=== PATIENT | male | born 1955 | race Caucasian/White ===

== ENCOUNTER → 2017-09-02 09:53 | Outpatient (CLI) | payer OTHER, SELFPAY ==
[2017-09-02 12:31] LABS: ALB/GLOB Ratio 0.8 RATIO (0.9-2.4); AST(SGOT) 35 U/L (15-37); Alanine Aminotransfer ALT/SGPT 68 U/L (16-61); Albumin, Serum 3.6 g/dL (3.2-5.0); Alkaline Phosphatase 52 U/L (45-117); Anion Gap 7 (5-15); BUN 17 mg/dL (7-18); Calcium,Total 8.9 mg/dL (8.5-10.1); Chloride 102 mmol/L (98-107); Creatinine, Serum 0.77 mg/dL (0.70-1.30); EST Glomerular Filtration Rate 109 mL/min (>60); Est Glom Filt Rate - Afr Amer 131 mL/min (>60); Globulin 4.4 g/dL (2.2-4.2); Glucose 189 mg/dL (74-106); Potassium 3.8 mmol/L (3.5-5.1); Sodium Level 136 mmol/L (136-145)
== END ==
PROVIDERS: Family Provider Family Medicine; PCP Family Medicine; Visit Provider Family Medicine
DX: K75.81 Nonalcoholic steatohepatitis (NASH) (principal); E11.9 Type 2 diabetes mellitus without complications
CPT/HCPCS: 36415; 80053

== ENCOUNTER → 2018-03-11 10:08 | Outpatient (CLI) | payer OTHER, SELFPAY ==
[2018-03-11 12:09] LABS: Absolute Lymphocyte Count 1.92 X10^3/ul (0.83-4.51); Absolute Neutrophil Count 2.7 X10^3/uL (2.0-7.7); Basophil# 0.04 X10^3/uL; Basophil% 0.7 % (0-1); Eosinophil# 0.17 X10^3/uL; Eosinophils% 3.2 % (0-5); Hematocrit 47.7 % (40-54); Hemoglobin 15.8 g/dl (13.0-16.5); Lymphocyte # 1.92 X10^3/ul (4.0); Lymphocyte % 35.7 % (19-41); Mean Corp Hgb Conc 33.1 g/gl (32-36); Mean Corpuscular Hgb 31.7 pg (27.0-32.0); Mean Corpuscular Volume 95.8 fL (80-94); Mean Platelet Vol. 11.1 fl (6.2-12.0); Monocyte# 0.52 X10^3/uL; Monocyte% 9.7 % (0-10); Neutrophil # 2.72 X10^3/uL (2.7-7.7); Neutrophil % 50.5 % (47-70); POSITIVE COUNT NO; POSITIVE DIFFERENTIAL NO; POSITIVE MORPHOLOGY NO; Platelet Count 204 K/mm3 (150-450); RBC Distribution Width CV 12.9 % (11.6-14.6); RBC Distribution Width SD 44.7 fl (35.1-43.9); Red Blood Count 4.98 M/mm3 (4.6-6.2); White Blood Count 5.4 K/mm3 (4.4-11.0)
[2018-03-11 12:37] LABS: ALB/GLOB Ratio 0.9 RATIO (0.9-2.4); AST(SGOT) 28 U/L (15-37); Alanine Aminotransfer ALT/SGPT 43 U/L (16-61); Albumin, Serum 3.8 g/dL (3.2-5.0); Alkaline Phosphatase 58 U/L (45-117); Anion Gap 9 (5-15); BUN 20 mg/dL (7-18); BUN/Creat Ratio 28.9 RATIO (10-20); Calcium,Total 8.7 mg/dL (8.5-10.1); Chloride 104 mmol/L (98-107); Cholesterol 191 mg/dL (200); Creatinine, Serum 0.69 mg/dL (0.70-1.30); EST Glomerular Filtration Rate 123 mL/min (>60); Est Glom Filt Rate - Afr Amer 149 mL/min (>60); Globulin 4.2 g/dL (2.2-4.2); Glucose 87 mg/dL (74-106); High Density Lipoprotein 47 mg/dL; Potassium 3.8 mmol/L (3.5-5.1); Sodium Level 140 mmol/L (136-145); Thyroid Stim Hormone (TSH) 1.26 uIU/mL (0.358-3.74); Triglycerides 99 mg/dL; Very Low Density Lipoprotein 20 mg/dL (5-40)
[2018-03-11 12:52] LABS: Vitamin B12 426 pg/mL (211-911)
== END ==
PROVIDERS: Family Provider Family Medicine; PCP Family Medicine; Visit Provider Family Medicine
DX: E11.9 Type 2 diabetes mellitus without complications (principal); I10 Essential (primary) hypertension; K75.81 Nonalcoholic steatohepatitis (NASH); G62.9 Polyneuropathy, unspecified
CPT/HCPCS: 36415; 80053; 80061; 82607; 84443; 85025

== ENCOUNTER → 2018-10-19 | Outpatient (CLI) | payer MEDICARE, SELFPAY ==
[2018-10-19 12:41] LABS: Basophil# 0.06 X10^3/uL; Eosinophil# 0.17 X10^3/uL; Eosinophils% 2.9 % (0-5); Hematocrit 46.4 % (40-54); Hemoglobin 15.5 g/dl (13.0-16.5); Lymphocyte % 34.2 % (19-41); Mean Corp Hgb Conc 33.4 g/gl (32-36); Mean Corpuscular Hgb 31.8 pg (27.0-32.0); Mean Corpuscular Volume 95.3 fL (80-94); Monocyte# 0.57 X10^3/uL; Monocyte% 9.7 % (0-10); Neutrophil # 3.04 X10^3/uL (2.7-7.7); Platelet Count 225 K/mm3 (150-450); RBC Distribution Width CV 13.4 % (11.6-14.6); RBC Distribution Width SD 46.5 fl (35.1-43.9); Red Blood Count 4.87 M/mm3 (4.6-6.2); White Blood Count 5.9 K/mm3 (4.4-11.0)
[2018-10-19 12:51] LABS: POSITIVE COUNT NO; POSITIVE DIFFERENTIAL NO; POSITIVE MORPHOLOGY NO
[2018-10-19 12:53] LABS: AST(SGOT) 21 U/L (15-37); Alanine Aminotransfer ALT/SGPT 27 U/L (16-61); Albumin, Serum 3.6 g/dL (3.2-5.0); Alkaline Phosphatase 61 U/L (45-117); Anion Gap 5 (5-15); BUN 16 mg/dL (7-18); Calcium,Total 8.6 mg/dL (8.5-10.1); Chloride 106 mmol/L (98-107); Creatinine, Serum 0.57 mg/dL (0.70-1.30); EST Glomerular Filtration Rate 153 mL/min (>60); Est Glom Filt Rate - Afr Amer 185 mL/min (>60); Globulin 3.6 g/dL (2.2-4.2); Glucose 117 mg/dL (74-106); Potassium 3.7 mmol/L (3.5-5.1); Protein, Total 7.2 g/dL (6.4-8.2); Sodium Level 137 mmol/L (136-145)
== END | disposition home or self-care (01) ==
PROVIDERS: Family Provider Family Medicine; PCP Family Medicine; Visit Provider Family Medicine
DX: E11.9 Type 2 diabetes mellitus without complications (principal); I10 Essential (primary) hypertension; K75.81 Nonalcoholic steatohepatitis (NASH)
CPT/HCPCS: 36415; 80053; 85025

== ENCOUNTER 2019-09-10 11:50 | Inpatient (IN) | payer MEDICARE, SELFPAY ==
[2019-09-10] VITALS (33 sets, daily range): BP systolic 159–226; BP diastolic 66–148; PULSE 53–69; RESP 11–19; TEMP 36.5–36.7; O2SAT 92–98; BMI 31.2; BMI 29.8
--- NOTE | 2019-09-10 12:06 | EKG12_ITS ---
Test Reason : NEURO Blood Pressure : / mmHG Vent. Rate : 054 BPM Atrial Rate : 054 BPM P-R Int : 158 ms QRS Dur : 094 ms QT Int : 468 ms P-R-T Axes : 022 019 -02 degrees QTc Int : 443 ms Sinus bradycardia Inferior infarct , age undetermined , cannot be excluded Abnormal ECG Confirmed by LIZZ DAN, MIRIAM ([id number]), book editor ABEL GILBERT ([id number]) on 09/13/2019 9:56:19 AM Referred By: ARMANDO Confirmed By:MIRIAM ZAMUDIO MD
--- NOTE | 2019-09-10 12:10 | RAD_ITS ---
EXAM DESCRIPTION: PORTABLE AP CHEST CLINICAL HISTORY: 63 years Male, WEAKNESS IN ALL EXTREMITIES BUT RIGHT LEG IS WORSE -- FAMILY THINKS PATIENT''S SPEECH IS LESS CLEAR THAN NORMAL WEAKNESS IN ALL EXTREMITIES BUT RIGHT LEG IS WORSE -- FAMILY THINKS PATIENT''S SPEECH IS LESS CLEAR THAN NORMAL COMPARISON: None FINDINGS: This patient has had a spinal fusion involving the lower cervical spine. The rest of the thorax is intact. The heart and mediastinum appear to be within normal limits. The lungs appear to be well areated without evidence of pneumonic consolidation or pleural effusion. RAD/Chest 1 View IMPRESSION: No acute pathology Electronically Signed: Kirby Arias, at 13:30 EST Tel , Service support ,
--- NOTE | 2019-09-10 12:12 | ED.VIS.GEN ---
History of Present Illness Chief Complaint: Neuro S/Sx Detail of Chief Complaint: Weakness, incoordination Informant: Patient Onset: Days Narrative: Patient states he woke either yesterday or the day before with a sensation that his legs just were not quite working right. He felt he kept catching his right toe when he was trying to walk. He denies numbness or tingling to his legs. Last evening he tried to play the guitar and states his hands just would not work right to play the guitar either. He denies headache. Past history is significant for hypertension diabetes. Patient states he lost quite a bit of weight in the last year and is been able to decrease many of his medications. - Past Medical History (1) Hypertension Status: Chronic (2) Diabetes Status: Chronic Past Medical History - Allergies and Home Meds Allergies/Adverse Reactions: Allergies loratadine [From Tavist [place]] Allergy (Verified 09/10/19 11:53) Hives Primary Care Physician: Paco Hart MD [Primary Care Provider] - Prior records reviewed: Yes Lives: Spouse/ Significant Other Review of Systems General: Denies: Chills, Fever Eyes: Denies: Visual changes - bilaterally ENT: Denies: Bilateral ear pain Cardiovascular: Denies: Chest pain, Palpitations Respiratory: Denies: Dyspnea, Cough Gastrointestinal: Denies: Abdominal pain, Nausea, Vomiting, Diarrhea Musculoskeletal: Denies: Back pain, Extremity Pain Skin: Denies: Rash Neurological: Reports: Weakness. Denies: Headache, Parasthesia Hematologic: Denies: Easy bruising, Easy bleeding Allergy: Denies: Uticaria Physical Exam Vital Signs/Narrative: Vital Signs Temp Pulse Resp BP Pulse Ox 09/10/19 11:50 98 F 62 16 221/96 H 98 Inital Vital Signs reviewed: Yes General: Well nourished, Well developed Head: Normocephalic ENT: Moist mucous membranes Neck: Supple Cardiovascular: Regular rate, Regular rhythm Respiratory: No distress, CTA bilaterally Abdomen: Soft, Nontender, Nondistended Extremities: Nontender Skin: Normal color, No rash Neurological: Alert, Oriented x3, - - NIH equals 1 for mild ataxia. Psychological: Normal affect Diagnostic/Tx/Re-eval Impressions Chest X-Ray 09/10/19 12:10 IMPRESSION: No acute pathology Electronically Signed: Kirby Arias, at 13:30 EST Tel , Service support , Head/Neck CTA 09/10/19 13:02 IMPRESSION: 1. Moderate (70%) right carotid stenosis. 2. Mild (20%) left carotid stenosis. 3. Patent vertebral arteries bilaterally. The left vertebral artery is hypoplastic. 4. No intracranial stenosis or aneurysm. Hypoplastic A1 segment the right anterior cerebral artery. Electronically Signed: Harley Mcnair MD at 14:18 EST Tel , Service support , 09/10/19 12:10 Chest 1 View [RAD] Stat 09/10/19 13:02 CTA Head AND Neck W/ Contrast [CT] Stat Laboratory Results 09/10/19 09/10/19 09/10/19 12:25 12:35 12:35 WBC 6.2 RBC 5.35 Hgb 17.2 H Hct 50.1 MCV 93.6 MCH 32.1 H MCHC 34.3 RDW Std Deviation 41.2 RDW Coeff of Adan 12.0 Plt Count 200 MPV 10.4 Immature Gran % (Auto) 0.300 Neut % (Auto) 62.0 Lymph % (Auto) 27.1 [place] % (Auto) 8.3 Eos % (Auto) 1.8 Baso % (Auto) 0.5 Absolute Neuts (auto) 3.8 Absolute Lymphs (auto) 1.67 Nucleated RBC % 0 PT 12.8 INR 1.0 APTT 27.6 Sodium Potassium Chloride Carbon Dioxide Anion Gap BUN Creatinine Estim Creat Clear Calc Est GFR (MDRD) Af Amer Est GFR (MDRD) Non-Af BUN/Creatinine Ratio Glucose Calcium Troponin I POC Glucose 137 H 09/10/19 12:35 WBC RBC Hgb Hct MCV MCH MCHC RDW Std Deviation RDW Coeff of Adan Plt Count MPV Immature Gran % (Auto) Neut % (Auto) Lymph % (Auto) [place] % (Auto) Eos % (Auto) Baso % (Auto) Absolute Neuts (auto) Absolute Lymphs (auto) Nucleated RBC % PT INR APTT Sodium 139 Potassium 3.7 Chloride 107 Carbon Dioxide 27.0 Anion Gap 5 BUN 19 H Creatinine 0.83 Estim Creat Clear Calc 85.17 Est GFR (MDRD) Af Amer 120 Est GFR (MDRD) Non-Af 99 BUN/Creatinine Ratio 22.8 H Glucose 132 H Calcium 8.7 Troponin I < 0.015 POC Glucose - EKG Initial EKG Interpretation: Sinus Bradycardia - Sinus bradycardia at 54. No acute ischemia. - Medical Decision Making Patient's blood pressure remained elevated in the 220s. He was given 10 mg of labetalol and pressure improved to the 170s systolic. At this time patient is resting comfortably in bed. He just returned from the restroom blood pressure is again elevated in the 220s to 240s. He will be given another dose of labetalol. Test results are discussed with him. He does have some stenosis noted in the carotid arteries, but I cannot say that this is the cause of his symptoms. He continues to have ataxia in the right upper extremity. I recommended hospitalization for MRI and further stroke work-up. Hospitalist is on page at this time. ED Disposition - Plan for ED Patient: Disposition: Acute Care Hospital [facility] Diagnosis: CVA (cerebral vascular accident), Hypertension Referrals: Paco Hart MD [Primary Care Provider] -
[2019-09-10 12:31] LABS: Bedside Glucose 137 mg/dL (70-110)
[2019-09-10 12:44] LABS: Absolute Lymphocyte Count 1.67 X10^3/uL (0.83-4.51); Absolute Neutrophil Count 3.8 X10^3/uL (2.0-7.7); Basophil# 0.03 X10^3/uL; Basophil% 0.5 % (0-1); Eosinophil# 0.11 X10^3/uL; Eosinophils% 1.8 % (0-5); Hematocrit 50.1 % (40-54); Hemoglobin 17.2 g/dL (13.0-16.5); Lymphocyte # 1.67 X10^3/ul (4.0); Lymphocyte % 27.1 % (19-41); Mean Corp Hgb Conc 34.3 g/dL (32-36); Mean Corpuscular Hgb 32.1 pg (27.0-32.0); Mean Corpuscular Volume 93.6 fL (80-94); Mean Platelet Vol. 10.4 fl (6.2-12.0); Monocyte# 0.51 X10^3/uL; Monocyte% 8.3 % (0-10); NRBC Flagged by Analyzer 0 % (0-5); Neutrophil # 3.82 X10^3/uL (2.7-7.7); Platelet Count 200 K/mm3 (150-450); RBC Distribution Width SD 41.2 fl (35.1-43.9); Red Blood Count 5.35 M/mm3 (4.6-6.2); White Blood Count 6.2 K/mm3 (4.4-11.0)
[2019-09-10 12:52] LABS: Partial Thromboplast Time 27.6 Seconds (24.1-36.2); Prothrombin Time (Protime)PT. 12.8 SECONDS (11.7-14.9)
--- NOTE | 2019-09-10 12:54 | ED.RN ---
PER DR. ROBERTS HOLD LABETALOL FOR NOW.
--- NOTE | 2019-09-10 13:02 | CT_ITS ---
STUDY: CTA HEAD AND NECK WITH CONTRAST REASON FOR EXAM: Male, 63 years old. Ataxia since yesterday, diabetes and hypertension. RADIATION DOSAGE (If Supplied By Facility): CTDIvol = ( 31.30 ) mGy, DLP = ( 1564.95 ) mGycm TECHNIQUE: CT angiography was performed with a multi-detector CT scanner. Data acquisition was obtained from the skull base through the vertex following intravenous administration of 100mL Isovue 370. MIP images were reconstructed from the axial data set. Post-processing of the angiographic images was performed, with multiplanar reformation and 3D reconstruction. Individualized dose optimization techniques were used for this CT. COMPARISON: No relevant priors. FINDINGS: Normal bilateral petrous carotid arteries. Normal right cavernous carotid artery with a normal supraclinoid bifurcation. Normal left cavernous carotid artery with a normal supraclinoid bifurcation. There is hypoplastic development of the right A1 segment of the anterior cerebral arteries with an atretic but intact artery. Normal left A1 segments of the anterior cerebral artery. Normal intact anterior communicating artery (ACOM). Normal bilateral A2 segments of the anterior cerebral arteries. Normal right M1 and M2 segments of the middle cerebral arteries, with a normal M1 bifurcation. Normal left M1 and M2 segments of the middle cerebral arteries, with a normal M1 bifurcation. Normal right posterior communicating artery (PCOM). Normal left posterior communicating artery (PCOM). Normal bilateral vertebral arteries. Normal basilar artery with a normal basilar bifurcation. The visualized bilateral superior cerebellar (SCA) arteries are normal. Normal bilateral P1, P2 and visualized P3 segments of the posterior cerebral arteries. There is no demonstrated aneurysm of the [place]. There is no demonstrated abnormality of the visualized brain. AORTIC ARCH: Normal visualized aortic arch. Normal origins of the brachiocephalic, left common carotid, and left subclavian arteries. RIGHT CAROTID ARTERIES: Normal right common carotid artery (CCA). There is moderate atherosclerotic plaque formation with moderate narrowing of the right carotid bulb. There is moderate atherosclerotic plaque formation of the origin of the right internal carotid artery with an estimated stenosis of 50-69% stenosis. Normal visualized cervical portion of the right internal carotid artery. Normal origin of the right external carotid artery (ECA). LEFT CAROTID ARTERIES: Normal left common carotid artery (CCA). There is mild atherosclerotic plaque formation with minimal narrowing of the left carotid bulb. There is mild atherosclerotic plaque formation of the origin of the left internal carotid artery with less than 50% cross sectional diameter stenosis. Normal visualized cervical portion of the left internal carotid artery. Normal origin of the left external carotid artery (ECA). VERTEBRAL ARTERIES: There is enhancement within the bilateral vertebral arteries with a small left vertebral artery, and a dominant right vertebral artery. CT/CTA Head AND Neck W/ Contrast IMPRESSION: 1. Moderate (70%) right carotid stenosis. 2. Mild (20%) left carotid stenosis. 3. Patent vertebral arteries bilaterally. The left vertebral artery is hypoplastic. 4. No intracranial stenosis or aneurysm. Hypoplastic A1 segment the right anterior cerebral artery. Electronically Signed: Harley Mcnair MD at 14:18 EST Tel , Service support ,
[2019-09-10 13:03] LABS: Anion Gap 5 (5-15); BUN 19 mg/dL (7-18); BUN/Creat Ratio 22.8 RATIO (10-20); Calcium,Total 8.7 mg/dL (8.5-10.1); Chloride 107 mmol/L (98-107); Creatinine, Serum 0.83 mg/dL (0.70-1.30); EST Glomerular Filtration Rate 99 mL/min (>60); Est Glom Filt Rate - Afr Amer 120 mL/min (>60); Estimated Creatinine Clearance 85.17 ml/min; Glucose 132 mg/dL (74-106); Potassium 3.7 mmol/L (3.5-5.1); Sodium Level 139 mmol/L (136-145)
--- NOTE | 2019-09-10 15:25 | HP.PCM_ITS ---
Problem List (1) CVA (cerebral vascular accident) Status: Acute Qualifiers: CVA mechanism: unspecified Qualified Code(s): I63.9 - Cerebral infarction, unspecified (2) Hypertensive emergency Status: Acute (3) Hypertension Status: Chronic Qualifiers: Hypertension type: essential hypertension Qualified Code(s): I10 - Essential (primary) hypertension (4) Diabetes Status: Chronic Qualifiers: Diabetes mellitus type: type 2 Diabetes mellitus prison insulin use: without prison use Diabetes mellitus complication status: with other specified complication Qualified Code(s): E11.69 - Type 2 diabetes mellitus with other specified complication History of Present Illness Date of Admission: 09/10/19 Chief Complaint: Imbalance, weakness, worse RLE, abnormal speech The patient is a 63 y/o M w/ PMHx: HTN, Obesity, Diabetes mellitus type II which he notes have been very well controlled following a 60 pound weight loss, not currently on regimen who presents to the [facility] ED on 09/10/19 with history of onset of mild right foot and right hand debility, difficulty with his balance, most notable upon awakening 2 days prior and ongoing but more severe when attempting to play the guitar, left-handed but notes he plays a guitar right-handed with family concern for mild slurred speech ongoing, not improving prompting eventual ED presentation. In the ED NIH 1 for right upper extremity ataxia however complicated by patient history of status post right shoulder rotator cuff repair with recurrent injury. Work-up in the ED included T 98, heart 62, BP initially 221/96, respiratory rate 16, 90% on room air, following ED IV BP regimen initiation repeat BP 181/72, remarkable CBC, unremarkable coags, BMP with gluco se 132 otherwise not marked appearing, troponin less than 0.015, x-ray with no acute cardiopulmonary findings, EKG was sinus bradycardia with no acute evidence of ischemia, CT head with no acute findings and CTA head neck with moderate 70% right carotid stenosis, mild 20% left carotid stenosis, patent vertebral arteries bilaterally, left vertebral artery hypoplastic, no intracranial stenosis or aneurysm, hypoplastic A1 segment of the right anterior cerebral artery. In the ED patient administered labetalol 20 mg IV. Despite patient labetalol regimen BP again improved to systolics into the 220s with any activity therefore discussed with the ED physician and plan initiation of nicardipine drip and ICU admission. Past Medical History Past Medical History (Chronic Problems): Chronic Problems Hypertension (Chronic) Diabetes (Chronic) Allergies loratadine [From [facility]ist ND] Allergy (Verified 09/10/19 11:53) Hives Home Medications: Ambulatory Orders Medication Instructions Recorded Amlodipine [Norvasc] 5 mg PO DAILY 09/10/19 Meloxicam 7.5 - 15 mg PO DAILY 09/10/19 Metoprolol(XL)Succ [Toprol Xl 100 mg PO DAILY 09/10/19 (Beta Lynda)] Ramipril 10 mg PO BID 09/10/19 metFORMIN HCl [Glucophage] 500 mg PO BIDCM 09/10/19 Surgical History: - - Right shoulder rotator cuff surgery, neck surgery with hardware, umbilical hernia repair, pilonidal cyst surgery. Psychiatric History: No pertinent psych hx Lives: With Family - Lives with his . Smoking Status: Former smoker - Quit cigarette tobacco usage in 1989 with prior to this 1 pack/day since youth. Tobacco Use: Non-smoker Alcohol: None Drugs: None - *Family History Maternal History Items: - - Maternal family history of hypertension. Paternal History Items: - - Paternal family history of cancer, unclear type. Review of Systems Constitutional: Reports: Fatigue. Denies: Anorexia, Chills, Fever, Malaise, Weakness, Weight Change HEENT: Denies: Head Aches, Sinus Congestion, Sinus Drainage Cardiovascular: Denies: Chest Pain, Palpitations Respiratory: Denies: Cough, Shortness of breath at rest, Sputum production Gastrointestinal: Denies: Abdominal Pain, Nausea, Vomiting Genitourinary: Denies: Dysuria Musculoskeletal: Reports: Joint Pain. Denies: Joint Tenderness Skin: Denies: Rash, Wounds Neurological: Reports: Balance problems, Incoordination. Denies: Focal weakness, Numbness, Tingling Psychiatric: Denies: Anxiety, Depression, Homicidal Ideations, Suicidal Ideations Hematologic/ Lymphatic: Denies: Easy Bruising, Easy Bleeding VTE Information - Inpt Only VTE Present on Admission: No VTE Mechan Device Prophylaxis: SCD's VTE Pharm Prophylaxis ordered?: Yes Patient Problems: Active and Suspected Problems CVA (cerebral vascular accident) (Acute) Hypertensive emergency (Acute) Subjective: Seated upright in the ED bed, mildly fatigued appearance, no acute distress. Objective: Physical Examination: General: awake, alert, oriented x 3 and cooperative, seated upright in the ED b ed in no apparent distress. Skin: normal color, turgor, no icterus, cyanosis. HEENT: AT/NC, EOMI, PERRLA, MMM, no carotid bruits or JVD noted. Lungs: CTA bilaterally, moderate effort, mild decrease BL bases, no rales, ronchi or wheezing. Heart: Mildly bradycardic with regular rhythm; no gallop, rub audible. Abdomen: soft, obese, NTTP, ND, normal BS, no HSM. Extremities: no cyanosis, clubbing, or edema. Neurological: patient awake, alert, oriented x 3; cognitive function intact; pupils equally reactive to light and accomodation; cranial nerves II-XII grossly normal, moving all 4 extremities, no focal deficits, strength preserved except expected difficulties with right upper extremity secondary to prior rotator cuff surgery and now recurrent injury, very mild questionable ataxia to the right upper extremity although complicated given history of injury, negative Babinski, some difficulty with [id number] right upper extremity otherwise normal, [id number] appropriate. Psychiatric: affect appears normal, no acute evidence of depressive or anxiety feelings. - Physical Exam Vitals/I&O's: Vital Signs Temp Pulse Resp BP Pulse Ox 98 F 56 L 17 181/72 H 94 09/10/19 11:50 09/10/19 14:00 09/10/19 14:00 09/10/19 14:00 09/10/19 14:00 Oxygen Delivery Method Room Air Weight: 199 lb 8.293 oz Body Mass Index (BMI) 31.2 Finger Stick Blood Glucose 137 Laboratory Results 09/10/19 12:25: POC Glucose 137 H 09/10/19 12:35: WBC 6.2, RBC 5.35, Hgb 17.2 H, Hct 50.1, MCV 93.6, MCH 32.1 H, MCHC 34.3, RDW Std Deviation 41.2, RDW Coeff of Adan 12.0, Plt Count 200, MPV 10.4, Immature Gran % (Auto) 0.300, Neut % (Auto) 62.0, Lymph % (Auto) 27.1, [place] % (Auto) 8.3, Eos % (Auto) 1.8, Baso % (Auto) 0.5, Absolute Neuts (auto) 3.8, Absolute Lymphs (auto) 1.67, Nucleated RBC % 0 09/10/19 12:35: PT 12.8, INR 1.0, APTT 27.6 09/10/19 12:35: Sodium 139, Potassium 3.7, Chloride 107, Carbon Dioxide 27.0, Anion Gap 5, BUN 19 H, Creatinine 0.83, Estim Creat Clear Calc 85.17, Est GFR (MDRD) Af Amer 120, Est GFR (MDRD) Non-Af 99, BUN/Creatinine Ratio 22.8 H, Glucose 132 H, Calcium 8.7, Troponin I < 0.015 Assessment/Plan All Active Problems CVA (cerebral vascular accident) (Acute) Hypertensive emergency (Acute) The patient is a 63 y/o M w/ PMHx: HTN, Obesity, Diabetes mellitus type II which he notes have been very well controlled following a 60 pound weight loss, not currently on regimen who presents to the [facility] ED on 09/10/19 with history of onset of mild right foot and right hand debility, difficulty with his balance, most notable upon awakening 2 days prior and ongoing but more severe when attempting to play the guitar, left-handed but notes he plays a guitar right-handed with family concern for mild slurred speech ongoing, not improving prompting eventual ED presentation. 1. Right upper extremity ataxia, speech alterations, imbalance concerning for CVA: Work-up in the ED included T 98, heart 62, BP initially 221/96, respiratory rate 16, 90% on room air, following ED IV BP regimen initiation repeat BP 181/72, remarkable CBC, unremarkable coags, BMP with glucose 132 otherwise not marked appearing, troponin less than 0.015, x-ray with no acute cardiopulmonary findings, EKG was sinus bradycardia with no acute evidence of ischemia, CT head with no acute findings and CTA head neck with moderate 70% right carotid stenosis, mild 20% left carotid stenosis, patent vertebral arteries bilaterally, left vertebral artery hypoplastic, no intracranial stenosis or aneurysm, hypoplastic A1 segment of the right anterior cerebral artery. In the ED patient administered labetalol 20 mg IV. Will admit to ICU given concurrent #2, will obtain MRI Brain, ECHO, PT/OT/Speech/Nutrition evaluation per protocol. Will plan AM consult with Neurology for evaluation once studies obtained. Will allow permissive HTN, maintain on asa, add high dose statin w/ AM FLP, fall precautions. Mag, TSH, HgbA1c pending. Planned ICU consultation given ICU admission. 2. Hypertensive emergency: Significantly elevated blood pressure with acute presentation with #1, will attempt to maintain goal, currently in the ED recurrent episodes greater than 220s, will initiate on nicardipine drip and transition as noted to the ICU pending improvement. 3. Carotid stenosis: CTA head neck with moderate 70% right carotid stenosis, mild 20% left carotid stenosis, initiating on aspirin, statin therapy, will obtain carotid ultrasound as this is the preference by Dr. Cr with planned consultation outpatient following discharge. 4. Diabetes mellitus type II: Not on regimen, obtain repeat hemoglobin A1c, nutrition consultation for education and teaching, ADA diet, accu checks w/ ISS. 5. Obesity: Weight loss and lifestyle changes encouraged. 6. DVT prophylaxis: SCDs, Lovenox. Code Visit Inpatient E&M: 82338 Init Hosp L3
--- NOTE | 2019-09-10 17:24 | MRI_ITS ---
We are attempting to reach an attending provider to discuss findings. An addendum with communication details will be sent when the communication is complete. STUDY: MRI BRAIN WITHOUT CONTRAST REASON FOR EXAM: Male, 63 years old. Speech changes,ataxia, RIGHT arm and leg weakness, HTN TECHNIQUE: Standardized multiplanar fat and water weighted pulse sequences were obtained. COMPARISON: CTA head 09/10/2019 FINDINGS: There are mild central and cortical involutional changes. There are deep white matter subcentimeter increased T2 signal abnormalities. There is a 6 mm increased T2 signal abnormality within the right basal ganglia. There is a 4 mm x 7 mm focal area of restricted diffusion within the left basal ganglia.. Normal thalami. There is no extra-axial fluid accumulation. Normal flow voids within the major intracranial circulation suggesting patency by spin echo criteria. Normal sella turcica, pituitary gland, infundibular stalk, optic chiasm and hypothalamus. Normal tectal plate and pineal gland. Normal midbrain, zackery and medulla. Normal cerebellum. Normal basal cisterns. Normal bilateral temporal bones. Normal bilateral internal auditory canals. No demonstrated orbital abnormality, within the constraints of a routine brain study. There is mild edema of the turbinates. Deviation of bony nasal septum to the right mild mucosal thickening paranasal sinuses.. Normal calvarium and skull base. Normal visualized soft tissue structures. Normal visualized upper cervical spine. MRI/Brain without Contrast IMPRESSION: Central and cortical involutional changes Acute 4 mm x 7 mm lacunar infarct within the left basal ganglia Deep white matter small vessel old ischemic changes Mild inflammatory changes paranasal sinuses as above Electronically Signed: Eugene Aguilar, at 20:42 EST Tel , Service support ,
--- NOTE | 2019-09-10 17:24 | ECHOD_ITS ---
Reason For Study: TIA/CVA Procedure This was a 2D Doppler, Color Flow transthoracic echocardiogram. The study was technically difficult. Exam performed portable in ICU/CCU. Left Ventricle Normal LV size. Left ventricular systolic function is normal. The estimated ejection fraction is 65 %. Diastolic function is indeterminate. No regional wall motion abnormalities noted. Right Ventricle Normal RV size. Normal systolic function. Atria Normal left atrium. Normal right atrium. No doppler evidence for ASD. Bubble contrast study negative for right to left interatrial shunt. Mitral Valve There is no mitral annular calcification. Normal mitral valve. Trivial mitral valve insufficiency. Tricuspid Valve Normal tricuspid valve. Mild tricuspid valve insufficiency. Right ventricular systolic pressure estimated to be 28 mmHg. Aortic Valve Trisinus/trileaflet aortic valve. Mild focal aortic valve thickening. Pulmonic Valve The pulmonic valve is not well visualized. Great Vessels Normal sized aortic root. Pericardium/Pleural No pericardial effusion. Medication Performed a rapid injection of agitated mix of 9 cc saline and 1cc air to assess for atrial septal defect. MMode/2D Measurements & Calculations LVIDd: 5.3 cm IVSd: 1.1 cm Ao root diam: 2.9 cm LVIDs: 3.4 cm LVPWd: 1.4 cm RVDd: 4.5 cm FS: 36.8 % LAV(MOD-bp): 63.0 ml LVAd ap4: 28.3 cm2 SV(MOD-sp4): 55.3 ml LAV(MOD-bp) Indexed: 31.6 ml/m2 EDV(MOD-sp4): 81.4 ml LAV(MOD-sp2): 43.1 ml EDV(sp4-el): 83.9 ml LAV(MOD-sp4): 78.7 ml LVAs ap4: 14.4 cm2 ESV(MOD-sp4): 26.1 ml ESV(sp4-el): 27.0 ml EF(MOD-sp4): 67.9 % EF(sp4-el): 67.9 % SV(sp4-el): 56.9 ml LA A4 area: 25.6 cm2 LA dimension(2D): 3.7 cm RA A4 area: 14.1 cm2 Doppler Measurements & Calculations MV E max [place]: 89.4 cm/sec Lat Peak E' [place]: 3.6 cm/sec Med Peak E' [place]: 4.8 cm/sec MV A max [place]: 133.0 cm/sec E/E' lat: 24.7 E/E' med: 18.5 MV E/A: 0.67 Ao V2 max: 165.2 cm/sec LV V1 max: 128.0 cm/sec PA V2 max: 105.7 cm/sec Ao max P.9 mmHg LV V1 max P.6 mmHg Ao V2 mean: 117.2 cm/sec Ao mean P.1 mmHg Ao V2 VTI: 36.2 cm TR max [place]: 252.1 cm/sec TR max P.4 mmHg Interpretation Summary Left ventricular systolic function is normal. The estimated ejection fraction is 65 %. Trivial mitral valve insufficiency. Mild tricuspid valve insufficiency. Mild focal aortic valve thickening. Right ventricular systolic pressure estimated to be 28 mmHg. Diastolic function is indeterminate. Bubble contrast study negative for right to left interatrial shunt. Ordering Physician: Aneta Palmer Referring Physician: Paco Hart Performed By: Evangelina Kunz, DONOVAN, RVT
[2019-09-10 18:32] LABS: Magnesium 2.2 mg/dL (1.6-2.6); Thyroid Stim Hormone (TSH) 1.57 uIU/mL (0.358-3.74)
[2019-09-10 18:33] LABS: Hemoglobin A1c 6.4 % (4.2-6.3)
[2019-09-10] MEDS: 0.9% Normal Saline 1,000 ML 100 ML IV (19:00)
[2019-09-10] MEDS: 0.9% Normal Saline 1,000 ML 999 ML IV (19:37)
[2019-09-10] MEDS: Ondansetron 4 MG/2 ML Vial IV (20:21)
--- NOTE | 2019-09-10 22:20 | PN_ITS ---
Progress Note I was informed about brain MRI findings of acute lacunar infarct in theleft basal ganglia by nurse. Brain MRI findings reviewed, and showed acute 4mm x 7mm lacunar infarct within left basal ganglia. Patient was admitted [facility] stroke like symptoms and elevated. I placed an emergent consult [facility] SOC teleneurology. Neurology reviewed patient and recommended aspirin 81mg daily and plavix 75mg daily. CTA head and neck showed moderate 70% right carotid stenosis and 20% mild left carotid stenosis with patent vertebral arteries bilaterally. Per neurology, a vascular surgery consult is recommended before discharge. He is currently on atorvastatin 80mg qhs, will continue. STROKE Vital Signs/Narrative: Vital Signs Pulse Resp BP BP Pulse Ox 09/10/19 22:00 60 19 H 183/73 H 93 09/10/19 21:05 16 93 09/10/19 21:00 66 15 176/76 H 94 09/10/19 20:30 61 15 198/77 H 94 09/10/19 20:15 60 15 159/88 H 97 09/10/19 20:00 61 15 95 09/10/19 19:45 58 L 180/81 H 95 09/10/19 19:30 61 176/89 H 97 09/10/19 19:18 59 L 19 H 178/93 H 95 09/10/19 19:00 58 L 182/80 H 92 09/10/19 18:44 63 213/80 H 93 09/10/19 18:30 64 16 206/84 H 96
[2019-09-10] MEDS: Atorvastatin Calcium 80 MG Tablet PO (22:26)
[2019-09-10] MEDS: Famotidine 20 MG Tablet PO (22:26)
[2019-09-10 22:31] LABS: Bedside Glucose 139 mg/dL (70-110)
[2019-09-10] MEDS: Clopidogrel Bisulfate 75 MG Tablet PO (22:33)
[2019-09-11] VITALS (42 sets, daily range): BP systolic 136–218; BP diastolic 64–107; PULSE 55–88; RESP 13–25; TEMP 36.6–37.4; O2SAT 91–97; BMI 29.8
[2019-09-11 04:38] LABS: Absolute Lymphocyte Count 0.77 X10^3/uL (0.83-4.51); Absolute Neutrophil Count 7.5 X10^3/uL (2.0-7.7); Basophil# 0.02 X10^3/uL; Basophil% 0.2 % (0-1); Eosinophil# 0.12 X10^3/uL; Eosinophils% 1.3 % (0-5); Hemoglobin 16.5 g/dL (13.0-16.5); Lymphocyte # 0.77 X10^3/ul (4.0); Lymphocyte % 8.7 % (19-41); Mean Corp Hgb Conc 33.7 g/dL (32-36); Mean Corpuscular Hgb 31.6 pg (27.0-32.0); Mean Corpuscular Volume 93.9 fL (80-94); Mean Platelet Vol. 10.7 fl (6.2-12.0); Monocyte# 0.49 X10^3/uL; Monocyte% 5.5 % (0-10); NRBC Flagged by Analyzer 0 % (0-5); Neutrophil # 7.47 X10^3/uL (2.7-7.7); Neutrophil % 84.1 % (47-70); Platelet Count 177 K/mm3 (150-450); RBC Distribution Width CV 12.3 % (11.6-14.6); RBC Distribution Width SD 42.3 fl (35.1-43.9); Red Blood Count 5.22 M/mm3 (4.6-6.2); White Blood Count 8.9 K/mm3 (4.4-11.0)
[2019-09-11 04:52] LABS: Anion Gap 7 (5-15); BUN 19 mg/dL (7-18); BUN/Creat Ratio 28.4 RATIO (10-20); Chloride 105 mmol/L (98-107); Cholesterol 214 mg/dL (200); Creatinine, Serum 0.67 mg/dL (0.70-1.30); EST Glomerular Filtration Rate 127 mL/min (>60); Est Glom Filt Rate - Afr Amer 154 mL/min (>60); Estimated Creatinine Clearance 105.51 ml/min; Glucose 145 mg/dL (74-106); High Density Lipoprotein 47 mg/dL; Potassium 3.9 mmol/L (3.5-5.1); Sodium Level 139 mmol/L (136-145); Triglycerides 137 mg/dL; Very Low Density Lipoprotein 27 mg/dL (5-40)
--- NOTE | 2019-09-11 06:22 | PCM.CON.CC ---
Reason for Consult Date of Consultation: 09/11/19 Reason for Consultation: CVA, hypertensive emergency History of Present Illness: The patient is a 63-year-old male, with a history as outlined below, who presented to the emergency department on September 10 with complaints of loss of hand dexterity and gait imbalance. The patient does have a known history of hypertension and diabetes mellitus. The patient is a lifelong non-smoker. On presentation to the emergency department, the patient was noted to be afebrile but had an elevated blood pressure to 221/96 mmHg. Initial laboratory evaluation revealed no evidence of a leukocytosis. Coagulation profile was within normal limits. Chemistry profile was unremarkable. Troponin was negative. TSH was within normal limits. Plain film chest x-ray revealed no acute cardiopulmonary process. CTA head and neck was obtained and revealed moderate right-sided carotid stenosis and mild left stenosis. Brain MRI revealed an acute lacunar infarct within the left basal ganglia. A telemetry neurology consult was obtained. The patient was subsequently admitted to the medical intensive care unit for further management. Past Medical History Past Medical History (Chronic Problems): Chronic Problems Hypertension (Chronic) Diabetes (Chronic) Allergies loratadine [From [facility] [place]] Allergy (Verified 09/10/19 11:53) Hives Home Medications: Ambulatory Orders Medication Instructions Recorded Amlodipine [Norvasc] 5 mg PO DAILY 09/10/19 Meloxicam 7.5 - 15 mg PO DAILY 09/10/19 Metoprolol(XL)Succ [Toprol Xl 100 mg PO DAILY 09/10/19 (Beta Lynda)] Ramipril 10 mg PO BID 09/10/19 metFORMIN HCl [Glucophage] 500 mg PO BIDCM 09/10/19 Surgical History: - - Right shoulder rotator cuff surgery, neck surgery with hardware, umbilical hernia repair, pilonidal cyst surgery. Psychiatric History: No pertinent psych hx Lives: With Family - Lives with his . Smoking Status: Former smoker - Quit cigarette tobacco usage in 1989 with prior to this 1 pack/day since youth. Tobacco Use: Non-smoker Alcohol: None Drugs: None - *Family History Maternal History Items: - - Maternal family history of hypertension. Paternal History Items: - - Paternal family history of cancer, unclear type. Review of Systems Constitutional: Denies: Chills, Fever, Weight Change HEENT: Denies: Head Aches, Sinus Congestion, Sinus Drainage Cardiovascular: Denies: Chest Pain, Palpitations Respiratory: Denies: Cough, Shortness of breath at rest, Sputum production Gastrointestinal: Denies: Abdominal Pain, Nausea, Vomiting Genitourinary: Denies: Dysuria Musculoskeletal: Denies: Joint Pain, Joint Tenderness Skin: Denies: Rash, Wounds Neurological: Reports: Incoordination, Numbness Psychiatric: Denies: Anxiety, Depression, Homicidal Ideations, Suicidal Ideations Hematologic/ Lymphatic: Denies: Easy Bruising, Easy Bleeding Patient Problems: Active and Suspected Problems CVA (cerebral vascular accident) (Acute) Hypertensive emergency (Acute) Objective: The patient's most recent lab work, culture data and imaging studies have all been personally reviewed. - Physical Exam Vitals/I&O's: Vital Signs Temp Pulse Resp BP Pulse Ox 98.1 F 61 16 182/70 H 94 09/11/19 05:00 09/11/19 05:00 09/11/19 05:00 09/11/19 06:00 09/11/19 06:00 Oxygen Delivery Method Room Air Weight: 193 lb 12.581 oz Body Mass Index (BMI) 29.8 Finger Stick Blood Glucose 137 Intake and Output for Last 24 Hours 09/09/19 09/10/19 09/11/19 23:59 23:59 23:59 Intake Total 450 / 450 Output Total 125 / 125 Balance 325 / 325 General: Alert, Cooperative, No apparent distress HEENT: Atraumatic, PERRLA, Normocephalic Oral: No Gingival or Mucosal Lesions/ Ulcerations Neck: Supple, No Nodes, Trachea Midline Lungs: No rhonchi, No wheeze, No rales Cardiovascular: Regular rate, Regular Rhythm, Normal S1, Normal S2, No murmurs Abdomen: Bowel Sounds Present, Soft, Non Tender Extremities: No clubbing, No cyanosis, No edema Skin: No breakdown Musculoskeletal: No Tenderness to Palpation of Joints or Extremities, No Muscle Wasting Lymphatic: No Cervical, Supraclavicular, or Inguinal Adenopathy Neurological: - - No focal neurological deficits. Psych/Mental Status: Normal Affect, Appropriate Labs (Last 48 Hours) 09/10/19 09/10/19 09/10/19 12:25 12:35 12:35 WBC 6.2 RBC 5.35 Hgb 17.2 H Hct 50.1 MCV 93.6 MCH 32.1 H MCHC 34.3 RDW Std Deviation 41.2 RDW Coeff of Adan 12.0 Plt Count 200 MPV 10.4 Immature Gran % (Auto) 0.300 Neut % (Auto) 62.0 Lymph % (Auto) 27.1 [place] % (Auto) 8.3 Eos % (Auto) 1.8 Baso % (Auto) 0.5 Absolute Neuts (auto) 3.8 Absolute Lymphs (auto) 1.67 Nucleated RBC % 0 PT 12.8 INR 1.0 APTT 27.6 Sodium Potassium Chloride Carbon Dioxide Anion Gap BUN Creatinine Estim Creat Clear Calc Est GFR (MDRD) Af Amer Est GFR (MDRD) Non-Af BUN/Creatinine Ratio Glucose Hemoglobin A1c Calcium Magnesium Troponin I Triglycerides Cholesterol LDL Cholesterol VLDL Cholesterol HDL Cholesterol TSH POC Glucose 137 H 09/10/19 09/10/19 09/10/19 12:35 12:35 12:35 WBC RBC Hgb Hct MCV MCH MCHC RDW Std Deviation RDW Coeff of Adan Plt Count MPV Immature Gran % (Auto) Neut % (Auto) Lymph % (Auto) [place] % (Auto) Eos % (Auto) Baso % (Auto) Absolute Neuts (auto) Absolute Lymphs (auto) Nucleated RBC % PT INR APTT Sodium 139 Potassium 3.7 Chloride 107 Carbon Dioxide 27.0 Anion Gap 5 BUN 19 H Creatinine 0.83 Estim Creat Clear Calc 85.17 Est GFR (MDRD) Af Amer 120 Est GFR (MDRD) Non-Af 99 BUN/Creatinine Ratio 22.8 H Glucose 132 H Hemoglobin A1c 6.4 H Calcium 8.7 Magnesium 2.2 Troponin I < 0.015 Triglycerides Cholesterol LDL Cholesterol VLDL Cholesterol HDL Cholesterol TSH 1.57 POC Glucose 09/10/19 09/11/19 09/11/19 22:19 04:24 04:24 WBC 8.9 RBC 5.22 Hgb 16.5 Hct 49.0 MCV 93.9 MCH 31.6 MCHC 33.7 RDW Std Deviation 42.3 RDW Coeff of Adan 12.3 Plt Count 177 MPV 10.7 Immature Gran % (Auto) 0.200 Neut % (Auto) 84.1 H Lymph % (Auto) 8.7 L [place] % (Auto) 5.5 Eos % (Auto) 1.3 Baso % (Auto) 0.2 Absolute Neuts (auto) 7.5 Absolute Lymphs (auto) 0.77 L Nucleated RBC % 0 PT INR APTT Sodium 139 Potassium 3.9 Chloride 105 Carbon Dioxide 27.0 Anion Gap 7 BUN 19 H Creatinine 0.67 L Estim Creat Clear Calc 105.51 Est GFR (MDRD) Af Amer 154 Est GFR (MDRD) Non-Af 127 BUN/Creatinine Ratio 28.4 H Glucose 145 H Hemoglobin A1c Calcium 8.0 L Magnesium Troponin I Triglycerides 137 Cholesterol 214 H LDL Cholesterol 140 H VLDL Cholesterol 27 HDL Cholesterol 47 TSH POC Glucose 139 H Clinical Impression(s) from Imaging Studies Chest X-Ray 09/10/19 12:10 IMPRESSION: No acute pathology Electronically Signed: Kirby Arias at 13:30 EST Tel , Service support , Head/Neck CTA 09/10/19 13:02 IMPRESSION: 1. Moderate (70%) right carotid stenosis. 2. Mild (20%) left carotid stenosis. 3. Patent vertebral arteries bilaterally. The left vertebral artery is hypoplastic. 4. No intracranial stenosis or aneurysm. Hypoplastic A1 segment the right anterior cerebral artery. Electronically Signed: Harley Mcnair MD at 14:18 EST Tel , Service support , Brain MRI 09/10/19 17:24 IMPRESSION: Central and cortical involutional changes Acute 4 mm x 7 mm lacunar infarct within the left basal ganglia Deep white matter small vessel old ischemic changes Mild inflammatory changes paranasal sinuses as above Electronically Signed: Eugene Aguilar, at 20:42 EST Tel , Service support , ADDENDUM: 09/10/192058 IMPRESSION: Central and cortical involutional changes Acute 4 mm x 7 mm lacunar infarct within the left basal ganglia Deep white matter small vessel old ischemic changes Mild inflammatory changes paranasal sinuses as above N.B. : The above information has been verbally conveyed by Eugene Aguilar to Lakshmi Nolan RN, on 09/10/2019 20:52:36 (ET). Electronically Signed: Eugene Aguilar, at 20:42 EST Tel , Service support , Current Medications Acetaminophen (Tylenol) 650 mg PO Q6H PRN PRN PRN Reason: Pain Score 1-10/Temp > 100.7 F Al Hydroxide/Mg Hydroxide (Mylanta Ii) 30 ml PO Q6H PRN PRN PRN Reason: Gastric Burning Albuterol Sulfate (Ventolin Aerosols) 2.5 mg INHALATION Q2H PRN PRN PRN Reason: SOB/Wheezing Aspirin (Aspirin, Baby) 81 mg PO DAILY@0800 [facility] Atorvastatin Calcium (Lipitor) 80 mg PO QHS [facility] Last Admin: 09/10/19 22:26 Dose: 80 mg Documented by: Clopidogrel Bisulfate (Plavix) 75 mg PO DAILY [facility] Last Admin: 09/10/19 22:33 Dose: 75 mg Documented by: Enoxaparin Sodium (Lovenox) 40 mg SC DAILY [facility] Famotidine (Pepcid) 20 mg PO BID [facility] Last Admin: 09/10/19 22:26 Dose: 20 mg Documented by: Glucagon () 1 mg IM .X1 PRN PRN Reason: Hypoglycemia Guaifenesin (Robitussin) 20 ml PO Q4H PRN PRN PRN Reason: COUGH Hydralazine HCl (Apresoline Iv) 5 mg IV Q30M PRN PRN Reason: sbp > 220/120 Nicardipine HCl 25 mg/ Sodium (Chloride) 250 mls @ 50 mls/hr CONT INF .Q5H [facility]; Protocol Last Admin: 09/11/19 05:57 Dose: Not Given Documented by: Dextrose (Dextrose 10%-Water) 250 mls @ 999 mls/hr IV .Q16M PRN; Protocol PRN Reason: HYPOGLYCEMIA Insulin Human Lispro (Humalog Kwikpen (Bkc)) 0 unit SC ACHS [facility]; Protocol Last Admin: 09/10/19 22:23 Dose: Not Given Documented by: Magnesium Hydroxide (Milk Of Magnesia) 30 ml PO DAILY PRN PRN PRN Reason: Constipation Melatonin (Melatonin) 3 mg PO QHS PRN PRN PRN Reason: INSOMNIA Nitroglycerin (Nitrostat) 0.4 mg SUBLINGUAL Q5M PRN PRN Reason: CARDIAC/CHEST PAIN Ondansetron HCl (Zofran) 4 mg IV Q8H PRN PRN PRN Reason: NAUSEA/VOMITING Last Admin: 09/10/19 20:21 Dose: 4 mg Documented by: Prochlorperazine Edisylate (Compazine Iv) 5 mg IV Q4H PRN PRN PRN Reason: Breakthrough Nausea/Vomiting Psyllium Hydrophilic Mucilloid (Metamucil) 1 packet PO DAILY PRN PRN PRN Reason: Constipation Senna/Docusate Sodium (Senokot-S, Miguelina-Colace) 2 tablet PO BID PRN PRN PRN Reason: Constipation Sodium Chloride () 10 - 40 ml IV UD PRN PRN Reason: SALINE FLUSH Throat Lozenges (Cepacol Sore Throat Lozenge) 1 lozenge MUCOUS MEM Q2H PRN PRN PRN Reason: SORE THROAT Assessment/Plan Active and Suspected Problems CVA (cerebral vascular accident) (Acute) Hypertensive emergency (Acute) RECOMMENDATIONS: 1. Allow for permissive hypertension. Treat systolic blood pressures in excess of 180 mmHg. 2. Continue high-dose statin. 3. Surface echocardiogram. 4. Aspirin and Plavix. 5. PT/OT evaluations. IMPRESSIONS: 1. Acute CVA/hypertensive emergency Continue routine post stroke protocol. Allow for permissive hypertension and treat for systolic blood pressures greater than 180 mmHg. Start statin, aspirin and Plavix per neurology. PT/OT evaluations pending. Carotid Dopplers can likely be completed on an outpatient basis with vascular surgery follow-up. P.o. antihypertensive regimen will be started today. 2. Carotid stenosis The patient will require outpatient vascular surgery consultation. 3. Diabetes mellitus/obesity Complicates care, management, recovery and prognosis. This note was generated with [employer] dictation software. It may contain incorrect words, spelling, and punctuation that were not noted in checking the note before signing. Code Visit Inpatient E&M: 97130 Init Hosp L3
[2019-09-11 07:00] LABS: Bedside Glucose 161 mg/dL (70-110)
--- NOTE | 2019-09-11 07:54 | PN_ITS ---
Patient Problems: Active and Suspected Problems CVA (cerebral vascular accident) (Acute) Hypertensive emergency (Acute) Reason for Visit: Acute ischemic stroke Objective: History taken from the patient. 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 He finds difficulty in the coordination of fingers mainly try to play guitar. His also noticed slurring/mild language deficit, loss of balance and gait coordination. Currently NIH stroke scale 0. Vitals/I&O's: Vital Signs Temp Pulse Resp BP Pulse Ox 98.1 F 61 16 182/70 H 94 09/11/19 05:00 09/11/19 05:00 09/11/19 05:00 09/11/19 06:00 09/11/19 06:00 Oxygen Delivery Method Room Air Weight: 193 lb 12.581 oz Body Mass Index (BMI) 29.8 Finger Stick Blood Glucose 137 Intake and Output for Last 24 Hours 09/09/19 09/10/19 09/11/19 23:59 23:59 23:59 Intake Total 450 / 450 Output Total 375 / 375 Balance 75 / 75 General: Alert, Oriented x3, Cooperative HEENT: Atraumatic, PERRLA, EOMI, Normocephalic Neck: Supple, No JVD, Negative Carotid Bruits Lungs: Clear to auscultation, No rhonchi, No wheeze, No rales, Diminished Cardiovascular: Regular rate, Regular Rhythm, Normal S1, Normal S2, No murmurs, - - Telemetry reviewed. Normal sinus rhythm Abdomen: Bowel Sounds Present, Soft, Non Tender, Non-Distended Extremities: No edema, Capillary Refill Less than 3 Seconds Skin: No rashes, No breakdown Musculoskeletal: No Tenderness to Palpation of Joints or Extremities, Arthritic Changes Neurological: Cranial nerves II-XII grossly intact, Deep Tendon Reflexes 2+/4 and Symmetrical, Neuro grossly intact Psych/Mental Status: Normal Affect, Appropriate Laboratory Results 09/10/19 12:25: POC Glucose 137 H 09/10/19 12:35: WBC 6.2, RBC 5.35, Hgb 17.2 H, Hct 50.1, MCV 93.6, MCH 32.1 H, MCHC 34.3, RDW Std Deviation 41.2, RDW Coeff of Adan 12.0, Plt Count 200, MPV 10.4, Immature Gran % (Auto) 0.300, Neut % (Auto) 62.0, Lymph % (Auto) 27.1, [place] % (Auto) 8.3, Eos % (Auto) 1.8, Baso % (Auto) 0.5, Absolute Neuts (auto) 3.8, Absolute Lymphs (auto) 1.67, Nucleated RBC % 0 09/10/19 12:35: PT 12.8, INR 1.0, APTT 27.6 09/10/19 12:35: Sodium 139, Potassium 3.7, Chloride 107, Carbon Dioxide 27.0, Anion Gap 5, BUN 19 H, Creatinine 0.83, Estim Creat Clear Calc 85.17, Est GFR (MDRD) Af Amer 120, Est GFR (MDRD) Non-Af 99, BUN/Creatinine Ratio 22.8 H, Glucose 132 H, Calcium 8.7, Troponin I < 0.015 09/10/19 12:35: Magnesium 2.2, TSH 1.57 09/10/19 12:35: Hemoglobin A1c 6.4 H 09/10/19 22:19: POC Glucose 139 H 09/11/19 04:24: WBC 8.9, RBC 5.22, Hgb 16.5, Hct 49.0, MCV 93.9, MCH 31.6, MCHC 33.7, RDW Std Deviation 42.3, RDW Coeff of Adan 12.3, Plt Count 177, MPV 10.7, Immature Gran % (Auto) 0.200, Neut % (Auto) 84.1 H, Lymph % (Auto) 8.7 L, [place] % (Auto) 5.5, Eos % (Auto) 1.3, Baso % (Auto) 0.2, Absolute Neuts (auto) 7.5, Absolute Lymphs (auto) 0.77 L, Nucleated RBC % 0 09/11/19 04:24: Sodium 139, Potassium 3.9, Chloride 105, Carbon Dioxide 27.0, Anion Gap 7, BUN 19 H, Creatinine 0.67 L, Estim Creat Clear Calc 105.51, Est GFR (MDRD) Af Amer 154, Est GFR (MDRD) Non-Af 127, BUN/Creatinine Ratio 28.4 H, Glucose 145 H, Calcium 8.0 L, Triglycerides 137, Cholesterol 214 H, LDL Cholesterol 140 H, VLDL Cholesterol 27, HDL Cholesterol 47 09/11/19 06:51: POC Glucose 161 H Current Medications Acetaminophen (Tylenol) 650 mg PO Q6H PRN PRN PRN Reason: Pain Score 1-10/Temp > 100.7 F Al Hydroxide/Mg Hydroxide (Mylanta Ii) 30 ml PO Q6H PRN PRN PRN Reason: Gastric Burning Albuterol Sulfate (Ventolin Aerosols) 2.5 mg INHALATION Q2H PRN PRN PRN Reason: SOB/Wheezing Aspirin (Aspirin, Baby) 81 mg PO DAILY@0800 [facility] Atorvastatin Calcium (Lipitor) 80 mg PO QHS [facility] Last Admin: 09/10/19 22:26 Dose: 80 mg Documented by: Clopidogrel Bisulfate (Plavix) 75 mg PO DAILY [facility] Last Admin: 09/10/19 22:33 Dose: 75 mg Documented by: Enoxaparin Sodium (Lovenox) 40 mg SC DAILY [facility] Famotidine (Pepcid) 20 mg PO BID [facility] Last Admin: 09/10/19 22:26 Dose: 20 mg Documented by: Glucagon () 1 mg IM .X1 PRN PRN Reason: Hypoglycemia Guaifenesin (Robitussin) 20 ml PO Q4H PRN PRN PRN Reason: COUGH Hydralazine HCl (Apresoline Iv) 5 mg IV Q30M PRN PRN Reason: sbp > 220/120 Nicardipine HCl 25 mg/ Sodium (Chloride) 250 mls @ 50 mls/hr CONT INF .Q5H [facility]; Protocol Last Admin: 09/11/19 05:57 Dose: Not Given Documented by: Dextrose (Dextrose 10%-Water) 250 mls @ 999 mls/hr IV .Q16M PRN; Protocol PRN Reason: HYPOGLYCEMIA Insulin Human Lispro (Humalog Kwikpen (Bkc)) 0 unit SC ACHS [facility]; Protocol Last Admin: 09/10/19 22:23 Dose: Not Given Documented by: Magnesium Hydroxide (Milk Of Magnesia) 30 ml PO DAILY PRN PRN PRN Reason: Constipation Melatonin (Melatonin) 3 mg PO QHS PRN PRN PRN Reason: INSOMNIA Nitroglycerin (Nitrostat) 0.4 mg SUBLINGUAL Q5M PRN PRN Reason: CARDIAC/CHEST PAIN Ondansetron HCl (Zofran) 4 mg IV Q8H PRN PRN PRN Reason: NAUSEA/VOMITING Last Admin: 09/10/19 20:21 Dose: 4 mg Documented by: Prochlorperazine Edisylate (Compazine Iv) 5 mg IV Q4H PRN PRN PRN Reason: Breakthrough Nausea/Vomiting Psyllium Hydrophilic Mucilloid (Metamucil) 1 packet PO DAILY PRN PRN PRN Reason: Constipation Senna/Docusate Sodium (Senokot-S, Miguelina-Colace) 2 tablet PO BID PRN PRN PRN Reason: Constipation Sodium Chloride () 10 - 40 ml IV UD PRN PRN Reason: SALINE FLUSH Throat Lozenges (Cepacol Sore Throat Lozenge) 1 lozenge MUCOUS MEM Q2H PRN PRN PRN Reason: SORE THROAT STROKE Vital Signs/Narrative: Vital Signs Temp Pulse Resp BP Pulse Ox 09/11/19 06:00 182/70 H 94 09/11/19 05:00 98.1 F 61 16 162/73 H 92 09/11/19 04:00 98.1 F 63 15 194/82 H 92 Medical Necessity - Tobacco Use Smoking Status: Former smoker - Quit cigarette tobacco usage in 1989 with prior to this 1 pack/day since youth. Tobacco Use: Non-smoker Assessment/Plan All Active Problems CVA (cerebral vascular accident) (Acute) Hypertensive emergency (Acute) The patient is a 63 y/o M with history of hypertension and diabetes mellitus type 2 was admitted with right upper extremity ataxia, dysarthria/language def icit and imbalance/loss of coordination and MRI finding of 4 x 7 mm of lacunar infarct within left basal ganglia. 1. Left basal ganglia acute lacunar infarct:: E CT head no acute finding. CTA head and neck shows moderate 70% right carotid stenosis and mild 20% left carotid stenosis. Telemetry neurology was consulted. Recommended vascular surgery consult. Patient is on aspirin, Plavix and high-dose atorvastatin 80 mg as per guideline treatment. Most recent blood pressure is 182/70 but fluctuates between 162/73-194/82. On permissive hypertension management. No indication for antihypertensive nicardipine drip until blood pressure goes to 220/120. Cigarette Seller is been consulted. Discussed with the nursing staff and advised oral antihypertensive medication in a staged way, starting with amlodipine 5 mg daily, Toprol 100 mg daily and ramipril 10 mg daily; his home medication with holding parameter if SBP less than 160 or hold metoprolol if heart rate less than 55/min. Total cholesterol 214, LDL 140. TSH normal. Glucose is controlled. PT OT and speech relation. A1c 6.4. 2. Hypertensive emergency: Blood pressure was 220s, recurrent episode and patient received 1 dose of labetalol 20 mg IV. Rest as mentioned above. Seems patient was started on nicardipine drip and then discontinued. 3. Carotid stenosis: Carotid duplex ultrasound ordered. Dr. Marcos consulted. 4. Diabetes mellitus type II: On Accu-Cheks and cover with Humalog sliding scale. A1c 6.4. 5. Obesity: Weight loss and lifestyle changes encouraged. 6. DVT prophylaxis: SCDs, Lovenox. Code Visit Inpatient E&M: 43678 Subs Hosp L3
[2019-09-11] MEDS: Enoxaparin 40 MG/0.4 ML Syringe SC (08:01)
[2019-09-11] MEDS: Aspirin 81 MG TAB.CHEW PO (08:01)
[2019-09-11] MEDS: Famotidine 20 MG Tablet PO ×2 (08:02→21:26)
[2019-09-11] MEDS: Clopidogrel Bisulfate 75 MG Tablet PO (08:02)
[2019-09-11] MEDS: amLODIPine 5 MG Tablet PO (09:42)
[2019-09-11] MEDS: Metoprolol(XL)Succ 100 MG Tablet PO (11:29)
[2019-09-11 11:36] LABS: Bedside Glucose 159 mg/dL (70-110)
--- NOTE | 2019-09-11 11:59 | CM.UR ---
RN CM Assessment Introduced role of RN CM to patient. Patient is alert and able to participate in RN CM Assessment. Care providers, pharmacy, and demographics verified. Two family member at bedside and patient gave permission to speak in front of them. Presentation: weakness Admit Dx: CVA; htn emergency Re-Admit: no Barriers/Issues: none PCP: Dr. Cl Daly. No specialists Preferred Pharmacy: [facility] Insurance: [facility] Rx Benefit: Yes, denies problems paying for medications. Plan is to dc on plavix so no concerns for cost. LNOK: , Amberly LW/HPOA: None. Accepted booklet and instructions on how to get completed. Verb understanding. Will ask to see social work assistant or will make appt after discharge--after speaking to . Living Arrangements: 1 floor house with 3 stairs to get in w/railing. ADL?s: Independent. Transportation: Drives self. DME: None DME co: No preference. Goal: Home, denies needs. DC PLAN: Explained we'll wait for therapy to eval. Explained if he has residuals they are not severe. Patient was moving hands and legs around while talking. No problem with holding conversation and answering questions appropriately therefore no dc needs anticipated. Serenity Monsalve RN, CCM.
[2019-09-11] MEDS: Ramipril 10 MG Capsule PO (13:47)
[2019-09-11] MEDS: Glycerin/Hypromellose/PEG400 15 ml Bottle 2 DRP EACH EYE (13:48)
[2019-09-11 17:10] LABS: Bedside Glucose 125 mg/dL (70-110)
[2019-09-11] MEDS: Atorvastatin Calcium 80 MG Tablet PO (21:26)
[2019-09-11] MEDS: MELATONIN 3 MG TABLET PO (21:27)
[2019-09-11 21:56] LABS: Bedside Glucose 145 mg/dL (70-110)
[2019-09-12] VITALS (10 sets, daily range): BP systolic 126–160; BP diastolic 64–78; PULSE 49–60; RESP 14–21; TEMP 36.8; O2SAT 94–98; BMI 29.8
--- NOTE | 2019-09-12 07:46 | PN_ITS ---
Subjective: The patient was seen and examined at the bedside this morning. Events from the last 24 hours have been reviewed. The patient is currently afebrile, hemodynamically stable and maintaining appropriate oxygen saturations on room air. The patient's blood pressures are under much better control this morning. The patient denies any shortness of breath or cough. He is anxious to be discharged home. Objective: The patient's most recent lab work, culture data and imaging studies have all been personally reviewed. Surface echocardiogram revealed indeterminant diastolic function with an ejection fraction of 65%. There was no evidence of right to left interatrial shunt. General: Alert, Oriented x3, Cooperative, No apparent distress HEENT: Atraumatic, PERRLA, Normocephalic Oral: Moist Mucosa, No Gingival or Mucosal Lesions/ Ulcerations Neck: Supple, No Nodes, Trachea Midline Lungs: Normal air movement, No rhonchi, No wheeze, No rales Cardiovascular: Regular rate, Regular Rhythm, Normal S1, Normal S2, No murmurs Abdomen: Bowel Sounds Present, Soft, Non Tender, Non-Distended Extremities: No clubbing, No cyanosis, No edema Skin: No breakdown Musculoskeletal: No Tenderness to Palpation of Joints or Extremities Lymphatic: No Cervical, Supraclavicular, or Inguinal Adenopathy Neurological: Neuro grossly intact Psych/Mental Status: Alert and oriented to time, place, person, mood and affect Vital Signs Temp Pulse Resp BP Pulse Ox 98.3 F 57 L 16 139/64 H 94 09/12/19 04:00 09/12/19 06:00 09/12/19 06:00 09/12/19 06:00 09/12/19 04:00 Oxygen Delivery Method Room Air Weight: 191 lb 2.252 oz Body Mass Index (BMI) 29.8 Finger Stick Blood Glucose 137 Intake and Output for Last 24 Hours 09/10/19 09/11/19 09/12/19 23:59 23:59 23:59 Intake Total 1000 / 1450 1897.92 / 1897.92 0 / 0 Output Total 1175 / 1175 200 / 200 Balance 1000 / 1325 722.92 / 722.92 -200 / -200 Labs (Last 48 Hours) 09/10/19 09/10/19 09/10/19 12:25 12:35 12:35 WBC 6.2 RBC 5.35 Hgb 17.2 H Hct 50.1 MCV 93.6 MCH 32.1 H MCHC 34.3 RDW Std Deviation 41.2 RDW Coeff of Adan 12.0 Plt Count 200 MPV 10.4 Immature Gran % (Auto) 0.300 Neut % (Auto) 62.0 Lymph % (Auto) 27.1 [place] % (Auto) 8.3 Eos % (Auto) 1.8 Baso % (Auto) 0.5 Absolute Neuts (auto) 3.8 Absolute Lymphs (auto) 1.67 Nucleated RBC % 0 PT 12.8 INR 1.0 APTT 27.6 Sodium Potassium Chloride Carbon Dioxide Anion Gap BUN Creatinine Estim Creat Clear Calc Est GFR (MDRD) Af Amer Est GFR (MDRD) Non-Af BUN/Creatinine Ratio Glucose Hemoglobin A1c Calcium Magnesium Troponin I Triglycerides Cholesterol LDL Cholesterol VLDL Cholesterol HDL Cholesterol TSH POC Glucose 137 H 09/10/19 09/10/19 09/10/19 12:35 12:35 12:35 WBC RBC Hgb Hct MCV MCH MCHC RDW Std Deviation RDW Coeff of Adan Plt Count MPV Immature Gran % (Auto) Neut % (Auto) Lymph % (Auto) [place] % (Auto) Eos % (Auto) Baso % (Auto) Absolute Neuts (auto) Absolute Lymphs (auto) Nucleated RBC % PT INR APTT Sodium 139 Potassium 3.7 Chloride 107 Carbon Dioxide 27.0 Anion Gap 5 BUN 19 H Creatinine 0.83 Estim Creat Clear Calc 85.17 Est GFR (MDRD) Af Amer 120 Est GFR (MDRD) Non-Af 99 BUN/Creatinine Ratio 22.8 H Glucose 132 H Hemoglobin A1c 6.4 H Calcium 8.7 Magnesium 2.2 Troponin I < 0.015 Triglycerides Cholesterol LDL Cholesterol VLDL Cholesterol HDL Cholesterol TSH 1.57 POC Glucose 09/10/19 09/11/19 09/11/19 22:19 04:24 04:24 WBC 8.9 RBC 5.22 Hgb 16.5 Hct 49.0 MCV 93.9 MCH 31.6 MCHC 33.7 RDW Std Deviation 42.3 RDW Coeff of Adan 12.3 Plt Count 177 MPV 10.7 Immature Gran % (Auto) 0.200 Neut % (Auto) 84.1 H Lymph % (Auto) 8.7 L [place] % (Auto) 5.5 Eos % (Auto) 1.3 Baso % (Auto) 0.2 Absolute Neuts (auto) 7.5 Absolute Lymphs (auto) 0.77 L Nucleated RBC % 0 PT INR APTT Sodium 139 Potassium 3.9 Chloride 105 Carbon Dioxide 27.0 Anion Gap 7 BUN 19 H Creatinine 0.67 L Estim Creat Clear Calc 105.51 Est GFR (MDRD) Af Amer 154 Est GFR (MDRD) Non-Af 127 BUN/Creatinine Ratio 28.4 H Glucose 145 H Hemoglobin A1c Calcium 8.0 L Magnesium Troponin I Triglycerides 137 Cholesterol 214 H LDL Cholesterol 140 H VLDL Cholesterol 27 HDL Cholesterol 47 TSH POC Glucose 139 H 09/11/19 09/11/19 09/11/19 06:51 11:28 17:03 WBC RBC Hgb Hct MCV MCH MCHC RDW Std Deviation RDW Coeff of Adan Plt Count MPV Immature Gran % (Auto) Neut % (Auto) Lymph % (Auto) [place] % (Auto) Eos % (Auto) Baso % (Auto) Absolute Neuts (auto) Absolute Lymphs (auto) Nucleated RBC % PT INR APTT Sodium Potassium Chloride Carbon Dioxide Anion Gap BUN Creatinine Estim Creat Clear Calc Est GFR (MDRD) Af Amer Est GFR (MDRD) Non-Af BUN/Creatinine Ratio Glucose Hemoglobin A1c Calcium Magnesium Troponin I Triglycerides Cholesterol LDL Cholesterol VLDL Cholesterol HDL Cholesterol TSH POC Glucose 161 H 159 H 125 H 09/11/19 21:22 WBC RBC Hgb Hct MCV MCH MCHC RDW Std Deviation RDW Coeff of Adan Plt Count MPV Immature Gran % (Auto) Neut % (Auto) Lymph % (Auto) [place] % (Auto) Eos % (Auto) Baso % (Auto) Absolute Neuts (auto) Absolute Lymphs (auto) Nucleated RBC % PT INR APTT Sodium Potassium Chloride Carbon Dioxide Anion Gap BUN Creatinine Estim Creat Clear Calc Est GFR (MDRD) Af Amer Est GFR (MDRD) Non-Af BUN/Creatinine Ratio Glucose Hemoglobin A1c Calcium Magnesium Troponin I Triglycerides Cholesterol LDL Cholesterol VLDL Cholesterol HDL Cholesterol TSH POC Glucose 145 H Clinical Impression(s) from Imaging Studies Chest X-Ray 09/10/19 12:10 IMPRESSION: No acute pathology Electronically Signed: Kirby Arias, at 13:30 EST Tel , Service support , Head/Neck CTA 09/10/19 13:02 IMPRESSION: 1. Moderate (70%) right carotid stenosis. 2. Mild (20%) left carotid stenosis. 3. Patent vertebral arteries bilaterally. The left vertebral artery is hypoplastic. 4. No intracranial stenosis or aneurysm. Hypoplastic A1 segment the right anterior cerebral artery. Electronically Signed: Harley Mcnair MD at 14:18 EST Tel , Service support , Brain MRI 09/10/19 17:24 IMPRESSION: Central and cortical involutional changes Acute 4 mm x 7 mm lacunar infarct within the left basal ganglia Deep white matter small vessel old ischemic changes Mild inflammatory changes paranasal sinuses as above Electronically Signed: Eugene Aguilar at 20:42 EST Tel , Service support , ADDENDUM: 09/10/192058 IMPRESSION: Central and cortical involutional changes Acute 4 mm x 7 mm lacunar infarct within the left basal ganglia Deep white matter small vessel old ischemic changes Mild inflammatory changes paranasal sinuses as above N.B. : The above information has been verbally conveyed by Eugene Aguilar to Lakshmi Nolan RN, on 09/10/2019 20:52:36 (ET). Electronically Signed: Eugene Aguilar at 20:42 EST Tel , Service support , Medical Necessity - Tobacco Use Smoking Status: Former smoker Tobacco Use: Cigarettes Assessment/Plan All Active Problems CVA (cerebral vascular accident) (Acute) Hypertensive emergency (Acute) RECOMMENDATIONS: 1. Continue current antihypertensive regimen. 2. Continue statin, aspirin and Plavix. 3. Carotid duplex and vascular surgery follow-up on outpatient basis. 4. The patient is medically stable for transfer out of the intensive care unit. 5. Given the patient's lack of further ICU or pulmonary needs, will sign off. Please call with any additional questions. IMPRESSIONS: 1. Acute CVA/hypertensive emergency Continue routine post stroke protocol. Continue antihypertensive regimen as ordered. Continue aspirin and Plavix along with statin. The patient has no focal deficits. Carotid duplex and vascular surgery consultation can likely be completed on an outpatient basis. 2. Carotid stenosis The patient will require outpatient vascular surgery consultation. 3. Diabetes mellitus/obesity Complicates care, management, recovery and prognosis. This note was generated with [employer] software. It may contain incorrect words, spelling, and punctuation that were not noted in checking the note before signing. Code Visit Inpatient E&M: 90568 Subs Hosp L2
--- NOTE | 2019-09-12 08:02 | DCINST_ITS ---
- Discharge Diagnoses Current Active Problems: Current Active and Chronic Problems Hypertension (Chronic) CVA (cerebral vascular accident) (Acute) Hypertensive emergency (Acute) You will use the following diet at home:: Calorie/Carbohydrate Controlled (specify 1200, 1400, etc) - 1800 ADA diet, Cardiac Your food should be the consistency of: Regular Discharge Activity: May Not Drive Weight Bearing Status: Weight bearing as tolerated Call your doctor if you observe: Fever of 101 or Higher, Numbness or Tingling, Shortness of breath, Fainting spells, Swelling in the ankles, Chest pain, Prolonged hiccoughing, Increased palpitations (irregular heartbeat), Calf discomfort, Uncontrolled pain Allergies/Adverse Reactions: Allergies loratadine [From [facility] [place]] Allergy (Verified 09/10/19 11:53) Hives Medications to take at Discharge metFORMIN HCl [Glucophage] 500 mg PO BIDCM 09/10/19 Amlodipine [Norvasc] 5 mg PO DAILY #0 09/12/19 Aspirin [Aspirin, Baby] 81 mg PO DAILY@0800 #90 tab.chew 09/12/19 Atorvastatin Calcium [Lipitor] 80 mg PO QHS #30 tab 09/12/19 Clopidogrel Bisulfate [Plavix] 75 mg PO DAILY #30 tab 09/12/19 Metoprolol(XL)Succ [Toprol Xl (Beta Lynda)] 50 mg PO DAILY #0 09/12/19 Ramipril 10 mg PO BID #0 09/12/19 The following prescriptions were given: Aspirin [Aspirin, Baby] 81 mg PO DAILY@0800 #90 tab.chew Transmission Status: Pending to [facility] #[facility] - [place] Atorvastatin Calcium [Lipitor] 80 mg PO QHS #30 tab Transmission Status: Pending to [facility] #[facility] - [place] Clopidogrel Bisulfate [Plavix] 75 mg PO DAILY #30 tab Transmission Status: Pending to [facility] #[facility] - [place] Primary Care Physician: Paco Hart MD [Primary Care Provider] - Please follow up with your Primary Care Physician in: in 1-2 weeks. GOOD control of BP Test Results: Test results from this visit will be discussed in further detail at your follow- up appointment, if applicable. Please Follow Up With: Janusz Clinton MD When: IN 2 WEEKS FOR New stroke Please Follow Up With: Eugene Marcos MD When: for B/L Carotid stenosis, in 2-3 WEEKS
--- NOTE | 2019-09-12 08:05 | PCM.DC.SUM ---
Discharge Date and Diagnosis Date of Admission: 09/10/19 Date of Discharge: 09/12/19 - Primary Discharge Diagnosis Active and Suspected Problems CVA (cerebral vascular accident) (Acute) Hypertensive emergency (Acute) - Secondary Discharge Diagnosis Chronic Problems Hypertension (Chronic) Diabetes (Chronic) Hospital Course and Treatment Summary of Care Provided: [] The patient is a 63 y/o M with history of hypertension and diabetes mellitus type 2 was admitted with right upper extremity ataxia, dysarthria/language deficit and imbalance/loss of coordination and MRI finding of 4 x 7 mm of lacunar infarct within left basal ganglia. 1. Left basal ganglia acute lacunar infarct:: E CT head no acute finding. CTA head and neck shows moderate 70% right carotid stenosis and mild 20% left carotid stenosis. Telemetry neurology was consulted. Recommended vascular surgery consult. Patient is on aspirin, Plavix and high-dose atorvastatin 80 mg as per guideline treatment. Most recent blood pressure is 182/70 but fluctuates between 162/73-194/82. On permissive hypertension management. No indication for antihypertensive nicardipine drip until blood pressure goes to 220/120. Home Improvement Advisor is been consulted. Discussed with the patient and nursing staff. Amlodipine 5 mg daily at 10 AM and ramipril 10 mg twice daily at 8 AM and 8 PM. Pronounced decreased to 50 mg daily with holding parameters if heart rate less than 55/min. Patient was advised home blood pressure monitoring before taking antihypertensive medication and hold it if systolic blood pressure less than 150 mmHg for next 24 hours. Outpatient carotid duplex ultrasound ordered and advised to follow-up with Eugene Marcos in 1 to 2 weeks. Follow-up with neurologist Dr. CLINTON or other neurologist in 1- 2 weeks. Patient is discharged on aspirin, Plavix and high intensity statin 80 mg daily. Prescription sent to the patient's pharmacy. 2. Hypertensive emergency: Blood pressure was 220s, recurrent episode and patient received 1 dose of labetalol 20 mg IV in ED. Rest as mentioned above. 3. Carotid stenosis: Carotid duplex ultrasound ordered. Dr. Marcos consulted. 4. Diabetes mellitus type II: On Accu-Cheks and cover with Humalog sliding scale. A1c 6.4. 5. Dyslipidemia total cholesterol 214, LDL 140. TSH normal. Glucose is controlled. PT OT and speech relation. 5. Obesity: Weight loss and lifestyle changes encouraged. 6. DVT prophylaxis: SCDs, Lovenox. Discharge medication reconciliation done. Discharge follow-up instructions completed. Discharge process discussed with the patient and all questions were answered to patient's satisfaction. Total time spent, exact 35 minutes on discharge meds reconciliation, examination, coordination of care with nurses and ancillary staff, review of imaging and blood test and discussion with the patient on follow-up instructions Subjective: Patient blood pressure was controlled. It is on average 1 50-1 60 systolic. Heart rate running in 50s, sinus bradycardia. - Physical Exam Vitals/I&O's: Vital Signs Temp Pulse Resp BP Pulse Ox 98.3 F 57 L 16 139/64 H 94 09/12/19 04:00 09/12/19 06:00 09/12/19 06:00 09/12/19 06:00 09/12/19 04:00 Oxygen Delivery Method Room Air Weight: 191 lb 2.252 oz Body Mass Index (BMI) 29.8 Finger Stick Blood Glucose 137 Intake and Output for Last 24 Hours 09/10/19 09/11/19 09/12/19 23:59 23:59 23:59 Intake Total 1000 / 1450 1897.92 / 1897.92 0 / 0 Output Total 1175 / 1175 200 / 200 Balance 1000 / 1325 722.92 / 722.92 -200 / -200 General: Alert, Oriented x3, Cooperative HEENT: Atraumatic, PERRLA, EOMI, Normocephalic Neck: Supple, No JVD, Negative Carotid Bruits Lungs: Clear to auscultation, Normal air movement, No rhonchi, No wheeze, No rales Cardiovascular: Regular rate, Regular Rhythm, Normal S1, No murmurs Abdomen: Bowel Sounds Present, Soft, Non Tender, Non-Distended Extremities: No edema, Capillary Refill Less than 3 Seconds Skin: No rashes, No breakdown Musculoskeletal: No Tenderness to Palpation of Joints or Extremities, Arthritic Changes Neurological: Cranial nerves II-XII grossly intact, Deep Tendon Reflexes 2+/4 and Symmetrical, Neuro grossly intact, Motor Exam 5/5 strength throughout, - - NIH stroke scale 0 Psych/Mental Status: Normal Affect, Appropriate Laboratory Results 09/11/19 11:28: POC Glucose 159 H 09/11/19 17:03: POC Glucose 125 H 09/11/19 21:22: POC Glucose 145 H Current Medications Acetaminophen (Tylenol) 650 mg PO Q6H PRN PRN PRN Reason: Pain Score 1-10/Temp > 100.7 F Al Hydroxide/Mg Hydroxide (Mylanta Ii) 30 ml PO Q6H PRN PRN PRN Reason: Gastric Burning Albuterol Sulfate (Ventolin Aerosols) 2.5 mg INHALATION Q2H PRN PRN PRN Reason: SOB/Wheezing Amlodipine Besylate (Norvasc) 5 mg PO DAILY [facility] Last Admin: 09/11/19 09:42 Dose: 5 mg Documented by: Aspirin (Aspirin, Baby) 81 mg PO DAILY@0800 [facility] Last Admin: 09/11/19 08:01 Dose: 81 mg Documented by: Atorvastatin Calcium (Lipitor) 80 mg PO QHS [facility] Last Admin: 09/11/19 21:26 Dose: 80 mg Documented by: Clopidogrel Bisulfate (Plavix) 75 mg PO DAILY [facility] Last Admin: 09/11/19 08:02 Dose: 75 mg Documented by: Enoxaparin Sodium (Lovenox) 40 mg SC DAILY [facility] Last Admin: 09/11/19 08:01 Dose: 40 mg Documented by: Famotidine (Pepcid) 20 mg PO BID [facility] Last Admin: 09/11/19 21:26 Dose: 20 mg Documented by: Glucagon () 1 mg IM .X1 PRN PRN Reason: Hypoglycemia Guaifenesin (Robitussin) 20 ml PO Q4H PRN PRN PRN Reason: COUGH Hydralazine HCl (Apresoline Iv) 5 mg IV Q30M PRN PRN Reason: sbp > 220/120 Nicardipine HCl 25 mg/ Sodium (Chloride) 250 mls @ 50 mls/hr CONT INF .Q5H [facility]; Protocol Last Admin: 09/12/19 08:01 Dose: Not Given Documented by: Dextrose (Dextrose 10%-Water) 250 mls @ 999 mls/hr IV .Q16M PRN; Protocol PRN Reason: HYPOGLYCEMIA Insulin Human Lispro (Humalog Kwikpen (Bkc)) 0 unit SC ACHS [facility]; Protocol Last Admin: 09/11/19 21:25 Dose: Not Given Documented by: Magnesium Hydroxide (Milk Of Magnesia) 30 ml PO DAILY PRN PRN PRN Reason: Constipation Melatonin (Melatonin) 3 mg PO QHS PRN PRN PRN Reason: INSOMNIA Last Admin: 09/11/19 21:27 Dose: 3 mg Documented by: Metoprolol Succinate (Toprol Xl (Beta Lynda)) 100 mg PO DAILY [facility] Last Admin: 09/11/19 11:29 Dose: 100 mg Documented by: Nitroglycerin (Nitrostat) 0.4 mg SUBLINGUAL Q5M PRN PRN Reason: CARDIAC/CHEST PAIN Ondansetron HCl (Zofran) 4 mg IV Q8H PRN PRN PRN Reason: NAUSEA/VOMITING Last Admin: 09/10/19 20:21 Dose: 4 mg Documented by: Prochlorperazine Edisylate (Compazine Iv) 5 mg IV Q4H PRN PRN PRN Reason: Breakthrough Nausea/Vomiting Psyllium Hydrophilic Mucilloid (Metamucil) 1 packet PO DAILY PRN PRN PRN Reason: Constipation Ramipril (Altace) 10 mg PO DAILY [facility] Last Admin: 09/11/19 13:47 Dose: 10 mg Documented by: Senna/Docusate Sodium (Senokot-S, Miguelina-Colace) 2 tablet PO BID PRN PRN PRN Reason: Constipation Sodium Chloride () 10 - 40 ml IV UD PRN PRN Reason: SALINE FLUSH Throat Lozenges (Cepacol Sore Throat Lozenge) 1 lozenge MUCOUS MEM Q2H PRN PRN PRN Reason: SORE THROAT Discharge Activity: May Not Drive Weight Bearing Status: Weight bearing as tolerated Call your doctor if you observe: Fever of 101 or Higher, Numbness or Tingling, Shortness of breath, Fainting spells, Swelling in the ankles, Chest pain, Prolonged hiccoughing, Increased palpitations (irregular heartbeat), Calf discomfort, Uncontrolled pain Home Medications: Medications to take at Discharge metFORMIN HCl [Glucophage] 500 mg PO BIDCM 09/10/19 Amlodipine [Norvasc] 5 mg PO DAILY #0 09/12/19 Aspirin [Aspirin, Baby] 81 mg PO DAILY@0800 #90 tab.chew 09/12/19 Atorvastatin Calcium [Lipitor] 80 mg PO QHS #30 tab 09/12/19 Clopidogrel Bisulfate [Plavix] 75 mg PO DAILY #30 tab 09/12/19 Metoprolol(XL)Succ [Toprol Xl (Beta Lynda)] 50 mg PO DAILY #0 09/12/19 Ramipril 10 mg PO BID #0 09/12/19 Following Prescrptions Were Given to Patient: Aspirin [Aspirin, Baby] 81 mg PO DAILY@0800 #90 tab.chew Transmission Status: Received by [facility] - [place] Atorvastatin Calcium [Lipitor] 80 mg PO QHS #30 tab Transmission Status: Received by [facility] - [place] Clopidogrel Bisulfate [Plavix] 75 mg PO DAILY #30 tab Transmission Status: Received by [facility] - [place] Other Amb Orders: Carotid Duplex Ultrasound [VL] Facility: [facility], Location: [facility] Primary Care Physician: Paco Hart MD [Primary Care Provider] - Please follow up with your Primary Care Physician in: in 1-2 weeks. GOOD control of BP Please Follow Up With: Janusz Clinton MD When: IN 2 WEEKS FOR New stroke Please Follow Up With: Eugene Marcos MD When: for B/L Carotid stenosis, in 2-3 WEEKS Medical Necessity - Tobacco Use Smoking Status: Former smoker Tobacco Use: Cigarettes Meaningful Use Info Meaningful Use Diagnoses (Choose all that apply): Ischemic CVA - CVA Therapy Assessed for PT,OT and/or ST?: Yes - Ischemic Stroke Antithrombotic order at d/c?: Yes Dx of Atrial fib/flutter?: No Anticoagulant at discharge?: Yes Statins at discharge?: Yes Primary Dx Acute Ischemic CVA?: Yes IV tPA ordered during stay?: No Reason IV t-PA not ordered: Procedure not Indicated - Not in time window/rapid correction of neurological deficit Code Visit Inpatient E&M: 40336 Disch Hosp
[2019-09-12] MEDS: Metoprolol(XL)Succ 100 MG Tablet PO (08:42)
[2019-09-12] MEDS: Ramipril 10 MG Capsule PO (08:42)
[2019-09-12] MEDS: Clopidogrel Bisulfate 75 MG Tablet PO (08:42)
[2019-09-12] MEDS: Famotidine 20 MG Tablet PO (08:42)
[2019-09-12] MEDS: Aspirin 81 MG TAB.CHEW PO (08:43)
== END 2019-09-12 09:25 | disposition home or self-care (01) | DRG 65 ==
LOC: ED 15:16 → ICU 16:43
PROVIDERS: Admitting Provider Family Medicine; Emergency Provider Emergency Medicine; PCP Family Medicine; Visit Provider Internal Medicine
DX: I63.81 Other cerebral infarction due to occlusion or stenosis of small artery (principal); I16.1 Hypertensive emergency; R27.0 Ataxia, unspecified; R47.1 Dysarthria and anarthria; I65.23 Occlusion and stenosis of bilateral carotid arteries; I10 Essential (primary) hypertension; E11.9 Type 2 diabetes mellitus without complications; E78.5 Hyperlipidemia, unspecified; E66.9 Obesity, unspecified; Z68.31 Body mass index [BMI] 31.0-31.9, adult; Z79.84 Long term (current) use of oral hypoglycemic drugs; Z79.82 Long term (current) use of aspirin; Z79.02 Long term (current) use of antithrombotics/antiplatelets; Z87.891 Personal history of nicotine dependence
CPT/HCPCS: 70496; 70498; 70551; 71045; 80048; 80061; 82962; 83036; 83735; 84443; 84484; 85025; 85610; 85730; 93005; 93306; 97162; 97166; 97802; 99251; 99284; J7030; J7050; Q9967; A4216; G0463; J2405

== ENCOUNTER → 2019-09-14 13:34 | Outpatient (CLI) | payer MEDICARE, SELFPAY ==
[2019-09-12 00:31] VITALS: BMI 29.8
--- NOTE | 2019-09-14 13:38 | CDU_ITS ---
Reason For Study: Lt basal ganglia infarct Rt. Velocities/BP Lt. Velocities/BP Prox CCA 81.7/9.1 cm/sec. Prox CCA 93.7/13.3 cm/sec. Mid CCA 86.1/9.1 cm/sec. Mid CCA 141.2/22.5 cm/sec. Dist CCA 81.7/10.2 cm/sec. Dist CCA 161.4/18.9 cm/sec. Prox ICA 64.5/22.5 cm/sec. Prox ICA 84.6/17 cm/sec. Mid ICA 171.8/21.5 cm/sec. Mid ICA 93.7/26.1 cm/sec. Dist ICA 86.3/13.7 cm/sec. Dist ICA 68.1/18.8 cm/sec. Rt. ICA/CCA = 2.1. Lt. ICA/CCA = 0.66. Prox ECA 149.9/7.2 cm/sec. Prox ECA 79.7/9.4 cm/sec. Rt. Vert. 64.5/15.2 cm/sec. Right Extracranial There is homogeneous, smooth atherosclerotic plaque noted in the right common carotid artery. There is heterogeneous, irregular atherosclerotic plaque noted in the right internal carotid artery. There is no significant atherosclerotic plaque noted in the right external carotid artery. Antegrade flow is noted in the right vertebral artery. Left Extracranial There is heterogeneous, irregular atherosclerotic plaque noted in the left common carotid artery. There is heterogeneous, irregular atherosclerotic plaque noted in the left internal carotid artery. There is intimal thickening but no significant atherosclerotic plaque noted in the left external carotid artery. Flow could not be demonstrated in the left vertebral artery. Procedure Carotid Duplex [id number]. The study was technically difficult. Exam performed in department. Interpretation Summary Minimal irregular plaque at the proximal right internal carotid with 50 to 69% stenosis of the right mid internal carotid. <50% stenosis right external carotid Patent, antegrade right vertebral Irregular calcific plaque with shadowing at the proximal left internal carotid with increased velocities noted in the distal left common carotid 161 cm/s flow but normal velocities located on the left internal carotid consistent with less than 50% stenosis of the internal carotid. <50% stenosis left external carotid No flow could be identified within the left vertebral Ordering Physician: Abdiaziz Hernandez Referring Physician: Paco Hart Performed By: Janett Hagan RVT
== END ==
PROVIDERS: PCP Family Medicine; Referring Provider Internal Medicine; Visit Provider Internal Medicine
DX: Z86.73 Personal history of transient ischemic attack (TIA), and cerebral infarction without residual deficits (principal)
CPT/HCPCS: 93880

== ENCOUNTER → 2020-01-07 09:25 | Outpatient (CLI) | payer MEDICARE, SELFPAY ==
[2019-10-04 08:48] VITALS: BMI 29.8
[2020-01-07 12:22] LABS: Anion Gap 9 (5-15); BUN 23 mg/dL (7-18); BUN/Creat Ratio 30.9 RATIO (10-20); Calcium,Total 8.8 mg/dL (8.5-10.1); Chloride 103 mmol/L (98-107); Creatinine, Serum 0.74 mg/dL (0.70-1.30); EST Glomerular Filtration Rate 112 mL/min (>60); Est Glom Filt Rate - Afr Amer 136 mL/min (>60); Glucose 201 mg/dL (74-106); Sodium Level 137 mmol/L (136-145)
== END ==
PROVIDERS: PCP Family Medicine; Visit Provider Family Medicine
DX: E11.9 Type 2 diabetes mellitus without complications (principal); I10 Essential (primary) hypertension; R80.9 Proteinuria, unspecified
CPT/HCPCS: 36415; 80048; 83036

== ENCOUNTER → 2020-02-11 13:49 | Outpatient (CLI) | payer MEDICARE, SELFPAY ==
[2019-10-04 08:48] VITALS: BMI 29.8
[2020-02-11 13:50] LABS: Bacteria 0 SEEN /hpf (None Seen); Mucous, Urine 0 SEEN /hpf (<or=2+); White Blood Cells 0 SEEN /hpf (0-5)
[2020-02-11 15:22] LABS: Color, Urine Yellow (Yellow); Glucose, Dipstick 1000 mg/dl (Normal); Ketone-Dipstick 5 mg/dl (Negative); Leukocyte Esterase-Dipstick Negative /ul (Negative); Nitrite-Dipstick Negative (Negative); Occult Blood-Urine 250 /ul (Negative); Protein-Dipstick 100 mg/dl (Negative); Specific Gravity, Urine 1.025 (1.002-1.030); Urine Bilirubin Dipstick Negative (Negative); Urine Clarity Sl. Cloudy (Clear); Urine Urobilinogen Normal (Normal)
[2020-02-11 15:33] LABS: Red Blood Cells-Urine > 100 SEEN /hpf (0-5)
[2020-02-11 15:34] LABS: Amorphous Sediment 1+ URATE; Squamous Epithelial Cells - UA 0-5 SEEN /hpf (0-5)
== END ==
PROVIDERS: PCP Family Medicine; Visit Provider Family Medicine
DX: R31.21 Asymptomatic microscopic hematuria (principal)
CPT/HCPCS: 81001

== ENCOUNTER → 2020-02-19 08:41 | Outpatient (CLI) | payer MEDICARE, SELFPAY ==
[2019-10-04 08:48] VITALS: BMI 29.8
--- NOTE | 2020-02-19 08:43 | CT_ITS ---
STUDY: CT ABDOMEN AND PELVIS WITHOUT CONTRAST REASON FOR EXAM: Male, 64 years old. PT STATED HEMATURIA, HX OF STONES RADIATION DOSAGE (If Supplied By Facility): CTDIvol = ( 17.30 ) mGy, DLP = ( 946.55 ) mGycm TECHNIQUE: Transaxial images were obtained from the dome of the diaphragm to the symphysis pubis without oral contrast, and without intravenous contrast. Sagittal and coronal images were reconstructed. Individualized dose optimization techniques were used for this CT. COMPARISON: None. FINDINGS: The visualized lung bases are unremarkable. The visualized portions of the heart are within normal limits. Normal liver. Normal gallbladder and extrahepatic biliary system. Normal spleen. Normal pancreas. Normal bilateral adrenal glands. Tiny nonobstructing stone in the upper pole the right kidney. 10 mm stone in the left renal pelvis with mild hydronephrosis. Normal visualized stomach. Normal small intestine. There are multiple colonic diverticula consistent with diverticulosis. The appendix is visualized and appears normal. Normal abdominal aorta. Normal inferior vena cava. Normal retroperitoneum. Normal urinary bladder. There are prostatic calcifications. Normal abdominal wall. Mild levoscoliosis of lumbar spine with degenerative disc disease per CT/Abdomen/Pelvis without Cont IMPRESSION: 10 mm obstructing stone in the left renal pelvis with mild hydronephrosis. Electronically Signed: Harley Mcnair MD at 10:07 EDT Tel , Service support ,
== END ==
PROVIDERS: PCP Family Medicine; Referring Provider Family Medicine; Visit Provider Family Medicine
DX: R31.9 Hematuria, unspecified (principal); Z87.891 Personal history of nicotine dependence
CPT/HCPCS: 74176

== ENCOUNTER 2020-03-22 11:30 | Day surgery (SDC) | payer MEDICARE, SELFPAY ==
[2019-10-04 08:48] VITALS: BMI 29.8
--- NOTE | 2020-03-22 11:32 | RAD_ITS ---
STUDY: X-RAY - ABDOMEN/PELVIS REASON FOR EXAM: Male, 64 years old. stone left side. pre op TECHNIQUE: Two AP supine views of the abdomen and pelvis. COMPARISON: CT 02/19/2020 FINDINGS: Normal visualized lung bases. There is an unremarkable bowel gas pattern. There is no demonstrated free abdominal air. Calcific density is noted in the left mid abdomen adjacent to the L2 vertebral body. Normal soft tissue structures. There are diffuse degenerative changes of the visualized lumbar spine. RAD/Abdomen Single View IMPRESSION: Calcific density adjacent to the L2 vertebral body may correspond with the left renal stone seen on recent CT scan. Electronically Signed: Jerman Umana, at 12:24 EDT Tel , Service support ,
[2020-03-22 12:11] VITALS: BP 183/67; RESP 18; TEMP 37.4; O2SAT 96; BMI 31.9
[2020-03-22] MEDS: Lactated Ringers 1,000 ML 100 ML IV (12:27)
[2020-03-22 12:35] LABS: Bedside Glucose 194 mg/dL (70-110)
--- NOTE | 2020-03-22 14:17 | PCM.HP.STD ---
Problem List (1) Left renal stone Status: Acute History of Present Illness Date of Admission: 03/22/20 Chief Complaint: left kidney stone The patient is a 64 year old male with left kidney stone plan for treatment of stone. Past Medical History Past Medical History (Chronic Problems): Chronic Problems Hypertension (Chronic) Diabetes (Chronic) Medical History: Medical History (Last Reviewed 03/22/20 @ 14:[address] Scout Jean MD) Carotid stenosis, bilateral (Acute) I65.23 Hypertension (Chronic) I10 Diabetes (Chronic) E11.9 CVA (cerebral vascular accident) (Acute) I63.9 Hypertensive emergency (Acute) I16.1 Allergies loratadine [From Tavist [place]] Allergy (Verified 03/22/20 12:10) Hives Home Medications: Ambulatory Orders Medication Instructions Recorded metFORMIN HCl [Glucophage] 500 mg PO BIDCM 09/10/19 Amlodipine [Norvasc] 5 mg PO DAILY #0 09/12/19 Atorvastatin Calcium [Lipitor] 80 mg PO QHS #30 tab 09/12/19 Metoprolol(XL)Succ [Toprol Xl 50 mg PO DAILY #0 09/12/19 (Beta Lynda)] Ramipril 10 mg PO BID #0 09/12/19 Aspirin [Aspirin, Baby] 162 mg PO DAILY@0800 03/14/20 Oxycodone HCl/Acetaminophen 1 tablet PO Q4H PRN PRN 5 Days #20 03/22/20 [Percocet 5/325] tablet Surgical History: Surgical History (Last Updated 10/04/19 @ 08:47 by Beatrice Boudreaux) History of excision of pilonidal cyst Z98.890 History of fusion of cervical spine Z98.1 History of repair of right rotator cuff Z98.890 History of umbilical hernia repair Z98.890, Z87.19 Surgical History: - - Right shoulder rotator cuff surgery, neck surgery with hardware, umbilical hernia repair, pilonidal cyst surgery. Psychiatric History: No pertinent psych hx Smoking Status: Former smoker Tobacco Use: Non-smoker - *Family History Maternal History Items: - - Maternal family history of hypertension. Paternal History Items: - - Paternal family history of cancer, unclear type. Review of Systems Constitutional: Denies: Chills, Fever, Weight Change HEENT: Denies: Head Aches, Sinus Congestion, Sinus Drainage Cardiovascular: Denies: Chest Pain, Palpitations Respiratory: Denies: Cough, Shortness of breath at rest, Sputum production Gastrointestinal: Denies: Abdominal Pain, Nausea, Vomiting Genitourinary: Denies: Dysuria Musculoskeletal: Denies: Joint Pain, Joint Tenderness Skin: Denies: Rash, Wounds Neurological: Denies: Numbness, Tingling, Focal weakness Psychiatric: Denies: Anxiety, Depression, Homicidal Ideations, Suicidal Ideations Hematologic/ Lymphatic: Denies: Easy Bruising, Easy Bleeding VTE Information - Inpt Only VTE Present on Admission: No Patient Problems: Active and Suspected Problems Left renal stone (Acute) - Physical Exam Vitals/I&O's: Vital Signs Temp Resp BP Pulse Ox 99.4 F H 18 183/67 H 96 03/22/20 12:11 03/22/20 12:11 03/22/20 12:11 03/22/20 12:11 Oxygen Delivery Method Room Air Weight: 92.6 kg Body Mass Index (BMI) 31.9 Finger Stick Blood Glucose 137 General: Alert, Oriented x3, Cooperative HEENT: Atraumatic, PERRLA, EOMI, Normocephalic Neck: Supple, No JVD, Negative Carotid Bruits Lungs: Clear to auscultation, Normal air movement Cardiovascular: Regular rate, No murmurs Abdomen: Bowel Sounds Present, Soft, Non Tender Extremities: No edema, Capillary Refill Less than 3 Seconds Skin: No rashes, No breakdown Musculoskeletal: No Tenderness to Palpation of Joints or Extremities Neurological: Cranial nerves II-XII grossly intact Psych/Mental Status: Normal Affect, Appropriate Laboratory Results 03/22/20 12:16: POC Glucose 194 H Current Medications Lactated Ringer's () 1,000 mls @ 100 mls/hr IV .Q10H REUBEN Last Admin: 03/22/20 12:27 Dose: 100 mls/hr Documented by: Assessment/Plan All Active Problems Left renal stone (Acute) Carotid stenosis, bilateral (Acute) CVA (cerebral vascular accident) (Acute) Hypertensive emergency (Acute) plan for left ESWL
--- NOTE | 2020-03-22 14:19 | DCINST_ITS ---
Discharge Diet: Light diet - advance as tolerated Discharge Activity: Return to Normal Activity Instructions: Shock Wave Lithotripsy Allergies/Adverse Reactions: Allergies loratadine [From Tavist ND] Allergy (Verified 03/22/20 12:10) Hives Medications to take at Discharge metFORMIN HCl [Glucophage] 500 mg PO BIDCM 09/10/19 Amlodipine [Norvasc] 5 mg PO DAILY #0 09/12/19 Atorvastatin Calcium [Lipitor] 80 mg PO QHS #30 tab 09/12/19 Metoprolol(XL)Succ [Toprol Xl (Beta Lynda)] 50 mg PO DAILY #0 09/12/19 Ramipril 10 mg PO BID #0 09/12/19 Aspirin [Aspirin, Baby] 162 mg PO DAILY@0800 03/14/20 Oxycodone HCl/Acetaminophen [Percocet 5/325] 1 tablet PO Q4H PRN PRN 5 Days #20 tablet 03/22/20 The following prescriptions were given: Oxycodone HCl/Acetaminophen [Percocet 5/325] 1 tablet PO Q4H PRN PRN 5 Days #20 tablet PRN Reason: Pain Transmission Status: Sent to [facility] Primary Care Physician: Paco Hart MD [Primary Care Provider] - Test Results: Test results from this visit will be discussed in further detail at your follow- up appointment, if applicable. Please Follow Up With: Scout Jean MD When: in 2 weeks, please call to make an appointment.
[2020-03-22] MEDS: Cefazolin 2 GM in 0.9% Normal Saline 100 ML IV (15:02)
--- NOTE | 2020-03-22 15:59 | PCM.OPRPT ---
Problem List (1) Left renal stone Status: Acute Report of Operation Date of Procedure: 03/22/20 Pre-Operative Diagnosis: Left renal calculi Post-Operative Diagnosis: Same Surgery/Procedure Performed:: Left extracorporeal shockwave lithotripsy Description of Surgical Findings:: 64-year-old male has a stone in the left UPJ J area of the proximal ureter on KUB could see the stone clearly today comes in the operating room for treatment of the stone with shockwave lithotripsy. Patient was taken back to the operating room, underwent general anesthesia. He was then positioned the table the stone was then found on the lithotripter machine we placed the stone in the F2 focal point of the machine and proceeded with shockwave lithotripsy a total of 3000 shockwaves delivered to the stone at about 90 shocks per minute varying kilovolts between 5 to 7 kV and we monitor the stone during the breakage and at the end of the treatment cycle the stones are broken up really well decided not to leave a stent patient anesthetic was reversed she is taken back to the PACU in good condition plan to see him back in a few weeks with an x-ray. Type of Anesthesia:: General Drains: none - Admit VTE Documentation VTE Present on Admission: No VTE Mechan Device Prophylaxis: SCD's
[2020-03-22 16:00] VITALS: BP 182/81; BP 183/67; PULSE 64; RESP 16; TEMP 36.7; O2SAT 97
[2020-03-22] MEDS: Ketorolac 15 MG/ML Vial IV (16:08)
[2020-03-22 16:15] VITALS: BP 165/135; BP 183/67; PULSE 59; RESP 16; O2SAT 98
[2020-03-22 16:24] VITALS: BP 174/73; BP 183/67; PULSE 61; RESP 16; O2SAT 94
[2020-03-22 16:26] LABS: Bedside Glucose 149 mg/dL (70-110)
[2020-03-22 16:30] VITALS: BP 183/67; BP 189/77; PULSE 61; RESP 16; TEMP 36.3; O2SAT 95
[2020-03-22 17:28] VITALS: BP 177/83; BP 183/67; PULSE 64; RESP 16; TEMP 36.5; O2SAT 97
== END 2020-03-22 17:32 | disposition home or self-care (01) ==
LOC: SDC 11:32 → AC 11:33
PROVIDERS: Anesthesiology; PCP Family Medicine; Referring Provider Urology; Visit Provider Urology
PROC: (CPT 50590; principal; 2020-03-22 14:15)
DX: N20.1 Calculus of ureter (principal); Z11.59 Encounter for screening for other viral diseases; I10 Essential (primary) hypertension; E11.9 Type 2 diabetes mellitus without complications; E78.00 Pure hypercholesterolemia, unspecified; I65.23 Occlusion and stenosis of bilateral carotid arteries; Z79.82 Long term (current) use of aspirin; Z79.84 Long term (current) use of oral hypoglycemic drugs; Z79.899 Other long term (current) drug therapy; Z87.891 Personal history of nicotine dependence; Z86.73 Personal history of transient ischemic attack (TIA), and cerebral infarction without residual deficits
CPT/HCPCS: 50590; 74018; 82962; 87635; C9803; J7120; J2405; U0003

== ENCOUNTER → 2020-04-10 14:07 | Outpatient (CLI) | payer MEDICARE, SELFPAY ==
[2020-03-22 12:11] VITALS: BMI 31.9
--- NOTE | 2020-04-10 14:09 | RAD_ITS ---
HISTORY: KIDNEY STONE ADDITIONAL HISTORY: None. COMPARISON: 03/22/2020. CT 02/19/2020 EXAMINATION/TECHNIQUE: XR Abdomen 1 View Number of images including paperwork: 2 FINDINGS: FREE AIR: None detected. BOWEL GAS PATTERN: Nonobstructive. CALCIFICATIONS: No definite urinary tract calculi. Left renal pelvic calculus on previous examinations is no longer evident. ORGANS: No evidence of organomegaly. SOFT TISSUES: Unremarkable. BONES: No acute skeletal findings. Degenerative changes. LOWER CHEST: Unremarkable visible portions. DEVICES: None. RAD/Abdomen Single View IMPRESSION: No acute abdominal abnormality is radiographically apparent. at 0755 Reported and signed by: Sparkle Levin MD Electronically Signed: Sparkle Levin MD at 7:55 EDT Tel , Service support ,
== END ==
PROVIDERS: PCP Family Medicine; Referring Provider Urology; Visit Provider Urology
DX: N20.0 Calculus of kidney (principal)
CPT/HCPCS: 74018

== ENCOUNTER → 2020-05-02 07:33 | Outpatient (CLI) | payer MEDICARE, SELFPAY ==
[2019-10-04 08:48] VITALS: BMI 29.8
--- NOTE | 2020-05-02 07:49 | CDU_ITS ---
Reason For Study: Stenosis Rt. Velocities/BP Lt. Velocities/BP Prox CCA 76/9.5 cm/sec. Prox CCA 95.5/17 cm/sec. Mid CCA 89.1/10.8 cm/sec. Mid CCA 150.3/26.1 cm/sec. Dist CCA 76/13.4 cm/sec. Dist CCA 128.4/20.6 cm/sec. Prox ICA 48.5/10.7 cm/sec. Prox ICA 101/18.8 cm/sec. Mid ICA 171.8/16.3 cm/sec. Mid ICA 93.7/13.3 cm/sec. Dist ICA 121.4/16 cm/sec. Dist ICA 90/17 cm/sec. Rt. ICA/CCA = 2.26. Lt. ICA/CCA = 0.79. Prox ECA 132.1/9.7 cm/sec. Prox ECA 71.6/9 cm/sec. Rt. Vert. 71.6/13.9 cm/sec. Right Extracranial There is homogeneous, smooth atherosclerotic plaque noted in the right common carotid artery. There is heterogeneous, irregular atherosclerotic plaque noted in the right internal carotid artery. There is intimal thickening but no significant atherosclerotic plaque noted in the right external carotid artery. Antegrade flow is noted in the right vertebral artery. Left Extracranial There is heterogeneous, irregular atherosclerotic plaque noted in the left common carotid artery. There is heterogeneous, irregular atherosclerotic plaque noted in the left internal carotid artery. There is homogeneous, smooth atherosclerotic plaque noted in the left external carotid artery. The left vertebral artery could not be visualized. Procedure Carotid Duplex 20801. This is a Carotid Duplex examination using B-mode, color flow and specral Doppler. The study was technically difficult. Exam performed in department. Interpretation Summary Irregular calcific plaque at the proximal right internal carotid artery with 50 to 69% stenosis. <50% stenosis right external carotid Heterogenous irregular plaque in the proximal left internal carotid with 50 to 69% stenosis. <50% stenosis left external carotid Patent and antegrade right vertebral Left vertebral not identified Findings appear similar to September 11, 2019 Ordering Physician: Guru Monterroso Referring Physician: Paco Hart Performed By: Janett Hagan RVT and Student
== END ==
PROVIDERS: PCP Family Medicine; Referring Provider Psychiatry & Neurology Sleep Medicine; Visit Provider Psychiatry & Neurology Sleep Medicine
DX: I65.21 Occlusion and stenosis of right carotid artery (principal)
CPT/HCPCS: 93880

== ENCOUNTER → 2020-09-29 08:51 | Outpatient (CLI) | payer MEDICARE, SELFPAY ==
[2020-09-29 10:14] LABS: Absolute Lymphocyte Count 1.88 X10^3/uL (0.83-4.51); Absolute Neutrophil Count 3.5 X10^3/uL (2.0-7.7); Basophil# 0.04 X10^3/uL; Basophil% 0.6 % (0-1); Eosinophil# 0.21 X10^3/uL; Eosinophils% 3.4 % (0-5); Hematocrit 46.5 % (40-54); Hemoglobin 15.3 g/dL (13.0-16.5); Lymphocyte # 1.88 X10^3/ul (4.0); Lymphocyte % 30.2 % (19-41); Mean Corp Hgb Conc 32.9 g/dL (32-36); Mean Corpuscular Hgb 31.6 pg (27.0-32.0); Mean Corpuscular Volume 96.1 fL (80-94); Mean Platelet Vol. 10.6 fl (6.2-12.0); Monocyte# 0.58 X10^3/uL; Monocyte% 9.3 % (0-10); NRBC Flagged by Analyzer 0 % (0-5); Neutrophil # 3.49 X10^3/uL (2.7-7.7); Neutrophil % 56.2 % (47-70); Platelet Count 225 K/mm3 (150-450); RBC Distribution Width SD 42.5 fl (35.1-43.9); Red Blood Count 4.84 M/mm3 (4.6-6.2); White Blood Count 6.2 K/mm3 (4.4-11.0)
[2020-09-29 10:32] LABS: Erythrocyte Sedimentation Rate 26 mm/hr (0-20)
[2020-09-29 11:00] LABS: ALB/GLOB Ratio 0.9 RATIO (0.9-2.4); AST(SGOT) 25 U/L (15-37); Alanine Aminotransfer ALT/SGPT 43 U/L (16-61); Albumin, Serum 3.6 g/dL (3.2-5.0); Alkaline Phosphatase 72 U/L (45-117); Anion Gap 8 (5-15); BUN 23 mg/dL (7-18); BUN/Creat Ratio 26.5 RATIO (10-20); CRP < 2.90 mg/L (0.0-3.0); Calcium,Total 8.8 mg/dL (8.5-10.1); Chloride 104 mmol/L (98-107); Creatinine, Serum 0.87 mg/dL (0.70-1.30); EST Glomerular Filtration Rate 94 mL/min (>60); Est Glom Filt Rate - Afr Amer 114 mL/min (>60); Globulin 4.1 g/dL (2.2-4.2); Glucose 199 mg/dL (74-106); Potassium 3.6 mmol/L (3.5-5.1); Protein, Total 7.7 g/dL (6.4-8.2); Sodium Level 138 mmol/L (136-145)
[2020-10-03 09:57] LABS: CCP IgG Antibodies 5 units (0-19)
== END ==
PROVIDERS: PCP Family Medicine; Referring Provider Family Medicine; Visit Provider Family Medicine
DX: M06.4 Inflammatory polyarthropathy (principal); I10 Essential (primary) hypertension
CPT/HCPCS: 36415; 80053; 85025; 85652; 86038; 86140; 86200; 86431

== ENCOUNTER → 2020-10-25 09:49 | Outpatient (CLI) | payer MEDICARE, SELFPAY ==
--- NOTE | 2020-10-25 09:53 | RAD_ITS ---
STUDY: X-RAY - PELVIS REASON FOR EXAM: Male, 64 years old. PAIN TECHNIQUE: One view of the pelvis was obtained. COMPARISON: None. FINDINGS: There is a non-specific bowel gas pattern. Normal visualized soft tissue structures. There is narrowing with cortical sclerosis and osteophyte formation of the sacroiliac joint consistent with degenerative osteoarthritic changes. Normal visualized bilateral superior and inferior pubic rami. Normal pubic symphysis. Normal ischial tuberosities. Normal visualized right femoral head. Normal right acetabulum. There is mild articular joint space narrowing of the right hip. Normal visualized left femoral head. Normal left acetabulum. There is mild articular joint space narrowing of the left hip. RAD/Pelvis 1 or 2 Views IMPRESSION: Age consistent degenerative changes, no acute findings Electronically Signed: Rey Limon MD at 11:42 EDT , Service support ,
[2020-10-25 12:50] LABS: Absolute Lymphocyte Count 1.21 X10^3/uL (0.83-4.51); Absolute Neutrophil Count 8.8 X10^3/uL (2.0-7.7); Basophil# 0.02 X10^3/uL; Basophil% 0.2 % (0-1); Eosinophil# 0.06 X10^3/uL; Eosinophils% 0.6 % (0-5); Hematocrit 47.7 % (40-54); Hemoglobin 15.4 g/dL (13.0-16.5); Lymphocyte # 1.21 X10^3/ul (0.83-4.51); Lymphocyte % 11.7 % (19-41); Mean Corp Hgb Conc 32.3 g/dL (32-36); Mean Corpuscular Hgb 31.3 pg (27.0-32.0); Mean Platelet Vol. 11.1 fl (6.2-12.0); Monocyte# 0.25 X10^3/uL; Monocyte% 2.4 % (0-10); NRBC Flagged by Analyzer 0 % (0-5); Neutrophil # 8.76 X10^3/uL (2.7-7.7); Neutrophil % 84.7 % (47-70); Platelet Count 235 K/mm3 (150-450); RBC Distribution Width CV 12.3 % (11.6-14.6); RBC Distribution Width SD 44.1 fl (35.1-43.9); Red Blood Count 4.92 M/mm3 (4.6-6.2); White Blood Count 10.3 K/mm3 (4.4-11.0)
[2020-10-25 13:15] LABS: AST(SGOT) 15 U/L (15-37); Alanine Aminotransfer ALT/SGPT 39 U/L (16-61); Albumin, Serum 3.6 g/dL (3.2-5.0); Alkaline Phosphatase 108 U/L (45-117); Anion Gap 9 (5-15); BUN 28 mg/dL (7-18); BUN/Creat Ratio 28.1 RATIO (10-20); Calcium,Total 9.3 mg/dL (8.5-10.1); Chloride 101 mmol/L (98-107); EST Glomerular Filtration Rate 80 mL/min (>60); Est Glom Filt Rate - Afr Amer 97 mL/min (>60); Globulin 3.7 g/dL (2.2-4.2); Glucose 328 mg/dL (74-106); Potassium 3.7 mmol/L (3.5-5.1); Protein, Total 7.3 g/dL (6.4-8.2); Sodium Level 135 mmol/L (136-145)
[2020-10-25 13:39] LABS: Hepatitis B Surface Antibody Non-Reactive; Hepatitis B Surface Antigen Non-Reactive (Nonreactive); Hepatitis C Antibody Non-Reactive (Nonreactive)
[2020-10-26 16:12] LABS: ANTINUCLEAR ANTIBODIES DIRECT Positive (Negative)
== END ==
PROVIDERS: PCP Family Medicine; Referring Provider Internal Medicine Rheumatology; Visit Provider Internal Medicine Rheumatology
DX: M05.79 Rheumatoid arthritis with rheumatoid factor of multiple sites without organ or systems involvement (principal); M47.892 Other spondylosis, cervical region; M47.897 Other spondylosis, lumbosacral region; M21.41 Flat foot [pes planus] (acquired), right foot; M21.42 Flat foot [pes planus] (acquired), left foot; E11.9 Type 2 diabetes mellitus without complications; I10 Essential (primary) hypertension; E78.5 Hyperlipidemia, unspecified; Z86.73 Personal history of transient ischemic attack (TIA), and cerebral infarction without residual deficits
CPT/HCPCS: 36415; 72170; 80053; 85025; 86038; 86706; 86803; 87340

== ENCOUNTER → 2020-11-15 08:05 | Outpatient (CLI) | payer MEDICARE, SELFPAY ==
[2020-11-15 10:23] LABS: Absolute Lymphocyte Count 1.53 X10^3/uL (0.83-4.51); Absolute Neutrophil Count 4.9 X10^3/uL (2.0-7.7); Basophil# 0.06 X10^3/uL; Basophil% 0.8 % (0-1); Eosinophil# 0.34 X10^3/uL; Eosinophils% 4.4 % (0-5); Hemoglobin 13.4 g/dL (13.0-16.5); Lymphocyte # 1.53 X10^3/ul (0.83-4.51); Lymphocyte % 19.9 % (19-41); Mean Corp Hgb Conc 32.7 g/dL (32-36); Mean Corpuscular Hgb 31.6 pg (27.0-32.0); Mean Corpuscular Volume 96.7 fL (80-94); Mean Platelet Vol. 10.1 fl (6.2-12.0); Monocyte% 10.4 % (0-10); NRBC Flagged by Analyzer 0 % (0-5); Neutrophil # 4.91 X10^3/uL (2.7-7.7); Neutrophil % 64.1 % (47-70); Platelet Count 338 K/mm3 (150-450); RBC Distribution Width CV 12.8 % (11.6-14.6); Red Blood Count 4.24 M/mm3 (4.6-6.2); White Blood Count 7.7 K/mm3 (4.4-11.0)
[2020-11-15 10:36] LABS: ALB/GLOB Ratio 0.6 RATIO (0.9-2.4); AST(SGOT) 14 U/L (15-37); Alanine Aminotransfer ALT/SGPT 18 U/L (16-61); Albumin, Serum 2.8 g/dL (3.2-5.0); Alkaline Phosphatase 93 U/L (45-117); Anion Gap 6 (5-15); BUN 18 mg/dL (7-18); BUN/Creat Ratio 18.5 RATIO (10-20); Chloride 102 mmol/L (98-107); Creatinine, Serum 0.97 mg/dL (0.70-1.30); EST Glomerular Filtration Rate 82 mL/min (>60); Est Glom Filt Rate - Afr Amer 99 mL/min (>60); Glucose 321 mg/dL (74-106); Potassium 3.6 mmol/L (3.5-5.1); Protein, Total 7.8 g/dL (6.4-8.2); Sodium Level 135 mmol/L (136-145)
== END ==
PROVIDERS: PCP Family Medicine; Referring Provider Family Medicine; Visit Provider Family Medicine
DX: E11.00 Type 2 diabetes mellitus with hyperosmolarity without nonketotic hyperglycemic-hyperosmolar coma (NKHHC) (principal); E11.65 Type 2 diabetes mellitus with hyperglycemia; I10 Essential (primary) hypertension; M06.9 Rheumatoid arthritis, unspecified
CPT/HCPCS: 36415; 80053; 83735; 85025

== ENCOUNTER → 2021-01-23 10:25 | Outpatient (CLI) | payer MEDICARE, SELFPAY ==
[2021-01-23 12:11] LABS: Absolute Lymphocyte Count 1.11 X10^3/uL (0.83-4.51); Absolute Neutrophil Count 3.2 X10^3/uL (2.0-7.7); Basophil# 0.02 X10^3/uL; Basophil% 0.4 % (0-1); Eosinophil# 0.14 X10^3/uL; Eosinophils% 2.8 % (0-5); Hematocrit 47.2 % (40-54); Hemoglobin 15.3 g/dL (13.0-16.5); Lymphocyte # 1.11 X10^3/ul (0.83-4.51); Lymphocyte % 22.3 % (19-41); Mean Corp Hgb Conc 32.4 g/dL (32-36); Mean Corpuscular Hgb 31.9 pg (27.0-32.0); Mean Corpuscular Volume 98.5 fL (80-94); Mean Platelet Vol. 10.2 fl (6.2-12.0); Monocyte% 10.1 % (0-10); NRBC Flagged by Analyzer 0 % (0-5); Neutrophil # 3.19 X10^3/uL (2.7-7.7); Neutrophil % 64.2 % (47-70); Platelet Count 197 K/mm3 (150-450); RBC Distribution Width CV 14.5 % (11.6-14.6); RBC Distribution Width SD 52.8 fl (35.1-43.9); Red Blood Count 4.79 M/mm3 (4.6-6.2)
[2021-01-23 12:45] LABS: AST(SGOT) 28 U/L (15-37); Alanine Aminotransfer ALT/SGPT 38 U/L (16-61); Albumin, Serum 3.7 g/dL (3.2-5.0); Alkaline Phosphatase 78 U/L (45-117); Anion Gap 10 (5-15); BUN 18 mg/dL (7-18); BUN/Creat Ratio 21.4 RATIO (10-20); Calcium,Total 8.6 mg/dL (8.5-10.1); Chloride 104 mmol/L (98-107); Creatinine, Serum 0.84 mg/dL (0.70-1.30); EST Glomerular Filtration Rate 97 mL/min (>60); Est Glom Filt Rate - Afr Amer 118 mL/min (>60); Globulin 3.8 g/dL (2.2-4.2); Glucose 172 mg/dL (74-106); Potassium 3.8 mmol/L (3.5-5.1); Protein, Total 7.5 g/dL (6.4-8.2); Sodium Level 138 mmol/L (136-145)
== END ==
PROVIDERS: PCP Family Medicine; Referring Provider Internal Medicine Rheumatology; Visit Provider Internal Medicine Rheumatology
DX: Z79.899 Other long term (current) drug therapy (principal); M05.79 Rheumatoid arthritis with rheumatoid factor of multiple sites without organ or systems involvement; M47.892 Other spondylosis, cervical region; M47.897 Other spondylosis, lumbosacral region; M21.41 Flat foot [pes planus] (acquired), right foot; E11.9 Type 2 diabetes mellitus without complications; I10 Essential (primary) hypertension; E78.5 Hyperlipidemia, unspecified; Z86.73 Personal history of transient ischemic attack (TIA), and cerebral infarction without residual deficits
CPT/HCPCS: 36415; 80053; 85025

== ENCOUNTER → 2021-01-30 | Outpatient (CLI) | payer MEDICARE, SELFPAY | END | disposition home or self-care (01) | LOC: LABSPEC 15:24 | PROVIDERS: PCP Family Medicine; Referring Provider Family Medicine; Visit Provider Family Medicine | DX: U07.1 COVID-19 (principal) | CPT/HCPCS: 87635; U0005; U0003 ==

== ENCOUNTER → 2021-03-27 08:28 | Outpatient (CLI) | payer MEDICARE, SELFPAY ==
[2021-03-27 10:06] LABS: Absolute Lymphocyte Count 1.59 X10^3/uL (0.83-4.51); Absolute Neutrophil Count 3.7 X10^3/uL (2.0-7.7); Basophil# 0.03 X10^3/uL; Basophil% 0.5 % (0-1); Eosinophil# 0.17 X10^3/uL; Eosinophils% 2.8 % (0-5); Hematocrit 46.5 % (40-54); Lymphocyte # 1.59 X10^3/ul (0.83-4.51); Lymphocyte % 26.3 % (19-41); Mean Corp Hgb Conc 32.3 g/dL (32-36); Mean Corpuscular Hgb 31.7 pg (27.0-32.0); Mean Corpuscular Volume 98.3 fL (80-94); Mean Platelet Vol. 10.3 fl (6.2-12.0); Monocyte# 0.58 X10^3/uL; Monocyte% 9.6 % (0-10); NRBC Flagged by Analyzer 0 % (0-5); Neutrophil # 3.66 X10^3/uL (2.7-7.7); Neutrophil % 60.6 % (47-70); Platelet Count 240 K/mm3 (150-450); RBC Distribution Width CV 14.3 % (11.6-14.6); RBC Distribution Width SD 51.2 fl (35.1-43.9); Red Blood Count 4.73 M/mm3 (4.6-6.2)
[2021-03-27 10:43] LABS: ALB/GLOB Ratio 0.9 RATIO (0.9-2.4); AST(SGOT) 21 U/L (15-37); Alanine Aminotransfer ALT/SGPT 32 U/L (16-61); Albumin, Serum 3.7 g/dL (3.2-5.0); Alkaline Phosphatase 65 U/L (45-117); Anion Gap 9 (5-15); BUN 20 mg/dL (7-18); BUN/Creat Ratio 27.7 RATIO (10-20); Calcium,Total 9.2 mg/dL (8.5-10.1); Chloride 104 mmol/L (98-107); Creatinine, Serum 0.72 mg/dL (0.70-1.30); EST Glomerular Filtration Rate 116 mL/min (>60); Est Glom Filt Rate - Afr Amer 140 mL/min (>60); Globulin 3.9 g/dL (2.2-4.2); Glucose 147 mg/dL (74-106); Potassium 3.8 mmol/L (3.5-5.1); Protein, Total 7.6 g/dL (6.4-8.2); Sodium Level 140 mmol/L (136-145)
== END ==
PROVIDERS: PCP Family Medicine; Referring Provider Internal Medicine Rheumatology; Visit Provider Internal Medicine Rheumatology
DX: M05.79 Rheumatoid arthritis with rheumatoid factor of multiple sites without organ or systems involvement (principal); M47.892 Other spondylosis, cervical region; M47.897 Other spondylosis, lumbosacral region; M21.41 Flat foot [pes planus] (acquired), right foot; E11.9 Type 2 diabetes mellitus without complications; I10 Essential (primary) hypertension; E78.5 Hyperlipidemia, unspecified; Z79.899 Other long term (current) drug therapy; Z86.73 Personal history of transient ischemic attack (TIA), and cerebral infarction without residual deficits
CPT/HCPCS: 36415; 80053; 85025

== ENCOUNTER → 2021-05-17 10:29 | Outpatient (CLI) | payer MEDICARE, SELFPAY ==
--- NOTE | 2021-05-17 10:40 | RAD_ITS ---
STUDY: X-RAY - SACROILIAC JOINTS REASON FOR EXAM: Male, 65 years old. ARTHRITIS TECHNIQUE: 3 view(s) of the sacroiliac joints were obtained. COMPARISON: None. FINDINGS: Normal bilateral sacroiliac joints. Normal visualized sacral ala and sacrum. Normal visualized iliac bones. Normal visualized soft tissue structures. RAD/S-I Jts 3 or More Views IMPRESSION: Normal x-ray examination of the bilateral sacroiliac joints. Electronically Signed: Harley Mcnair MD at 12:09 EDT Tel , Service support ,
--- NOTE | 2021-05-17 10:40 | RAD_ITS ---
STUDY: X-RAY - LEFT WRIST REASON FOR EXAM: Male, 65 years old. ARTHRITIS TECHNIQUE: 2 view(s) of the wrist were obtained. COMPARISON: None. FINDINGS: Normal visualized distal radius and ulna. Normal radiocarpal articulation. Normal distal radioulnar articulation. Normal carpal bones. Normal carpal articulations. Normal carpometacarpal articulation of the thumb. Normal second through fifth carpometacarpal articulations. Normal visualized metacarpal bones. The soft tissue structures are unremarkable. RAD/Wrist 2 Views IMPRESSION: Normal x-ray examination of the wrist. Electronically Signed: Harley Mcnair MD at 13:18 EDT Tel , Service support ,
--- NOTE | 2021-05-17 10:40 | RAD_ITS ---
STUDY: X-RAY - LEFT SHOULDER REASON FOR EXAM: Male, 65 years old. ARTHRITIS TECHNIQUE: 4 view(s) of the shoulder. COMPARISON: None. FINDINGS: There is mild degenerative arthrosis of the glenohumeral articulation. There is degenerative arthrosis of the acromioclavicular joint without inferior osseous spur formation. Normal acromion. Normal humeral head and visualized proximal humerus. The soft tissue structures are unremarkable. Normal visualized pulmonary apex. RAD/Shoulder min 2 Views IMPRESSION: Mild glenohumeral and acromioclavicular joint arthrosis. Electronically Signed: Harley Mcnair MD at 12:08 EDT Tel , Service support ,
--- NOTE | 2021-05-17 10:40 | RAD_ITS ---
STUDY: X-RAY - RIGHT HAND REASON FOR EXAM: Male, 65 years old. ARHTRITIS TECHNIQUE: 3 view(s) of the hand. COMPARISON: None. FINDINGS: Normal radiocarpal articulation. Normal distal radioulnar joint. Normal visualized carpal bones. Normal carpal articulations Normal carpometacarpal articulation of the thumb. Normal second through fifth carpometacarpal joints. Normal metacarpi. Normal metacarpophalangeal joint of the thumb. Normal interphalangeal joint of the thumb. Normal proximal and distal phalanges of the thumb. Normal metacarpophalangeal joints of the second through fifth fingers. Normal proximal and distal interphalangeal joints of the second through fifth fingers. Normal phalanges of the second through fifth fingers. The soft tissue structures are unremarkable. RAD/Hand Min 3 Views IMPRESSION: Normal x-ray examination of the hand. Electronically Signed: Harley Mcnair MD at 13:18 EDT Tel , Service support ,
--- NOTE | 2021-05-17 10:40 | RAD_ITS ---
STUDY: X-RAY - LEFT HAND REASON FOR EXAM: Male, 65 years old. ARTHRITIS TECHNIQUE: 3 view(s) of the hand. COMPARISON: None. FINDINGS: Normal radiocarpal articulation. Normal distal radioulnar joint. Normal visualized carpal bones. Normal carpal articulations Normal carpometacarpal articulation of the thumb. Normal second through fifth carpometacarpal joints. Normal metacarpi. Normal metacarpophalangeal joint of the thumb. Normal interphalangeal joint of the thumb. Normal proximal and distal phalanges of the thumb. Normal metacarpophalangeal joints of the second through fifth fingers. Normal proximal and distal interphalangeal joints of the second through fifth fingers. Normal phalanges of the second through fifth fingers. The soft tissue structures are unremarkable. RAD/Hand Min 3 Views IMPRESSION: Normal x-ray examination of the hand. Electronically Signed: Harley Mcnair MD at 13:17 EDT Tel , Service support ,
--- NOTE | 2021-05-17 10:40 | RAD_ITS ---
STUDY: X-RAY - RIGHT WRIST REASON FOR EXAM: Male, 65 years old. ARTHRITIS TECHNIQUE: 2 view(s) of the wrist were obtained. COMPARISON: None. FINDINGS: Normal visualized distal radius and ulna. Normal radiocarpal articulation. There is a negative ulnar variance. Normal carpal bones. Normal carpal articulations. Normal carpometacarpal articulation of the thumb. Normal second through fifth carpometacarpal articulations. Normal visualized metacarpal bones. The soft tissue structures are unremarkable. RAD/Wrist 2 Views IMPRESSION: Mild ulnar minus variance but no severe arthrosis. Electronically Signed: Harley Mcnair MD at 13:20 EDT Tel , Service support ,
--- NOTE | 2021-05-17 10:41 | RAD_ITS ---
STUDY: X-RAY - PELVIS AND LEFT HIP REASON FOR EXAM: Male, 65 years old. ARTHRITIS TECHNIQUE: 3 views of the pelvis and hip. COMPARISON: 10/25/2020 FINDINGS: There is a non-specific bowel gas pattern. Normal visualized soft tissue structures. Normal bilateral iliac wings, sacroiliac joints and visualized sacrum. Normal bilateral superior and inferior pubic rami. Normal pubic symphysis. Normal bilateral ischial tuberosities. Decreased femoral head and neck offset with a femoral dysplastic bump predispose to cam-type femoral acetabular impingement. Normal acetabulum. There is mild articular joint space narrowing of the hip. 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 Electronically Signed: Harley Mcnair MD at 12:10 EDT Tel , Service support ,
[2021-05-17 15:19] LABS: Absolute Lymphocyte Count 1.33 X10^3/uL (0.83-4.51); Basophil# 0.04 X10^3/uL; Basophil% 0.7 % (0-1); Eosinophil# 0.09 X10^3/uL; Eosinophils% 1.5 % (0-5); Hematocrit 43.4 % (40-54); Hemoglobin 14.3 g/dL (13.0-16.5); Lymphocyte # 1.33 X10^3/ul (0.83-4.51); Lymphocyte % 21.9 % (19-41); Mean Corp Hgb Conc 32.9 g/dL (32-36); Mean Corpuscular Hgb 33.2 pg (27.0-32.0); Mean Corpuscular Volume 100.7 fL (80-94); Mean Platelet Vol. 10.8 fl (6.2-12.0); Monocyte# 0.55 X10^3/uL; Monocyte% 9.1 % (0-10); NRBC Flagged by Analyzer 0 % (0-5); Neutrophil # 4.04 X10^3/uL (2.7-7.7); Neutrophil % 66.6 % (47-70); Platelet Count 238 K/mm3 (150-450); RBC Distribution Width CV 13.6 % (11.6-14.6); RBC Distribution Width SD 49.9 fl (35.1-43.9); Red Blood Count 4.31 M/mm3 (4.6-6.2); White Blood Count 6.1 K/mm3 (4.4-11.0)
[2021-05-17 15:44] LABS: Erythrocyte Sedimentation Rate 14 mm/hr (0-20)
[2021-05-17 15:57] LABS: Hepatitis B Surface Antibody Non-Reactive; Vitamin B12 311 pg/mL (211-911)
[2021-05-17 16:18] LABS: ALB/GLOB Ratio 0.9 RATIO (0.9-2.4); AST(SGOT) 21 U/L (15-37); Alanine Aminotransfer ALT/SGPT 33 U/L (16-61); Albumin, Serum 3.5 g/dL (3.2-5.0); Alkaline Phosphatase 74 U/L (45-117); Anion Gap 7 (5-15); BUN 20 mg/dL (7-18); CPK Total, Creatine Kinase 158 U/L (39-308); CRP < 2.90 mg/L (0.0-3.0); Calcium,Total 8.8 mg/dL (8.5-10.1); Chloride 104 mmol/L (98-107); EST Glomerular Filtration Rate 103 mL/min (>60); Est Glom Filt Rate - Afr Amer 125 mL/min (>60); Globulin 3.8 g/dL (2.2-4.2); Glucose 144 mg/dL (74-106); Potassium 3.8 mmol/L (3.5-5.1); Protein, Total 7.3 g/dL (6.4-8.2); Sodium Level 138 mmol/L (136-145); Thyroid Stim Hormone (TSH) 0.68 uIU/mL (0.358-3.74); Uric Acid 6.5 mg/dL (3.5-7.2)
[2021-05-21 14:08] LABS: ANTINUCLEAR ANTIBODIES DIRECT Positive (Negative); Anti-Centromere B Ab <0.2 AI (0.0-0.9); Anti-Chromatin <0.2 AI (0.0-0.9); Anti-Jo <0.2 AI (0.0-0.9); Anti-Scleroderma-70 AB <0.2 AI (0.0-0.9); RNP Ab 2.2 AI (0.0-0.9); SJOGREN'S Anti-SS-A test < 0.2 AI (0.0-0.9); SJOGREN'S Anti-SS-B test 0.2 AI (0.0-0.9); Smith Ab <0.2 AI (0.0-0.9); Vitamin D 1,25-Dihydroxy 43.3 pg/mL (19.9-79.3)
[2021-05-21 14:19] LABS: Anti-dsDNA Ab <1 IU/mL (0-9)
[2021-05-24 12:08] LABS: Alpha-1-Globulins 0.2 g/dL (0.0-0.4); Angiotensin Convert Enzyme < 15 U/L (14-82); Folate, RBC (Hct) Test 42.6 % (37.5-51.0); Folates, RBC Test 1110 ng/mL (>498); Gamma Globulin 0.9 g/dL (0.4-1.8); HEPATITIS B SURFACE AG Negative (Negative); Hepatitis A IgM Antibody Negative (Negative); Hepatitis B Core AB IgM Negative (Negative); Immunoglobulin A 288 mg/dL (61-437); Immunoglobulin G 867 mg/dL (603-1613); Immunoglobulin M 38 mg/dL (20-172); PROEL- TOTAL PROTEIN 7.1 g/dL (6.0-8.5); VITAMIN B6 10.1 ug/L (5.3-46.7); Vitamin B1, Thiamine 145.4 nmol/L (66.5-200.0)
[2021-05-24 13:10] LABS: CCP IgG Antibodies 7 units (0-19); Hep C Antibodies <0.1 s/co ratio (0.0-0.9); Hepatitis A AB, Total Negative (Negative); t-Transglutaminase IgA <2 U/mL (0-3)
== END ==
PROVIDERS: PCP Family Medicine; Referring Provider Internal Medicine Rheumatology; Visit Provider Internal Medicine Rheumatology
DX: M05.79 Rheumatoid arthritis with rheumatoid factor of multiple sites without organ or systems involvement (principal); I10 Essential (primary) hypertension; E11.69 Type 2 diabetes mellitus with other specified complication; E78.5 Hyperlipidemia, unspecified; E66.9 Obesity, unspecified; R53.83 Other fatigue; R20.2 Paresthesia of skin; G56.03 Carpal tunnel syndrome, bilateral upper limbs; R29.898 Other symptoms and signs involving the musculoskeletal system; M75.82 Other shoulder lesions, left shoulder; M75.101 Unspecified rotator cuff tear or rupture of right shoulder, not specified as traumatic; M19.041 Primary osteoarthritis, right hand; M19.042 Primary osteoarthritis, left hand; M25.552 Pain in left hip; M89.9 Disorder of bone, unspecified; M94.9 Disorder of cartilage, unspecified; M50.30 Other cervical disc degeneration, unspecified cervical region; M25.512 Pain in left shoulder; G89.29 Other chronic pain; M79.641 Pain in right hand; M79.642 Pain in left hand; Z79.1 Long term (current) use of non-steroidal anti-inflammatories (NSAID); Z79.82 Long term (current) use of aspirin; Z79.899 Other long term (current) drug therapy; Z87.39 Personal history of other diseases of the musculoskeletal system and connective tissue
CPT/HCPCS: 36415; 72202; 73030; 73100; 73130; 73502; 80053; 80074; 82164; 82550; 82607; 82652; 82747; 82784; 83516; 84165; 84207; 84403; 84425; 84443; 84550; 85014; 85025; 85652; 86038; 86140; 86200; 86225; 86235; 86334; 86431; 86706; 86708

== ENCOUNTER 2021-08-13 08:52 | Outpatient (RCR) | payer MEDICARE, SELFPAY ==
[2021-08-13 09:10] LABS: Bacteria 0 SEEN /hpf (None Seen); Mucous, Urine 0 SEEN /hpf (<or=2+); Red Blood Cells-Urine 0 SEEN /hpf (0-5); White Blood Cells 0 SEEN /hpf (0-5)
[2021-08-13 10:31] LABS: Vitamin D,25 Hydroxy 57.9 ng/mL
[2021-08-13 10:39] LABS: ALB/GLOB Ratio 0.9 RATIO (0.9-2.4); AST(SGOT) 18 U/L (15-37); Alanine Aminotransfer ALT/SGPT 30 U/L (16-61); Albumin, Serum 3.7 g/dL (3.2-5.0); Alkaline Phosphatase 53 U/L (45-117); Anion Gap 6 (5-15); BUN 23 mg/dL (7-18); BUN/Creat Ratio 26.7 RATIO (10-20); CPK Total, Creatine Kinase 87 U/L (39-308); CRP < 2.90 mg/L (0.0-3.0); Calcium,Total 9.2 mg/dL (8.5-10.1); Chloride 107 mmol/L (98-107); Creatinine, Serum 0.86 mg/dL (0.70-1.30); EST Glomerular Filtration Rate 94 mL/min (>60); Est Glom Filt Rate - Afr Amer 114 mL/min (>60); Globulin 3.9 g/dL (2.2-4.2); Glucose 113 mg/dL (74-106); Potassium 3.9 mmol/L (3.5-5.1); Protein, Total 7.6 g/dL (6.4-8.2); Sodium Level 139 mmol/L (136-145)
[2021-08-13 10:48] LABS: Erythrocyte Sedimentation Rate 17 mm/hr (0-20)
[2021-08-13 10:50] LABS: Absolute Lymphocyte Count 1.56 X10^3/uL (0.83-4.51); Basophil# 0.05 X10^3/uL; Basophil% 0.8 % (0-1); Eosinophil# 0.11 X10^3/uL; Eosinophils% 1.7 % (0-5); Hematocrit 49.2 % (40-54); Hemoglobin 16.2 g/dL (13.0-16.5); Lymphocyte # 1.56 X10^3/ul (0.83-4.51); Lymphocyte % 24.7 % (19-41); Mean Corp Hgb Conc 32.9 g/dL (32-36); Mean Corpuscular Volume 100.2 fL (80-94); Mean Platelet Vol. 10.5 fl (6.2-12.0); Monocyte# 0.56 X10^3/uL; Monocyte% 8.9 % (0-10); NRBC Flagged by Analyzer 0 % (0-5); Neutrophil # 4.01 X10^3/uL (2.7-7.7); Neutrophil % 63.6 % (47-70); Platelet Count 247 K/mm3 (150-450); RBC Distribution Width CV 13.5 % (11.6-14.6); RBC Distribution Width SD 48.3 fl (35.1-43.9); Red Blood Count 4.91 M/mm3 (4.6-6.2); White Blood Count 6.3 K/mm3 (4.4-11.0)
[2021-08-13 12:42] LABS: Color, Urine Yellow (Yellow); Glucose, Dipstick Normal (Normal); Ketone-Dipstick Negative (Negative); Leukocyte Esterase-Dipstick Negative /ul (Negative); Nitrite-Dipstick Negative (Negative); Occult Blood-Urine Negative /ul (Negative); Protein-Dipstick 100 mg/dl (Negative); Specific Gravity, Urine 1.025 (1.002-1.030); Urine Bilirubin Dipstick Negative (Negative); Urine Clarity Clear (Clear); Urine Urobilinogen Normal (Normal)
[2021-08-13 12:56] LABS: Squamous Epithelial Cells - UA 0-5 SEEN /hpf (0-5)
[2021-08-14 09:24] LABS: Complement C3 124 mg/dL (82-167)
[2021-08-15 14:59] LABS: Vitamin D 1,25-Dihydroxy 46.9 pg/mL (19.9-79.3)
== END 2021-08-13 18:00 | disposition home or self-care (01) ==
LOC: MTLAB 08:52
PROVIDERS: PCP Family Medicine; Referring Provider Internal Medicine Rheumatology; Visit Provider Internal Medicine Rheumatology
DX: E55.9 Vitamin D deficiency, unspecified (principal); G95.89 Other specified diseases of spinal cord; M05.79 Rheumatoid arthritis with rheumatoid factor of multiple sites without organ or systems involvement; M32.9 Systemic lupus erythematosus, unspecified; R76.8 Other specified abnormal immunological findings in serum; Z79.899 Other long term (current) drug therapy; Z79.1 Long term (current) use of non-steroidal anti-inflammatories (NSAID); Z79.82 Long term (current) use of aspirin; Z87.39 Personal history of other diseases of the musculoskeletal system and connective tissue; R73.9 Hyperglycemia, unspecified; M54.12 Radiculopathy, cervical region; G56.03 Carpal tunnel syndrome, bilateral upper limbs; M75.101 Unspecified rotator cuff tear or rupture of right shoulder, not specified as traumatic; M19.041 Primary osteoarthritis, right hand; M19.042 Primary osteoarthritis, left hand; M19.071 Primary osteoarthritis, right ankle and foot; M19.072 Primary osteoarthritis, left ankle and foot; M47.812 Spondylosis without myelopathy or radiculopathy, cervical region; M50.20 Other cervical disc displacement, unspecified cervical region; M50.30 Other cervical disc degeneration, unspecified cervical region; M48.02 Spinal stenosis, cervical region
CPT/HCPCS: 36415; 80053; 81001; 82306; 82550; 82652; 85025; 85652; 86140; 86160

== ENCOUNTER → 2022-01-28 | Outpatient (CLI) | payer MEDICARE, SELFPAY ==
[2022-01-28 08:21] LABS: Bacteria 0 SEEN /hpf (None Seen); Mucous, Urine 0 SEEN /hpf (<or=2+)
[2022-01-28 10:07] LABS: Color, Urine Yellow (Yellow); Erythrocyte Sedimentation Rate 21 mm/hr (0-20); Glucose, Dipstick Normal (Normal); Ketone-Dipstick Negative (Negative); Leukocyte Esterase-Dipstick 25 /ul (Negative); Nitrite-Dipstick Negative (Negative); Occult Blood-Urine 10 /ul (Negative); Protein-Dipstick 100 mg/dl (Negative); Specific Gravity, Urine 1.025 (1.002-1.030); Urine Bilirubin Dipstick Negative (Negative); Urine Clarity Clear (Clear); Urine Urobilinogen Normal (Normal)
[2022-01-28 10:26] LABS: AST(SGOT) 20 U/L (15-37); Alanine Aminotransfer ALT/SGPT 29 U/L (16-61); Albumin, Serum 3.6 g/dL (3.2-5.0); Alkaline Phosphatase 63 U/L (45-117); Anion Gap 6 (5-15); BUN 21 mg/dL (7-18); BUN/Creat Ratio 27.9 RATIO (10-20); CPK Total, Creatine Kinase 85 U/L (39-308); CRP < 2.90 mg/L (0.0-3.0); Calcium,Total 9.1 mg/dL (8.5-10.1); Chloride 107 mmol/L (98-107); Creatinine, Serum 0.75 mg/dL (0.70-1.30); EST Glomerular Filtration Rate 110 mL/min (>60); Est Glom Filt Rate - Afr Amer 133 mL/min (>60); Globulin 3.7 g/dL (2.2-4.2); Glucose 152 mg/dL (74-106); Potassium 3.8 mmol/L (3.5-5.1); Protein, Total 7.3 g/dL (6.4-8.2); Sodium Level 140 mmol/L (136-145)
[2022-01-28 10:40] LABS: Red Blood Cells-Urine 0-5 SEEN /hpf (0-5); Squamous Epithelial Cells - UA 0-5 SEEN /hpf (0-5); White Blood Cells 0-5 SEEN /hpf (0-5)
[2022-01-31 14:58] LABS: Complement C3 130 mg/dL (82-167)
== END | disposition home or self-care (01) ==
PROVIDERS: PCP Family Medicine; Referring Provider Internal Medicine Rheumatology; Visit Provider Internal Medicine Rheumatology
DX: M05.79 Rheumatoid arthritis with rheumatoid factor of multiple sites without organ or systems involvement (principal); G95.89 Other specified diseases of spinal cord; M32.9 Systemic lupus erythematosus, unspecified; R76.8 Other specified abnormal immunological findings in serum; R73.9 Hyperglycemia, unspecified; M75.101 Unspecified rotator cuff tear or rupture of right shoulder, not specified as traumatic; M19.041 Primary osteoarthritis, right hand; M19.042 Primary osteoarthritis, left hand; M19.071 Primary osteoarthritis, right ankle and foot; M19.072 Primary osteoarthritis, left ankle and foot; M47.812 Spondylosis without myelopathy or radiculopathy, cervical region; M50.30 Other cervical disc degeneration, unspecified cervical region; M48.02 Spinal stenosis, cervical region; M54.12 Radiculopathy, cervical region; Z79.1 Long term (current) use of non-steroidal anti-inflammatories (NSAID); Z79.82 Long term (current) use of aspirin; Z79.899 Other long term (current) drug therapy; Z87.39 Personal history of other diseases of the musculoskeletal system and connective tissue
CPT/HCPCS: 36415; 80053; 81001; 82550; 85652; 86140; 86160

== ENCOUNTER → 2022-07-31 | Outpatient (CLI) | payer MEDICARE, SELFPAY ==
[2022-07-31 11:27] LABS: Bacteria 0 SEEN /hpf (None Seen); Mucous, Urine 0 SEEN /hpf (<or=2+); Red Blood Cells-Urine 0 SEEN /hpf (0-5); White Blood Cells 0 SEEN /hpf (0-5)
[2022-07-31 12:58] LABS: Erythrocyte Sedimentation Rate 18 mm/hr (0-20)
[2022-07-31 13:51] LABS: ALB/GLOB Ratio 1.1 RATIO (0.9-2.4); AST(SGOT) 33 U/L (15-37); Alanine Aminotransfer ALT/SGPT 44 U/L (16-61); Alkaline Phosphatase 50 U/L (45-117); Anion Gap 9 (5-15); BUN 26 mg/dL (7-18); BUN/Creat Ratio 30.7 RATIO (10-20); CPK Total, Creatine Kinase 88 U/L (39-308); CRP < 2.90 mg/L (0.0-3.0); Calcium,Total 9.2 mg/dL (8.5-10.1); Chloride 106 mmol/L (98-107); Creatinine, Serum 0.85 mg/dL (0.70-1.30); EST Glomerular Filtration Rate 96 mL/min (>60); Est Glom Filt Rate - Afr Amer 116 mL/min (>60); Globulin 3.5 g/dL (2.2-4.2); Glucose 142 mg/dL (74-106); Potassium 4.6 mmol/L (3.5-5.1); Protein, Total 7.5 g/dL (6.4-8.2); Sodium Level 138 mmol/L (136-145)
[2022-07-31 14:08] LABS: Glucose, Dipstick Normal (Normal); Ketone-Dipstick 5 mg/dl (Negative); Leukocyte Esterase-Dipstick Negative /ul (Negative); Nitrite-Dipstick Negative (Negative); Occult Blood-Urine Negative /ul (Negative); Protein-Dipstick 100 mg/dl (Negative); Specific Gravity, Urine 1.025 (1.002-1.030); Urine Urobilinogen Normal (Normal)
[2022-07-31 14:11] LABS: Urine Bilirubin Dipstick 1 mg/dL (Negative)
[2022-07-31 14:12] LABS: Color, Urine Yellow (Yellow); Urine Clarity Clear (Clear)
[2022-07-31 14:27] LABS: Squamous Epithelial Cells - UA 0-5 SEEN /hpf (0-5)
[2022-08-02 20:36] LABS: Complement C3 134 mg/dL (82-167)
== END | disposition home or self-care (01) ==
LOC: MTLAB 11:19
PROVIDERS: PCP Family Medicine; Referring Provider Internal Medicine Rheumatology; Visit Provider Internal Medicine Rheumatology
DX: M05.79 Rheumatoid arthritis with rheumatoid factor of multiple sites without organ or systems involvement (principal); G95.89 Other specified diseases of spinal cord; M32.9 Systemic lupus erythematosus, unspecified; R76.8 Other specified abnormal immunological findings in serum; Z87.39 Personal history of other diseases of the musculoskeletal system and connective tissue; R73.9 Hyperglycemia, unspecified; M54.12 Radiculopathy, cervical region; G56.03 Carpal tunnel syndrome, bilateral upper limbs; M75.101 Unspecified rotator cuff tear or rupture of right shoulder, not specified as traumatic; M19.041 Primary osteoarthritis, right hand; M19.042 Primary osteoarthritis, left hand; M47.812 Spondylosis without myelopathy or radiculopathy, cervical region; M50.20 Other cervical disc displacement, unspecified cervical region; M50.30 Other cervical disc degeneration, unspecified cervical region; M48.02 Spinal stenosis, cervical region; Z79.1 Long term (current) use of non-steroidal anti-inflammatories (NSAID); Z79.82 Long term (current) use of aspirin; Z79.899 Other long term (current) drug therapy
CPT/HCPCS: 36415; 80053; 81001; 82550; 85652; 86140; 86160

== ENCOUNTER → 2022-09-24 | Outpatient (CLI) | payer MEDICARE, SELFPAY ==
--- NOTE | 2022-09-24 11:50 | RAD_ITS ---
STUDY: X-RAY - CERVICAL SPINE REASON FOR EXAM: Male, 66 years old. Neck and arm pain, previous neck surgery TECHNIQUE: 5 view(s) of the cervical spine were obtained. COMPARISON: None FINDINGS: There has been previous anterior fusion from C4 to C7 and posterior fusion from C3 to C7. Hardware is intact and free of complication. Normal anterior atlantoaxial articulation. Normal odontoid process. There is straightening of the normal cervical lordosis. Normal visualized vertebral bodies and endplates. There is multi-level degenerative disc disease with multilevel disc space narrowing. There is multi-level osseous foraminal stenosis. The soft tissue structures are unremarkable. RAD/Cerv Spine 4 or 5 Views IMPRESSION: Multilevel degenerative and postsurgical changes, no acute findings No hardware complication or failure Electronically Signed: Rey Limon MD at 12:44 EDT ,
[2022-09-24 18:15] LABS: Color, Urine Yellow (Yellow); Glucose, Dipstick Normal (Normal); Ketone-Dipstick 15 mg/dl (Negative); Leukocyte Esterase-Dipstick 100 /ul (Negative); Nitrite-Dipstick Negative (Negative); Occult Blood-Urine Negative /ul (Negative); Protein-Dipstick 100 mg/dl (Negative); Urine Bilirubin Dipstick 1 mg/dL (Negative); Urine Clarity Clear (Clear); Urine Urobilinogen 1 mg/dl (Normal)
[2022-09-24 19:02] LABS: Microalbumin:Creatinine Ratio 763.3 mg/g CRE (<30 mg/g CRE)
[2022-09-27 15:09] LABS: PROELU- Albumin, Urine 83.9 % (.); PROELU- Alpha-1-Globulin,Ur 0.8 % (.); PROELU- Beta Globulin, Ur 7.3 % (.)
[2022-09-27 17:01] LABS: Total Protein, Ur 258.8 mg/dL (Not Estab.)
== END | disposition home or self-care (01) ==
PROVIDERS: PCP Family Medicine; Referring Provider Family Medicine; Visit Provider Family Medicine
DX: M54.12 Radiculopathy, cervical region (principal); R80.9 Proteinuria, unspecified
CPT/HCPCS: 72050; 81002; 82043; 82570; 84166

== ENCOUNTER → 2022-10-29 | Outpatient (CLI) | payer MEDICARE, SELFPAY ==
[2022-10-29 12:56] LABS: Erythrocyte Sedimentation Rate 13 mm/hr (0-20)
[2022-10-29 12:58] LABS: Absolute Lymphocyte Count 1.04 X10^3/uL (0.83-4.51); Absolute Neutrophil Count 4.2 X10^3/uL (2.0-7.7); Basophil# 0.04 X10^3/uL; Basophil% 0.7 % (0-1); Eosinophil# 0.13 X10^3/uL; Eosinophils% 2.2 % (0-5); Hematocrit 41.6 % (40-54); Lymphocyte # 1.04 X10^3/ul (0.83-4.51); Lymphocyte % 17.5 % (19-41); Mean Corp Hgb Conc 33.7 g/dL (32-36); Mean Corpuscular Hgb 34.7 pg (27.0-32.0); Mean Platelet Vol. 10.2 fl (6.2-12.0); Monocyte# 0.56 X10^3/uL; Monocyte% 9.4 % (0-10); NRBC Flagged by Analyzer 0 % (0-5); Neutrophil # 4.16 X10^3/uL (2.7-7.7); Neutrophil % 69.9 % (47-70); Platelet Count 225 K/mm3 (150-450); RBC Distribution Width CV 13.8 % (11.6-14.6); RBC Distribution Width SD 51.7 fl (35.1-43.9); Red Blood Count 4.04 M/mm3 (4.6-6.2)
[2022-10-29 13:45] LABS: AST(SGOT) 21 U/L (15-37); Alanine Aminotransfer ALT/SGPT 32 U/L (16-61); CRP < 2.90 mg/L (0.0-3.0); Creatinine, Serum 1.13 mg/dL (0.70-1.30); EST Glomerular Filtration Rate 69 mL/min (>60); Est Glom Filt Rate - Afr Amer 83 mL/min (>60)
== END | disposition home or self-care (01) ==
LOC: MTLAB 10:40
PROVIDERS: PCP Family Medicine; Referring Provider Internal Medicine Rheumatology; Visit Provider Internal Medicine Rheumatology
DX: M05.79 Rheumatoid arthritis with rheumatoid factor of multiple sites without organ or systems involvement (principal); G95.89 Other specified diseases of spinal cord; M32.9 Systemic lupus erythematosus, unspecified; G56.03 Carpal tunnel syndrome, bilateral upper limbs; M54.12 Radiculopathy, cervical region; M48.02 Spinal stenosis, cervical region; M50.30 Other cervical disc degeneration, unspecified cervical region; M50.20 Other cervical disc displacement, unspecified cervical region; M47.812 Spondylosis without myelopathy or radiculopathy, cervical region; M19.071 Primary osteoarthritis, right ankle and foot; M19.072 Primary osteoarthritis, left ankle and foot; M75.101 Unspecified rotator cuff tear or rupture of right shoulder, not specified as traumatic; M19.041 Primary osteoarthritis, right hand; M19.042 Primary osteoarthritis, left hand; R76.8 Other specified abnormal immunological findings in serum; R73.9 Hyperglycemia, unspecified; Z98.890 Other specified postprocedural states; Z79.1 Long term (current) use of non-steroidal anti-inflammatories (NSAID); Z79.82 Long term (current) use of aspirin; Z79.631 Long term (current) use of antimetabolite agent; Z79.899 Other long term (current) drug therapy; Z87.39 Personal history of other diseases of the musculoskeletal system and connective tissue
CPT/HCPCS: 36415; 82565; 84450; 84460; 85025; 85652; 86140

== ENCOUNTER → 2022-11-22 | Outpatient (CLI) | payer MEDICARE, SELFPAY ==
[2022-11-22 18:11] LABS: Cholesterol 97 mg/dL (200); High Density Lipoprotein 34 mg/dL; PSA,Total - Annual Screen 0.14 ng/mL (0.00-4.00); Triglycerides 286 mg/dL; Very Low Density Lipoprotein 57 mg/dL (5-40)
[2022-11-22 18:17] LABS: Hemoglobin A1c 6.4 % (3.8-5.6)
[2022-11-22 18:23] LABS: Microalbumin:Creatinine Ratio 311.7 mg/g CRE (<30 mg/g CRE)
== END | disposition home or self-care (01) ==
LOC: BFHLAB 14:42
PROVIDERS: PCP Family Medicine; Referring Provider Family Medicine; Visit Provider Family Medicine
DX: Z12.5 Encounter for screening for malignant neoplasm of prostate (principal); E11.42 Type 2 diabetes mellitus with diabetic polyneuropathy; R80.9 Proteinuria, unspecified
CPT/HCPCS: 36415; 80061; 82043; 82570; 83036; 84153; G0103

== ENCOUNTER → 2023-03-06 | Outpatient (CLI) | payer MEDICARE, SELFPAY ==
[2023-03-06 12:50] LABS: Color, Urine Yellow (Yellow); Glucose, Dipstick 1000 mg/dl (Normal); Ketone-Dipstick Negative (Negative); Leukocyte Esterase-Dipstick 100 /ul (Negative); Nitrite-Dipstick Negative (Negative); Occult Blood-Urine Negative /ul (Negative); Protein-Dipstick 30 mg/dl (Negative); Urine Bilirubin Dipstick Negative (Negative); Urine Clarity Clear (Clear); Urine Urobilinogen Normal (Normal)
[2023-03-06 13:12] LABS: Microalbumin:Creatinine Ratio 211.3 mg/g CRE (<30 mg/g CRE)
== END | disposition home or self-care (01) ==
LOC: BFHLAB 09:59
PROVIDERS: PCP Family Medicine; Referring Provider Family Medicine; Visit Provider Family Medicine
DX: R80.9 Proteinuria, unspecified (principal)
CPT/HCPCS: 36415; 81002; 82043; 82570

== ENCOUNTER → 2023-04-28 | Outpatient (CLI) | payer MEDICARE, SELFPAY ==
[2023-04-28 15:31] LABS: Erythrocyte Sedimentation Rate 68 mm/hr (0-20)
[2023-04-28 15:34] LABS: Absolute Neutrophil Count 5.2 X10^3/uL (2.0-7.7); Basophil# 0.07 X10^3/uL; Basophil% 0.9 % (0-1); Eosinophil# 0.34 X10^3/uL; Eosinophils% 4.4 % (0-5); Hemoglobin 12.5 g/dL (13.0-16.5); Lymphocyte % 14.3 % (19-41); Mean Corp Hgb Conc 32.9 g/dL (32-36); Mean Corpuscular Hgb 34.5 pg (27.0-32.0); Mean Platelet Vol. 9.8 fl (6.2-12.0); Monocyte# 0.92 X10^3/uL; NRBC Flagged by Analyzer 0 % (0-5); Neutrophil # 5.24 X10^3/uL (2.7-7.7); Neutrophil % 68.1 % (47-70); Platelet Count 344 K/mm3 (150-450); RBC Distribution Width CV 14.9 % (11.6-14.6); RBC Distribution Width SD 56.9 fl (35.1-43.9); Red Blood Count 3.62 M/mm3 (4.6-6.2); White Blood Count 7.7 K/mm3 (4.4-11.0)
[2023-04-28 15:49] LABS: AST(SGOT) 20 U/L (15-37); Alanine Aminotransfer ALT/SGPT 27 U/L (16-61); Creatinine, Serum 1.24 mg/dL (0.70-1.30); EST Glomerular Filtration Rate 62 mL/min (>60); Est Glom Filt Rate - Afr Amer 75 mL/min (>60)
== END | disposition home or self-care (01) ==
LOC: MTLAB 10:49
PROVIDERS: PCP Family Medicine; Referring Provider Internal Medicine Rheumatology; Visit Provider Internal Medicine Rheumatology
DX: M05.79 Rheumatoid arthritis with rheumatoid factor of multiple sites without organ or systems involvement (principal); M32.9 Systemic lupus erythematosus, unspecified; R76.8 Other specified abnormal immunological findings in serum; Z98.890 Other specified postprocedural states; Z87.39 Personal history of other diseases of the musculoskeletal system and connective tissue; Z79.82 Long term (current) use of aspirin
CPT/HCPCS: 36415; 82565; 84450; 84460; 85025; 85652; 86140

== ENCOUNTER → 2023-07-29 | Outpatient (CLI) | payer MEDICARE, SELFPAY ==
--- OUTSIDE RECORDS SUMMARY | 2023-07-29 09:02 | XMS RPT_ITS | CCD ---
Author Name Unknown Address [address] [place] [address] Organization [facility] Care Team Providers Care Parts Expediter Name Role Phone Paco Hart MD Primary Care Provider [phone] Nick Estes Unavailable Unavailable Dr. Nick Estes Primary Care Unavaila ble ZSOCRATES DRAPER Attending Unavaila ble SOCRATES MENDOZA Attending Unavaila Dr. Nick Bray Primary Care Unavaila ble ZSOCRATES DRAPER Attending Unavaila Dr. Nick Bray Primary Care Unavaila Dr. Nick Bray Primary Care Unavaila ble SOCRATES MENDOZA Attending Unavaila ble SOCRATES MENDOZA Attending Unavaila Dr. Nick Bray Primary Care Unavaila PACO Camacho Primary Care Unavailable Paco Hart MD Primary Care Provider PACO HART Primary Care Unavailable PACO HART Primary Care Unavailable PACO HART Primary Care Unavailable PACO HART Primary Care Unavailable SELF, SELF Referring Unavailable STAINAZUL MEJIA JR, JR Attending Unavaila ble STAINJILOK AZUL WRIGHT JR Attending Unavaila ble PACO HART Primary Care Unavailable SELF, SELF Referring Unavailable PACO HART Primary Care Unavailable SELF, SELF Referring Unavailable AZUL SEGOVIA JR, JR Attending Unavaila ble PACO HART Primary Care Unavailable SELF, SELF Referring Unavailable STAINJILOK AZUL WRIGHT JR Attending Unavaila ble PACO HART Primary Care Unavailable SELF, SELF Referring Unavailable STAINBROOK AZUL WRIGHT JR Attending Unavaila ble Allergies Allergy Classification Reported Allergen(s) Allergy Type Date of Onset Reaction(s) Facility (5 sources) Loratadine Drug Allergy 09-10-2019 [facility] (7 sources) Clemastine / Phenylpropanolam ine; Translations: [Tavist-D] Drug Allergy [facility] Work Phone: (1 source) Loratadine Propensity to adverse reactions to drug 09-10-2019 [facility] Medications Current Medications Medication Drug Class(es) Dates Sig (Normalized) Sig (Original) aspirin 81 mg delayed release oral tablet (13 sources) Platelet Aggregation Inhibitor, Nonsteroidal Anti-inflammatory Drug take 1 tablet by mouth once daily aspirin EC [address] Take 1 tablet by mouth daily. 0 Active Completed/Discontinued Medications Medication Drug Class(es) Dates Sig (Normalized) Sig (Original) acetaminophen 500 mg oral capsule (7 sources) Tylenol 500 MG CAPS 2 tablets at HS Quantity: 0 Refills: 0 Ordered: 22-Oct-2022 DO Active amLODIPine 10 mg oral tablet (7 sources) Dihydropyridine Calcium Channel Lynda take 1 tablet by mouth once daily amLODIPine Besylate 10 MG Oral Tablet TAKE 1 TABLET DAILY. Quantity: 0 Refills: 0 Ordered: 22-Oct-2022 DO Active dapagliflozin 5 mg oral tablet (7 sources) Sodium-Glucose Cotransporter 2 Inhibitor take 1 tablet by mouth once daily Farxiga 5 MG Oral Tablet 1 tablet daily Quantity: 0 Refills: 0 Ordered: 22-Oct-2022 DO Active docosahexaenoic acid 120 mg / eicosapentaenoic acid 180 mg oral capsule (7 sources) take 1 capsule by mouth once daily Fish Oil 1000 MG Oral Capsule 1 daily Quantity: 0 Refills: 0 Ordered: 22-Oct-2022 DO Active Elderberry preparation (7 sources) Elderberry CAPS 4250 mg daily Quantity: 0 Refills: 0 Ordered: 22-Oct-2022 DO Active gabapentin 300 mg oral capsule (14 sources) Anti-epileptic Agent Start: 03-24-2023 End: 05-09-2023 take 1 capsule by mouth once at bedtime Gabapentin 300 MG capsule Indications: Bilateral carpal tunnel syndrome , Cervical radiculopathy at C5 , Cervical radiculopathy at C8 , Cervical spinal stenosis , Paresthesia of both hands 1 po q hs 30 capsule 5 03/24/2023 05/09/2023 Discontinued Problems Active Problems Problem Classification Problem Date Documented Date Episodic/Chronic Deficiency and other anemia (2 sources) Anemia; Translations: [Other specified anemias] Onset: 05-09-2023 05-09-2023 Episodic Deficiency and other anemia (2 sources) Macrocytic anemia; Translations: [Nutritional anemia, unspecified] Onset: 05-09-2023 05-09-2023 Episodic Deficiency and other anemia (2 sources) Other specified anemias; Translations: [Other specified anemias] Onset: 05-09-2023 Episodic Deficiency and other anemia (2 sources) Nutritional anemia, unspecified; Translations: [Nutritional anemia, unspecified] Onset: 05-09-2023 Episodic Diabetes mellitus without complication (15 sources) Type 2 diabetes mellitus; Translations: [Type 2 diabetes mellitus without complications] Onset: 05-16-2021 05-16-2021 Chronic Disorders of lipid metabolism (7 sources) Dyslipidemia; Translations: [Hyperlipidemia, unspecified] Onset: 05-16-2021 Chronic Essential hypertension (15 sources) Essential hypertension; Translations: [Essential (primary) hypertension] Onset: 05-16-2021 Chronic Genitourinary symptoms and ill-defined conditions (8 sources) Proteinuria; Translations: [Proteinuria] Onset: 10-22-2022 Episodic Nutritional deficiencies (1 source) Vitamin D deficiency; Translations: [Vitamin D deficiency, unspecified] Chronic Osteoarthritis (20 sources) Osteoarthritis of joint of bilateral hands; Translations: [Primary osteoarthritis, right hand] Onset: 05-16-2021 Chronic Other aftercare (11 sources) nursing home methotrexate user; Translations: [Other [facility] (current) drug therapy] Onset: 05-16-2021 Episodic Other aftercare (11 sources) H/O: high risk medication; Translations: [Other [facility] (current) drug therapy] Onset: 05-16-2021 Episodic Other aftercare (11 sources) Patient encounter status; Translations: [lobsterman (current) use of non-steroidal anti-inflammatories (NSAID)] Onset: 05-16-2021 Episodic Other aftercare (6 sources) Drug therapy finding; Translations: [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] Onset: 01-30-2022 Episodic Other connective tissue disease (11 sources) H/O: rheumatoid arthritis; Translations: [Personal history of other diseases of the musculoskeletal system and connective tissue] Onset: 05-16-2021 Episodic Other connective tissue disease (11 sources) Tear of right rotator cuff; Translations: [Unspecified rotator cuff tear or rupture of right shoulder, not specified as traumatic] Onset: 05-16-2021 Episodic Other connective tissue disease (1 source) Arthrodesis status; Translations: [Arthrodesis status] Onset: 10-31-2022 Episodic Other hematologic conditions (2 sources) ESR raised; Translations: [Elevated erythrocyte sedimentation rate] Onset: 05-09-2023 05-09-2023 Episodic Other hematologic conditions (2 sources) Elevated erythrocyte sedimentation rate; Translations: [Elevated erythrocyte sedimentation rate] Onset: 05-09-2023 Episodic Other nervous system disorders (11 sources) Bilateral carpal tunnel syndrome; Translations: [Carpal tunnel syndrome, bilateral upper limbs] Onset: 05-16-2021 Chronic Other nervous system disorders (1 source) Spinal cord disease; Translations: [Disease of spinal cord, unspecified] Chronic Other nervous system disorders (8 sources) Myelomalacia; Translations: [Other specified diseases of spinal cord] Onset: 07-30-2021 Chronic Other nervous system disorders (2 sources) Carpal tunnel syndrome, bilateral upper limbs; Translations: [Carpal tunnel syndrome, bilateral upper limbs] Onset: 05-16-2021 Chronic Other nervous system disorders (2 sources) Other specified diseases of spinal cord; Translations: [Other specified diseases of spinal cord] Onset: 07-30-2021 Chronic Other nutritional; endocrine; and metabolic disorders (7 sources) Obese class I; Translations: [Obesity, unspecified] Onset: 05-16-2021 Chronic Other screening for suspected conditions (not mental disorders or infectious disease) (13 sources) Blood urea abnormal; Translations: [Abnormal finding of blood chemistry, unspecified] Onset: 07-30-2021 Episodic Rheumatoid arthritis and related disease (20 sources) Rheumatoid arthritis of multiple joints; Translations: [Rheumatoid arthritis with rheumatoid factor of multiple sites without organ or systems involvement] Onset: 05-16-2021 Chronic Spondylosis; intervertebral disc disorders; other back problems (20 sources) Degeneration of cervical intervertebral disc; Translations: [Other cervical disc degeneration, unspecified cervical region] Onset: 05-16-2021 Chronic Systemic lupus erythematosus and connective tissue disorders (18 sources) Systemic lupus erythematosus; Translations: [Systemic lupus erythematosus, unspecified] Onset: 07-30-2021 Chronic Unclassified (1 source) lobsterman (current) use of antimetabolite agent; Translations: [nursing home (current) use of antimetabolite agent] Onset: 05-16-2021 Past or Other Problems Problem Classification Problem Date Documented Date Episodic/Chronic Diabetes mellitus without complication (9 sources) Hyperglycemia; Translations: [Hyperglycemia, unspecified] Onset: 07-30-2021 Episodic Immunizations and screening for infectious disease (20 sources) Rheumatoid factor positive; Translations: [Other specified abnormal immunological findings in serum] Onset: 07-30-2021 Episodic Malaise and fatigue (7 sources) Fatigue; Translations: [Other fatigue] Onset: 05-16-2021 Episodic Other aftercare (12 sources) Long-term current use of aspirin; Translations: [lobsterman (current) use of aspirin] Onset: 05-16-2021 Episodic Other aftercare (1 source) nursing home (current) use of aspirin; Translations: [nursing home (current) use of aspirin] Onset: 05-16-2021 Episodic Other aftercare (2 sources) lobsterman (current) use of non-steroidal anti-inflammatories (NSAID); Translations: [lobsterman (current) use of non-steroidal anti-inflammatories (nsaid)] Onset: 05-16-2021 Episodic Other aftercare (2 sources) Other [facility] (current) drug therapy; Translations: [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] Onset: 01-30-2022 Episodic Other bone disease and musculoskeletal deformities (7 sources) Disorder of skeletal system; Translations: [Disorder of bone, unspecified] Onset: 05-16-2021 Episodic Other connective tissue disease (7 sources) Bilateral hand weakness; Translations: [Other symptoms and signs involving the musculoskeletal system] Onset: 05-16-2021 Episodic Other connective tissue disease (7 sources) Tendinitis of left rotator cuff; Translations: [Other shoulder lesions, left shoulder] Onset: 05-16-2021 Episodic Other connective tissue disease (7 sources) Pain of bilateral hands; Translations: [Pain in right hand] Onset: 05-16-2021 Episodic Other connective tissue disease (2 sources) Personal history of other diseases of the musculoskeletal system and connective tissue; Translations: [Personal history of other diseases of the musculoskeletal system and connective tissue] Onset: 05-16-2021 Episodic Other connective tissue disease (2 sources) Unspecified rotator cuff tear or rupture of right shoulder, not specified as traumatic; Translations: [Unspecified rotator cuff tear or rupture of right shoulder, not specified as traumatic] Onset: 05-16-2021 Episodic Other nervous system disorders (7 sources) Paresthesia of skin; Translations: [Disturbance of skin sensation] Onset: 05-16-2021 Episodic Other non-traumatic joint disorders (7 sources) Hip pain; Translations: [Pain in left hip] Onset: 05-16-2021 Episodic Other non-traumatic joint disorders (5 sources) Shoulder pain; Translations: [Pain in right shoulder] Onset: 05-16-2021 Episodic Other non-traumatic joint disorders (7 sources) Bilateral wrist pain; Translations: [Pain in right wrist] Onset: 05-16-2021 Episodic Other non-traumatic joint disorders (2 sources) Bilateral chronic pain of upper limbs; Translations: [Pain in right shoulder] Onset: 05-16-2021 05-16-2021 Episodic Residual codes; unclassified (2 sources) Other specified postprocedural states; Translations: [Other specified postprocedural states] Onset: 09-18-2022 Episodic Spondylosis; intervertebral disc disorders; other back problems (20 sources) Neck pain; Translations: [Cervicalgia] Onset: 05-16-2021 Episodic Unclassified (1 source) nursing home (current) use of antimetabolite agent; Translations: [nursing home (current) use of antimetabolite agent] Onset: 09-18-2022 Results Test Name Value Interpretation Reference Range Facil ity Vital Signs Date Time Vital Sign Value Performing Clinician Jose hauser 05-09-2023 11:33-0400 Body height 170.2 cm Azul Segovia Jr., DO Work Phone: [employer] [facility] 05-09-2023 11:33-0400 Body mass index (BMI) [Ratio] 32.48 kg/m2 Azul Segovia Jr., DO Work Phone: [employer] [facility] 05-09-2023 11:33-0400 Body temperature 97.9 [degF] Azul Segovia Jr., DO Work Phone: [facility] 05-09-2023 11:33-0400 Body weight 94.08 kg Azul Segovia JrTrevor, DO Work Phone: [email or web address] 05-09-2023 11:33-0400 Diastolic blood pressure 68 mm[Hg] Azul Segovia Jr., DO Work Phone: [email or web address] 05-09-2023 11:33-0400 Heart rate 67 /min Azul Segovia JrTrevor, DO Work Phone: [email or web address] 05-09-2023 11:33-0400 SaO2% (BldA) [Mass fraction] 97 % Azul Segovia JrTrevor, DO Work Phone: [email or web address] 05-09-2023 11:33-0400 Systolic blood pressure 130 mm[Hg] Azul Segovia JrTrevor, DO Work Phone: [email or web address] 11-05-2022 09:50-0400 Body height 170.18 cm Nick Manrique Kuddle Work Phone: [facility] Work Phone: 11-05-2022 09:50-0400 Body mass index (BMI) [Ratio] 32.95 kg/m2 Nick Manrique Kuddle Work Phone: [facility] Work Phone: 11-05-2022 09:50-0400 Body surface area Derived from formula 2.07 m2 Nick Manrique Kuddle Work Phone: [facility] Work Phone: 11-05-2022 09:50-0400 Body weight 95.44 kg Nick Manrique Kuddle Work Phone: [facility] Work Phone: 11-05-2022 09:50-0400 Diastolic blood pressure 77 mm[Hg] Nick Manrique Kuddle Work Phone: [facility] Work Phone: 11-05-2022 09:50-0400 Heart rate 57 /min Nick A Franklyn Work Phone: [facility] Work Phone: 11-05-2022 09:50-0400 Respiratory rate 16 /min Nick A Franklyn Work Phone: [facility] Work Phone: 11-05-2022 09:50-0400 Systolic blood pressure 136 mm[Hg] Nick A Franklyn Work Phone: [facility] Work Phone: 10-22-2022 13:49-0400 Body weight 93.44 kg Nick A Franklyn Work Phone: [facility] Work Phone: 10-22-2022 13:49-0400 Diastolic blood pressure 79 mm[Hg] Nick A Franklyn Work Phone: [facility] Work Phone: 10-22-2022 13:49-0400 Heart rate 66 /min Nick A Franklyn Work Phone: [facility] Work Phone: 10-22-2022 13:49-0400 Respiratory rate 16 /min Nick Manrique Franklyn Work Phone: [facility] Work Phone: 10-22-2022 13:49-0400 Systolic blood pressure 149 mm[Hg] Nick Manrique Franklyn Work Phone: [facility] Work Phone: 09-18-2022 14:06-0500 Body height 170.2 cm Azul Segovia Jr., DO Work Phone: [employer] [facility] 09-18-2022 14:06-0500 Body mass index (BMI) [Ratio] 32.89 kg/m2 Azul Segovia Jr., DO [facility] 09-18-2022 14:06-0500 Body temperature 97 [degF] Azul Segovia Jr., DO Work Phone: [facility] 09-18-2022 14:06-0500 Body weight 95.25 kg Azul Segovia Jr., DO Work Phone: [employer] [facility] 09-18-2022 14:06-0500 Diastolic blood pressure 88 mm[Hg] Azul Segovia Jr., DO Work Phone: [employer] [facility] 09-18-2022 14:06-0500 Heart rate 73 /min Azul Segovia Jr., DO Work Phone: [facility] [employer] [facility] 09-18-2022 14:06-0500 SaO2% (BldA) [Mass fraction] 95 % Azul Segovia Jr., DO Work Phone: [employer] [facility] 09-18-2022 14:06-0500 Systolic blood pressure 168 mm[Hg] Azul Segovia Jr., DO Work Phone: [facility] 01-30-2022 10:58-0400 Body height 170.2 cm Azul Segovia Jr., DO Work Phone: [facility] 01-30-2022 10:58-0400 Body mass index (BMI) [Ratio] 32.89 kg/m2 Azul Segovia Jr., DO Work Phone: [employer] [facility] 01-30-2022 10:58-0400 Body weight 95.25 kg Azul Segovia Jr., DO [facility] Phone: [facility] 01-30-2022 10:58-0400 Diastolic blood pressure 82 mm[Hg] Azul Eloisajilteresita Shearer, DO Work Phone: [facility] 01-30-2022 10:58-0400 Heart rate 54 /min Azul Eloisasameer Shearer, DO Work Phone: [facility] 01-30-2022 10:58-0400 SaO2% (BldA) [Mass fraction] 99 % Azul Segovia Jr., DO Work Phone: [facility] 01-30-2022 10:58-0400 Systolic blood pressure 138 mm[Hg] Azul Segovia Jr., DO Work Phone: [facility] 07-30-2021 14:22-0500 Body height 170.2 cm Azul Segovia Jr., DO Work Phone: [facility] 07-30-2021 14:22-0500 Body mass index (BMI) [Ratio] 31.95 kg/m2 Azul Segovia Jr., DO Work Phone: [facility] 07-30-2021 14:22-0500 Body weight 92.53 kg Azul Segovia Jr., DO Work Phone: [facility] [employer] [facility] 07-30-2021 14:22-0500 Diastolic blood pressure 82 mm[Hg] Azul Segovia Jr., DO Work Phone: [facility] 07-30-2021 14:22-0500 Heart rate 66 /min Azul Segovia Jr., DO Work Phone: [facility] 07-30-2021 14:22-0500 SaO2% (BldA) [Mass fraction] 96 % Azul Segovia Jr., DO Work Phone: [facility] 07-30-2021 14:22-0500 Systolic blood pressure 138 mm[Hg] Azul Segovia Jr., DO Work Phone: [facility] Encounters Encounter Date Encounter Type Care Provider Facility Start: 11-12-2023 [facility] Start: 05-09-2023 ambulatory [facility] Start: 05-09-2023 End: 05-09-2023 Office outpatient visit 25 minutes Azul Segovia DO Work Phone: [facility] Rhe[facility]ology Procedures Date Procedure Procedure Detail Performing Clinician Start: 09-18-2022 History of decompres anabel of median nerve History of bilateral carpal tunnel release Azul Segovia DO Work Phone: Start: 06-05-2021 Mri spinal canal cer vical w/o contrast matrl Azul Segovia DO Work Phone: Hernia repair Nick ansari Work Phone: Plan of Treatment Date Care Activity Detail Author Start: 11-12-2023 End: 11-12-2023 Patient encounter procedure 11/12/2023 12:00 PM EDT Office Visit [facility] [address] [place] [address] Azul Segovia Jr., DO [address] [place] [address] [facility] Start: 03-21-2023 End: 03-21-2023 Patient encounter procedure 03/21/2023 Office Visit Rheumatology Azul Segovia Jr., DO [address] [place] [address] [facility] Start: 11-05-2022 FUV, Provider: Socrates Mendoza, Status: Pen, Time: 9:30 AM FUV, Provider: Socrates Mendoza, Status: Pen, Time: 9:30 AM [facility] Work Phone: Start: 08-07-2022 End: 08-07-2022 Patient encounter procedure 08/07/2022 Office Visit Rheumatology Azul Segovia Jr., DO [address] [place] [address] [facility] Start: 03-14-2022 Influenza vaccination INFLUENZA VACCINE (#1) [facility] Start: 08-17-2021 End: 07-30-2022 VITAMIN D (25-HYDROXY,TOTAL) VITAMIN D (25-HYDROXY,TOTAL) Lab Routine Rheumatoid arthritis involving multiple sites with positive rheumatoid factor Rheumatoid factor positive 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, 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, 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 use of non-steroidal anti-inflammatories (NSAID) nursing home (current) use of aspirin History of rheumatoid arthritis Elevated BUN Anti-CEMENTING MACHINE OPERATOR antibodies present LENKA positive Hyperglycemia Cervical radiculopathy at C8 Cervical radiculopathy at C5 Cervical cord myelomalacia Bilateral carpal tunnel syndrome Tear of right rotator cuff, unspecified tear extent, unspecified whether traumatic Primary osteoarthritis of both hands Primary osteoarthritis of both feet 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 HNP (herniated nucleus pulposus), cervical DDD (degenerative disc disease), cervical Cervical spinal stenosis Systemic lupus erythematosus, unspecified SLE type, unspecified organ involvement status Vitamin D deficiency Expected: 08/17/2021 (Approximate), Expires: 07/30/2022 [facility] Payers Date Payer Category Payer Medicare MEDICARE [employer] [place] MEDICARE [employer] HMO [id number] 2021-Present [address] [place] [address] [id number] 2021 Medicare MEDICARE [employer] [place] MEDICARE [employer] HMO [id number] 2021-Present [address] [place] [address] [id number] 2021 Private Health Insurance 101 [id number] 2020 Medicare MEDICARE [employer] [place] P[place] MEDICARE [employer] PPO [id number] 2020-Present [address] [place] [address] [id number] 1955 Unknown [id number] 069 1955 Unknown [id number] 9 1955 Unknown [id number] 9 1955 Unknown [id number] 9 1955 Unknown [id number] 069 1955 Unknown [id number] [id number] 83 1955 Unknown [id number] [id number] 83 1955 Unknown [id number] [id number] 83 1955 Unknown [id number] [id number] 83 1955 Unknown [id number] [id number] 83 1955 Unknown [id number] [id number] 83 1955 Unknown [id number] [id number] 83 1955 Unknown [id number] [id number] 83 1955 Unknown [id number] 83 Unknown [employer] Social History Date Type Detail Facility Start: 05-16-2021 End: 09-18-2022 Tobacco smoking status NHIS Ex-smoker [facility] Start: 05-16-2021 End: 09-18-2022 Tobacco use and exposure Smokeless tobacco non-user [facility] Start: 05-16-2021 End: 05-09-2023 Alcohol intake Lifetime non-drinker (finding) [facility] Start: 05-16-2021 History SDOH Alcohol Frequency 1 [facility] Start: 05-16-2021 End: 09-18-2022 Tobacco Comment Quit in 1989 [facility] Start: 1955 Sex Assigned At Not on file A salena [employer] [facility] History of tobacco use Current smoker [facility] [employer] [facility] Start: 09-18-2022 Former smoker Former smoker [facility] Work Phone: Start: 09-18-2022 Tobacco use panel [facility] Clinical Notes 07-30-2021 to 05-09-2023 Azul Segovia Jr., DO - 05/09/2023 12:00 PM EDTDaangella Segovia Jr., DO - 09/18/2022 2:30 PM ESTAzul Segovia Jr., DO - 01/30/2022 11:30 AM EDT Note Date & Type Note Facility 05-09-2023 History of Present illness Narrative Subjective History of Present Illness Presence of Pain: denies pain/discomfort. Total time spent in this encounter was 31 minutes. Paresthesia is no. Hernia is the same. Leg cramps are better. Joint pain is no. Not particular. Patient has been feeling pretty good actually. Neck pain is no not really. Patient is here for 6 month Follow-up. Patient states that he is doing good. I have been told that patient is on a high risk medication as it either treats cancer or requires blood work every 2-3 months. 3 weeks ago. Objective Review of Systems Constitutional: Negative. HENT: Negative. Eyes: Negative. Respiratory: Negative. Cardiovascular: Negative. Gastrointestinal: Abdominal hernia Endocrine: Negative. Genitourinary: Negative. Musculoskeletal: Leg cramps: better Skin: Negative. Allergic/Immunologic: Negative. Neurological: Possible DM neuropathy Hematological: Negative. Psychiatric/Behavioral: Negative. Vitals: Blood pressure 130/68, pulse 67, temperature 97.9 F (36.6 C), temperature source Temporal, height 1.702 m (5' 7 ), weight 94.1 kg (207 lb 6.4 oz), SpO2 97 %. Physical Exam Vitals and nursing note reviewed. Constitutional: Appearance: Normal appearance. He is obese. HENT: Head: Normocephalic and atraumatic. Right Ear: External ear normal. Left Ear: External ear normal. Nose: Nose normal. Comments: telangiectasias nose Mouth/Throat: Mouth: Mucous membranes are moist. Pharynx: Oropharynx is clear. Eyes: Extraocular Movements: Extraocular movements intact. Conjunctiva/sclera: Conjunctivae normal. Pupils: Pupils are equal, round, and reactive to light. Comments: glasses Cardiovascular: Rate and Rhythm: Normal rate and regular rhythm. Pulses: Radial pulses are 2+ on the right side and 2+ on the left side. Heart sounds: Normal heart sounds. Pulmonary: Effort: Pulmonary effort is normal. Breath sounds: Normal breath sounds. Abdominal: General: Bowel sounds are normal. Palpations: Abdomen is soft. Hernia: A hernia is present. Hernia is present in the umbilical area and ventral area. Comments: obese Musculoskeletal: Right shoulder: Tenderness and bony tenderness present. Decreased range of motion. Left shoulder: Tenderness and bony tenderness present. Decreased range of motion. Right upper arm: Tenderness present. Left upper arm: Tenderness present. Right elbow: Decreased range of motion. Left elbow: Decreased range of motion. Right forearm: Normal. Left forearm: Normal. Right wrist: Decreased range of motion. Left wrist: Decreased range of motion. Right hand: Deformity present. Decreased range of motion. Left hand: Deformity present. Decreased range of motion. Cervical back: Neck supple. Right upper leg: Normal. Left upper leg: Normal. Right knee: Crepitus present. Decreased range of motion. Left knee: Crepitus present. Decreased range of motion. Right lower leg: Normal. Left lower leg: Normal. Right ankle: Decreased range of motion. Left ankle: Decreased range of motion. Comments: Oa change hands and feet Skin: General: Skin is warm and dry. Neurological: Mental Status: He is alert and oriented to person, place, and time. Cranial Nerves: Cranial nerves 2-12 are intact. Sensory: Sensory deficit present. Motor: Motor function is intact. Comments: Positive Tinel's B/L wrists. 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 Behavior: Behavior normal. Thought Content: Thought content normal. Judgment: Judgment normal. Neurological Exam Mental Status Alert. Oriented to person, place, and time. Cranial Nerves CN II: Vision test: glasses. CN III, IV, : Extraocular movements intact bilaterally. Pupils equal round and reactive to light bilaterally. Positive Tinel's B/L wrists. account receivable associate strength both hands. Assessment and Plan Encounter Diagnoses Name Primary? Rheumatoid arthritis involving multiple sites with positive rheumatoid factor Yes Systemic lupus erythematosus, unspecified SLE type, unspecified organ involvement status ESR raised LENKA positive Anti-CEMENTING MACHINE OPERATOR antibodies present CRP elevated History of bilateral carpal tunnel release History of rheumatoid arthritis nursing home (current) use of aspirin nursing home current use of non-steroidal anti-inflammatories (NSAID) Long-term use of high-risk medication 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, mcc, current use On statin therapy Rheumatoid factor positive Bilateral carpal tunnel syndrome Cervical cord myelomalacia Cervical radiculopathy at C5 Cervical radiculopathy at C8 Cervical spinal stenosis DDD (degenerative disc disease), cervical HNP (herniated nucleus pulposus), cervical 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 Time was spent with the patient today in education in re: to all their medical conditions. A complete H&P&ROS was obtained and is either in this note or in the EHR. Please do not hesitate to contact me with any questions or concerns re: this patient. Past History Past medical, surgical, family, and social histories have been reviewed and updated with the patient today and are located elsewhere in the medical record. 2. Thank you for allowing me to participate in the care of your patient. With your permission I would like to F/U with your patient. 3. Ortho F/U per Dr. Gray. 4. Glucose was elevated at 142 5. Hold Methtorexate week before, week during and, week after any surgery. Hold 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 any time have an infection can restart once off of ATB and/or antiviral and free of infection. Hold 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 week before, week during and, week after any live attenuated vaccine (shingles). Monitor CBC/LFT/Renal func every 2-3 months on 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. Hold 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 anytime there is an open wound and can restart once wound has healed 6. BUN was elevated at 26 7. Monitor CBC/LFT/Renal func every 6-12 months as long as patient is on daily NSAID 8. Uric acid was normal at 6.5 9. Rx given for PT/OT - patient declines 10. CRP was negative at < 2.9 and is now elevated at 21.30: question and will monitor Flu shot and shingles shot? 11. Hb is low at 12.5 12. Rheumatoid factor was elevated at 44 13. Negative Hep A&B&C serology, CCP, Celiac, ANCA, 14. ESR was normal at 18 and is now elevated at 68: questions and will monitor. Flu shot and shingles shot? 15. EMG/NCV B/L Cervical radiculopathy C5 and C8 and B/L CTS is now S/P B/L CTR. 16. S/P C-spine surgery and R rotator cuff surgery (needs to be fixed) and hernia surgery (needs to be fixed) 17. Rec: Nephro eval and F/U 18. C3 was normal at 134 19. C4 was normal at 26 20. Patient declines referral Neprho and is going to F/U with PCP 21. LENKA was positive 22. CEMENTING MACHINE OPERATOR was positive at 2.2 23. UA showed 1 mg/dl of bilirubin and 5 mg/dl ketones and 100 mg/dl protein. 24. Lab on or about 07/29/2023 and every 3 months thereafter 25. FEDERICA level was low at < 15 26. Neurosurgery F/U per Dr. Harley 27. 24 hour urine protein was elevated at 3629 28. Stop Sulindac 29. Call if need Rx's 30. Follow-up with me in 6 months 31. Patient declines increasing gabapentin. Gabapentin increased to 300 mg 3 times a day by PCP 32. Patient is taking OTC Tylenol and Fraxiga 33. Patient declines referral to chronic pain management 34. Patient is going to F/U with Dr. Gray re: trigger fingers documented in this encounter [facility] 11-05-2022 History of Present illness Narrative On a scale of 0 to 10, the patient rates the pain at 6.3/10 NOW 6/10 AT NIGHT.Pain Location: Neck Pain.Pain Quality: Dull, Sharp and DULL IN THE SHOULDER SHARP IN THE NECK.Pain Radiation: LEFT SHOULDER.Sensory/ Motor: Numbness and NI THE LEFT ARM.Timing/Duration: Constant and > 12 weeks duration.Exacerbating Factors: standing, weightbearing and BENDING THE NECK BACKWARDS/UP .Alleviating Factors: Medications, Repositioning.24 Hour Behavior:Symptoms are the same in the am.Symptoms are worse as the day progresses.Symptoms are worse in the pm.Symptoms are better lying down.Goals for Pain Management:DEVANG SCORE 22. -Pain Management-[employer] Work Phone: 09-18-2022 History of Present illness Narrative History of Present Illness Presence of Pain: complains of pain/discomfort Pain Location: hand, left, hand, right, shoulder, left Select Pain Scale: DVPRS (Defense and Veterans Pain Rating Scale) (Adult-Cognitively Intact) DVPRS: Rest: 8- severe pain DVPRS: Activity: 8- severe pain Select Pain Scale: DVPRS (Defense and Veterans Pain Rating Scale) (Adult-Cognitively Intact) Pain Frequency: constant Pain Quality: aching. Total time spent in this encounter was 38 minutes. Patient is being evaluated for an unstable chronic illness that increase morbidity and mortality. Paresthesias is LUE when shoulder hurts. Weakness is no. Pain in hands R > L. Leg cramps are better. Neck pain is just from that shoulder. Patient is here today for his 6 Month F/U. Patient states he is having joint pain in RAMYA hand and left shoulder. Patient states he is having a hard time using his RAMYA hand. Patient states his left arm will go numb due to left shoulder pain. Patient states he will Tylenol for pain. I have been told that patient is on a high risk medication as it either treats cancer or requires blood work every 2-3 months. Review of Systems Constitutional: Negative. HENT: Negative. Eyes: Negative. Respiratory: Negative. Cardiovascular: Negative. Gastrointestinal: Abdominal hernia Endocrine: Negative. Genitourinary: Negative. Musculoskeletal: Positive for arthralgias, neck pain and neck stiffness. Leg cramps Skin: Negative. Allergic/Immunologic: Negative. Neurological: Positive for numbness. Possible DM neuropathy Hematological: Negative. Psychiatric/Behavioral: Negative. Vitals: Blood pressure 168/88, pulse 73, temperature 97 F (36.1 C), temperature source Temporal, height 1.702 m (5' 7 ), weight 95.3 kg (210 lb), SpO2 95 %. Physical Exam Vitals and nursing note reviewed. Constitutional: Appearance: Normal appearance. He is obese. HENT: Head: Normocephalic and atraumatic. Right Ear: External ear normal. Left Ear: External ear normal. Nose: Nose normal. Comments: telangiectasias nose Mouth/Throat: Mouth: Mucous membranes are moist. Pharynx: Oropharynx is clear. Eyes: Extraocular Movements: Extraocular movements intact. Conjunctiva/sclera: Conjunctivae normal. Pupils: Pupils are equal, round, and reactive to light. Comments: glasses Cardiovascular: Rate and Rhythm: Normal rate and regular rhythm. Pulses: Radial pulses are 1+ on the right side and 1+ on the left side. Heart sounds: Normal heart sounds. Pulmonary: Effort: Pulmonary effort is normal. Breath sounds: Normal breath sounds. Abdominal: General: Bowel sounds are normal. Palpations: Abdomen is soft. Hernia: A hernia is present. Hernia is present in the umbilical area and ventral area. Comments: obese Musculoskeletal: Right shoulder: Tenderness and bony tenderness present. Decreased range of motion. Left shoulder: Tenderness and bony tenderness present. Decreased range of motion. Right upper arm: Tenderness present. Left upper arm: Tenderness present. Right elbow: Decreased range of motion. Left elbow: Decreased range of motion. Right forearm: Normal. Left forearm: Normal. Right wrist: Decreased range of motion. Left wrist: Decreased range of motion. Right hand: Deformity present. Decreased range of motion. Decreased strength. Left hand: Deformity present. Decreased range of motion. Decreased strength. Cervical back: Neck supple. Right upper leg: Normal. Left upper leg: Normal. Right knee: Crepitus present. Decreased range of motion. Left knee: Crepitus present. Decreased range of motion. Right lower le+ Edema present. Left lower le+ Edema present. Right ankle: Decreased range of motion. Left ankle: Decreased range of motion. Comments: Oa change hands and feet Skin: General: Skin is warm and dry. Neurological: Mental Status: He is alert and oriented to person, place, and time. Sensory: Sensory deficit present. Motor: Weakness present. Comments: Positive Tinel's B/L wrists. 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 Behavior: Behavior normal. Thought Content: Thought content normal. Judgment: Judgment normal. Neurological Exam Mental Status Alert. Oriented to person, place, and time. Cranial Nerves CN II: Vision test: glasses. CN III, IV, : Extraocular movements intact bilaterally. Pupils equal round and reactive to light bilaterally. Positive Tinel's B/L wrists. account receivable associate strength both hands. Assessment and Plan Encounter Diagnoses Name Primary? Rheumatoid arthritis involving multiple sites with positive rheumatoid factor Yes Systemic lupus erythematosus, unspecified SLE type, unspecified organ involvement status LENKA positive Anti-CEMENTING MACHINE OPERATOR antibodies present Elevated BUN History of bilateral carpal tunnel release History of rheumatoid arthritis nursing home (current) use of aspirin nursing home current use of non-steroidal anti-inflammatories (NSAID) Long-term use of high-risk medication 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, mcc, current use On statin therapy Rheumatoid factor positive Hyperglycemia Bilateral carpal tunnel syndrome Cervical cord myelomalacia Cervical radiculopathy at C5 Cervical radiculopathy at C8 Cervical spinal stenosis DDD (degenerative disc disease), cervical HNP (herniated nucleus pulposus), cervical 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 Primary osteoarthritis of both feet Primary osteoarthritis of both hands Tear of right rotator cuff, unspecified tear extent, unspecified whether traumatic 1. Time was spent with the patient today in education in re: to all their medical conditions. A complete H&P&ROS was obtained and is either in this note or in the EHR. Please do not hesitate to contact me with any questions or concerns re: this patient. Past History Past medical, surgical, family, and social histories have been reviewed and updated with the patient today and are located elsewhere in the medical record. 2. Thank you for allowing me to participate in the care of your patient. With your permission I would like to F/U with your patient. 3. Ortho F/U per Dr. Gray. 4. Glucose was elevated at 152 and still is at 142 5. Hold Methtorexate week before, week during and, week after any surgery. Hold 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 any time have an infection can restart once off of ATB and/or antiviral and free of infection. Hold 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 week before, week during and, week after any live attenuated vaccine (shingles). Monitor CBC/LFT/Renal func every 2-3 months on 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. Hold 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 anytime there is an open wound and can restart once wound has healed 6. BUN was elevated at 21 and still is at 26 7. Monitor CBC/LFT/Renal func every 6-12 months as long as patient is on daily NSAID 8. Uric acid was normal at 6.5 9. Rx given for PT/OT - patient declines 10. CRP was negative at 2.90 and still is at < 2.9 11. Max dose of Gabapentin is 2400 mg a day and can be increased as indicated or tolerated. 12. Rheumatoid factor was elevated at 44 13. Negative Hep A&B&C serology, CCP, Celiac, ANCA, 14. ESR was normal at 21 and still is at 18 15. EMG/NCV B/L Cervical radiculopathy C5 and C8 and B/L CTS is now S/P B/L CTR. 16. S/P C-spine surgery and R rotator cuff surgery (needs to be fixed) and hernia surgery (needs to be fixed) 17. Rec: Nephro eval and F/U 18. C3 is normal at 134 19. C4 is normal at 26 20. Patient declines referral Neprho and is going to F/U with PCP 21. LENKA was positive 22. CEMENTING MACHINE OPERATOR was positive at 2.2 23. UA showed 100 mg/dl of protein and 10 blood with no RBC/HPF and still shows 1 mg/dl of bilirubin and 5 mg/dl ketones and 100 mg/dl protein. 24. Lab on or about 10/29/2022 and every 3 months thereafter 25. FEDERICA level was low at < 15 26. Neurosurgery F/U per Dr. Harley 27. 24 hour urine protein was elevated at 3629 28. Stop Sulindac 29. Rx given for 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 to increase to 7 pills one day a wek 30. Patient is going to F/U with PCP about HTN. 31. Patient declines increasing gabapentin 32. Patient is taking OTC Tylenol 33. F/U with me in 6 months 34. Patient declines referral to chronic pain management 35. Time spent in education on trigger fingers 36. Patient is going to F/U with Dr. Gray re: trigger fingers documented in this encounter [facility] 01-30-2022 History of Present illness Narrative History of Present Illness Presence of Pain: denies pain/discomfort. Total time spent in this encounter was 30 minutes. Weakness is not really except for CTS R wrist and patient has had injections and is going to get arthroscopic CTR. Joint pain is not really. More leg cramps. Neck pain is not too bad - no. jorge is here for a 6 Month F/U. Patient states that he wants his gabapentin 200mg so that he only has to take one pill. Patient states no pain. Patient states that his had injection in RAMYA wrist for CTS, patient states that he is going to CTS with his right wrist. Patient has been playing good golf. I have been told that patient is on a high risk medication as it either treats cancer or requires blood work every 2-3 months. Review of Systems Constitutional: Negative. HENT: Negative. Eyes: Negative. Respiratory: Negative. Cardiovascular: Negative. Gastrointestinal: Abdominal hernia Endocrine: Negative. Genitourinary: Negative. Musculoskeletal: Positive for myalgias, neck pain and neck stiffness. Leg cramps Skin: Negative. Allergic/Immunologic: Negative. Neurological: Positive for weakness. Possible DM neuropathy Hematological: Negative. Psychiatric/Behavioral: Negative. Vitals: Blood pressure 138/82, pulse 54, height 1.702 m (5' 7 ), weight 95.3 kg (210 lb), SpO2 99 %. Physical Exam Vitals and nursing note reviewed. Constitutional: Appearance: Normal appearance. He is obese. HENT: Head: Normocephalic and atraumatic. Right Ear: External ear normal. Left Ear: External ear normal. Nose: Nose normal. Comments: telangiectasias nose Mouth/Throat: Comments: mask Eyes: Extraocular Movements: Extraocular movements intact. Conjunctiva/sclera: Conjunctivae normal. Pupils: Pupils are equal, round, and reactive to light. Comments: glasses Cardiovascular: Rate and Rhythm: Normal rate and regular rhythm. Pulses: Radial pulses are 1+ on the right side and 1+ on the left side. Heart sounds: Normal heart sounds. Pulmonary: Effort: Pulmonary effort is normal. Breath sounds: Normal breath sounds. Abdominal: General: Bowel sounds are normal. Palpations: Abdomen is soft. Hernia: A hernia is present. Hernia is present in the umbilical area and ventral area. Comments: obese Musculoskeletal: Right shoulder: Tenderness and bony tenderness present. Decreased range of motion. Left shoulder: Tenderness and bony tenderness present. Decreased range of motion. Right upper arm: Tenderness present. Left upper arm: Tenderness present. Right elbow: Decreased range of motion. Left elbow: Decreased range of motion. Right forearm: Normal. Left forearm: Normal. Right wrist: Decreased range of motion. Left wrist: Decreased range of motion. Right hand: Deformity present. Decreased range of motion. Left hand: Deformity present. Decreased range of motion. Cervical back: Neck supple. Right upper leg: Normal. Left upper leg: Normal. Right knee: Crepitus present. Decreased range of motion. Left knee: Crepitus present. Decreased range of motion. Right lower le+ Edema present. Left lower le+ Edema present. Right ankle: Decreased range of motion. Left ankle: Decreased range of motion. Comments: Oa change hands and feet Skin: General: Skin is warm and dry. Neurological: Mental Status: He is alert and oriented to person, place, and time. Cranial Nerves: Cranial nerves are intact. Sensory: Sensory deficit present. Motor: Motor function is intact. Comments: R drop arm due to R rotator cuff tear and Positive Tinel's B/L wrists. Wide based gait Psychiatric: Mood and Affect: Mood normal. Behavior: Behavior normal. Thought Content: Thought content normal. Judgment: Judgment normal. Neurological Exam Mental Status Alert. Oriented to person, place, and time. Cranial Nerves CN II: Vision test: glasses. CN III, IV, : Extraocular movements intact bilaterally. Pupils equal round and reactive to light bilaterally. R drop arm due to R rotator cuff tear and Positive Tinel's B/L wrists. Wide based gait. Assessment and Plan Encounter Diagnoses Name Primary? 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 Time was spent with the patient today in education in re: to all their medical conditions. A complete H&P&ROS was obtained and is either in this note or in the EHR. Please do not hesitate to contact me with any questions or concerns re: this patient. Past History Past medical, surgical, family, and social histories have been reviewed and updated with the patient today and are located elsewhere in the medical record. 2. Thank you for allowing me to participate in the care of your patient. With your permission I would like to F/U with your patient. 3. Ortho F/U per Dr. Gray. 4. Glucose was elevated at 144 and still is at 152 5. Hold Methtorexate week before, week during and, week after any surgery. Hold 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 any time have an infection can restart once off of ATB and/or antiviral and free of infection. Hold 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 week before, week during and, week after any live attenuated vaccine (shingles). Monitor CBC/LFT/Renal func every 2-3 months on 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. Hold 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 anytime there is an open wound and can restart once wound has healed 6. BUN was elevated at 20 and still is at 21 7. Monitor CBC/LFT/Renal func every 6-12 months as long as patient is on daily NSAID 8. Uric acid was normal at 6.5 9. Rx given for PT/OT - patient declines 10. CRP was negative at < 2.9 and still is at 2.90 11. Max dose of Gabapentin is 2400 mg a day and can be increased as indicated or tolerated. 12. Rheumatoid factor was elevated at 44 13. Negative Hep A&B&C serology, CCP, Celiac, ANCA, 14. ESR was normal at 14 and still is at 21 15. EMG/NCV B/L Cervical radiculopathy C5 and C8 and B/L CTS 16. S/P C-spine surgery and R rotator cuff surgery (needs to be fixed) and hernia surgery (needs to be fixed) 17. Rec: Nephro eval and F/U 18. Rx given for B/L wrist splints for B/L CTS - patient has them and he is going to wear them. 19. If CTS problems continue rec: surgical eval 20. Patient declines referral Neprho and is going to F/U with PCP 21. LENKA was positive 22. CEMENTING MACHINE OPERATOR was positive at 2.2 23. UA shows 100 mg/dl of protein and 10 blood with no RBC/HPF 24. Lab on or about 04/30/2022 and every 3 months thereafter 25. FEDERICA level was low at < 15 26. Neurosurgery F/Uper Dr. Harley 27. 24 hour urine protein is elevated at 3629 28. Rx given for sulindac to decrease to 1 pill a day as needed 29. Rx given for 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 to decrease to 6 pills one day a week 30. F/U with me in 6 months documented in this encounter [facility] 07-30-2021 History of Present illness Narrative History of Present Illness Presence of Pain: denies pain/discomfort. Total time spent in this encounter was 37 minutes. Energy level is pretty good. Paresthesias is not since he went over Friday and got shots in his wrists for CTS. Weakness is no not really some in hands and hips and knees. Joint pain is once in a while his hips and knees and hands. Patient is here for a F/U of an EMG. Patient states that he is having his normal aches today. Patient states Ortho Dr.Spittle morrell him RAMYA wrist injections for his CTS. Patient states he is doing better. I have been told that patient is on a high risk medication as it either treats cancer or requires blood work every 2-3 months. B/L wrist splints are helping but patient is better the last 3 nights since his shot. Review of Systems Constitutional: Negative. HENT: Negative. Eyes: Negative. Respiratory: Negative. Cardiovascular: Negative. Gastrointestinal: Abdominal hernia Endocrine: Negative. Genitourinary: Negative. Musculoskeletal: Positive for arthralgias, neck pain and neck stiffness. Skin: Negative. Allergic/Immunologic: Negative. Neurological: Positive for weakness. Possible DM neuropathy Hematological: Negative. Psychiatric/Behavioral: Negative. Vitals: Blood pressure 138/82, pulse 66, height 1.702 m (5' 7 ), weight 92.5 kg (204 lb), SpO2 96 %. Physical Exam Vitals and nursing note reviewed. Constitutional: Appearance: Normal appearance. He is obese. HENT: Head: Normocephalic and atraumatic. Right Ear: External ear normal. Left Ear: External ear normal. Nose: Nose normal. Comments: telangiectasias nose Mouth/Throat: Comments: mask Eyes: Extraocular Movements: Extraocular movements intact. Conjunctiva/sclera: Conjunctivae normal. Pupils: Pupils are equal, round, and reactive to light. Comments: glasses Cardiovascular: Rate and Rhythm: Normal rate and regular rhythm. Pulses: Radial pulses are 2+ on the right side and 2+ on the left side. Heart sounds: Normal heart sounds. Pulmonary: Effort: Pulmonary effort is normal. Breath sounds: Normal breath sounds. Abdominal: General: Bowel sounds are normal. Palpations: Abdomen is soft. Hernia: A hernia is present. Hernia is present in the umbilical area and ventral area. Comments: obese Musculoskeletal: Right shoulder: Tenderness and bony tenderness present. Decreased range of motion. Left shoulder: Tenderness and bony tenderness present. Decreased range of motion. Right upper arm: Tenderness present. Left upper arm: Tenderness present. Right elbow: Decreased range of motion. Left elbow: Decreased range of motion. Right forearm: Normal. Left forearm: Normal. Right wrist: Tenderness present. Decreased range of motion. Left wrist: Tenderness present. Decreased range of motion. Right hand: Deformity and tenderness present. Decreased range of motion. Decreased sensation. Left hand: Deformity and tenderness present. Decreased range of motion. Decreased sensation. Cervical back: Neck supple. Right upper leg: Normal. Left upper leg: Normal. Right knee: Decreased range of motion. Left knee: Decreased range of motion. Right lower leg: Normal. Left lower leg: Normal. Right ankle: Decreased range of motion. Left ankle: Decreased range of motion. Comments: Oa change hands and feet Skin: General: Skin is warm and dry. Neurological: Mental Status: He is alert and oriented to person, place, and time. Cranial Nerves: Cranial nerves are intact. Sensory: Sensory deficit present. Motor: Weakness present. Gait: Gait abnormal. Comments: R drop arm due to R rotator cuff tear and Positive Tinel's B/L wrists. Wide based gait Psychiatric: Mood and Affect: Mood normal. Behavior: Behavior normal. Thought Content: Thought content normal. Judgment: Judgment normal. Neurological Exam Mental Status Alert. Cranial Nerves CN II: Vision test: glasses. CN III, IV, : Extraocular movements intact bilaterally. Pupils equal round and reactive to light bilaterally. Assessment and Plan Encounter Diagnoses Name Primary? 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 use of non-steroidal anti-inflammatories (NSAID) nursing home (current) use of aspirin History of rheumatoid arthritis Elevated BUN Anti-CEMENTING MACHINE OPERATOR antibodies present LENKA positive Hyperglycemia Cervical radiculopathy at C8 Cervical radiculopathy at C5 Cervical cord myelomalacia Bilateral carpal tunnel syndrome Tear of right rotator cuff, unspecified tear extent, unspecified whether traumatic Primary osteoarthritis of both hands Primary osteoarthritis of both feet 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 Time was spent with the patient today in education in re: to all their medical conditions. A complete H&P&ROS was obtained and is either in this note or in the EHR. Please do not hesitate to contact me with any questions or concerns re: this patient. Past History Past medical, surgical, family, and social histories have been reviewed and updated with the patient today and are located elsewhere in the medical record. 2. Thank you for allowing me to participate in the care of your patient. With your permission I would like to F/U with your patient. 3. Ortho F/U per Dr. Gray. 4. Glucose is elevated at 144 5. Hold Methtorexate week before, week during and, week after any surgery. Hold 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 any time have an infection can restart once off of ATB and/or antiviral and free of infection. Hold 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 week before, week during and, week after any live attenuated vaccine (shingles). Monitor CBC/LFT/Renal func every 2-3 months on 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. Hold 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 anytime there is an open wound and can restart once wound has healed 6. BUN is elevated at 20 7. Monitor CBC/LFT/Renal func every 6-12 months as long as patient is on daily NSAID 8. Uric acid is normal at 6.5 9. Rx given for PT/OT - patient declines 10. CRP is negative at < 2.9 11. Max dose of Gabapentin is 2400 mg a day and can be increased as indicated or tolerated. 12. Rheumatoid factor is elevated at 44 13. Negative Hep A&B&C serology, CCP, Celiac, ANCA, 14. ESR is normal at 14 15. EMG/NCV B/L Cervical radiculopathy C5 and C8 and B/L CTS 16. S/P C-spine surgery and R rotator cuff surgery (needs to be fixed) and hernia surgery (needs to be fixed) 17. If shoulder and wrist and hand and hip problems continue rec: ortho eval 18. Rx given for B/L wrist splints for B/L CTS - patient has them and he is going to wear them. 19. If CTS problems continue rec: surgical eval 20. If neck pain continues rec: eval by spinal surgery and/or chronic pain management 21. LENKA is positive 22. CEMENTING MACHINE OPERATOR is positive at 2.2 23. Patient given educational material on SLE in the form of a pamphlet from the arthritis foundation. Different treatment options were discussed with the patient today. 24. Lab on or about 08/17/2021 and every 3 months thereafter 25. FEDERICA level is low at < 15 26. Neurosurgery F/Uper Dr. Harley 27. Vit D level on or about 08/17/2021 with copy to PCP 28. 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, 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 Encounter for long-term (current) use of other medications 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 use of non-steroidal anti-inflammatories (NSAID) Encounter for long-term (current) use of non-steroidal anti-inflammatories lobsterman (current) use of aspirin History of rheumatoid arthritis Personal history of arthritis Elevated BUN Other abnormal blood chemistry Anti-CEMENTING MACHINE OPERATOR antibodies present Other and unspecified nonspecific immunological findings LENKA positive Other and unspecified nonspecific immunological findings Hyperglycemia Other abnormal glucose Cervical radiculopathy at C8 Brachial neuritis or radiculitis nos Cervical radiculopathy at C5 Brachial neuritis or radiculitis nos Cervical cord myelomalacia Other myelopathy Bilateral carpal tunnel syndrome Carpal tunnel syndrome Tear of right rotator cuff, unspecified tear extent, unspecified whether traumatic Primary osteoarthritis of both hands Primary osteoarthritis of both feet 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 HNP (herniated nucleus pulposus), cervical Displacement of cervical intervertebral disc without myelopathy DDD (degenerative disc disease), cervical Degeneration of cervical intervertebral disc Cervical spinal stenosis Spinal stenosis in cervical region Systemic lupus erythematosus, unspecified SLE type, unspecified organ involvement status Vitamin D deficiency Unspecified vitamin D deficiency [facility] Diagnosis Rheumatoid arthritis involving multiple sites with positive rheumatoid factor- Primary Systemic lupus erythematosus, unspecified SLE type, unspecified organ involvement status LENKA positive Other and unspecified nonspecific immunological findings Anti-CEMENTING MACHINE OPERATOR antibodies present Other and unspecified nonspecific immunological findings Elevated BUN Other abnormal blood chemistry History of rheumatoid arthritis Personal history of arthritis nursing home (current) use of aspirin nursing home current use of non-steroidal anti-inflammatories (NSAID) Encounter for long-term (current) use of non-steroidal anti-inflammatories Long-term use of high-risk medication 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, 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, 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 Encounter for long-term (current) use of other medications On statin therapy Rheumatoid factor positive Other and unspecified nonspecific immunological findings Hyperglycemia Other abnormal glucose Bilateral carpal tunnel syndrome Carpal tunnel syndrome Cervical cord myelomalacia Other myelopathy Cervical radiculopathy at C5 Brachial neuritis or radiculitis nos Cervical radiculopathy at C8 Brachial neuritis or radiculitis nos Cervical spinal stenosis Spinal stenosis in cervical region DDD (degenerative disc disease), cervical Degeneration of cervical intervertebral disc HNP (herniated nucleus pulposus), cervical Displacement of cervical intervertebral disc without myelopathy 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 Primary osteoarthritis of both feet Primary osteoarthritis of both hands Tear of right rotator cuff, unspecified tear extent, unspecified whether traumatic [facility] Diagnosis Rheumatoid arthritis involving multiple sites with positive rheumatoid factor- Primary Systemic lupus erythematosus, unspecified SLE type, unspecified organ involvement status LENKA positive Other and unspecified nonspecific immunological findings Anti-CEMENTING MACHINE OPERATOR antibodies present Other and unspecified nonspecific immunological findings Elevated BUN Other abnormal blood chemistry History of bilateral carpal tunnel release History of rheumatoid arthritis Personal history of arthritis nursing home (current) use of aspirin nursing home current use of non-steroidal anti-inflammatories (NSAID) Encounter for long-term (current) use of non-steroidal anti-inflammatories Long-term use of high-risk medication 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, mcc, current use Encounter for long-term (current) use of other medications On statin therapy Rheumatoid factor positive Other and unspecified nonspecific immunological findings Hyperglycemia Other abnormal glucose Bilateral carpal tunnel syndrome Carpal tunnel syndrome Cervical cord myelomalacia Other myelopathy Cervical radiculopathy at C5 Brachial neuritis or radiculitis nos Cervical radiculopathy at C8 Brachial neuritis or radiculitis nos Cervical spinal stenosis Spinal stenosis in cervical region DDD (degenerative disc disease), cervical Degeneration of cervical intervertebral disc HNP (herniated nucleus pulposus), cervical Displacement of cervical intervertebral disc without myelopathy 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 Primary osteoarthritis of both feet Primary osteoarthritis of both hands Tear of right rotator cuff, unspecified tear extent, unspecified whether traumatic [facility] Diagnosis Rheumatoid arthritis involving multiple sites with positive rheumatoid factor- Primary Systemic lupus erythematosus, unspecified SLE type, unspecified organ involvement status ESR raised Elevated sedimentation rate LENKA positive Other and unspecified nonspecific immunological findings Anti-CEMENTING MACHINE OPERATOR antibodies present Other and unspecified nonspecific immunological findings CRP elevated Elevated C-reactive protein (CRP) History of bilateral carpal tunnel release History of rheumatoid arthritis Personal history of arthritis nursing home (current) use of aspirin nursing home current use of non-steroidal anti-inflammatories (NSAID) Encounter for long-term (current) use of non-steroidal anti-inflammatories Long-term use of high-risk medication 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, mcc, current use Encounter for long-term (current) use of other medications On statin therapy Rheumatoid factor positive Other and unspecified nonspecific immunological findings Bilateral carpal tunnel syndrome Carpal tunnel syndrome Cervical cord myelomalacia Other myelopathy Cervical radiculopathy at C5 Brachial neuritis or radiculitis nos Cervical radiculopathy at C8 Brachial neuritis or radiculitis nos Cervical spinal stenosis Spinal stenosis in cervical region DDD (degenerative disc disease), cervical Degeneration of cervical intervertebral disc HNP (herniated nucleus pulposus), cervical Displacement of cervical intervertebral disc without myelopathy 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 * Pain Location: Neck Pain. * Pain Quality: Aching and Dull. * Pain Radiation: L shoulder. * Sensory/ Motor: Numbness and L arm. * Timing/Duration: Intermittent and > 12 weeks duration. * Controlled Substance: * I have personally reviewed the [place]AR[place] report for YAN [place]. I have considered the risks of abuse, dependence, addiction and diversion. * Exacerbating Factors: turning head. * Alleviating Factors: Other: ___. * 24 Hour Behavior: * Symptoms are worse in the am. achey. * Symptoms are worse as the day progresses. unless tylenol on a regular basis. * Symptoms are the same in the pm. * Symptoms are the same when lying down. * Effect of Movement on Symptoms: * Bending doesn't change symptoms. * Lying doesn't change symptoms. * Rising from sitting doesn't change symptoms. * Sitting makes symptoms better. as long as not turning or tipping head. * Standing makes symptoms worse. for long periods of time. * Rising from supine to sitting doesn't change symptoms. * Turning makes symptoms worse. of neck. * Walking doesn't change symptoms. * Twisting makes symptoms worse. of neck. * Weather doesn't change symptoms. * Coughing/sneezing doesn't change symptoms. * Pushing motion doesn't change symptoms. * Pulling motion doesn't change symptoms. * Lifting: Same. * Which of these are most important to the patient? turning and moving head without pain. * Psychosocial Factors vs Last Visit: * Physical Functioning: Worse. * Family Relationships: Same. * Social Relationships: Same. * Mood: Worse. * Sleep Patterns: Same. * Overall Functioning: Worse. * Response to current treatment:. tylenol effective. * No, I am not experiencing side effects from current pain reliever(s). * Goals for Pain Management: * ORT = 0; Oswestry Disability Index = 36. [facility] History of Present illness Narrative* S/P cerv fusion done 2012. Recent MRI shows moderate neuroforaminal and central canal narrowing. The patient is interested in minimal visits as he will get injections and a specialist consult after this visit. The patient also cited his 40$ copay as a reason for minima visits. He stated the prescribing Dr (Kelly) also felt that there was an area of pinching shown on the MRI. The patient says that he feels relatively less sx as long as he does not extend his neck to neutral.-the sx onset and relief is instantaneous. Due to the rather obvious indication of a pinched nerve (DR input; ROM finding); MRI results this therapist offered needling. Traction is not an option for this patient due to the fusion HX. The patient plans to recheck with the referring DR after the PT eval is forwarded. * Clinical Presentation: Stable and/or uncomplicated characteristics. * Level of Complexity: low * Problem List: activity limitations, ADLs/IADLs/self care skills, decreased functional level, decreased knowledge of HEP, decreased knowledge of precautions, pain and range of motion/joint mobility. [facility] Work Phone: Reason for visit Narrative* Initial Evaluation . cerv stenosis; radic. * Referred by: Kelly [facility] Work Phone: Reason for Referral Specialty Diagnoses / Procedures Referred By Sri kumar Referred To Contact [facility] Diagnoses Myelopathy Spinal stenosis, cervical region Cervical radiculopathy Procedures MRI SPINE CERVICAL WITHOUT CONTRAST UT MRI, CERV SPINE Juliette Shearer, Azul Camejo, DO [address] [facility] [place] [address] [facility] [address] [place] [address] Referral ID Status Reason Start Date Expiration Date Visits Re quested Visits Authorized [id number] Closed 05/23/2021 06/17/2022 1 1 Summary Purpose Family History No Family History Records FoundNo Family History Records FoundNo Family History Records FoundNo Family History Records FoundNo Family History Records Found Advance Directives No Advanced Directives Records FoundNo Advanced Directives Records FoundNo Advanced Directives Records FoundNo Advanced Directives Records FoundNo Advanced Directives Records Found Chief Complaint * NPV for ramya neck pain with radiation to L shoulder; 08/23 today. Pain started approx 1-2 years ago. No injury. Patient states if he tilts his head backwards he will have numbness in his L arm. He has a history of cervical and back surgeries. Patient is taking Tylenol for pain which he states can be a ffective. He had an xray done 1 month ago in [place], [place]. * This is a 66-year-old male here for a new patient appointment for chief complaint of left-sided neck shoulder and arm pain. At baseline he rates the symptoms as a 2 out of 10 but at worst they can get up to an 8 out of 10. He reports he has had these issues for over a year. He has noticed that whenhe tilts his head backward he will get shooting pain and numbness down the left arm into the hand. In particular the third fourth and fifth digits will go numb. It will improve some if he bends his head forward. He had a very extensive neck surgery with Dr. Kent back in 2012. He reports that surgery helped a lot and when the symptoms started again he reconsult with him. This was in late [address] Kent did not suggest further surgery. He has been using gabapentin 300 mg at bedtime. He thinks it helps a little bit. He follows with Dr. Segovia for rheumatoid arthritis and takes sulindac and methotrexate. He denies any actual weakness. He denies loss of bladder or bowel control. He has some longstanding issues with his balance. He does feel like his left hand is clumsy. He reports the pain interrupts his function during the day and his sleep at night. * The patient denies any additional numbness, tingling, weakness, or any loss of bladder or bowel control. The patient's past medical, social, and family history along with medications and allergies are available and were reviewed. * FUV CERVICAL MRI. PATIENT HAS SHARP PAIN IN THE NECK THAT RADIATES INTO THE LEFT SHOULDER A DULLPAIN. HE HAS NUMBNESS IN THE LEFT ARM. HE STATES STANDING AT AUCTIONS AND BENDING HIS NECK BACKWARDS MAKE HIS PAIN WORSE. PATIENT DOES NOT FEEL THAT THE GPN IS HELPING HIS PAIN. HE TAKES 300MG IN THE MORNING, 300MG AT SUPPER AND 300MG BEFORE BED. HE HAS NOT NOTICED SIDE EFFECTS. PATIENT DENIES DOING STRETCHES. HE DENIES APPLYING OVER THE COUNTER TOPICALS OR ICE OR HEAT. * PATIENT CAN STAND/WALK FOR 15 MINUTES BEFORE HIS PAIN INCREASES. DEVANG SCORE 22. PAIN SCORE 3/10 NOW AND 6/10 AT NIGHT. * This is a 67-year-old male here for a follow-up appointment for chief complaint of left-sided neck and arm pain. He reports that since his last visit the symptoms have been persistent and unchanged. The pain will radiate from his neck down the left arm into the hand. In particular he will feel it in the third fourth and fifth digits. He does not have any right-sided symptoms. He will get numbnessand tingling in the same distribution. He denies new neurologic symptoms or issues with bladder or bowel control. He got the MRI we had ordered and is here to go over the results. * The patient denies any additional numbness, tingling, weakness, or any loss of bladder or bowel control. The patient's past medical, social, and family history along with medications and allergies are available and were reviewed. Additional Source Comments Reason for Visit (unrecogniz ed section and content) Referral ID Status Reason Start Date Expiration Date V isits Requested Visits Authorized [id number] New Request 05/16/2021 06/10/2022 1 1 Specialty Diagnoses / Procedures Referred By Sri kumar Referred To Contact [facility] Diagnoses Myelopathy Spinal stenosis, cervical region Cervical radiculopathy Procedures MRI SPINE CERVICAL WITHOUT CONTRAST UT MRI, CERV SPINE Juliette Shearer, Azul Camejo, DO [address] [facility] [place] [address] [facility] [address] [place] [address] Referral ID Status Reason Start Date Expiration Date Visits Re quested Visits Authorized [id number] Closed 05/23/2021 06/17/2022 1 1 Reason Comments Joint Pain Patient is here for a F/U of an EMG. Patient states that he is having his normal aches today. Patient states Ortho Dr.Spittle aguirree him RAMYA wrist injections for his CTS. Patient states he is doing better. Reason Comments Joint Pain Patient is here for a 6 Month F/U. Patient states that he wants his gabapentin 200mg so that he only has to take one pill. Patient states no pain. Patient states that his had injection in RAMYA wrist for CTS, patient states that he is going to CTS with his right wrist. Reason Comments Follow-up Patient is here toda y for his 6 Month F/U. Patient states he is having joint pain in RAMYA hand and left shoulder. Patient states he is having a hard time using his RAMYA hand. Patient states his left arm will go numb due to left shoulder pain. Patient states he will Tylenol for pain Reason Comments Follow-up Patient is here for 6 month Follow-up. Patient states that he is doing good. Care Teams (unrecognized sec tion and content) Parts Expediter Relationship Specialty Start Date End Date Paco Hart MD [address] [place] [id number] PCP - General Family Medicine 05/16/21 Parts Expediter Relationship Specialty Start Date End Date Paco Hart MD [address] [place] [address] [phone] PCP - General Family Medicine 05/16/21 Parts Expediter Relationship Specialty Start Date End Date Paco Hart MD [address] [place] [phone] PCP - General Family Medicine 05/16/21 Parts Expediter Relationship Specialty Start Date End Date Paco Hart MD [address] [place] [phone] PCP - General Family Medicine 05/16/21 Parts Expediter Relationship Specialty Start Date End Date Paco Hart MD [address] [place] [phone] PCP - General Family Medicine 05/16/21 (unrecognized sect ion and content) No Status Records FoundNo Status Records FoundNo Status Records FoundNo Status Records FoundNo Status Records Found INFORMATION SOURCE (unrecogn ized section and content) DATE CREATED AUTHOR AUTHOR'S ORGANIZ ATION 11/23/2022 [facility] DATE CREATED AUTHOR AUTHOR'S ORGANIZ ATION 12/22/2022 [facility] DATE CREATED AUTHOR AUTHOR'S ORGANIZ ATION 05/08/2023 [facility] DATE CREATED AUTHOR [facility]IZ AT[facility] TO PATIENTS WHO ARE OR HAVE BEEN ENROLLED IN A CHEMICAL DEPENDENCY/SUBSTANCEABUSE PROGRAM, SOME INFORMATION MAY BE OMITTED. This clinical summary was aggregated from multiple sources. Caution should be exercised in using it in the provision of clinical care. This summary normalizes information from multiple sources, and as a consequence, information in this document may materially change the coding, format and clinical context of patient data. In addition, data may be omitted in some cases. CLINICAL DECISIONS SHOULD BE BASED ON THE PRIMARY CLINICAL RECORDS. [employer] provides no warranty or guarantee of the accuracy or completeness of information in this document.
[2023-07-29 10:03] LABS: Absolute Lymphocyte Count 1.31 X10^3/uL (0.83-4.51); Absolute Neutrophil Count 4.7 X10^3/uL (2.0-7.7); Basophil# 0.04 X10^3/uL; Basophil% 0.6 % (0-1); Eosinophil# 0.15 X10^3/uL; Eosinophils% 2.2 % (0-5); Hematocrit 39.4 % (40-54); Hemoglobin 12.5 g/dL (13.0-16.5); Lymphocyte # 1.31 X10^3/ul (0.83-4.51); Lymphocyte % 19.4 % (19-41); Mean Corp Hgb Conc 31.7 g/dL (32-36); Mean Corpuscular Hgb 33.2 pg (27.0-32.0); Mean Corpuscular Volume 104.8 fL (80-94); Mean Platelet Vol. 9.8 fl (6.2-12.0); Monocyte# 0.58 X10^3/uL; Monocyte% 8.6 % (0-10); NRBC Flagged by Analyzer 0 % (0-5); Neutrophil # 4.66 X10^3/uL (2.7-7.7); Neutrophil % 68.9 % (47-70); Platelet Count 253 K/mm3 (150-450); RBC Distribution Width SD 55.9 fl (35.1-43.9); Red Blood Count 3.76 M/mm3 (4.6-6.2); White Blood Count 6.8 K/mm3 (4.4-11.0)
[2023-07-29 10:10] LABS: Erythrocyte Sedimentation Rate 37 mm/hr (0-20)
[2023-07-29 10:51] LABS: AST(SGOT) 18 U/L (15-37); Alanine Aminotransfer ALT/SGPT 28 U/L (16-61); CRP < 2.90 mg/L (0.0-3.0); Creatinine, Serum 1.08 mg/dL (0.70-1.30); EST Glomerular Filtration Rate 72 mL/min (>60); Est Glom Filt Rate - Afr Amer 88 mL/min (>60)
== END | disposition home or self-care (01) ==
LOC: MTLAB 08:36
PROVIDERS: PCP Family Medicine; Referring Provider Internal Medicine Rheumatology; Visit Provider Internal Medicine Rheumatology
DX: M05.79 Rheumatoid arthritis with rheumatoid factor of multiple sites without organ or systems involvement (principal); G95.89 Other specified diseases of spinal cord; M32.9 Systemic lupus erythematosus, unspecified; R70.0 Elevated erythrocyte sedimentation rate; R76.8 Other specified abnormal immunological findings in serum; R79.82 Elevated C-reactive protein (CRP); M54.12 Radiculopathy, cervical region; M48.02 Spinal stenosis, cervical region; M50.30 Other cervical disc degeneration, unspecified cervical region; M50.20 Other cervical disc displacement, unspecified cervical region; M47.812 Spondylosis without myelopathy or radiculopathy, cervical region; M19.071 Primary osteoarthritis, right ankle and foot; M19.072 Primary osteoarthritis, left ankle and foot; M75.101 Unspecified rotator cuff tear or rupture of right shoulder, not specified as traumatic; D64.89 Other specified anemias; D53.9 Nutritional anemia, unspecified; Z79.1 Long term (current) use of non-steroidal anti-inflammatories (NSAID); Z79.82 Long term (current) use of aspirin; Z79.631 Long term (current) use of antimetabolite agent; Z79.899 Other long term (current) drug therapy; Z87.39 Personal history of other diseases of the musculoskeletal system and connective tissue
CPT/HCPCS: 36415; 82565; 84450; 84460; 85025; 85652; 86140

== ENCOUNTER → 2023-10-03 | Outpatient (CLI) | payer MEDICARE, SELFPAY ==
[2023-10-03 12:11] LABS: Anion Gap 8 (5-15); BUN 27 mg/dL (7-18); Calcium,Total 9.6 mg/dL (8.5-10.1); Chloride 106 mmol/L (98-107); Cholesterol 72 mg/dL (200); Creatinine, Serum 1.08 mg/dL (0.70-1.30); EST Glomerular Filtration Rate 72 mL/min (>60); Est Glom Filt Rate - Afr Amer 88 mL/min (>60); Glucose 132 mg/dL (74-106); High Density Lipoprotein 34 mg/dL; Magnesium 2.3 mg/dL (1.6-2.6); Potassium 4.7 mmol/L (3.5-5.1); Sodium Level 137 mmol/L (136-145); Triglycerides 226 mg/dL; Very Low Density Lipoprotein 45 mg/dL (5-40)
== END | disposition home or self-care (01) ==
LOC: MTLAB 10:45
PROVIDERS: PCP Family Medicine; Referring Provider Family Medicine; Visit Provider Family Medicine
DX: E11.9 Type 2 diabetes mellitus without complications (principal); R80.9 Proteinuria, unspecified; R25.2 Cramp and spasm
CPT/HCPCS: 36415; 80048; 80061; 83735

== ENCOUNTER → 2023-11-07 | Outpatient (CLI) | payer MEDICARE, SELFPAY ==
[2023-11-07 10:34] LABS: Absolute Neutrophil Count 3.4 X10^3/uL (2.0-7.7); Basophil# 0.06 X10^3/uL; Eosinophil# 0.18 X10^3/uL; Eosinophils% 3.1 % (0-5); Hematocrit 40.6 % (40-54); Hemoglobin 13.2 g/dL (13.0-16.5); Lymphocyte % 28.8 % (19-41); Mean Corp Hgb Conc 32.5 g/dL (32-36); Mean Corpuscular Volume 104.6 fL (80-94); Mean Platelet Vol. 9.9 fl (6.2-12.0); Monocyte# 0.51 X10^3/uL; Monocyte% 8.6 % (0-10); NRBC Flagged by Analyzer 0 % (0-5); Neutrophil # 3.44 X10^3/uL (2.7-7.7); Neutrophil % 58.3 % (47-70); Platelet Count 222 K/mm3 (150-450); RBC Distribution Width CV 13.8 % (11.6-14.6); RBC Distribution Width SD 52.3 fl (35.1-43.9); Red Blood Count 3.88 M/mm3 (4.6-6.2); White Blood Count 5.9 K/mm3 (4.4-11.0)
[2023-11-07 11:04] LABS: AST(SGOT) 21 U/L (15-37); Alanine Aminotransfer ALT/SGPT 32 U/L (16-61); CRP < 2.90 mg/L (0.0-3.0); Creatinine, Serum 0.94 mg/dL (0.70-1.30); EST Glomerular Filtration Rate 85 mL/min (>60); Est Glom Filt Rate - Afr Amer 103 mL/min (>60)
[2023-11-07 14:29] LABS: Erythrocyte Sedimentation Rate 8 mm/hr (0-20)
== END | disposition home or self-care (01) ==
PROVIDERS: PCP Family Medicine; Referring Provider Internal Medicine Rheumatology; Visit Provider Internal Medicine Rheumatology
DX: M05.79 Rheumatoid arthritis with rheumatoid factor of multiple sites without organ or systems involvement (principal); G95.89 Other specified diseases of spinal cord; M32.9 Systemic lupus erythematosus, unspecified; R70.0 Elevated erythrocyte sedimentation rate; R76.8 Other specified abnormal immunological findings in serum; R79.82 Elevated C-reactive protein (CRP); M54.12 Radiculopathy, cervical region; M48.02 Spinal stenosis, cervical region; M50.30 Other cervical disc degeneration, unspecified cervical region; M50.20 Other cervical disc displacement, unspecified cervical region; M47.812 Spondylosis without myelopathy or radiculopathy, cervical region; M19.071 Primary osteoarthritis, right ankle and foot; M19.072 Primary osteoarthritis, left ankle and foot; M19.041 Primary osteoarthritis, right hand; M19.042 Primary osteoarthritis, left hand; M75.101 Unspecified rotator cuff tear or rupture of right shoulder, not specified as traumatic; D64.89 Other specified anemias; D53.9 Nutritional anemia, unspecified; Z79.82 Long term (current) use of aspirin; Z98.890 Other specified postprocedural states; Z79.631 Long term (current) use of antimetabolite agent; Z79.1 Long term (current) use of non-steroidal anti-inflammatories (NSAID); Z79.899 Other long term (current) drug therapy; Z87.39 Personal history of other diseases of the musculoskeletal system and connective tissue
CPT/HCPCS: 36415; 82565; 84450; 84460; 85025; 85652; 86140

== ENCOUNTER → 2024-01-09 | Outpatient (CLI) | payer MEDICARE, SELFPAY ==
[2024-01-09 12:39] LABS: Microalbumin,Random Urine 15.5 mg/L (NO RANGE EST.); Microalbumin:Creatinine Ratio 53.3 mg/g CRE (<30 mg/g CRE)
[2024-01-09 15:42] LABS: Hemoglobin A1c 6.7 % (3.8-5.6)
[2024-01-09 15:43] LABS: PSA,Total - Annual Screen 0.11 ng/mL (0.00-4.00)
== END | disposition home or self-care (01) ==
PROVIDERS: PCP Family Medicine; Referring Provider Family Medicine; Visit Provider Family Medicine
DX: Z12.5 Encounter for screening for malignant neoplasm of prostate (principal); E11.42 Type 2 diabetes mellitus with diabetic polyneuropathy
CPT/HCPCS: 36415; 82043; 82570; 83036; 84153; G0103

== ENCOUNTER → 2024-01-22 | Outpatient (CLI) | payer MEDICARE, SELFPAY ==
--- NOTE | 2024-01-22 07:39 | CDU_ITS ---
Reason For Study: carotid stenosis Rt. Velocities/BP Lt. Velocities/BP Prox CCA 97.6/12.6 cm/sec. Prox CCA 88.3/21.2 cm/sec. Mid CCA 82.5/8.8 cm/sec. Mid CCA 76.2/21.2 cm/sec. Dist CCA 53.2/10.7 cm/sec. Dist CCA 176.3/35.8 cm/sec. Prox ICA 40.0/6.9 cm/sec. Prox ICA 106.5/24.3 cm/sec. Mid ICA 244.4/48.3 cm/sec. Mid ICA 132.1/44.4 cm/sec. Dist ICA 182.0/26.8 cm/sec. Dist ICA 101.0/37.1 cm/sec. Rt. ICA/CCA = 3.0. Lt. ICA/CCA = 1.7. Prox ECA 57.9/8.8 cm/sec. Prox ECA 107.2/20.0 cm/sec. Rt. Vert. 77.3/25.6 cm/sec. Lt. Vert. 52.0/13.5 cm/sec. Right Extracranial There is heterogeneous, irregular atherosclerotic plaque noted in the right common carotid artery. There is heterogeneous, irregular atherosclerotic plaque noted in the right internal carotid artery. There is intimal thickening but no significant atherosclerotic plaque noted in the right external carotid artery. Antegrade flow is noted in the right vertebral artery. Left Extracranial There is heterogeneous, irregular atherosclerotic plaque noted in the left common carotid artery. There is heterogeneous, irregular atherosclerotic plaque noted in the left internal carotid artery. There is heterogeneous, irregular atherosclerotic plaque noted in the left external carotid artery. Antegrade flow is noted in the left vertebral artery. Procedure Carotid Duplex 15525. This is a Carotid Duplex examination using B-mode, color flow and specral Doppler. The study was technically difficult. Prelim called to Dr. Estes's office. Exam performed in department. VL/Carotid Duplex Ultrasound Interpretation Summary Severe (>70%) stenosis right extracranial internal carotid. Moderate (50-69%) stenosis left extracranial internal carotid. Patent and antegrade vertebrals bilaterally. Ordering Physician: Nick Estes Performed By: Stephane López RVT
== END | disposition home or self-care (01) ==
LOC: CVS 07:38
PROVIDERS: PCP Family Medicine; Referring Provider Family Medicine; Visit Provider Family Medicine
DX: I65.23 Occlusion and stenosis of bilateral carotid arteries (principal)
CPT/HCPCS: 93880

== ENCOUNTER → 2024-02-06 | Outpatient (CLI) | payer MEDICARE, SELFPAY ==
[2024-02-06 10:20] LABS: AST(SGOT) 17 U/L (15-37); Alanine Aminotransfer ALT/SGPT 25 U/L (16-61); Creatinine, Serum 1.17 mg/dL (0.70-1.30); EST Glomerular Filtration Rate 66 mL/min (>60); Est Glom Filt Rate - Afr Amer 80 mL/min (>60)
[2024-02-06 10:23] LABS: Erythrocyte Sedimentation Rate 45 mm/hr (0-20)
[2024-02-06 10:24] LABS: Absolute Lymphocyte Count 1.25 X10^3/uL (0.83-4.51); Absolute Neutrophil Count 3.4 X10^3/uL (2.0-7.7); Basophil# 0.07 X10^3/uL; Basophil% 1.2 % (0-1); Eosinophil# 0.35 X10^3/uL; Hematocrit 35.2 % (40-54); Hemoglobin 11.4 g/dL (13.0-16.5); Lymphocyte # 1.25 X10^3/ul (0.83-4.51); Lymphocyte % 21.6 % (19-41); Mean Corp Hgb Conc 32.4 g/dL (32-36); Mean Corpuscular Volume 105.1 fL (80-94); Mean Platelet Vol. 9.8 fl (6.2-12.0); Monocyte# 0.71 X10^3/uL; Monocyte% 12.2 % (0-10); NRBC Flagged by Analyzer 0 % (0-5); Neutrophil # 3.37 X10^3/uL (2.7-7.7); Neutrophil % 58.1 % (47-70); Platelet Count 259 K/mm3 (150-450); RBC Distribution Width CV 14.6 % (11.6-14.6); RBC Distribution Width SD 54.3 fl (35.1-43.9); Red Blood Count 3.35 M/mm3 (4.6-6.2); White Blood Count 5.8 K/mm3 (4.4-11.0)
== END | disposition home or self-care (01) ==
LOC: MTLAB 08:13
PROVIDERS: PCP Family Medicine; Referring Provider Internal Medicine Rheumatology; Visit Provider Internal Medicine Rheumatology
DX: M05.79 Rheumatoid arthritis with rheumatoid factor of multiple sites without organ or systems involvement (principal); M32.9 Systemic lupus erythematosus, unspecified; R70.0 Elevated erythrocyte sedimentation rate; R76.8 Other specified abnormal immunological findings in serum; R79.82 Elevated C-reactive protein (CRP); Z98.890 Other specified postprocedural states; Z87.39 Personal history of other diseases of the musculoskeletal system and connective tissue; Z79.82 Long term (current) use of aspirin; Z79.1 Long term (current) use of non-steroidal anti-inflammatories (NSAID); Z79.899 Other long term (current) drug therapy; Z79.631 Long term (current) use of antimetabolite agent; G96.89 Other specified disorders of central nervous system; M54.12 Radiculopathy, cervical region; M48.02 Spinal stenosis, cervical region; M50.30 Other cervical disc degeneration, unspecified cervical region; M50.20 Other cervical disc displacement, unspecified cervical region; M19.041 Primary osteoarthritis, right hand; M19.042 Primary osteoarthritis, left hand; M19.071 Primary osteoarthritis, right ankle and foot; M19.072 Primary osteoarthritis, left ankle and foot; M75.101 Unspecified rotator cuff tear or rupture of right shoulder, not specified as traumatic; D64.89 Other specified anemias; D53.9 Nutritional anemia, unspecified
CPT/HCPCS: 36415; 82565; 84450; 84460; 85025; 85652; 86140

== ENCOUNTER → 2024-02-19 | Outpatient (CLI) | payer MEDICARE, SELFPAY ==
[2024-02-19 12:27] LABS: Ferritin 234 ng/mL (26-388); Iron 58 ug/dL (65-175); Thyroid Stim Hormone (TSH) 1.65 uIU/mL (0.358-3.74); Vitamin B12 438 pg/mL (211-911); Vitamin D,25 Hydroxy 80.8 ng/mL
== END | disposition home or self-care (01) ==
PROVIDERS: PCP Family Medicine; Referring Provider Family Medicine; Visit Provider Family Medicine
DX: D64.9 Anemia, unspecified (principal); R53.83 Other fatigue
CPT/HCPCS: 36415; 82306; 82607; 82728; 83540; 84443

== ENCOUNTER → 2024-03-03 | Outpatient (CLI) | payer MEDICARE, SELFPAY ==
--- NOTE | 2024-03-03 06:29 | CT_ITS ---
STUDY: CTA HEAD AND NECK WITH CONTRAST REASON FOR EXAM: Male, 68 years old. R ICA stenosis RADIATION DOSAGE (If Supplied By Facility): CTDIvol = ( 28.45 ) mGy, DLP = ( 1536.30 ) mGycm TECHNIQUE: CT angiography was performed with a multi-detector CT scanner. Data acquisition was obtained from the skull base through the vertex following intravenous administration of IV 100mL Isovue-370. MIP images were reconstructed from the axial data set. Post-processing of the angiographic images was performed, with multiplanar reformation and 3D reconstruction. Individualized dose optimization techniques were used for this CT. COMPARISON: Comparison is made with prior examination dated September 10, 2019. FINDINGS: Normal bilateral petrous carotid arteries. There is calcified plaque formation of the right cavernous carotid artery, without a cross-sectional luminal stenosis. There is calcified plaque formation of the left cavernous carotid artery, without a cross-sectional luminal stenosis. There is hypoplastic development of the right A1 segment of the anterior cerebral arteries with an atretic but intact artery. Normal left A1 segments of the anterior cerebral artery. Normal intact anterior communicating artery (ACOM). Normal bilateral A2 segments of the anterior cerebral arteries. Normal right M1 and M2 segments of the middle cerebral arteries, with a normal M1 bifurcation. Normal left M1 and M2 segments of the middle cerebral arteries, with a normal M1 bifurcation. Normal right posterior communicating artery (PCOM). Normal left posterior communicating artery (PCOM). Normal bilateral vertebral arteries. Normal basilar artery with a normal basilar bifurcation. The visualized bilateral superior cerebellar (SCA) arteries are normal. Normal bilateral P1, P2 and visualized P3 segments of the posterior cerebral arteries. There is no demonstrated aneurysm of the agdaagux of [place]. Mild degree of the cerebral atrophy. Tiny old lacunar infarct in the left thalamus AORTIC ARCH: There is atherosclerotic calcific plaque formation of the aortic arch and great vessels arising from the aortic arch, without a hemodynamically significant stenosis. There is a normal origin of the brachiocephalic, left common carotid, and left subclavian arteries. Nonstenotic calcific plaques at the origin of the left subclavian artery. RIGHT CAROTID ARTERIES: Normal right common carotid artery (CCA). Normal right common carotid bulb. There is severe atherosclerotic plaque formation of the origin of the right internal carotid artery with a near complete occlusion. Normal visualized cervical portion of the right internal carotid artery. Normal origin of the right external carotid artery (ECA). LEFT CAROTID ARTERIES: Normal left common carotid artery (CCA). Normal left common carotid bulb. There is extensive atherosclerotic plaque formation of the origin of the left internal carotid artery with an estimated stenosis of greater than 70%. Normal visualized cervical portion of the left internal carotid artery. Normal origin of the left external carotid artery (ECA). VERTEBRAL ARTERIES: There is enhancement within the bilateral vertebral arteries with a small left vertebral artery, and a dominant right vertebral artery. CT/CTA Head AND Neck W/ Contrast IMPRESSION: Tight stenosis at the origin of the right internal carotid artery due to soft and hard plaque. Greater than 70% stenosis at the origin of left internal carotid artery by calcified plaque. Prior anterior cervical fusion. Electronically Signed: Kody Mckinley MD at 8:09 EDT ,
== END | disposition home or self-care (01) ==
PROVIDERS: PCP Family Medicine; Referring Provider Physician Assistant; Visit Provider Physician Assistant
DX: I65.23 Occlusion and stenosis of bilateral carotid arteries (principal)
CPT/HCPCS: 70496; 70498; Q9967

== ENCOUNTER → 2024-03-11 | Outpatient (CLI) | payer MEDICARE, SELFPAY | END | disposition home or self-care (01) | LOC: SL 10:12 | PROVIDERS: PCP Family Medicine; Referring Provider Family Medicine; Visit Provider Family Medicine | DX: G47.10 Hypersomnia, unspecified (principal) | CPT/HCPCS: 95806 ==

== ENCOUNTER → 2024-03-17 | Outpatient (CLI) | payer MEDICARE, SELFPAY ==
--- NOTE | 2024-03-17 09:55 | RAD_ITS ---
STUDY: X-RAY - PELVIS AND LEFT HIP REASON FOR EXAM: Male, 68 years old. HIP PAIN TECHNIQUE: 3 views of the pelvis and left hip. COMPARISON: Pelvis and left hip radiographs dated 05/17/2021. FINDINGS: There is a non-specific bowel gas pattern. Normal visualized soft tissue structures. Normal bilateral iliac wings, sacroiliac joints and visualized sacrum. Normal bilateral superior and inferior pubic rami. Normal pubic symphysis. Normal bilateral ischial tuberosities. Unchanged decreased femoral head and neck offset with a femoral dysplastic bump predispose to cam-type femoral acetabular impingement. There is mild osteoarthritic spur formation of the left hip. There is persistent mild articular joint space narrowing of the hip. 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 Electronically Signed: Evan Parsons MD at 9:29 EDT ,
== END | disposition home or self-care (01) ==
LOC: MTRAD 09:44
PROVIDERS: PCP Family Medicine; Referring Provider Family Medicine; Visit Provider Family Medicine
DX: M25.552 Pain in left hip (principal)
CPT/HCPCS: 73502

== ENCOUNTER 2024-04-27 14:17 | Inpatient (IN) | payer MEDICARE, SELFPAY ==
[2024-04-14 10:20] LABS: Hematocrit 40.5 % (40-54); Hemoglobin 13.2 g/dL (13.0-16.5); Mean Corp Hgb Conc 32.6 g/dL (32-36); Mean Corpuscular Hgb 34.1 pg (27.0-32.0); Mean Corpuscular Volume 104.7 fL (80-94); Mean Platelet Vol. 9.6 fl (6.2-12.0); Platelet Count 286 K/mm3 (150-450); RBC Distribution Width SD 60.9 fl (35.1-43.9); Red Blood Count 3.87 M/mm3 (4.6-6.2); White Blood Count 6.9 K/mm3 (4.4-11.0)
[2024-04-14 11:23] LABS: Anion Gap 10 (5-15); BUN 43 mg/dL (7-18); BUN/Creat Ratio 30.9 RATIO (10-20); Calcium,Total 9.7 mg/dL (8.5-10.1); Chloride 105 mmol/L (98-107); Creatinine, Serum 1.39 mg/dL (0.70-1.30); EST Glomerular Filtration Rate 54 mL/min (>60); Est Glom Filt Rate - Afr Amer 65 mL/min (>60); Glucose 230 mg/dL (74-106); Potassium 4.4 mmol/L (3.5-5.1); Sodium Level 136 mmol/L (136-145)
[2024-04-14 11:46] LABS: Hemoglobin A1c 6.3 % (3.8-5.6)
[2024-04-27] VITALS (15 sets, daily range): BP systolic 116–155; BP diastolic 45–72; PULSE 58–74; RESP 14–22; TEMP 36.2–36.6; O2SAT 89–100; BMI 32.2; BMI 32.3
--- NOTE | 2024-04-27 09:36 | PRE.ANES_ITS ---
ASA Classification* ASA Classification ASA Classification: 3 Assessment & Plan Anesthesia* Anesthesia Assessment Anesthesia Assessment: Discussed sedation and/or anesthesia options, risks, benefits, and alternatives with patient/parents/legal guardian/POA. Questions invited. The patient/parents/legal guardian/POA seems to understand and agrees to proceed with anesthesia plan. Reviewed the physical assessment, medical history, allergy history and patient home medications list prior to surgery/procedure/anesthetic and documented any changes. Performed airway and anesthesia risk assessments. Anesthesia Type Anesthesia Type: General (see written pre anesthesia record for full assessment) Anesthesia Focused Assessment* Airway Assessment Mouth opens: >3 cm Mallampati Score: III Focused Labs Anesthesia Preop lab: CBC WBC 6.9 K/mm3 (4.4-11.0) 04/14/24 09:51 RBC 3.87 M/mm3 (4.6-6.2) L 04/14/24 09:51 Hgb 13.2 g/dL (13.0-16.5) 04/14/24 09:51 Hct 40.5 % (40-54) 04/14/24 09:51 Plt Count 286 K/mm3 (150-450) 04/14/24 09:51 CHEMISTRY Potassium 4.4 mmol/L (3.5-5.1) 04/14/24 09:51 Sodium 136 mmol/L (136-145) 04/14/24 09:51 Magnesium 2.3 mg/dL (1.6-2.6) 10/03/23 10:48 BUN 43 mg/dL (7-18) H 04/14/24 09:51 Creatinine 1.39 mg/dL (0.70-1.30) H 04/14/24 09:51 Glucose 230 mg/dL (74-106) H 04/14/24 09:51 POC Glucose 149 mg/dL (70-110) H 03/22/20 16:10 TSH 1.65 uIU/mL (0.358-3.74) 02/19/24 10:04 COAG PT 12.8 SECONDS (11.7-14.9) 09/10/19 12:35 Pre-Assessment Diagnosis/Proposed Procedure Planned Operative Procedure(s): (R) Carotid stent,Client Onboarding Analyst,SENIOR INTERACTION DESIGNER,Anes,OR Staff Anesthesia History Anesthesia History - mobile practice lead: Anesthesia History - mobile practice lead Hx Hospitalization No 04/06/24 15:10 Any Problems With Anesthesia Yes: nausea and vomiting 04/06/24 15:10 Cholinesterase deficiency No 04/06/24 15:10 You/Your Family Experience No 04/06/24 15:10 fever (hyperthermia) with Relationship Recent Exposure to Contagious No 03/22/20 12:11 Disease Does patient have nerve No 04/06/24 15:10 stimulator Patient instructed to have device shut off --Does patient have Pacemaker or ICD? When Was Last Pacemaker Check QUESTION #4 FULL TEXT: You/Your Family Experience fever (hyperthermia) with Anesthesia Last Oral Intake Last Oral intake: Last Oral Intake NPO since Meds taken in AM with sips of water? Meds patient instructed to take am of surgery PONV PONV - mobile practice lead: PONV - mobile practice lead Female No 04/06/24 15:10 HX of Motion Sickness No 04/06/24 15:10 HX of N/V After Surgery Yes 04/06/24 15:10 Non-Smoker Yes 04/06/24 15:10 Duration of Surgery greater Yes 04/06/24 15:10 than 60 minutes Number of Risk Factors 3 04/06/24 15:10 PONV Score Moderate Risk 04/06/24 15:10 Respiratory Assessment Respiratory Assessment - mobile practice lead: Respiratory Tract Infection Hx - mobile practice lead Hx Respiratory Tract Infection No 04/06/24 15:10 STOP Sleep Apnea STOP Sleep Apnea - mobile practice lead: STOP Sleep Apnea - mobile practice lead Hx Hypertension Yes: controlled with meds 04/06/24 15:10 Hx Sleep Apnea No 04/06/24 15:10 CPAP BIPAP Do you snore loudly (louder No 04/06/24 15:10 than talking or can be heard Do you often feel tired/ No 04/06/24 15:10 fatigued/ sleepy during daytime? Has anyone observed you stop No 04/06/24 15:10 breathing during sleep? STOP Results Negative 04/06/24 15:10 QUESTION #5 FULL TEXT : Do you snore loudly (louder than talking or can be heard through closed doors)? 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 Specify any problems Hx of Preganancy in last 3 N/A 04/06/24 15:10 Months Nurse Filling Out Transfusion VCHRISTIN 04/06/24 15:10 & Questions: Date: 04/06/24 04/06/24 15:10 Time: 15:11 04/06/24 15:10 Patient unable to answer at this time (ie. confused, unrespo /Reproduction History /Reproductive History - mobile practice lead: /Reproductive Hx- mobile practice lead Hx Now Gestational Age (in weeks): EDC: Hx Hx Para Hx Section [facility] Medical History Wears dentures Wears glasses Rheumatoid arthritis Arthritis High cholesterol Excessive bleeding Injury of head and neck Former smoker History of pain when walking History of stress test History of echocardiogram Carotid stenosis, bilateral Hypertensive emergency CVA (cerebral vascular accident) Diabetes Hypertension Home Medications ?Medication ?Instructions ?Recorded ?Last Taken ?Type atorvastatin 80 mg tablet 80 mg PO QHS #30 tabs 09/12/19 Unknown Rx ramipril 10 mg capsule 10 mg PO BID heart ##0 09/12/19 03/22/20 Rx aspirin 81 mg chewable tablet 81 mg PO DAILY@0800 03/14/20 03/16/20 History clotrimazole 1 % topical cream 1 applic topical BID RASH 02/18/24 Unknown History dapagliflozin propanediol 5 mg 5 mg PO DAILY 02/18/24 Unknown History tablet (Farxiga) folic acid 1 mg tablet 2 mg PO DAILY 02/18/24 Unknown History gabapentin 300 mg capsule 300 mg PO TID 02/18/24 Unknown History glipizide 2.5 mg tablet 2.5 mg PO DAILY 02/18/24 Unknown History hydrochlorothiazide 25 mg tablet 25 mg PO DAILY 02/18/24 Unknown History metformin 500 mg tablet 1,000 mg PO BIDCM 02/18/24 Unknown History methotrexate sodium 2.5 mg tablet 17.5 mg PO QWEEK 02/18/24 Unknown History spironolactone 50 mg tablet 50 mg PO QDAY 02/18/24 Unknown History clopidogrel 75 mg tablet (Plavix) 75 mg PO DAILY #30 tabs 03/17/24 Unknown Rx acetaminophen 325 mg capsule 650 mg PO Q4H PRN pain 04/06/24 Unknown History (Tylenol) amlodipine 10 mg tablet 10 mg PO DAILY 04/06/24 Unknown History cholecalciferol (vitamin D3) 125 125 mcg PO DAILY 04/06/24 Unknown History mcg (5,000 unit) tablet (Vitamin D3) elderberry fruit 350 mg capsule 350 mg PO DAILY 04/06/24 Unknown History metoprolol succinate 100 mg 100 mg PO BID heart 04/06/24 Unknown History tablet,extended release 24 hr multivitamin (Daily Multi-Vitamin 1 tab PO DAILY 04/06/24 Unknown History tablet) Allergy/AdvReac Type Severity Reaction Status Date / Time loratadine (From [facility] [place]) Allergy Hives Verified 04/06/24 14:46 Family History Other Cancer Colon cancer Hypertension Surgical History Hx of cystoscopy History of carpal tunnel release of both wrists History of fusion of cervical spine History of umbilical hernia repair History of repair of right rotator cuff History of excision of pilonidal cyst Social History Smoking Status: Former smoker Tobacco: How many years used: 23 Review of Systems (Anesthesia) ROS Narrative System reviewed and no additional complaints, except as documented.
--- NOTE | 2024-04-27 09:37 | EKG12_ITS ---
Test Reason : PREOP Blood Pressure : / mmHG Vent. Rate : 054 BPM Atrial Rate : 054 BPM P-R Int : 176 ms QRS Dur : 088 ms QT Int : 434 ms P-R-T Axes : 004 011 012 degrees QTc Int : 411 ms Sinus bradycardia Cannot rule out Inferior infarct (cited on or before 10-SEP-2019) Abnormal ECG When compared with ECG of 10-SEP-2019 12:29, Questionable change in initial forces of Inferior leads Nonspecific T wave abnormality no longer evident in Lateral leads Confirmed by Edgar Chauhan ([id number]), rewrite editor ABEL GILBERT ([id number]) on 04/28/2024 2:01:35 PM Referred By: Arturo Giron Confirmed By:Edgar Chauhan
[2024-04-27] MEDS: Lactated Ringers 1,000 ML 15 ML IV (10:16)
[2024-04-27 10:30] LABS: Bedside Glucose 124 mg/dL (74-106)
--- NOTE | 2024-04-27 12:30 | PCM.HP.BLA ---
History and Physical HPI: YAN CALLE, is a 68 M who presents to the office today for evaluation of asymptomatic right carotid artery stenosis. Initially discovered about 3 years ago after left hemispheric CVA; was 50-69% at that time. Recent duplex reveals velocities in low end of >70% stenosis range. He denies any new numbness/weakness/vision loss/speech difficulty. Some residual right hand fine motor compromise. He has had a CTA and is here to discuss. Has been on ASA/statin, plavix was added after CTA. Has history of prior cervical fusion anterior/posterior approach, has significantly limited neck flexion/extension. Able to walk up flight of stairs carrying load without CP/SOB. ROS General General: No weight change, appetite, fatigue, colon cancer, breast cancer or weakness HEENT HEENT: No difficulty swallowing, eye injury, eye surgery, swollen glands or hoarseness Endo Endocrine: Yes diabetes mellitus and Hair loss; No thyroid disease, thyroid cancer, heat intolerance or cold intolerance Skin Skin: Yes rash; No changing moles Musc Musculoskeletal: Yes rheumatoid arthritis and joint pain; No back problems, arthritis or gout Cardio Cardiovascular: Yes high blood pressure; No murmur, pacemaker, heart disease, atrial fibrillation, heart attack, heart stent, palpitations, shortness of breat with exertion or chest pain Psych Psychiatric: No depression, anxiety or hearing voices Resp Respiratory: No shortness of breath, Yes sleep apnea, No cough, No COPD, No asthma, No emphysema and No wheezing Gastro Gastrointestinal: No abdominal pain, No nausea or vomiting, No diarrhea, No constipation, No blood in stool, No acid reflux, No hemorrhoids, No ulcers, No gallbladder problem and No black,tarry stools Will Hematologic: Yes blood thinners, No blood disorders, No bleeding, No anemia and No blood clots Neuro Neurologic: No system reviewed and no additional complaints, except as documented, No as per HPI, No abnormal gait, No abnormal hearing, No abnormal movements, No abnormal speech, No behavioral changes, No burning sensations, No confusion, No convulsions, No disequilibrium, No dizziness, No localized weakness, No frequent falls, No headache(s), No lack of coordination, No loss of vision, No memory loss, No numbness, No other visual disturbances, Yes radicular pain, Yes restless legs, No sensory deficit, No syncope, No tingling, No tremor(s), No weakness and No other Exam Const General: cooperative, healthy appearing, comfortable, no acute distress and well developed Nutritional Appearance: well nourished Orientation: alert, awake and oriented x3 HENMT Head: normocephalic and atraumatic Ears: hearing grossly normal bilaterally Nose: external nose normal Eyes General: appearance normal, both eyes and all related structures EOM: EOM intact bilaterally Neck Neck: normal visual inspection, full ROM, no lymphadenopathy and trachea midline Thyroid: thyroid normal Lymphatic: no lymphadenopathy noted Resp Effort & Inspection: normal respiratory effort, able to speak in complete sentences, symmetric chest movement, no audible wheezes, not labored, no stridor and no use of accessory muscles Cardio Rate: regular rate Rhythm: regular rhythm Pulses: brachial pulses present and radial pulses present Skin General: no rashes or lesions noted and no erythema Wounds: no wounds Neuro Cranial Nerves: CN's II-XI intact bilaterally and EOM intact bilaterally Speech: speech normal Gait: normal gait Motor: strength 5/5 throughout Sensory Exam: no sensory deficits noted Psych Appearance: grossly normal and well kempt Mental Status: mental status grossly normal Mood: congruent mood Speech and Movement: speech and movement normal Thought Content: normal Judgment: judgment good Coding Level of Care Code Off vis,new,level 4 Diagnoses Carotid stenosis, bilateral I65.23 Assessment and Plan Assessment and Plan (1) Carotid stenosis, bilateral: Status: Chronic Comment: CTA- images reviewed, 80% stenosis of ICA distal to bifurcation, mild calcification, high bifurcation Plan: -distal lesion, high bifurcation, prior neck fusion; TCAR
[2024-04-27 14:19] LABS: ACT Activated Clotting Time 299 sec (74-137)
[2024-04-27 14:19] LABS: ACT Activated Clotting Time 140 sec (74-137)
--- NOTE | 2024-04-27 14:38 | PCM.OPRPT ---
Report of Operation Date of Procedure: 04/27/24 Pre-Operative Diagnosis: right carotid stenosis Post-Operative Diagnosis: same Surgery/Procedure Performed:: right carotid stent TCAR Surgeon: Arturo Giron network specialist: Andreea Hernández Type of Anesthesia: General Drains: 19 Fr ROSITA Estimated Blood Loss (mL): 32 Description of Procedure: HPI: Patient is a 68-year-old male with severe right carotid artery stenosis and prior CVA. He has significant neck range of motion limitation due to prior extensive cervical fusion and his lesion is distal on the carotid. He presents now for transcarotid artery stenting. Description of procedure: Upon obtaining informed consent and verification correct patient procedure site patient was taken to the Performance Management Consultant he was placed under general anesthesia. He was then positioned prepped and draped in usual sterile fashion a time was performed. Ultrasound was used to mac the location of the proximal common carotid artery and the intended incision marked. The patient had significant limitation in his neck extension and rotation and also add fairly deep vessel course and an enlarged thoracic cavity which made positioning and visualization difficult. Given this a longitudinal incision was chosen and then Bovie electrocautery was dissect down to the subcutaneous tissue to the level of dyspnea. The platysma was then divided self-retaining tractors were placed in the wound with further dissection carried down to the sternocleidomastoid splitting the sternal and clavicular heads. Blunt dissection was used to develop the plane between the 2 heads of the muscle and self-retaining retractors moved deeper in the wound. Sharp dissection was then used to dissect free the jugular vein was then retracted laterally exposing the common carotid artery. Sharp dissection used to dissect free the common carotid artery with care taken to identify and protect the vagus nerve. A writing was replaced vessel loop around the vessel proximally and the patient was heparinized and allowed to circulate for 3 minutes with subsequent heparin dosing based on ACT results. A 5-0 Prolene pursestring suture was then placed at the intended puncture site. Given the depth of the vessel a tunneled approach from a skin incision more inferior than the incision was selected in order to facilitate proper vessel approach angle. 11 blade was used to create skin incision inferior to the initial incision and the tract dilated with blunt dissection. Next under ultrasound guidance the right common femoral vein was accessed with micropuncture needle wire then exchanged for micropuncture sheath. Through this a J-wire was advanced and the micropuncture sheath exchanged for the 8 [place] venous return sheath. Next through the counterincision the micropuncture needle was used to access the common carotid artery at the pursestring suture and the micropuncture wire advanced under fluoroscopic guidance. The needle was exchanged for micropuncture sheath through which hand-injection carotid angiography was performed revealing satisfactory positioning no extravasation or dissection. This was also used to mac the origin of the external carotid artery and the micropuncture wire was then readvanced and utilized to engage and selectively cannulate the external carotid artery. The micropuncture sheath and dilator were then advanced into the external carotid artery and the inner dilator and micropuncture wire were exchanged for the J-wire. The micropuncture sheath was exchanged for the [place] flow reversal sheath which was advanced over the wire into position in the common carotid artery. Wire dilating the withdrawn and the flow reversal tubing connected with satisfactory flow with return to the venous sheath confirmed. The common carotid artery was then occluded with Vesseloops and flow reversal confirmed. Through the carotid sheath the 014 wire was advanced navigating into the internal carotid artery and traversing the lesion. A 5 x 35 angioplasty balloon was then advanced in position and the lesion predilated to nominal and the balloon deflated and withdrawn. A tapered 10 to 8 x 40 en route stent was advanced in the position deployed. The delivery system was then withdrawn and 2 minutes of flow reversal permitted prior to completion angiography which confirmed satisfactory stent positioning with no extravasation or dissection and no plaque prolapse. Thus revealed no residual stenosis. The proximal vessel loop was then released and an additional 1 minute of flow reversal permitted after which time the tubing was detached and blood flow returned via the femoral sheath. The femoral vein sheath and then withdrawn and manual pressure held for 10 minutes until hemostasis was obtained. Heparin was then reversed with protamine and the carotid sheath withdrawn after which the pursestring suture was secured. The wound was then inspected for hemostasis and Surgiflo topical hemostatic applied after which satisfactory stasis was noted. A [address] ROSITA was placed via separate stab incision and the incision closed with 2-0 Vicryl, 3-0 Vicryl, 4 Monocryl and Dermabond for the skin. At the conclusion of case patient was awakened anesthesia moving extremities command. He is then taken recovery room with anticipated mission intensive care unit for hemodynamic and neurologic monitoring. The MEDICAL CODING MANAGER assisted throughout the entirety of the procedure from patient positioning to dissection and control of the vessels, vessel access and stent placement, and wound closure.
--- NOTE | 2024-04-27 14:58 | PCM.POST.ANE ---
Anesthesia: Postop Eval I Current Vital Signs Temperature: 97.4 F Pulse Rate: 68 Blood Pressure: 141/59 (map 90 on a-line, cuff pressure 146/67 (86)) Respiratory Rate: 18 Pulse Ox: 100 Oxygen Delivery Method: Simple Mask Oxygen Flow Rate (L/min): 6 Assessment Airway patent: Yes Spontaneous unlabored respirations: Yes Mental status: Awake and Calm nausea: No Vomiting: No Anesthesia Complication: No Fluid Hydration Crystalloid volume administer (ml): 1,200 Total IV fluid infused: 1,200 Progress Note Anesthesia document: Postop Eval 1 completed: Yes
--- NOTE | 2024-04-27 17:00 | POSTOPAN2_ITS ---
Anesthesia Postop Eval I Sum Postop Eval Completion status Anesthesia document: Postop Eval 1 completed: Yes Anesthesia Postop Eval I Summary Anesthesia Postop Eval I Summary: Anesthesia Postop Eval I: Assessment Summary Airway patent Yes 04/27/24 14:59 CUSTOMER EXPERIENCE [email or web address].[email or web address] Spontaneous unlabored Yes 04/27/24 14:59 CUSTOMER EXPERIENCE STRATEGIST.AP[place]rlanda respirations Mental status Awake,Calm 04/27/24 14:59 CUSTOMER EXPERIENCE STRATEGIST.[email or web address] nausea No 04/27/24 14:59 CUSTOMER EXPERIENCE STRATEGIST.[email or web address] Vomiting No 04/27/24 14:59 CUSTOMER EXPERIENCE [email or web address].[email or web address] Anesthesia Postop Eval I: Fluid Summary Crystalloid volume administer 1,200 04/27/24 14:59 CUSTOMER EXPERIENCE STRATEGIST.[email or web address] (ml) Colloids volume administered ( ml) Blood Product volume administered (ml) Total IV fluid infused 1,200 04/27/24 14:59 CUSTOMER EXPERIENCE STRATEGIST.APRYLOBIrlanda Anesthesia Postop Eval I: Summary Notes Anesthesia Complication No 04/27/24 14:59 CUSTOMER EXPERIENCE STRATEGIST.APRYLOBIrlanda Anesthesia Complication Comment: Post-operative progress note Anesthesia: Postop Eval II Evaluation Mental status: Awake and Calm Pain Level: 1 nausea: No Vomiting: No Complications Anesthesia Complication: No
--- NOTE | 2024-04-27 17:00 | PCM.POSTANE2 ---
Anesthesia Postop Eval I Sum Postop Eval Completion status Anesthesia document: Postop Eval 1 completed: Yes Anesthesia Postop Eval I Summary Anesthesia Postop Eval I Summary: Anesthesia Postop Eval I: Assessment Summary Airway patent Yes 04/27/24 14:59 FRONT END [email or web address] Spontaneous unlabored Yes 04/27/24 14:59 FRONT END ENGINEER.APRYLO[place]a respirations Mental status Awake,Calm 04/27/24 14:59 FRONT END ENGINEER.[email or web address] nausea No 04/27/24 14:59 FRONT END ENGINEER.[email or web address] Vomiting No 04/27/24 14:59 FRONT END [email or web address] Anesthesia Postop Eval I: Fluid Summary Crystalloid volume administer 1,200 04/27/24 14:59 FRONT END [email or web address] (ml) Colloids volume administered ( ml) Blood Product volume administered (ml) Total IV fluid infused 1,200 04/27/24 14:59 FRONT END ENGINEER.APRYLOBIrlanda Anesthesia Postop Eval I: Summary Notes Anesthesia Complication No 04/27/24 14:59 FRONT END ENGINEER.APRYLOBIrlanda Anesthesia Complication Comment: Post-operative progress note Anesthesia: Postop Eval II Evaluation Mental status: Awake and Calm Pain Level: 1 nausea: No Vomiting: No Complications Anesthesia Complication: No
[2024-04-27] MEDS: Labetalol (Prefilled) 20 MG/4 ML Vial 10 MG IV (19:47)
[2024-04-27] MEDS: 0.9% Saline Lock 10 ML Syringe IV (19:47)
[2024-04-27] MEDS: Cefazolin 1 GM/50 ML BAG IV (20:22)
[2024-04-27] MEDS: Metoprolol(XL)Succ 100 MG Tablet PO (20:46)
[2024-04-27] MEDS: Atorvastatin Calcium 80 MG Tablet PO (20:46)
[2024-04-27] MEDS: Gabapentin 300 MG Capsule PO (20:47)
[2024-04-27] MEDS: Insulin Lispro 100 UNIT/ML INSULN.PEN SC (21:15)
[2024-04-27 21:16] LABS: Bedside Glucose 212 mg/dL (74-106)
[2024-04-27] MEDS: BENZOCAINE/MENTHOL 1 LOZENGE MUCOUS MEM (21:57)
[2024-04-27] MEDS: MELATONIN 3 MG TABLET PO (22:44)
[2024-04-27] MEDS: Acetaminophen 325 MG Tablet 650 MG PO (22:44)
[2024-04-28] VITALS (13 sets, daily range): BP systolic 109–150; BP diastolic 43–78; PULSE 48–60; RESP 14–21; TEMP 36.4–36.8; O2SAT 90–99; BMI 32.5
[2024-04-28 03:59] LABS: Absolute Lymphocyte Count 0.57 X10^3/uL (0.83-4.51); Absolute Neutrophil Count 9.1 X10^3/uL (2.0-7.7); Basophil# 0.01 X10^3/uL; Basophil% 0.1 % (0-1); Hemoglobin 11.4 g/dL (13.0-16.5); Lymphocyte # 0.57 X10^3/ul (0.83-4.51); Lymphocyte % 5.5 % (19-41); Mean Corp Hgb Conc 32.6 g/dL (32-36); Mean Corpuscular Hgb 34.2 pg (27.0-32.0); Mean Corpuscular Volume 105.1 fL (80-94); Mean Platelet Vol. 9.3 fl (6.2-12.0); Monocyte# 0.62 X10^3/uL; NRBC Flagged by Analyzer 0 % (0-5); Neutrophil # 9.08 X10^3/uL (2.7-7.7); Neutrophil % 88.1 % (47-70); POSITIVE DIFFERENTIAL YES; Platelet Count 229 K/mm3 (150-450); RBC Distribution Width CV 15.9 % (11.6-14.6); RBC Distribution Width SD 60.1 fl (35.1-43.9); Red Blood Count 3.33 M/mm3 (4.6-6.2); White Blood Count 10.3 K/mm3 (4.4-11.0)
[2024-04-28] MEDS: Cefazolin 1 GM/50 ML BAG IV (04:38)
[2024-04-28] MEDS: 0.9% Saline Lock 10 ML Syringe IV (04:39)
[2024-04-28] MEDS: Gabapentin 300 MG Capsule PO (05:00)
[2024-04-28] MEDS: Aspirin 81 MG TAB.CHEW PO (08:04)
[2024-04-28] MEDS: Folic Acid 1 MG Tablet 2 MG PO (08:04)
[2024-04-28] MEDS: Multivitamins,Therapeutic Tablet 1 TABLET PO (08:28)
[2024-04-28 08:48] LABS: Bedside Glucose 146 mg/dL (74-106)
[2024-04-28] MEDS: glipiZIDE 5 MG Tablet 2.5 MG PO (10:20)
[2024-04-28] MEDS: Spironolactone 50 MG Tablet PO (10:20)
[2024-04-28] MEDS: hydroCHLOROthiazide 25 MG Tablet PO (10:20)
[2024-04-28] MEDS: amLODIPine 10 MG Tablet PO (10:21)
[2024-04-28] MEDS: Clopidogrel Bisulfate 75 MG Tablet PO (10:21)
[2024-04-28] MEDS: Cholecalciferol (Vit D3) 125 MCG CAPSULE (5,000 UNITS) PO (10:21)
[2024-04-28] MEDS: Empagliflozin 10 MG Tablet PO (10:21)
--- NOTE | 2024-04-28 10:30 | PN.SURG_ITS ---
Subjective Subjective Patient was seen up to the bedside chair this morning. He reports he feels good, he is eager to get home. He denies any pain at the incision, other than the tugging of the adhesive dressing. He denies any new/worsening weakness, numbness/paresthesias. He was hypertensive overnight but this readily improved with one dose of PRN labetaolol and later his evening dose of metoprolol. He was noted to have some lower HRs into the low 50s when sleeping, he does have MARKY. Objective Data Objective Data Vital Signs: Vital Signs Temp Pulse Resp BP Pulse Ox O2 Del Method O2 Flow Rate 97.8 F 48 L 16 124/44 H 93 Room Air 2 04/28/24 04:00 04/28/24 07:00 04/28/24 07:00 04/28/24 07:00 04/28/24 09:00 04/28/24 09:00 04/28/24 03:00 Oxygen Flow Rate (L/min) 2 Oxygen Delivery Method Room Air Weight: 207 lb 8 oz Body Mass Index (BMI) 32.5 Intake & Output: Intake and Output for Last 24 Hours 04/26/24 04/27/24 04/28/24 23:59 23:59 23:59 Intake Total 139 / 139 50 / 50 Output Total 50 / 50 790 / 790 Balance 89 / 89 -740 / -740 Lab / Micro Data 04/28/24 03:45 04/14/24 09:51 Labs: Laboratory Results - last 24 hr 04/27/24 10:02: POC Glucose 124 H 04/27/24 12:49: Activated Clotting Time 140 H 04/27/24 13:19: Activated Clotting Time 299 H 04/27/24 20:56: POC Glucose 212 H 04/28/24 03:45: WBC 10.3, RBC 3.33 L, Hgb 11.4 L, Hct 35.0 L, MCV 105.1 H, MCH 34.2 H, MCHC 32.6, RDW Std Deviation 60.1 H, RDW Coeff of Adan 15.9 H, Plt Count 229, MPV 9.3, Immature Gran % (Auto) 0.300, Neut % (Auto) 88.1 H, Lymph % (Auto) 5.5 L, [place] % (Auto) 6.0, Eos % (Auto) 0.0, Baso % (Auto) 0.1, Absolute Neuts (auto) 9.1 H, Absolute Lymphs (auto) 0.57 L, Nucleated RBC % 0 04/28/24 08:02: POC Glucose 146 H Physical Exam Const oriented x3 and no apparent distress HEENT head/scalp atraumatic, external ears normal and external nose normal Head and Scalp: normocephalic and atraumatic Eyes EOMs intact bilaterally General Eye: normal appearance of both eyes Neck Neck Narrative: R neck incision site with mild ecchymosis, minimal edema. Soft and nontender to palpation. Incision site with skin glue intact, no drainage/erythema/warmth. ROSITA drain with small amount of serosanguineous drainage. Resp normal respiratory effort Cardio regular rate and regular rhythm Extremity Extremity Narrative: R groin with dry pressure dressing in place, C/D/I, no bleed-through. No focal swelling, ecchymosis. Skin no rashes or lesions noted Neuro CN's II-XII intact bilaterally, moves all extremities, no focal motor deficits and no sensory deficits noted Speech: speech normal Psych mental status grossly normal, cooperative, affect normal, speech normal and activity/motor behavior normal Attitude: calm and engaged Activity / Motor Behavior: appropriate eye contact Assessment & Plan Assessment/Plan (1) Carotid stenosis, bilateral: PLAN: He is s/p R TCAR. He has been neurologically and hemodynamically stable. ROSITA drain was removed without issue this morning. D/C art line. Progress to normal diet. Ambulate with nursing. Anticipate discharge this afternoon.
--- NOTE | 2024-04-28 10:39 | CASEMGMT ---
ISABELLE JARRELL Assessment Face to Face with patient for initial transition planning/care coordination assessment. ISABELLE JARRELL introduced self and role at [facility], pt voices understanding. Pt is A&Ox4 and is resting comfortably in the chair and is calm. Care providers, pharmacy, and demographics verified. Admitting dx: Carotid Stent LACE Strata: 2 PCP: Nick Estes Specialists: Juliette (Complaint Coordinator) Preferred Pharmacy: [facility] Insurance: [facility] Prescription Benefit: Yes LNOK: Elisa Bedoya (Luis Fernando) Living Arrangements: Pt lives alone in a single story home with 3 steps to enter ADLs/IADLs: Ind Transportation: Self, Daughter DME: Glucometer with sufficient supplies. BP Monitor. Access to a cane and walker but does not use HHC/SNF: Denies Pt?s goal: Home Plan: Home no needs. Pt states that he feels safe discharging home once he is medically ready with his daughter and denies needs including HH, OP Tx, CCN/ Pt Link. Pt denies further concerns at this time. Maria A Parish RN, CM
[2024-04-28] MEDS: Enoxaparin 40 MG/0.4 ML Syringe SC (11:32)
[2024-04-28 11:56] LABS: Bedside Glucose 135 mg/dL (74-106)
--- NOTE | 2024-04-28 13:07 | PCM.DC.SUM ---
Providers Date of Admission: 04/27/24 Primary Care Physician: Dr. Nick Estes, DO Reason For Visit: Carotidstent,Classifier Operator,TELEPHONE APPOINTMENT CLERK,Anes,OR Staff Diagnosis Discharge Diagnosis (1) Carotid stenosis, bilateral: Status: Chronic Code(s): I65.23 - Occlusion and stenosis of bilateral carotid arteries Plan: He is s/p R TCAR. He has been neurologically and hemodynamically stable. ROSITA drain was removed without issue this morning. D/C art line. Progress to normal diet. Ambulate with nursing. Anticipate discharge this afternoon. Medications at Discharge Home Medications atorvastatin 80 mg tablet 80 mg PO QHS cholesterol #30 tabs 09/12/19 ramipril 10 mg capsule 10 mg PO BID heart ##0 09/12/19 aspirin 81 mg chewable tablet 81 mg PO DAILY@0800 heart 03/14/20 clotrimazole 1 % topical cream 1 applic topical BID RASH 02/18/24 dapagliflozin propanediol 5 mg tablet (Farxiga) 5 mg PO DAILY liver 02/18/24 folic acid 1 mg tablet 2 mg PO DAILY supplement 02/18/24 gabapentin 300 mg capsule 300 mg PO TID pain 02/18/24 glipizide 2.5 mg tablet 2.5 mg PO DAILY DM 02/18/24 hydrochlorothiazide 25 mg tablet 25 mg PO DAILY bp 02/18/24 metformin 500 mg tablet 1,000 mg PO BIDCM dm 02/18/24 methotrexate sodium 2.5 mg tablet 17.5 mg PO QWEEK RA 02/18/24 spironolactone 50 mg tablet 50 mg PO QDAY bp 02/18/24 clopidogrel 75 mg tablet (Plavix) 75 mg PO DAILY heart #30 tabs 03/17/24 acetaminophen 325 mg capsule (Tylenol) 650 mg PO Q4H PRN pain 04/06/24 amlodipine 10 mg tablet 10 mg PO DAILY BP 04/06/24 cholecalciferol (vitamin D3) 125 mcg (5,000 unit) tablet (Vitamin D3) 125 mcg PO DAILY supplement 04/06/24 elderberry fruit 350 mg capsule 350 mg PO DAILY supplement 04/06/24 metoprolol succinate 100 mg tablet,extended release 24 hr 100 mg PO BID heart 04/06/24 multivitamin (Daily Multi-Vitamin tablet) 1 tab PO DAILY supplement 04/06/24 Hospital Course Summary of Care Provided Hospital Course: Sylvester Lopez is a 68 y/o male who underwent R TCAR on 04/28/2024. Postoperatively, he was routinely admitted to the ICU for ongoing neurologic and hemodynamic monitoring. He has remained neurologically stable throughout his admission. He was hypertensive overnight but this improved with as needed labetalol then further improved with his home evening metoprolol dose. Today, he felt he was feeling very good and was eager to get home. He ambulated without issue, was voiding without issue, tolerating a normal diet, and has no significant pain at the surgical site or the groin access site. He is discharged to home in stable condition on 04/28/2024. Physical Exam Const oriented x3 and no apparent distress HEENT head/scalp atraumatic, external ears normal and external nose normal Head and Scalp: normocephalic and atraumatic Eyes EOMs intact bilaterally General Eye: normal appearance of both eyes Neck Neck Narrative: R neck incision site with mild ecchymosis, minimal edema. Soft and nontender to palpation. Incision site with skin glue intact, no drainage/erythema/warmth. ROSITA drain with small amount of serosanguineous drainage. Resp normal respiratory effort Cardio regular rate and regular rhythm Extremity Extremity Narrative: R groin with dry pressure dressing in place, C/D/I, no bleed-through. No focal swelling, ecchymosis. Skin no rashes or lesions noted Neuro CN's II-XII intact bilaterally, moves all extremities, no focal motor deficits and no sensory deficits noted Speech: speech normal Psych mental status grossly normal, cooperative, affect normal, speech normal and activity/motor behavior normal Attitude: calm and engaged Activity / Motor Behavior: appropriate eye contact Weight / BMI Weight Weight: 207 lb 8 oz Body Mass Index (BMI) 32.5 ABG / Lab / Microbiology Data 04/28/24 03:45 04/14/24 09:51 Laboratory: Laboratory Results - last 24 hr 04/22/24 09:42: Miscellaneous Test 04/27/24 12:49: Activated Clotting Time 140 H 04/27/24 13:19: Activated Clotting Time 299 H 04/27/24 20:56: POC Glucose 212 H 04/28/24 03:45: WBC 10.3, RBC 3.33 L, Hgb 11.4 L, Hct 35.0 L, MCV 105.1 H, MCH 34.2 H, MCHC 32.6, RDW Std Deviation 60.1 H, RDW Coeff of Adan 15.9 H, Plt Count 229, MPV 9.3, Immature Gran % (Auto) 0.300, Neut % (Auto) 88.1 H, Lymph % (Auto) 5.5 L, [place] % (Auto) 6.0, Eos % (Auto) 0.0, Baso % (Auto) 0.1, Absolute Neuts (auto) 9.1 H, Absolute Lymphs (auto) 0.57 L, Nucleated RBC % 0 04/28/24 08:02: POC Glucose 146 H 04/28/24 11:30: POC Glucose 135 H D/C Instructions Discharge Diet: No restrictions May shower in (days): 1 Weight Bearing Status: Weight bearing as tolerated Lifting Restricted to (Lbs): 20 Lifting Restrictions: Do not lift greater than 20 pounds for 3 weeks Call your doctor if your incision/area has: Sudden Increased Bleeding, Increased Pain/ Swelling and Foul Smelling Discharge Call your doctor if you observe: Fever of 101 or Higher and Uncontrolled pain Remove Dressing in: 1 day Additional Instructions: You have a small bandage over the site from which the surgical drain was removed. You may remove this bandage tomorrow after your first shower. As long as there is no residual drainage, you may leave this open to air. If you do notice some continued drainage, you may re-cover with a Band-Aid. Your incision site is covered with surgical glue which will continue to protect it. The surgical glue will peel/flake off on its own over the next few weeks. Please do not pick at it. You have a small bandage covering the Right groin puncture site. You may remove this tomorrow and then leave this open to air. You may shower tomorrow. It is okay for soap and water to rinse over the incision site, pat to dry. Do not submerge the incision site in water such as to take a bath or go swimming etc. for 3 weeks. Do not lift greater than 20 pounds for 3 weeks. Otherwise, please continue with activity as tolerated. Do not drive until you can turn your head well enough to safely check your blind spots. You declined prescription pain medication, please call the office should you feel you need this once home. You may continue to take Tylenol as needed for pain. You should continue to take Plavix 75mg tablet by mouth daily and Aspirin 81mg tablet by mouth daily. You are scheduled for a follow-up appointment in the office on 05/11/24 at 9:00 AM. If you have any questions, concerns, or need to change your appointment, please contact the office at [phone]. Please Follow Up With: Rin Mendez PA When: 05/11/24 Meaningful Use Info Meaningful Use Meaningful Use Diagnoses (Choose all that apply): None applicable Ischemic Stroke Statin Dosing Therapy Reference: STATIN DOSE THERAPY REFERENCE: * Patients > 75 years receive moderate or high dose statin therapy. * Patients 75 years or YOUNGER should receive HIGH intensity statin dose unless contraindicated. You will be required to document reason for non-treatment if statin daily dose does not meet guidelines. HIGH DOSE STATIN THERAPY DAILY Atorvastatin > than or = to 40 mg Rosuvastatin > than or = to 20 mg Amlodipine + Atorvastatin > than or = to 2.5/40 mg Ezetimibe + Simvastatin 10/80 mg Simvastatin 80mg Discharge Plan Admission Admit Date/Time: 04/27/24 14:17 Attending Provider: Arturo Giron Primary Care Provider: Nick Estes Instructions Additional Instructions / Restrictions: You have a small bandage over the site from which the surgical drain was removed. You may remove this bandage tomorrow after your first shower. As long as there is no residual drainage, you may leave this open to air. If you do notice some continued drainage, you may re-cover with a Band-Aid. Your incision site is covered with surgical glue which will continue to protect it. The surgical glue will peel/flake off on its own over the next few weeks. Please do not pick at it. You have a small bandage covering the Right groin puncture site. You may remove this tomorrow and then leave this open to air. You may shower tomorrow. It is okay for soap and water to rinse over the incision site, pat to dry. Do not submerge the incision site in water such as to take a bath or go swimming etc. for 3 weeks. Do not lift greater than 20 pounds for 3 weeks. Otherwise, please continue with activity as tolerated. Do not drive until you can turn your head well enough to safely check your blind spots. You declined prescription pain medication, please call the office should you feel you need this once home. You may continue to take Tylenol as needed for pain. You should continue to take Plavix 75mg tablet by mouth daily and Aspirin 81mg tablet by mouth daily. You are scheduled for a follow-up appointment in the office on 05/11/24 at 9:00 AM. If you have any questions, concerns, or need to change your appointment, please contact the office at [phone]. Discharge Orders/Prescriptions Prescriptions: Continued clotrimazole 1 % cream 1 applic topical BID dapagliflozin propanediol [Farxiga] 5 mg tablet 5 mg PO DAILY folic acid 1 mg tablet 2 mg PO DAILY gabapentin 300 mg capsule 300 mg PO TID glipizide 2.5 mg tablet 2.5 mg PO DAILY hydrochlorothiazide 25 mg tablet 25 mg PO DAILY methotrexate sodium 2.5 mg tablet 17.5 mg PO QWEEK spironolactone 50 mg tablet 50 mg PO QDAY atorvastatin 80 MG tablet 80 mg PO QHS Qty: 30 1RF ramipril 10 MG capsule 10 mg PO BID Qty: 0 0RF Rx Instructions: Hold if SBP <150 in next 2 days. take about 8 am and 8 pm aspirin 81 MG tablet,chewable 81 mg PO DAILY@0800 amlodipine 10 mg tablet 10 mg PO DAILY multivitamin [Daily Multi-Vitamin] Tablet 1 tab PO DAILY elderberry fruit 350 mg capsule 350 mg PO DAILY cholecalciferol (vitamin D3) [Vitamin D3] 125 mcg (5,000 unit) tablet 125 mcg PO DAILY acetaminophen [Tylenol] 325 mg capsule 650 mg PO Q4H PRN (Reason: pain) metoprolol succinate 100 MG tablet 100 mg PO BID Rx Instructions: Hold if HR <60/m clopidogrel [Plavix] 75 mg tablet 75 mg PO DAILY Qty: 30 1RF Held metformin 500 mg tablet 1,000 mg PO BIDCM Hold Instructions: Resume on 04/30/24. Rx Instructions: 2 every 12 hours Referrals / Follow Up: Nick Estes DO [Primary Care Provider] - Disposition Disposition (needs filled in before D/C Order can be placed): Home, Self Care
== END 2024-04-28 14:00 | disposition home or self-care (01) | DRG 36 ==
PROVIDERS: Physician Assistant; Admitting Provider Surgery Trauma Surgery; PCP Family Medicine; Referring Provider Surgery Trauma Surgery; Visit Provider Surgery Trauma Surgery
PROC: 037H3DZ Dilation of Right Common Carotid Artery with Intraluminal Device, Percutaneous Approach (ICD-10-PCS; CPT 37236; principal; 2024-04-27 11:00)
DX: I65.21 Occlusion and stenosis of right carotid artery (principal); E11.9 Type 2 diabetes mellitus without complications; E78.00 Pure hypercholesterolemia, unspecified; Z79.02 Long term (current) use of antithrombotics/antiplatelets; Z98.1 Arthrodesis status; Z79.82 Long term (current) use of aspirin; Z79.84 Long term (current) use of oral hypoglycemic drugs; Z79.899 Other long term (current) drug therapy; Z86.73 Personal history of transient ischemic attack (TIA), and cerebral infarction without residual deficits; Z87.891 Personal history of nicotine dependence
CPT/HCPCS: 36415; 37215; 76937; 80048; 82962; 83036; 85025; 85027; 85347; 86850; 86900; 86901; 93005; 94668; 99252; A4648; C1725; C1769; C1876; C1884; C1894; J7040; J7120; Q9967; A4216; G0463; J2405

== ENCOUNTER 2024-05-11 09:31 | Outpatient (RCR) | payer MEDICARE, SELFPAY ==
[2024-05-11 10:03] LABS: Bacteria 0 SEEN /hpf (None Seen); Mucous, Urine 0 SEEN /hpf (<or=2+); Red Blood Cells-Urine 0 SEEN /hpf (0-5); White Blood Cells 0 SEEN /hpf (0-5)
[2024-05-11 12:00] LABS: Color, Urine Yellow (Yellow); Glucose, Dipstick 1000 mg/dl (Normal); Ketone-Dipstick Negative (Negative); Leukocyte Esterase-Dipstick 25 /ul (Negative); Nitrite-Dipstick Negative (Negative); Occult Blood-Urine Negative /ul (Negative); Protein-Dipstick Negative (Negative); Specific Gravity, Urine 1.015 (1.002-1.030); Urine Bilirubin Dipstick Negative (Negative); Urine Clarity Clear (Clear); Urine Urobilinogen Normal (Normal)
[2024-05-11 12:06] LABS: Squamous Epithelial Cells - UA 0-5 SEEN /hpf (0-5)
[2024-05-11 12:32] LABS: Erythrocyte Sedimentation Rate 22 mm/hr (0-20)
[2024-05-11 12:35] LABS: Absolute Lymphocyte Count 1.14 X10^3/uL (0.83-4.51); Absolute Neutrophil Count 4.7 X10^3/uL (2.0-7.7); Basophil# 0.06 X10^3/uL; Basophil% 0.9 % (0-1); Eosinophil# 0.16 X10^3/uL; Eosinophils% 2.3 % (0-5); Hematocrit 39.2 % (40-54); Hemoglobin 12.9 g/dL (13.0-16.5); Lymphocyte # 1.14 X10^3/ul (0.83-4.51); Lymphocyte % 16.6 % (19-41); Mean Corp Hgb Conc 32.9 g/dL (32-36); Mean Corpuscular Hgb 34.2 pg (27.0-32.0); Mean Platelet Vol. 9.8 fl (6.2-12.0); Monocyte# 0.75 X10^3/uL; Monocyte% 10.9 % (0-10); NRBC Flagged by Analyzer 0 % (0-5); Neutrophil # 4.71 X10^3/uL (2.7-7.7); Neutrophil % 68.7 % (47-70); Platelet Count 292 K/mm3 (150-450); RBC Distribution Width CV 16.2 % (11.6-14.6); RBC Distribution Width SD 61.8 fl (35.1-43.9); Red Blood Count 3.77 M/mm3 (4.6-6.2); White Blood Count 6.9 K/mm3 (4.4-11.0)
[2024-05-11 13:01] LABS: ALB/GLOB Ratio 1.1 RATIO (0.9-2.4); AST(SGOT) 24 U/L (15-37); Alanine Aminotransfer ALT/SGPT 34 U/L (16-61); Alkaline Phosphatase 50 U/L (45-117); Anion Gap 8 (5-15); BUN 24 mg/dL (7-18); BUN/Creat Ratio 23.8 RATIO (10-20); CPK Total, Creatine Kinase 60 U/L (39-308); CRP < 2.90 mg/L (0.0-3.0); Calcium,Total 9.6 mg/dL (8.5-10.1); Chloride 105 mmol/L (98-107); Creatinine, Serum 1.01 mg/dL (0.70-1.30); EST Glomerular Filtration Rate 78 mL/min (>60); Est Glom Filt Rate - Afr Amer 94 mL/min (>60); Globulin 3.6 g/dL (2.2-4.2); Glucose 123 mg/dL (74-106); Potassium 4.4 mmol/L (3.5-5.1); Protein, Total 7.6 g/dL (6.4-8.2); Sodium Level 136 mmol/L (136-145)
[2024-05-12 09:09] LABS: Complement C3 126 mg/dL (82-167)
== END 2024-05-11 18:00 | disposition home or self-care (01) ==
LOC: MTLAB 09:31
PROVIDERS: PCP Family Medicine; Referring Provider Internal Medicine Rheumatology; Visit Provider Internal Medicine Rheumatology
DX: M05.79 Rheumatoid arthritis with rheumatoid factor of multiple sites without organ or systems involvement (principal); M32.9 Systemic lupus erythematosus, unspecified; R76.8 Other specified abnormal immunological findings in serum; Z79.899 Other long term (current) drug therapy; Z79.631 Long term (current) use of antimetabolite agent; Z79.1 Long term (current) use of non-steroidal anti-inflammatories (NSAID); Z79.82 Long term (current) use of aspirin; Z87.39 Personal history of other diseases of the musculoskeletal system and connective tissue; Z98.890 Other specified postprocedural states; M54.12 Radiculopathy, cervical region; G95.89 Other specified diseases of spinal cord; M75.101 Unspecified rotator cuff tear or rupture of right shoulder, not specified as traumatic; M19.041 Primary osteoarthritis, right hand; M19.042 Primary osteoarthritis, left hand; M19.071 Primary osteoarthritis, right ankle and foot; M19.072 Primary osteoarthritis, left ankle and foot; M47.812 Spondylosis without myelopathy or radiculopathy, cervical region; M50.20 Other cervical disc displacement, unspecified cervical region; M50.30 Other cervical disc degeneration, unspecified cervical region; M48.02 Spinal stenosis, cervical region
CPT/HCPCS: 36415; 80053; 81001; 82550; 85025; 85652; 86140; 86160

== ENCOUNTER → 2024-05-20 | Outpatient (CLI) | payer MEDICARE, SELFPAY | END | disposition home or self-care (01) | LOC: CVS 08:29 | PROVIDERS: PCP Family Medicine; Referring Provider Physician Assistant; Visit Provider Physician Assistant | DX: I65.23 Occlusion and stenosis of bilateral carotid arteries (principal); Z48.812 Encounter for surgical aftercare following surgery on the circulatory system | CPT/HCPCS: 93880 ==

== ENCOUNTER 2024-07-25 10:39 | Emergency (ER) | payer MEDICARE, SELFPAY ==
[2024-07-25 10:41] VITALS: BP 179/63; PULSE 60; RESP 16; TEMP 36.6; O2SAT 98; BMI 33.3
--- NOTE | 2024-07-25 11:14 | EX.ED.DYSGE1 ---
HPI History of Present Illness Chief Complaint: Other, Pain/Inj Detail of Chief Complaint: Penile pain Informant: patient Narrative Narrative: Patient presents the emergency department with complaint of discomfort to the penis. He states that he cannot retract his foreskin over the head of the penis. Symptoms started yesterday. Patient states that he had woken up with a mild erection that then resolved. Denies any injury to his penis. Patient able to urinate normally. Denies fevers or chills or other illness. Denies hematuria. PFSH PFSH Allergy/AdvReac Type Severity Reaction Status Date / Time No Known Allergies Allergy Verified 07/25/24 10:46 ROS ROS ED Review of Systems ROS Unobtainable: other Constitutional Constitutional ED: Reports lethargy; Denies chills, fever(s), sweats or weight loss Eyes Eyes: Denies blurry vision, change in vision or diplopia ENT ENT ED: Denies rhinorrhea or sore throat Cardiovascular Cardiovascular: Denies chest pain, orthopnea or racing heartbeat Respiratory/Chest Respiratory/Chest: Denies cough, dyspnea, dyspnea on exertion, orthopnea or sputum Gastrointestinal Gastrointestinal: Denies abdominal pain, diarrhea, nausea or vomiting Genitourinary Genitourinary ED: Reports other Details: Penile pain ; Denies dysuria, hematuria or urinary frequency Musculoskeletal Musculoskeletal: Denies arthralgias, back pain, myalgias or neck pain Integumentary Denies abscess, Abrasions or rash Neurologic Neurologic: Denies headache(s) or weakness Psychiatric Psychiatric: Denies anxiety, depression or suicidal thoughts Endocrine Endocrinology: Denies polydipsia, polyphagia or polyuria Hematologic/Lymphatic Hematologic/Lymphatic: Denies easy bleeding, easy bruising or lymphadenopathy Allergic/Immunologic Allergic/Immunologic ED: Denies mouth swelling, tongue swelling or urticaria EXAM Physical Exam Const Vital Signs: 07/25/24 10:41 Temperature 97.9 F Temperature Source Oral Pulse Rate 60 Respiratory Rate 16 Blood Pressure 179/63 H Blood Pressure Mean 101 Pulse Ox 98 Oxygen Delivery Method Room Air Positive well nourished and well developed General Appearance ED: well developed and NAD HEENT Reports TM's clear and moist mucous membranes normocephalic and atraumatic; Negative for trauma or tenderness Tympanic Membrane ED: Yes TM's clear Eyes PERRL and EOMs intact bilaterally General Eye ED: Negative for pale conjunctiva or scleral icterus Neck no lymphadenopathy, supple and no JVD General: Negative for tenderness Chest Wall inspection of chest normal and palpation of chest normal Chest: Negative for tenderness Resp normal respiratory effort and clear to auscultation bilaterally Effort and Inspection: Negative for respiratory distress or pain with movement Auscultation: Negative for rhonchi, wheezes or diminished lung sounds Cardio regular rate, regular rhythm, S1 normal heart sound, S2 normal heart sound and no murmurs Peripheral Pulses: pulses 2+ throughout GI normal to inspection, nondistended, normoactive bowel sounds, soft to palpation, non-tender, non-distended and no masses Narrative: Evaluation of the penis reveals that the foreskin is retracted proximally to the head of the penis. There is soft tissue swelling just proximal to the glans of the penis that we will not allow for the foreskin to pass over the head of the penis. There was some irritation just proximal to the soft tissue swelling with some small amount of dried blood noted here. No cellulitic changes. Back/Spine no CVA tenderness and no thoracic nor lumbar tenderness Extremity normal to inspection General Extremety ED: Negative for edema General Extremity: Negative for edema Neuro oriented x3, CN's II-XII intact bilaterally, no sensory deficits noted and gait normal Sensorium / Orientation: awake, alert, oriented to person, oriented to place and oriented to time Motor Exam: strength 5/5 throughout and strength abnormal Psych mental status grossly normal Skin no rashes or lesions noted and no wounds MDM MDM MDM Narrative Medical decision making narrative: Patient presents to the emergency department with concern for paraphimosis. Discussed case with urology Dr. Jean who presented to the emergency department to evaluate patient. Urologist was able to reduce the foreskin over the glans of the penis. Will refer patient for follow-up for possible circumcision in the future. Patient is advised to return if recurrence or fever or increased redness or swelling, or condition should worsen anyway. Patient advised to avoid erection and advised to not retract the foreskin over the head of the penis for the next 4 to 5 days. Discharge Plan Triage Chief Complaint: Other, Pain/Inj ED Provider: John Turner Dx/Rx/DC Orders Clinical Impression: Paraphimosis Instructions: ED Paraphimosis, Surgically Treated Primary Care Provider: Nick Estes Referrals: Scout Jean MD [Med Staff - Active Staff] - 5-7 Days Nick Estes DO [Primary Care Provider] - Print Language: Romanian Disposition Disposition: Home, Self Care
--- NOTE | 2024-07-25 11:47 | CON.PCM.UR_ITS ---
Assessment & Plan Assessment/Plan (1) Paraphimosis: PLAN: reduced in ER follow up with Urology as outpatient. HPI Consult Data Date of Consult: 07/25/24 HPI Narrative Reason for Consultation: Paraphimosis HPI Narrative: BHASKAR CALLE, is a 68 M who presents with a paraphimosis he had a partial erection this morning and then was not able to retract the penis back over the foreskin he got inflamed. Came in and the emergency room physician called me for consult came in and was able to reduce the paraphimosis quite easily in the emergency room. I did recommend the patient avoid pulling back the foreskin and avoid an erection for a while and he can use some Neosporin or topical creams for the slight tearing of the foreskin. I also probably recommend that he probably should get a circumcision he was reluctant to do this. He can follow- up in the outpatient with me for an evaluation. PFSH Allergy/AdvReac Type Severity Reaction Status Date / Time No Known Allergies Allergy Verified 07/25/24 10:46 ROS Constitutional Constitutional: Denies chills, fever(s) or malaise Eyes Eyes: Denies blurry vision or change in vision ENT HEENT: Reports none Cardiovascular Cardiovascular: Denies chest pain or palpitations Respiratory/Chest Respiratory/Chest: Denies cough or shortness of breath with exertion Gastrointestinal Gastrointestinal: Denies abdominal pain, constipation or diarrhea Musculoskeletal Musculoskeletal: Denies back pain, joint stiffness or joint swelling Integumentary Integumentary: Denies dry skin, jaundice, lesions or rash Neurologic Neurologic: Denies confusion, syncope or weakness Psychiatric Psychiatric: Reports none; Denies anxiety or depression Endocrine Endocrinology: Denies excessive sweating, fatigue or flushing Hematologic/Lymphatic Hematologic/Lymphatic: Denies anemia, easy bleeding or easy bruising Physical Exam Const alert and oriented x3 General Appearance: cooperative HEENT normocephalic and head/scalp atraumatic Eyes PERRL and EOMs intact bilaterally Neck supple, no JVD and no carotid bruits Resp normal respiratory effort, normal air movement and clear to auscultation bilaterally Cardio regular rate and no murmurs GI normal to inspection, nondistended, normoactive bowel sounds and soft to palpation Narrative: penis un circ w paraphimosis and sweling in foreskin. Extremity normal capillary refill General Extremity: no tenderness to palpation of joints or extremities; Negative for edema Skin no rashes or lesions noted and no wounds General Skin Exam: no breakdown Neuro CN's II-XII intact bilaterally Psych affect normal Appearance: appropriate
[2024-07-25 12:01] VITALS: BP 155/64; PULSE 65; RESP 16; TEMP 36.6; O2SAT 99
== END 2024-07-25 12:02 | disposition home or self-care (01) ==
PROVIDERS: Emergency Provider Emergency Medicine; PCP Family Medicine; Visit Provider Emergency Medicine
DX: N47.2 Paraphimosis (principal)
CPT/HCPCS: 99282

== ENCOUNTER 2024-11-12 09:16 | Outpatient (RCR) | payer MEDICARE, SELFPAY ==
[2024-11-12 09:35] LABS: Mucous, Urine 0 SEEN /hpf (<or=2+); Red Blood Cells-Urine 0 SEEN /hpf (0-5)
[2024-11-12 12:01] LABS: Hematocrit 39.2 % (40-54); Hemoglobin 13.1 g/dL (13.0-16.5); Immature Granulocytes Count 0.020 X10^3/uL (0.0-0.0); Mean Corp Hgb Conc 33.4 g/dL (32-36); Mean Corpuscular Volume 108.0 fL (80-94); Mean Platelet Vol. 9.8 fl (6.2-12.0); NRBC Flagged by Analyzer 0 % (0-5); Platelet Count 277 K/mm3 (150-450); RBC Distribution Width CV 14.6 % (11.6-14.6); RBC Distribution Width SD 58.4 fl (35.1-43.9); Red Blood Count 3.63 M/mm3 (4.6-6.2); White Blood Count 6.3 K/mm3 (4.4-11.0)
[2024-11-12 12:06] LABS: Color, Urine Yellow (Yellow); Glucose, Dipstick 1000 mg/dl (Normal); Ketone-Dipstick Negative (Negative); Leukocyte Esterase-Dipstick Negative /ul (Negative); Nitrite-Dipstick Negative (Negative); Occult Blood-Urine Negative /ul (Negative); Protein-Dipstick 30 mg/dl (Negative); Specific Gravity, Urine 1.015 (1.002-1.030); Urine Bilirubin Dipstick Negative (Negative)
[2024-11-12 12:11] LABS: Squamous Epithelial Cells - UA 0-5 SEEN /hpf (0-5)
[2024-11-12 12:25] LABS: Creatinine, Urine (random) 145.00 mg/dL (39.00-259.00); Microalbumin,Random Urine 20.3 mg/L (NO RANGE EST.)
[2024-11-12 12:31] LABS: AST(SGOT) 24 U/L (<=37); Alanine Aminotransfer ALT/SGPT 8 U/L (<=46); Albumin, Serum 4.4 g/dL (3.4-4.8); Alkaline Phosphatase 50 U/L (40-129); Anion Gap 14 (5-15); BUN 27 mg/dL (4-19); BUN/Creat Ratio 23.9 RATIO (10-20); CPK Total, Creatine Kinase 72 U/L (24-195); Calcium,Total 9.8 mg/dL (7.6-11.0); Carbon Dioxide 24.2 mmol/L (21.0-32.0); Chloride 100 mmol/L (98-108); Cholesterol 91 mg/dL (<=200); Globulin 3.1 g/dL (2.2-4.2); Glucose 151 mg/dL (70-99); Low Density Lipoprotein Calc. 12 mg/dL; Potassium 4.9 mmol/L (3.3-5.1); Triglycerides 211 mg/dL; Very Low Density Lipoprotein 42 mg/dL (5-40); cholesterol:hdl ratio screen 2.47
[2024-11-12 12:35] LABS: CRP < 3.00 mg/L (0.0-3.0)
== END 2025-02-09 16:00 | disposition home or self-care (01) ==
LOC: MTLAB 09:16
PROVIDERS: PCP Family Medicine; Referring Provider Internal Medicine Rheumatology; Visit Provider Family Medicine
DX: M32.9 Systemic lupus erythematosus, unspecified (principal); M05.79 Rheumatoid arthritis with rheumatoid factor of multiple sites without organ or systems involvement; G95.89 Other specified diseases of spinal cord; D53.9 Nutritional anemia, unspecified; D64.89 Other specified anemias; R76.8 Other specified abnormal immunological findings in serum; Z79.899 Other long term (current) drug therapy; Z79.631 Long term (current) use of antimetabolite agent; Z79.82 Long term (current) use of aspirin; Z98.890 Other specified postprocedural states; R81 Glycosuria; Z79.02 Long term (current) use of antithrombotics/antiplatelets; R73.9 Hyperglycemia, unspecified; M54.12 Radiculopathy, cervical region; M75.101 Unspecified rotator cuff tear or rupture of right shoulder, not specified as traumatic; M19.041 Primary osteoarthritis, right hand; M19.042 Primary osteoarthritis, left hand; M19.071 Primary osteoarthritis, right ankle and foot; M19.072 Primary osteoarthritis, left ankle and foot; M47.812 Spondylosis without myelopathy or radiculopathy, cervical region
CPT/HCPCS: 36415; 80053; 80061; 81001; 82043; 82550; 82570; 83036; 85025; 85652; 86140; 86160

== ENCOUNTER → 2024-12-24 | Outpatient (CLI) | payer MEDICARE, SELFPAY ==
--- NOTE | 2024-12-24 09:41 | CDU_ITS ---
Reason For Study Reason For Study: S/P RT TCAR Rt. Velocities/BP Lt. Velocities/BP Prox CCA 62.0/9.1 cm/sec. Prox CCA 80.9/12.7 cm/sec. Mid CCA 66.7/11.0 cm/sec. Mid CCA 97.2/27.8 cm/sec. Dist CCA 59.1/10.0 cm/sec. Dist CCA 110.0/22.3 cm/sec. Prox ICA 53.0/10.1 cm/sec. Prox ICA 125.3/28.5 cm/sec. Mid ICA 53.0/9.0 cm/sec. Mid ICA 127.1/30.3 cm/sec. Dist ICA 58.9/13.8 cm/sec. Dist ICA 101.6/19.4 cm/sec. Rt. ICA/CCA = 58.9/66.7=0.9. Lt. ICA/CCA = 127.1/97.2=1.3. Prox ECA 95.0/7.2 cm/sec. Prox ECA 116.2/23.0 cm/sec. Rt. Vert. 61.1/18.2 cm/sec. Lt. Vert. 40.0/10.4 cm/sec. Right Extracranial There is heterogeneous, irregular atherosclerotic plaque noted in the right common carotid artery. There is heterogeneous, irregular atherosclerotic plaque noted in the right internal carotid artery. The atherosclerotic plaque causes acoustic shadowing. There is intimal thickening but no significant atherosclerotic plaque noted in the right external carotid artery. Antegrade flow is noted in the right vertebral artery. Left Extracranial There is heterogeneous, irregular atherosclerotic plaque noted in the left common carotid artery. There is heterogeneous, irregular atherosclerotic plaque noted in the left internal carotid artery. The atherosclerotic plaque causes acoustic shadowing. There is heterogeneous, irregular atherosclerotic plaque noted in the left external carotid artery. Antegrade flow is noted in the left vertebral artery. Procedure Carotid Duplex [id number]. This is a Carotid Duplex examination using B-mode, color flow and specral Doppler. The study was technically difficult. Exam performed in department. Image #39 is the LT ECA. VL/Carotid Duplex Ultrasound Interpretation Summary Mild (<50%) stenosis right extracranial internal carotid. Moderate (50-69%) stenosis left extracranial internal carotid. Patent and antegrade vertebrals bilaterally. Ordering Physician: Rin Mendez Referring Physician: Nick Estes Performed By: Delilah Main RDCS, RVT
== END | disposition home or self-care (01) ==
LOC: CVS 09:32
PROVIDERS: PCP Family Medicine; Referring Provider Physician Assistant; Visit Provider Physician Assistant
DX: Z48.812 Encounter for surgical aftercare following surgery on the circulatory system (principal)
CPT/HCPCS: 93880

== ENCOUNTER 2025-02-15 09:19 | Outpatient (RCR) | payer MEDICARE, SELFPAY ==
[2025-02-15 10:46] LABS: Microalbumin,Random Urine 18.6 mg/L (<20 mg/L)
[2025-02-15 12:39] LABS: Hematocrit 38.7 % (40-54); Hemoglobin 12.4 g/dL (13.0-16.5); Immature Granulocytes Count 0.010 X10^3/uL (0.0-0.0); Mean Corp Hgb Conc 32.0 g/dL (32-36); Mean Corpuscular Volume 103.8 fL (80-94); Mean Platelet Vol. 10.1 fl (6.2-12.0); NRBC Flagged by Analyzer 0 % (0-5); Platelet Count 251 K/mm3 (150-450); RBC Distribution Width CV 16.1 % (11.6-14.6); RBC Distribution Width SD 61.5 fl (35.1-43.9); Red Blood Count 3.73 M/mm3 (4.6-6.2); White Blood Count 5.0 K/mm3 (4.4-11.0)
[2025-02-15 13:12] LABS: AST(SGOT) 25 U/L (<=37); Alanine Aminotransfer ALT/SGPT 22 U/L (<=46); Albumin, Serum 4.3 g/dL (3.4-4.8); Alkaline Phosphatase 56 U/L (40-129); Anion Gap 16 (5-15); BUN 33 mg/dL (4-19); BUN/Creat Ratio 29.0 RATIO (10-20); CPK Total, Creatine Kinase 44 U/L (24-195); CRP < 3.00 mg/L (0.0-3.0); Calcium,Total 9.9 mg/dL (7.6-11.0); Carbon Dioxide 20.1 mmol/L (21.0-32.0); Chloride 102 mmol/L (98-108); Globulin 3.2 g/dL (2.2-4.2); Glucose 129 mg/dL (70-99); PSA,Total - Annual Screen 0.12 ng/mL (0.02-4.00); Potassium 4.6 mmol/L (3.3-5.1)
[2025-02-15 22:37] LABS: Color, Urine Yellow (Yellow); Glucose, Dipstick 1000 mg/dl (Normal); Ketone-Dipstick 5 mg/dl (Negative); Leukocyte Esterase-Dipstick Negative /ul (Negative); Nitrite-Dipstick Negative (Negative); Occult Blood-Urine Negative /ul (Negative); Protein-Dipstick 15 mg/dl (Negative); Specific Gravity, Urine 1.015 (1.002-1.030); Urine Bilirubin Dipstick Negative (Negative)
[2025-02-15 22:56] LABS: Red Blood Cells-Urine 0-5 SEEN /hpf (0-5)
[2025-02-15 22:57] LABS: Mucous, Urine RARE /hpf (<or=2+); Squamous Epithelial Cells - UA 0-5 SEEN /hpf (0-5)
== END 2025-02-15 18:00 | disposition home or self-care (01) ==
LOC: MTLAB 09:19
PROVIDERS: PCP Family Medicine; Referring Provider Internal Medicine Rheumatology; Visit Provider Internal Medicine Rheumatology
DX: Z12.11 Encounter for screening for malignant neoplasm of colon; M32.9 Systemic lupus erythematosus, unspecified; M05.79 Rheumatoid arthritis with rheumatoid factor of multiple sites without organ or systems involvement; D53.9 Nutritional anemia, unspecified; D64.89 Other specified anemias; R76.8 Other specified abnormal immunological findings in serum; Z79.899 Other long term (current) drug therapy; Z79.631 Long term (current) use of antimetabolite agent; Z79.82 Long term (current) use of aspirin; Z98.890 Other specified postprocedural states; R81 Glycosuria; R79.9 Abnormal finding of blood chemistry, unspecified; Z79.02 Long term (current) use of antithrombotics/antiplatelets; R73.9 Hyperglycemia, unspecified; M54.12 Radiculopathy, cervical region; G95.89 Other specified diseases of spinal cord; G56.03 Carpal tunnel syndrome, bilateral upper limbs; M75.101 Unspecified rotator cuff tear or rupture of right shoulder, not specified as traumatic; M19.041 Primary osteoarthritis, right hand; M19.042 Primary osteoarthritis, left hand; M19.071 Primary osteoarthritis, right ankle and foot; M19.072 Primary osteoarthritis, left ankle and foot; M47.812 Spondylosis without myelopathy or radiculopathy, cervical region; M50.20 Other cervical disc displacement, unspecified cervical region; M50.30 Other cervical disc degeneration, unspecified cervical region; M48.02 Spinal stenosis, cervical region
CPT/HCPCS: 36415; 80053; 81001; 82043; 82550; 84153; 85025; 85652; 86140; 86160; G0103

== ENCOUNTER 2025-04-19 21:20 | Observation (INO) | payer MEDICARE, SELFPAY ==
[2025-04-19] VITALS (9 sets, daily range): BP systolic 117–177; BP diastolic 69–87; PULSE 73–80; RESP 18–21; TEMP 36.4–37.4; O2SAT 94–99; BMI 34.5; BMI 32.2
--- NOTE | 2025-04-19 21:31 | CT_ITS ---
PROCEDURE: STROKE CT BRAIN/HEAD WITHOUT CONT; STROKE CTA HEAD AND NECK W/CON 04/19/2025 REASON FOR EXAM: NEURO DEFICIT, ACUTE, STROKE SUSPECTED TECHNIQUE: Procedure Code: CTBR.ST; CTCTA.ST.HN Modality: CT Procedure: STROKE BRAIN/HEAD WITHOUT CONT; STROKE CTA HEAD AND NECK W/CON Coronal and Sagittal reconstructions were provided. 3D post processing was performed. 100 cc of Isovue 370 intravenous contrast was administered. One or more dose reduction techniques were used (e.g., Automated exposure control, adjustment of the mA and/or kV according to patient size, use of iterative reconstruction technique. RADIATION DOSE SUMMARY: DLP: 1562.7 mGycm COMPARISON: 03/03/2024 FINDINGS: CTA HEAD: Patent intracranial arterial vasculature. No large vessel occlusion. Multifocal short-segment mild-moderate stenoses along the left SALES MARKETING MANAGER P1 and P2 segments, unchanged from prior exam. No hemodynamically significant stenosis is seen elsewhere intracranial. No saccular aneurysm, or vascular malformation identified. Diminutive/hypoplastic right MONSE A1 segment, likely anatomic variant. CTA NECK: Conventional aortic arch branching. Patent bilateral cervical carotid and vertebral arteries. No aneurysm or dissection. Vascular stent in place within the right carotid bulb and proximal right ICA, with mild-moderate luminal narrowing at the mid aspect of the stented segment. Mixed calcified and noncalcified atherosclerotic plaque at the left carotid bifurcation extending into the proximal left ICA, with mild less than 50% luminal narrowing. Hypoplastic distal V4 segment of the left vertebral artery, an anatomic variant. NONCONTRAST CT HEAD: No acute intracranial hemorrhage, extra-axial collection, mass effect or evidence of acute infarct. Ventricles and subarachnoid spaces are normal in size. Orbital contents are unremarkable. Intact skull base and calvarium. Well-aerated paranasal sinuses and mastoid air cells. CT/STROKE CTA Head AND Neck W/Con IMPRESSION: 1. No evidence of acute intracranial pathology. 2. No large vessel intracranial arterial occlusion. Multifocal mild-moderate s tenoses along the left SALES MARKETING MANAGER P1-P2 segments, unchanged. 3. Atherosclerotic plaque at the carotid bifurcations, with mild less than 50% narrowing of the proximal left ICA. Vascular stent at the right carotid bifurcation, with mild-moderate narrowing at the mid portion of the proximal right ICA stented segment. Findings communicated with provider Tu Rubin 04/19/2025 at 9:30 p.m. CLIN ASST. Reading Location: [id number]
--- NOTE | 2025-04-19 21:31 | CT_ITS ---
PROCEDURE: STROKE CT BRAIN/HEAD WITHOUT CONT; STROKE CTA HEAD AND NECK W/CON 04/19/2025 REASON FOR EXAM: NEURO DEFICIT, ACUTE, STROKE SUSPECTED TECHNIQUE: Procedure Code: CTBR.ST; CTCTA.ST.HN Modality: CT Procedure: STROKE BRAIN/HEAD WITHOUT CONT; STROKE CTA HEAD AND NECK W/CON Coronal and Sagittal reconstructions were provided. 3D post processing was performed. 100 cc of Isovue 370 intravenous contrast was administered. One or more dose reduction techniques were used (e.g., Automated exposure control, adjustment of the mA and/or kV according to patient size, use of iterative reconstruction technique. RADIATION DOSE SUMMARY: DLP: 1562.7 mGycm COMPARISON: 03/03/2024 FINDINGS: CTA HEAD: Patent intracranial arterial vasculature. No large vessel occlusion. Multifocal short-segment mild-moderate stenoses along the left EXTRACTION MACHINE OPERATOR P1 and P2 segments, unchanged from prior exam. No hemodynamically significant stenosis is seen elsewhere intracranial. No saccular aneurysm, or vascular malformation identified. Diminutive/hypoplastic right MONSE A1 segment, likely anatomic variant. CTA NECK: Conventional aortic arch branching. Patent bilateral cervical carotid and vertebral arteries. No aneurysm or dissection. Vascular stent in place within the right carotid bulb and proximal right ICA, with mild-moderate luminal narrowing at the mid aspect of the stented segment. Mixed calcified and noncalcified atherosclerotic plaque at the left carotid bifurcation extending into the proximal left ICA, with mild less than 50% luminal narrowing. Hypoplastic distal V4 segment of the left vertebral artery, an anatomic variant. NONCONTRAST CT HEAD: No acute intracranial hemorrhage, extra-axial collection, mass effect or evidence of acute infarct. Ventricles and subarachnoid spaces are normal in size. Orbital contents are unremarkable. Intact skull base and calvarium. Well-aerated paranasal sinuses and mastoid air cells. CT/STROKE Brain/Head without Cont IMPRESSION: 1. No evidence of acute intracranial pathology. 2. No large vessel intracranial arterial occlusion. Multifocal mild-moderate s tenoses along the left EXTRACTION MACHINE OPERATOR P1-P2 segments, unchanged. 3. Atherosclerotic plaque at the carotid bifurcations, with mild less than 50% narrowing of the proximal left ICA. Vascular stent at the right carotid bifurcation, with mild-moderate narrowing at the mid portion of the proximal right ICA stented segment. Findings communicated with provider Tu Rubin 04/19/2025 at 9:30 p.m. AUTOMATED EQUIPMENT ENGINEER TECHNICIAN. Reading Location: [id number]
--- NOTE | 2025-04-19 21:38 | ED.VIS.STROK ---
HPI History of Present Illness Chief Complaint: Neuro S/Sx Informant: patient and family (3 daughters present at bedside.) Onset/Context/Timing Onset: - (Unknown for sure when it started.) Current Severity: Moderate Maximum Severity: Moderate Associated Symptoms Associated Symptoms: Negative for Headache, Nausea, Vomiting or Chest Pain Narrative Narrative: 69-year-old male with history of prior stroke and hypertensive carotid disease he had his right carotid repaired. Basically today one of the daughters noticed that his feet seem to be off and he overall seemed to be off. He was having trouble putting sentences together. He denies being sick. He said he has been urinating a lot lately but denies any foul-smelling urine or dysuria. He denies any falls or head trauma. He denies any fever or chills. He denies any nausea or vomiting or diarrhea. Normal is exactly sure when this started. None of his family saw him yesterday. Prior similar symptoms: No Recent Illness/Hospitalization: No PFSH PFSH Medical History Wears dentures Wears glasses Rheumatoid arthritis Arthritis High cholesterol Excessive bleeding Injury of head and neck Former smoker History of pain when walking History of stress test History of echocardiogram Carotid stenosis, bilateral Hypertensive emergency CVA (cerebral vascular accident) Diabetes Hypertension Home Medications ?Medication ?Instructions ?Recorded ?Last Taken ?Type atorvastatin 80 mg tablet 80 mg PO QHS cholesterol #30 tabs 09/12/19 04/26/24 Rx ramipril 10 mg capsule 10 mg PO BID heart ##0 09/12/19 04/27/24 Rx aspirin 81 mg chewable tablet 81 mg PO DAILY@0800 heart 03/14/20 04/27/24 History dapagliflozin propanediol 5 mg 5 mg PO DAILY liver 02/18/24 04/26/24 History tablet (Farxiga) folic acid 1 mg tablet 2 mg PO DAILY supplement 02/18/24 04/26/24 History glipizide 2.5 mg tablet 2.5 mg PO DAILY DM 02/18/24 04/26/24 History hydrochlorothiazide 25 mg tablet 25 mg PO DAILY bp 02/18/24 04/26/24 History metformin 500 mg tablet 1,000 mg PO BIDCM dm 02/18/24 04/26/24 History methotrexate sodium 2.5 mg tablet 17.5 mg PO QWEEK RA 02/18/24 04/26/24 History spironolactone 50 mg tablet 50 mg PO QDAY bp 02/18/24 04/26/24 History acetaminophen 325 mg capsule 650 mg PO Q4H PRN pain 04/06/24 04/26/24 History (Tylenol) amlodipine 10 mg tablet 10 mg PO DAILY BP 04/06/24 04/27/24 History cholecalciferol (vitamin D3) 125 125 mcg PO DAILY supplement 04/06/24 04/26/24 History mcg (5,000 unit) tablet (Vitamin D3) elderberry fruit 350 mg capsule 350 mg PO DAILY supplement 04/06/24 04/26/24 History metoprolol succinate 100 mg 100 mg PO BID heart 04/06/24 04/27/24 History tablet,extended release 24 hr multivitamin (Daily Multi-Vitamin 1 tab PO DAILY supplement 04/06/24 04/26/24 History tablet) celecoxib 200 mg capsule 200 mg PO BID PRN PRN pain 04/19/25 Unknown History Allergy/AdvReac Type Severity Reaction Status Date / Time loratadine (From [facility] [place]) Allergy Hives Verified 04/19/25 21:22 Family History Other Cancer Colon cancer Hypertension Surgical History Hx of cystoscopy History of carpal tunnel release of both wrists History of fusion of cervical spine History of umbilical hernia repair History of repair of right rotator cuff History of excision of pilonidal cyst Social History Smoking Status: Former smoker Tobacco: How many years used: 23 ROS ROS ED ROS Narrative Denies recent illness. Today difficulty with his speech. Urinary frequency. Constitutional Constitutional ED: Denies chills or fever(s) Eyes Eyes: Denies blurry vision ENT ENT ED: Denies ear pain Cardiovascular Cardiovascular: Denies chest pain Respiratory/Chest Respiratory/Chest: Denies cough or dyspnea Gastrointestinal Gastrointestinal: Denies abdominal pain Genitourinary Genitourinary ED: Reports urinary frequency; Denies dysuria or hematuria Musculoskeletal Musculoskeletal: Denies arthralgias or back pain Integumentary Denies abscess Neurologic Neurologic: Denies headache(s) Psychiatric Psychiatric: Denies anxiety Endocrine Endocrinology: Denies polydipsia Hematologic/Lymphatic Hematologic/Lymphatic: Denies easy bleeding, easy bruising or lymphadenopathy Allergic/Immunologic Allergic/Immunologic ED: Denies mouth swelling or urticaria EXAM Physical Exam Narrative Exam Narrative: 69-year-old male sitting upright in bed vital signs are stable afebrile. Family present. He is in no acute distress. H EENT exam pupils are round reactive light. Extra motions are intact. No facial droop. His speech is easily understood. Daughter states that is not his baseline. Neck nontender no lymphadenopathy. Back nontender. Lungs clear to auscultation bilaterally. Heart regular rhythm rate about 80 no murmur. Chest wall ribs nontender. Abdomen soft nontender. Moving all 4 extremities. Nontender no edema. No drift. Normal dorsi plantarflexion. 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 Neurologically he is awake alert. He is answering questions following commands. His speech actually sounds pretty good at this time. He is primarily talking in one-word sentences. NIH is 0. Const Vital Signs: 04/19/25 21:22 04/19/25 21:53 04/19/25 22:01 Temperature 97.6 F L Temperature Source Temporal Pulse Rate 79 80 77 Respiratory Rate 18 21 H 20 H Blood Pressure 172/73 H 174/82 H 161/69 H Blood Pressure Mean 106 112 99 Pulse Ox 96 95 98 Oxygen Delivery Method Room Air Room Air Room Air 04/19/25 22:21 04/19/25 22:30 04/19/25 22:39 Temperature 99.4 F H Temperature Source Oral Pulse Rate 77 78 Respiratory Rate 20 H 20 H Blood Pressure 161/69 H 177/77 H Blood Pressure Mean 99 110 Pulse Ox 99 94 Oxygen Delivery Method Room Air Room Air 04/19/25 23:00 04/19/25 23:00 Temperature Temperature Source Pulse Rate 76 76 Respiratory Rate 19 H 19 H Blood Pressure 142/87 H 142/87 H Blood Pressure Mean 105 105 Pulse Ox 94 94 Oxygen Delivery Method Room Air Room Air Positive well nourished and well developed; Negative for cachectic, contractures or unkempt General Appearance ED: well developed; Negative for unkempt, cachectic or contractures Nutritional Appearance: Negative for cachectic HEENT Reports moist mucous membranes atraumatic Eyes PERRL and EOMs intact bilaterally Neck no lymphadenopathy, supple and no JVD Chest Wall inspection of chest normal and palpation of chest normal Resp normal respiratory effort and clear to auscultation bilaterally Cardio no murmurs Rate: regular rate Rhythm: regular rhythm GI normal to inspection, nondistended, normoactive bowel sounds, soft to palpation, non-tender, non-distended and no masses Back/Spine no CVA tenderness General Back: Negative for CVA tenderness Cervical Spine: Negative for cervical spine tenderness Thoracic Spine / Upper Back: Negative for thoracic spinal tenderness Lumbar Spine / Lower Back: Negative for lumbar spinal tenderness Extremity General Extremety ED: Negative for deformity, edema or tenderness General Extremity: Negative for deformity or edema Neuro oriented x3 and CN's II-XII intact bilaterally Neuro Narrative: Patient does know he is in the hospital. He knows a day of the week, month and the year. Sensorium / Orientation: alert, oriented to person, oriented to place and oriented to time Speech: speech normal Motor Exam: strength 5/5 throughout Psych mental status grossly normal Appearance: Negative for unkempt Skin no wounds General Skin Exam: Negative for jaundice Lesions: no lesions Rashes: no rashes MDM MDM MDM Narrative Medical decision making narrative: 69-year-old male prior stroke daughter stated he is not his baseline. Were unsure of the onset. This could be urinary tract infection versus TIA or stroke versus other etiologies. I will go through stroke protocol. He is not a TNK candidate because his NIH rate now is 0-1 and more importantly we have no time of onset or last known well. Repeat exam at 11:15 PM. Patient has shown some improvement. His speech is better. We do not have a specific cause but with his dysarthria concerns for stroke or mini stroke. I discussed at length with both he and his daughters. He will spend the night in the hospital for further evaluation. History & Record Review Discussion w/independent historian: Patient and Family Additional record(s) reviewed:: Prior inpatient record, Prior outpatient record, Prior ED visit and Prior labs Lab Data Attestation: I reviewed the patient's lab results. Lab results narrative: CBC shows a white count of 10.5. H&H 13 and 42. Platelets 222. PT/INR 13 and 1. PTT 24. Electrolytes show a gap of 15. BUN and creatinine of 32 and 1.1. Glucose 156. Troponins 31. Urinalysis is negative. CT brain and CTA head and neck showed chronic changes no acute process. Labs: Laboratory Results - last 24 hr 04/19/25 04/19/25 04/19/25 21:48 21:54 22:35 WBC 10.5 RBC 4.10 L Hgb 13.8 Hct 42.2 MCV 102.9 H MCH 33.7 H MCHC 32.7 RDW Std Deviation 58.1 H RDW Coeff of Adan 15.7 H Plt Count 222 MPV 9.8 Immature Gran % (Auto) 0.300 Neut % (Auto) 78.0 H Lymph % (Auto) 14.1 L [place] % (Auto) 7.0 Eos % (Auto) 0.3 Baso % (Auto) 0.3 Absolute Neuts (auto) 8.2 H Absolute Lymphs (auto) 1.47 Nucleated RBC % 0 PT 13.6 INR 1.0 APTT 24.3 Sodium 136 Potassium 5.0 Chloride 102 Carbon Dioxide 19.6 L Anion Gap 15 BUN 32 H Creatinine 1.16 Estim Creat Clear Calc 65.47 Est GFR (MDRD) Non-Af 68 BUN/Creatinine Ratio 27.8 H Glucose 156 H Calcium 9.9 Troponin T High Sens 31 H Urine Color Yellow Urine Clarity Clear Urine pH 5.0 Ur Specific Lee 1.010 Urine Protein 30 H Urine Glucose (UA) 1000 H Urine Ketones Negative Urine Occult Blood Negative Urine Nitrite Negative Urine Bilirubin Negative Urine Urobilinogen Normal Ur Leukocyte Esterase Negative Urine RBC 0 SEEN Urine WBC 0-5 SEEN Ur Squamous Epith Cells 0-5 SEEN Urine Bacteria 0 SEEN Urine Mucus 0 SEEN Urine Yeast RARE POC Glucose 150 H Radiography Diagnostic Testing: Clinical Impression(s) from Imaging Studies Brain CT 04/19/25 21:31 IMPRESSION: 1. No evidence of acute intracranial pathology. 2. No large vessel intracranial arterial occlusion. Multifocal mild-moderate stenoses along the left DENTAL AIDE P1-P2 segments, unchanged. 3. Atherosclerotic plaque at the carotid bifurcations, with mild less than 50% narrowing of the proximal left ICA. Vascular stent at the right carotid bifurcation, with mild-moderate narrowing at the midportion of the proximal right ICA stented segment. Findings communicated with provider Tu Rubin 04/19/2025 at 9:30 p.m. [employer]. Reading Location: [id number] Head/Neck CTA 04/19/25 21:31 IMPRESSION: 1. No evidence of acute intracranial pathology. 2. No large vessel intracranial arterial occlusion. Multifocal mild-moderate stenoses along the left DENTAL AIDE P1-P2 segments, unchanged. 3. Atherosclerotic plaque at the carotid bifurcations, with mild less than 50% narrowing of the proximal left ICA. Vascular stent at the right carotid bifurcation, with mild-moderate narrowing at the midportion of the proximal right ICA stented segment. Findings communicated with provider Tu Rubin 04/19/2025 at 9:30 p.m. [employer] QUAL[employer] SPECIALIST. Reading Location: [facility] Rhythm Strip Rhythm Strip: Sinus Rhythm Rate: 78 Ectopy: None EKG Initial EKG: Attestation: I personally reviewed and interpreted this EKG as follows: Interpretation: Sinus Rhythm and No Acute Injury Pattern Comments: Normal sinus rhythm rate of 78 no acute signs of ME or ischemia. Discharge Plan Dx/Rx/DC Orders Clinical Impression: Dysarthria, History of stroke, Carotid stenosis, bilateral Disposition Disposition: Acute Care Hospital [facility]
[2025-04-19 22:10] LABS: Hematocrit 42.2 % (40-54); Hemoglobin 13.8 g/dL (13.0-16.5); Immature Granulocytes Count 0.030 X10^3/uL (0.0-0.0); Mean Corp Hgb Conc 32.7 g/dL (32-36); Mean Corpuscular Volume 102.9 fL (80-94); Mean Platelet Vol. 9.8 fl (6.2-12.0); NRBC Flagged by Analyzer 0 % (0-5); Platelet Count 222 K/mm3 (150-450); RBC Distribution Width CV 15.7 % (11.6-14.6); RBC Distribution Width SD 58.1 fl (35.1-43.9); Red Blood Count 4.10 M/mm3 (4.6-6.2); White Blood Count 10.5 K/mm3 (4.4-11.0)
[2025-04-19 22:24] LABS: Prothrombin Time (Protime)PT. 13.6 SECONDS (11.7-14.9)
[2025-04-19 22:25] LABS: Partial Thromboplast Time 24.3 Seconds (24.1-36.2)
[2025-04-19 22:33] LABS: Anion Gap 15 (5-15); BUN 32 mg/dL (4-19); BUN/Creat Ratio 27.8 RATIO (10-20); Calcium,Total 9.9 mg/dL (7.6-11.0); Carbon Dioxide 19.6 mmol/L (21.0-32.0); Chloride 102 mmol/L (98-108); Estimated Creatinine Clearance 65.47 ml/min (50-250); Glucose 156 mg/dL (70-99); Potassium 5.0 mmol/L (3.3-5.1); Troponin T High Sensitivity 31 ng/L (<=22)
[2025-04-19 22:41] LABS: Color, Urine Yellow (Yellow); Glucose, Dipstick 1000 mg/dl (Normal); Ketone-Dipstick Negative (Negative); Leukocyte Esterase-Dipstick Negative /ul (Negative); Mucous, Urine 0 SEEN /hpf (<or=2+); Nitrite-Dipstick Negative (Negative); Occult Blood-Urine Negative /ul (Negative); Protein-Dipstick 30 mg/dl (Negative); Red Blood Cells-Urine 0 SEEN /hpf (0-5); Specific Gravity, Urine 1.010 (1.002-1.030); Urine Bilirubin Dipstick Negative (Negative)
[2025-04-19 22:50] LABS: Yeast-Urine RARE /hpf (None Seen)
[2025-04-19 22:51] LABS: Squamous Epithelial Cells - UA 0-5 SEEN /hpf (0-5)
--- NOTE | 2025-04-19 23:30 | RAD_ITS ---
PROCEDURE: CHEST 1 VIEW (PORTABLE) 04/19/2025 REASON FOR EXAM: MS CHANGE TECHNIQUE: Frontal view of the chest. COMPARISON: 09/10/2019. FINDINGS: No significant interval change. The lungs are clear without airspace consolidation or pleural effusion. The cardiac silhouette is normal in size. Stable postsurgical changes are noted within the visualized lower cervical spine. RAD/Chest 1 View (Portable) IMPRESSION: As above. Reading Location[id number]
--- NOTE | 2025-04-19 23:49 | PCM.HP.STD ---
[facility] - [facility] General Date of Admission: 04/20/25 Date of Service: 04/19/25 Chief Complaint: Dysarthria. [facility] Narrative YAN BRINK, is a 69 M with a past medical history of essential hypertension; on amlodipine, metoprolol twice daily, ramipril twice daily, spironolactone plus hydrochlorothiazide, hyperlipidemia; on atorvastatin, former tobacco abuse (quit 1990), obesity (class I); with BMI of 32.2 this admission, DM-2; of unknown control on glipizide daily and metformin twice daily plus dapagliflozin, history of CVA (08/2019); with no residual deficits, history of bilateral carotid stenosis; s/p Right carotid artery stent, RA; on methotrexate weekly, history of umbilical hernia; s/p repair, history of pilonidal cyst; s/p excision and OA; s/p fusion of cervical spine on celecoxib twice daily as needed who presents to [facility] ER complaining of dysarthria. Mr. Brink has a limited recollection of today's events so information was gathered from chart, medical staff and computer. According to the patient's daughters he was noted to have trouble putting sentences together and seemed to be off overall with patient denying being sick or noting when his dysarthria began. He admits to urinary frequency but he denies recent fall, head trauma, fever, chills, abdominal pain, nausea, vomiting, diarrhea, constipation, dysuria, hematuria, headache or rash. In the ER he was suspected to have TIA versus CVA with head CT without contrast that revealed no evidence of acute intracranial pathology followed by CTA of the head and neck with IV contrast that revealed no evidence of acute intracranial pathology in addition to no large vessel intracranial arterial occlusion with multifocal mild-moderate stenoses along the Left PUBLIC STENOGRAPHER P1-P2 segment status unchanged from previous with atherosclerotic plaque at carotid bifurcations with less than 50% narrowing in the Left proximal ICA and vascular stent at the Right carotid bifurcation with mild-moderate narrowing at the midpoint of the proximal Right ICA stented segment in addition to CXR that revealed no significant interval change with clear lungs without airspace consolidation or pleural effusion with cardiac silhouette normal in size and stable postsurgical changes noted within the visualized lower cervical spine with laboratory evidence of Macrocytosis of 102.9 fL with otherwise unremarkable UA, laboratory studies and vital signs. He was then admitted to the PCU under observation status for ongoing care for status is expected to be less than 2 midnights. [facility] Medical History Wears dentures Wears glasses Rheumatoid arthritis Arthritis High cholesterol Excessive bleeding Injury of head and neck Former smoker History of pain when walking History of stress test History of echocardiogram Carotid stenosis, bilateral Hypertensive emergency CVA (cerebral vascular accident) Diabetes Hypertension Home Medications ?Medication ?Instructions ?Recorded ?Last Taken ?Type atorvastatin 80 mg tablet 80 mg PO QHS cholesterol #30 tabs 09/12/19 04/19/25 Rx ramipril 10 mg capsule 10 mg PO BID heart ##0 09/12/19 04/19/25 Rx aspirin 81 mg chewable tablet 81 mg PO DAILY@0800 heart 03/14/20 04/19/25 History dapagliflozin propanediol 5 mg 5 mg PO DAILY liver 02/18/24 04/19/25 History tablet (Farxiga) folic acid 1 mg tablet 2 mg PO DAILY supplement 02/18/24 04/19/25 History glipizide 2.5 mg tablet 2.5 mg PO DAILY DM 02/18/24 04/19/25 History hydrochlorothiazide 25 mg tablet 25 mg PO DAILY bp 02/18/24 04/19/25 History metformin 500 mg tablet 1,000 mg PO BIDCM dm 02/18/24 04/19/25 History methotrexate sodium 2.5 mg tablet 17.5 mg PO QWEEK RA 02/18/24 04/18/25 History spironolactone 50 mg tablet 50 mg PO QDAY bp 02/18/24 04/19/25 History amlodipine 10 mg tablet 10 mg PO DAILY BP 04/06/24 04/19/25 History cholecalciferol (vitamin D3) 125 125 mcg PO DAILY supplement 04/06/24 04/19/25 History mcg (5,000 unit) tablet (Vitamin D3) elderberry fruit 350 mg capsule 350 mg PO DAILY supplement 04/06/24 04/19/25 History metoprolol succinate 100 mg 100 mg PO BID heart 04/06/24 04/19/25 History tablet,extended release 24 hr multivitamin (Daily Multi-Vitamin 1 tab PO DAILY supplement 04/06/24 04/19/25 History tablet) celecoxib 200 mg capsule 200 mg PO BID PRN PRN pain 04/19/25 04/19/25 08:00 History 200 mg acetaminophen 500 mg tablet 1,000 mg PO Q8H PRN pain 04/20/25 04/19/25 History (Tylenol Extra Strength) Allergy/AdvReac Type Severity Reaction Status Date / Time loratadine (From [facility] [place]) Allergy Hives Verified 04/19/25 21:22 Family History Other Cancer Colon cancer Hypertension Surgical History Hx of cystoscopy History of carpal tunnel release of both wrists History of fusion of cervical spine History of umbilical hernia repair History of repair of right rotator cuff History of excision of pilonidal cyst Social History Smoking Status: Former smoker Tobacco: How many years used: 23 ROS ROS Narrative Review of Systems: Constitutional: Patient denies fever or chills. Eyes: Patient denies changes in vision or discharge from eyes. ENT: Patient denies runny nose, sore throat or ear pain. Resp: Patient denies shortness of breath or cough. CV: Patient denies chest pain, palpitations, heart racing or lower extremity edema. GI: Patient denies abdominal pain, nausea, vomiting, diarrhea or constipation. : Patient admits to urinary frequency but he denies dysuria or hematuria. MSK: Patient denies arthralgias or myalgias. Skin: Patient denies rash, abscess, wounds or jaundice. Psych: Patient denies symptoms of uncontrolled depression or anxiety. Neuro: Patient admits to dysarthria but he denies paresthesias or other focal neurologic deficits/weakness. Allergy: Patient denies lip swelling, tongue swelling or urticaria. Hematology: Patient denies easy bleeding or easy bruisability. Endocrinology: Patient admits to polyuria but he denies polydipsia, polyphagia or heat/cold intolerance. 14 point ROS otherwise negative except for positives noted above in HPI. Vital Signs Vital Signs Vital Signs: 04/19/25 21:22 04/19/25 21:53 04/19/25 22:01 Temperature 97.6 F L Temperature Source Temporal Pulse Rate 79 80 77 Respiratory Rate 18 21 H 20 H Blood Pressure 172/73 H 174/82 H 161/69 H Blood Pressure Mean 106 112 99 Pulse Ox 96 95 98 Oxygen Delivery Method Room Air Room Air Room Air 04/19/25 22:21 04/19/25 22:30 04/19/25 22:39 Temperature 99.4 F H Temperature Source Oral Pulse Rate 77 78 Respiratory Rate 20 H 20 H Blood Pressure 161/69 H 177/77 H Blood Pressure Mean 99 110 Pulse Ox 99 94 Oxygen Delivery Method Room Air Room Air 04/19/25 23:00 04/19/25 23:00 04/19/25 23:30 Temperature Temperature Source Pulse Rate 76 76 75 Respiratory Rate 19 H 19 H 20 H Blood Pressure 142/87 H 142/87 H 117/82 H Blood Pressure Mean 105 105 93 Pulse Ox 94 94 94 Oxygen Delivery Method Room Air Room Air Room Air 04/19/25 23:34 04/19/25 23:34 Temperature 99.4 F H 99.4 F H Temperature Source Oral Pulse Rate 73 76 Respiratory Rate 20 H 20 H Blood Pressure 117/82 H 117/82 H Blood Pressure Mean 93 93 Pulse Ox 96 96 Oxygen Delivery Method Room Air Weight Weight: 205 lb 14.4 oz Body Mass Index (BMI) 32.2 Physical Exam Const alert, oriented x3, no apparent distress and healthy appearing Constitutional Narrative: Obese but nontoxic in appearance. General Appearance: cooperative HEENT normocephalic, head/scalp atraumatic, hearing grossly normal bilaterally and moist oral mucous membranes Eyes PERRL, EOMs intact bilaterally and conjunctivae normal Neck no lymphadenopathy, supple and no JVD Resp normal respiratory effort, no retractions, no use of accessory muscles and clear to auscultation bilaterally Cardio regular rate and regular rhythm GI normal to inspection, nondistended, normoactive bowel sounds, soft to palpation, non-tender and non-distended GI Narrative: Obese. Extremity normal to inspection, full ROM and no clubbing, cyanosis or edema Skin Skin Narrative: Patient has no evidence of rash, abscess, wounds or jaundice. Neuro oriented x3, CN's II-XII intact bilaterally, moves all extremities and no focal motor deficits Neuro Narrative: NIH 0. Sensorium / Orientation: awake, alert, oriented to person, oriented to place and oriented to time Speech: speech normal Psych affect normal Results Medical Records Data Attestation: I reviewed the patient's medical records Lab / Micro Data Attestation: I reviewed the patient's lab results. 04/19/25 21:54 04/19/25 21:54 Labs: Laboratory Results - last 24 hr 04/19/25 21:48: POC Glucose 150 H 04/19/25 21:54: WBC 10.5, RBC 4.10 L, Hgb 13.8, Hct 42.2, MCV 102.9 H, MCH 33.7 H, MCHC 32.7, RDW Std Deviation 58.1 H, RDW Coeff of Adan 15.7 H, Plt Count 222, MPV 9.8, Immature Gran % (Auto) 0.300, Neut % (Auto) 78.0 H, Lymph % (Auto) 14.1 L, [place] % (Auto) 7.0, Eos % (Auto) 0.3, Baso % (Auto) 0.3, Absolute Neuts (auto) 8.2 H, Absolute Lymphs (auto) 1.47, Nucleated RBC % 0, PT 13.6, INR 1.0, APTT 24.3, Sodium 136, Potassium 5.0, Chloride 102, Carbon Dioxide 19.6 L, Anion Gap 15, BUN 32 H, Creatinine 1.16, Estim Creat Clear Calc 65.47, Est GFR (MDRD) Non-Af 68, BUN/Creatinine Ratio 27.8 H, Glucose 156 H, Calcium 9.9, Troponin T High Sens 31 H 04/19/25 22:35: Urine Color Yellow, Urine Clarity Clear, Urine pH 5.0, Ur Specific [place] 1.010, Urine Protein 30 H, Urine Glucose (UA) 1000 H, Urine Ketones Negative, Urine Occult Blood Negative, Urine Nitrite Negative, Urine Bilirubin Negative, Urine Urobilinogen Normal, Ur Leukocyte Esterase Negative, Urine RBC 0 SEEN, Urine WBC 0-5 SEEN, Ur Squamous Epith Cells 0-5 SEEN, Urine Bacteria 0 SEEN, Urine Mucus 0 SEEN, Urine Yeast RARE Rhythm Strip Rhythm Strip: Sinus Rhythm Rate: 78 Ectopy: None Imaging Radiology Impression Brain CT 04/19/25 21:31 IMPRESSION: 1. No evidence of acute intracranial pathology. 2. No large vessel intracranial arterial occlusion. Multifocal mild-moderate stenoses along the left PUBLIC STENOGRAPHER P1-P2 segments, unchanged. 3. Atherosclerotic plaque at the carotid bifurcations, with mild less than 50% narrowing of the proximal left ICA. Vascular stent at the right carotid bifurcation, with mild-moderate narrowing at the midportion of the proximal right ICA stented segment. Findings communicated with provider Tu Rubin 04/19/2025 at 9:30 p.m. MEDICINE ASSISTANT. Reading Location: [facility] Head/Neck CTA 04/19/25 21:31 IMPRESSION: 1. No evidence of acute intracranial pathology. 2. No large vessel intracranial arterial occlusion. Multifocal mild-moderate stenoses along the left PUBLIC STENOGRAPHER P1-P2 segments, unchanged. 3. Atherosclerotic plaque at the carotid bifurcations, with mild less than 50% narrowing of the proximal left ICA. Vascular stent at the right carotid bifurcation, with mild-moderate narrowing at the midportion of the proximal right ICA stented segment. Findings communicated with provider Tu Rubin 04/19/2025 at 9:30 p.m. MEDICINE ASSISTANT. Reading Location: [facility] Assessment & Plan Assessment/Plan (1) Dysarthria: (2) History of stroke: (3) Carotid stenosis, bilateral: (4) History of right common carotid artery stent placement: (5) Obesity (BMI 30.0-34.9): (6) Hypertension: QUALIFIERS: Hypertension type: essential hypertension Qualified Code(s): I10 - Essential (primary) hypertension PLAN: Plan 1. TIA versus CVA with transient dysarthria in the setting of known previous CVA - Admit to PCU under observation status. Continue aspirin and statin as previous. Patient has history of bleeding on dual antiplatelet therapy so clopidogrel was not initiated. Check MRI of brain to evaluate for CVA. Check echocardiogram to evaluate LVEF. Check carotid Doppler with abnormal CT findings noted above. Check TSH, B12, Folate, HgbA1c, Lipid Profile, UDS and LINDSAY. Give acetaminophen as needed for pain or fever. Finally, we will consult [facility] tel[facility] to see this patient on-rounds in the a.m. for further recommendations with help appreciated in advance. 2. History of bilateral carotid stenosis; s/p Right carotid artery stent with CTA of the head and neck with IV contrast that revealed no evidence of acute intracranial pathology in addition to no large vessel intracranial arterial occlusion with multifocal mild-moderate stenoses along the Left PUBLIC STENOGRAPHER P1-P2 segment status unchanged from previous with atherosclerotic plaque at carotid bifurcations with less than 50% narrowing in the Left proximal ICA and vascular stent at the Right carotid bifurcation with mild-moderate narrowing at the midpoint of the proximal Right ICA stented segment complicating #1 - Check carotid Doppler as noted in #1. 3. Macrocytosis of 102.9 fL present on admission compounding #1 & #2 - Check B12 and Folate as outlined in #1. 4. Obesity (class I); with BMI of 32.2 this admission adding to the burden of disease outlined for #1 - #3 - Weight loss will be recommended. Check TSH. This complicates his case and may hamper recovery. 5. Essential hypertension; on amlodipine, metoprolol twice daily, ramipril twice daily, spironolactone plus hydrochlorothiazide - Hold scheduled antihypertensives until CVA definitively ruled out on MRI. 6. Hyperlipidemia; on atorvastatin - Resume statin and check Lipid Profile. 7. Former tobacco abuse (quit 1990) - Noted. 8. DM-2; of unknown control on glipizide daily and metformin twice daily plus dapagliflozin - Hold oral hypoglycemics while inpatient. 9. RA; on methotrexate weekly - Restart this agent as outpatient. 10. History of umbilical hernia; s/p repair - Noted. 11. History of pilonidal cyst; s/p excision - Noted for the sake of completeness. 12. OA; s/p fusion of cervical spine on celecoxib twice daily as needed - Hold celecoxib with possible CVA. Give acetaminophen prn as outlined in #1. 13. DVT prophylaxis - Enoxaparin 40 mg sq daily plus SCD's. Total time: Approximately (but not less than) 70 minutes. Charges/Coding Visit Charges OBSV E&M: 79331 Observ/hosp same date L2
[2025-04-20] VITALS (9 sets, daily range): BP systolic 117–184; BP diastolic 54–85; PULSE 74–91; RESP 18–20; TEMP 36.2–38.1; O2SAT 92–95; BMI 34.5
[2025-04-20 00:27] LABS: Troponin T High Sens 2 HR 31 ng/L (<=22)
--- NOTE | 2025-04-20 01:29 | ECHOCS_ITS ---
Reason For Study Reason For Study: TIA/CVA Procedure This was a 2D Doppler, Color Flow transthoracic echocardiogram. The study was technically difficult. Exam performed with patient in the reclining position due to dyspnea/SOB. Contrast injection was performed. Exam performed portable in patient room. Left Ventricle Normal LV size. Left ventricular systolic function is normal. The left ventricular ejection fraction is 55 %. Stage 1 diastolic dysfunction. No regional wall motion abnormalities noted. Right Ventricle Normal RV size. Normal systolic function. Atria Normal left atrium. Normal right atrium. Mitral Valve Normal mitral valve. Tricuspid Valve Normal tricuspid valve. Mild (1+) tricuspid valve insufficiency. Aortic Valve The aortic valve is not well visualized. Pulmonic Valve Normal pulmonic valve. Great Vessels Normal aortic root. The pulmonary artery is normal size. Inferior vena cava collapse with respiration. Pericardium/Pleural No pericardial effusion. Medication Diluted definity 2.0ml given slow IV push to enhance endocardial definition. MMode/2D Measurements & Calculations LVIDd: 4.7 cm IVSd: 1.0 cm Ao root diam: 3.4 cm LVIDs: 3.3 cm LVPWd: 1.1 cm FS: 29.6 % asc Aorta Diam: 3.7 cm LAV(MOD-bp): 60.6 ml LVAd ap4: 27.6 cm2 LAV(MOD-bp) Indexed: 29.1 ml/m2 LVLd ap4: 7.6 cm LAV(MOD-sp2): 55.6 ml EDV(MOD-sp4): 83.9 ml LAV(MOD-sp4): 55.4 ml EDV(sp4-el): 84.9 ml LVAs ap4: 19.0 cm2 LVLs ap4: 7.1 cm ESV(MOD-sp4): 42.8 ml ESV(sp4-el): 42.8 ml EF(MOD-sp4): 49.0 % EF(sp4-el): 49.6 % LVAd ap2: 16.7 cm2 SV(MOD-sp4): 41.1 ml SV(MOD-sp2): 18.6 ml LVLd ap2: 6.3 cm SI(MOD-sp4): 19.7 ml/m2 SI(MOD-sp2): 8.9 ml/m2 EDV(MOD-sp2): 36.5 ml EDV(sp2-el): 37.4 ml LVAs ap2: 11.4 cm2 LVLs ap2: 6.2 cm ESV(MOD-sp2): 17.9 ml ESV(sp2-el): 17.7 ml EF(MOD-sp2): 50.9 % SV(sp4-el): 42.1 ml LA dimension(2D): 4.4 cm LA A4 area: 20.0 cm2 TAPSE: 3.3 cm Time Measurements MV dec time: 0.29 sec Doppler Measurements & Calculations MV E max israel: 81.2 cm/sec Lat Peak E' [place]: 8.9 cm/sec Med Peak E' [place]: 6.5 cm/sec MV A max [place]: 123.4 cm/sec E/E' lat: 9.2 E/E' med: 12.6 MV E/A: 0.66 MV V2 max: 144.6 cm/sec MV P1/2t max [place]: 104.8 cm/sec Ao V2 max: 171.7 cm/sec MV max P.4 mmHg MV P1/2t: 91.8 msec Ao max P.8 mmHg MV V2 mean: 77.0 cm/sec MV dec slope: 334.3 cm/sec2 Ao V2 mean: 117.4 cm/sec MV mean P.7 mmHg Ao mean P.0 mmHg MV V2 VTI: 32.1 cm MVA(P1/2t): 2.4 cm2 Ao V2 VTI: 29.4 cm AV (velocity ratio): 0.66 LV V1 max: 127.6 cm/sec PA V2 max: 135.9 cm/sec TR max israel: 199.9 cm/sec LV V1 max P.5 mmHg TR max P.0 mmHg LV V1 mean P.5 mmHg LV V1 mean: 72.6 cm/sec LV V1 VTI: 19.4 cm ECHO/Echo Complete W/ Contrast Interpretation Summary Normal LV size. The left ventricular ejection fraction is 55 %. Stage 1 diastolic dysfunction. Left ventricular systolic function is normal. Contrast injection was performed. Ordering Physician: Fabricio Avery Referring Physician: Nick Estes Performed By: Delilah Main RDCS, RVT
--- NOTE | 2025-04-20 01:29 | MRI_ITS ---
PROCEDURE: BRAIN WITHOUT CONTRAST 04/20/2025 REASON FOR EXAM: EVALUATE FOR CVA. TECHNIQUE: Procedure Code: MRIBR Modality: MR Procedure: BRAIN WITHOUT CONTRAST Multiplanar and multisequence images were obtained. COMPARISON: April 19, 2025 FINDINGS: Brain: T2 prolongation is seen in the periventricular white matter along with patchy foci of T2 prolongation in the deep white matter and to a lesser extent the subcortical white matter of the frontal and parietal lobes. No extra-axial collection, midline shift or mass effect is seen. Ventricles: No hydrocephalus is seen. Mild volume loss. Major Intracranial Vessels: Correlate with the dedicated CT angiogram done 1 day prior. Grossly, the flow voids are unremarkable Sinuses: Clear Mastoids: Few mastoid air cells are opacified but essentially the mastoids are clear. MRI/Brain without Contrast IMPRESSION: 1. No acute ischemia. Chronic microvascular ischemic changes, volume loss. Reading Location: [id number]
[2025-04-20] MEDS: 0.9% Normal Saline (1000mL) 1,000 ML 100 ML IV (02:48)
[2025-04-20 02:49] LABS: Troponin T High Sens 4 HR 32 ng/L (<=22)
[2025-04-20 02:49] LABS: Barbiturate Urine NEGATIVE (< 200 ng/mL); Benzodiazepine Urine NEGATIVE (< 200 ng/mL); PCP Urine NEGATIVE (< 25 ng/mL); THC Urine NEGATIVE (< 50 ng/mL)
[2025-04-20 03:06] LABS: Alcohol, Blood (Medical)-Serum < 10.1 mg/dL (<=10.0)
[2025-04-20 06:42] LABS: Cholesterol 100 mg/dL (<=200); Low Density Lipoprotein Calc. 34 mg/dL; Triglycerides 161 mg/dL; Very Low Density Lipoprotein 32 mg/dL (5-40); cholesterol:hdl ratio screen 2.94
--- NOTE | 2025-04-20 07:45 | PCM.PN.HOSP ---
Reason for Visit Chief Complaint: Dysarthria. Objective Data Objective Data Vital Signs: Vital Signs Temp Pulse Resp BP Pulse Ox O2 Del Method 100.6 F H 78 20 H 117/76 94 Room Air 04/20/25 05:55 04/20/25 05:55 04/20/25 05:55 04/20/25 05:55 04/20/25 06:41 04/20/25 06:41 Oxygen Delivery Method Room Air Weight: 214 lb 4.629 oz Body Mass Index (BMI) 34.5 Intake & Output: Intake and Output for Last 24 Hours 04/18/25 04/19/25 04/20/25 23:59 23:59 23:59 Intake Total 120 / 120 Balance 120 / 120 Lab / Micro Data 04/19/25 21:54 04/19/25 21:54 Labs: Laboratory Results - last 24 hr 04/19/25 21:48: POC Glucose 150 H 04/19/25 21:54: WBC 10.5, RBC 4.10 L, Hgb 13.8, Hct 42.2, MCV 102.9 H, MCH 33.7 H, MCHC 32.7, RDW Std Deviation 58.1 H, RDW Coeff of Adan 15.7 H, Plt Count 222, MPV 9.8, Immature Gran % (Auto) 0.300, Neut % (Auto) 78.0 H, Lymph % (Auto) 14.1 L, Millard % (Auto) 7.0, Eos % (Auto) 0.3, Baso % (Auto) 0.3, Absolute Neuts (auto) 8.2 H, Absolute Lymphs (auto) 1.47, Nucleated RBC % 0, PT 13.6, INR 1.0, APTT 24.3, Sodium 136, Potassium 5.0, Chloride 102, Carbon Dioxide 19.6 L, Anion Gap 15, BUN 32 H, Creatinine 1.16, Estim Creat Clear Calc 65.47, Est GFR (MDRD) Non-Af 68, BUN/Creatinine Ratio 27.8 H, Glucose 156 H, Hemoglobin A1c 6.5 H, Calcium 9.9, Troponin T High Sens 31 H, TSH 0.591 04/19/25 22:35: Urine Color Yellow, Urine Clarity Clear, Urine pH 5.0, Ur Specific [place] 1.010, Urine Protein 30 H, Urine Glucose (UA) 1000 H, Urine Ketones Negative, Urine Occult Blood Negative, Urine Nitrite Negative, Urine Bilirubin Negative, Urine Urobilinogen Normal, Ur Leukocyte Esterase Negative, Urine RBC 0 SEEN, Urine WBC 0-5 SEEN, Ur Squamous Epith Cells 0-5 SEEN, Urine Bacteria 0 SEEN, Urine Mucus 0 SEEN, Urine Yeast RARE, Urine Opiates Screen NEGATIVE, U Buprenorphine Qual NEGATIVE, Ur Oxycodone Screen NEGATIVE, Urine Methadone Screen NEGATIVE, Urine Fentanyl Screen NEGATIVE, Ur Barbiturates Screen NEGATIVE, Ur Phencyclidine Scrn NEGATIVE, Ur Amphetamines Screen NEGATIVE, U Benzodiazepines Scrn NEGATIVE, Urine Cocaine Screen NEGATIVE, U Cannabinoids Screen NEGATIVE 04/19/25 23:57: Troponin T Hi Sens 2 Hr 31 H 04/20/25 01:56: POC Glucose 161 H 04/20/25 02:20: Troponin T Hi Sens 4Hr 32 H, Ethyl Alcohol < 10.1 04/20/25 04:46: Triglycerides 161, Cholesterol 100, LDL Cholesterol, Calc 34, VLDL Cholesterol 32, HDL Cholesterol 34 L, Cholesterol/HDL Ratio 2.94 04/20/25 07:03: POC Glucose 131 H Radiography Diagnostic Testing: Radiology Impression Brain CT 04/19/25 21:31 IMPRESSION: 1. No evidence of acute intracranial pathology. 2. No large vessel intracranial arterial occlusion. Multifocal mild-moderate stenoses along the left CATTLE EXAMINER P1-P2 segments, unchanged. 3. Atherosclerotic plaque at the carotid bifurcations, with mild less than 50% narrowing of the proximal left ICA. Vascular stent at the right carotid bifurcation, with mild-moderate narrowing at the midportion of the proximal right ICA stented segment. Findings communicated with provider Tu Rubin 04/19/2025 at 9:30 p.m. DIRECTOR MARKETING COMMUNICATIONS. Reading Location: [facility] Head/Neck CTA 04/19/25 21:31 IMPRESSION: 1. No evidence of acute intracranial pathology. 2. No large vessel intracranial arterial occlusion. Multifocal mild-moderate stenoses along the left CATTLE EXAMINER P1-P2 segments, unchanged. 3. Atherosclerotic plaque at the carotid bifurcations, with mild less than 50% narrowing of the proximal left ICA. Vascular stent at the right carotid bifurcation, with mild-moderate narrowing at the midportion of the proximal right ICA stented segment. Findings communicated with provider Tu Rubin 04/19/2025 at 9:30 p.m. DIRECTOR MARKETING COMMUNICATIONS. Reading Location: [facility] Chest X-Ray 04/19/25 23:30 IMPRESSION: As above. Reading Location: [facility] Rhythm Strip Rhythm Strip: Sinus Rhythm Rate: 78 Ectopy: None Physical Exam Narrative Seen and examined. Patient was admitted with mild aphasia mainly could not put words in sentences/not many full sentences but could understand other people suspicious. Mild dysarthria 2. Patient had TIA/stroke in the past when he had the right hand and leg weakness. But he recovered completely. He also had increased frequency and urgency yesterday but denies burning micturition Physical exam General: Alert, Oriented x3, Cooperative HEENT: Atraumatic, PERRLA, EOMI, Normocephalic. Oral: No Gingival or Mucosal Lesions/ Ulcerations Neck: Supple, No JVD, Negative Carotid Bruits. Status post cervical spine surgery and right CEA Chest wall/Lungs: Air entry diminished in bilateral lung bases. No crepitation/rhonchi Cardiovascular: Regular rate and rhythm, Normal S1,S2, No M/G/R Abdomen: Bowel Sounds Present, Soft, Non Tender, Non-Distended : No dysuria. No renal angle tenderness. No suprapubic tenderness. Extremities: No edema, Capillary Refill Less than 3 Seconds Skin: No rashes, No breakdown Musculoskeletal: No Tenderness to Palpation of Joints or Extremities Neurological: Cranial nerves II-XII grossly intact, DTR 2+/4. No acute focal neurological deficit. Psych/Mental Status: Normal affect Assessment & Plan Assessment/Plan (1) Dysarthria: (2) History of stroke: (3) Carotid stenosis, bilateral: (4) History of right common carotid artery stent placement: (5) Obesity (BMI 30.0-34.9): (6) Hypertension: QUALIFIERS: Hypertension type: essential hypertension Qualified Code(s): I10 - Essential (primary) hypertension PLAN: Plan 1. TIA versus CVA with transient dysarthria in the setting of known previous CVA - Admit to PCU under observation status. Continue aspirin and statin as previous. Patient has history of bleeding on dual antiplatelet therapy so clopidogrel was not initiated. Check MRI of brain to evaluate for CVA. Check echocardiogram to evaluate LVEF. Check carotid Doppler with abnormal CT findings noted above. Check TSH, B12, Folate, HgbA1c, Lipid Profile, UDS and LINDSAY. Give acetaminophen as needed for pain or fever. Finally, we will consult [facility] to see this patient on-rounds in the a.m. for further recommendations with help appreciated in advance. 04/20: Serial troponins 31, 31 and 32. Glucose 131. Fasting lipid profile HDL 34. A1c 6.5. NIHSS 1. GCS 15. UA is negative microscopically. Glucose 1000 in UA suggestive of glucosuria. 2. History of bilateral carotid stenosis; s/p Right carotid artery stent with CTA of the head and neck with IV contrast that revealed no evidence of acute intracranial pathology in addition to no large vessel intracranial arterial occlusion with multifocal mild-moderate stenoses along the Left CATTLE EXAMINER P1-P2 segment status unchanged from previous with atherosclerotic plaque at carotid bifurcations with less than 50% narrowing in the Left proximal ICA and vascular stent at the Right carotid bifurcation with mild-moderate narrowing at the midpoint of the proximal Right ICA stented segment complicating #1 - Check carotid Doppler as noted in #1. Quit smoking in 1990. 3. Macrocytosis of 102.9 fL present on admission compounding #1 & #2 - Check B12 and Folate as outlined in #1. 4. Obesity (class I); with BMI of 32.2 this admission adding to the burden of disease outlined for #1 - #3 - Weight loss will be recommended. Check TSH. This complicates his case and may hamper recovery. 5. Essential hypertension; on amlodipine, metoprolol twice daily, ramipril twice daily, spironolactone plus hydrochlorothiazide - Hold scheduled antihypertensives until CVA definitively ruled out on MRI. 6. Hyperlipidemia; on atorvastatin - Resume statin and check Lipid Profile. 7. Former tobacco abuse (quit 1990) - Noted. 8. DM-2; of unknown control on glipizide daily and metformin twice daily plus dapagliflozin - Hold oral hypoglycemics while inpatient. 9. RA; on methotrexate weekly - Restart this agent as outpatient. 12. OA; s/p fusion of cervical spine on celecoxib twice daily as needed - Hold celecoxib with possible CVA. Give acetaminophen prn as outlined in #1. 13. DVT prophylaxis - Enoxaparin 40 mg sq daily plus SCD's. 04/19/25 21:48: POC Glucose 150 H 04/19/25 21:54: WBC 10.5, RBC 4.10 L, Hgb 13.8, Hct 42.2, MCV 102.9 H, MCH 33.7 H, MCHC 32.7, RDW Std Deviation 58.1 H, RDW Coeff of Adan 15.7 H, Plt Count 222, MPV 9.8, Immature Gran % (Auto) 0.300, Neut % (Auto) 78.0 H, Lymph % (Auto) 14.1 L, Millard % (Auto) 7.0, Eos % (Auto) 0.3, Baso % (Auto) 0.3, Absolute Neuts (auto) 8.2 H, Absolute Lymphs (auto) 1.47, Nucleated RBC % 0, PT 13.6, INR 1.0, APTT 24.3, Sodium 136, Potassium 5.0, Chloride 102, Carbon Dioxide 19.6 L, Anion Gap 15, BUN 32 H, Creatinine 1.16, Estim Creat Clear Calc 65.47, Est GFR (MDRD) Non-Af 68, BUN/Creatinine Ratio 27.8 H, Glucose 156 H, Hemoglobin A1c 6.5 H, Calcium 9.9, Troponin T High Sens 31 H, TSH 0.591 04/19/25 22:35: Urine Color Yellow, Urine Clarity Clear, Urine pH 5.0, Ur Specific [place] 1.010, Urine Protein 30 H, Urine Glucose (UA) 1000 H, Urine Ketones Negative, Urine Occult Blood Negative, Urine Nitrite Negative, Urine Bilirubin Negative, Urine Urobilinogen Normal, Ur Leukocyte Esterase Negative, Urine RBC 0 SEEN, Urine WBC 0-5 SEEN, Ur Squamous Epith Cells 0-5 SEEN, Urine Bacteria 0 SEEN, Urine Mucus 0 SEEN, Urine Yeast RARE, Urine Opiates Screen NEGATIVE, U Buprenorphine Qual NEGATIVE, Ur Oxycodone Screen NEGATIVE, Urine Methadone Screen NEGATIVE, Urine Fentanyl Screen NEGATIVE, Ur Barbiturates Screen NEGATIVE, Ur Phencyclidine Scrn NEGATIVE, Ur Amphetamines Screen NEGATIVE, U Benzodiazepines Scrn NEGATIVE, Urine Cocaine Screen NEGATIVE, U Cannabinoids Screen NEGATIVE 04/19/25 23:57: Troponin T Hi Sens 2 Hr 31 H 04/20/25 01:56: POC Glucose 161 H 04/20/25 02:20: Troponin T Hi Sens 4Hr 32 H, Ethyl Alcohol < 10.1 04/20/25 04:46: Triglycerides 161, Cholesterol 100, LDL Cholesterol, Calc 34, VLDL Cholesterol 32, HDL Cholesterol 34 L, Cholesterol/HDL Ratio 2.94 04/20/25 07:03: POC Glucose 131 H NIHSS NIHSS Nursing Documentation NIHSS Nursing Documentation: NIHSS: Ischemic Stroke/TIA Start: 04/20/25 01:59 Text: For PCU Patients: NIH and Neuro Check every 4 Status: Active hours, PRN and with change in RN caregiver. Freq: [id number] Protocol: Activity Type Activity Date Activity User E-sign Co-sign Detail Recorded Client Recorded Date Recorded By Document 04/20/25 05:55 LV [id number] 04/20/25 06:07 LV 04/20/25 05:55 NIH Stroke Scale [NIHSS] A score of 0 is normal or asymptomatic . Total possible score is 42. Inpatient: RN or Physician to activate a stroke alert for onset of new stroke symptoms or with NIHSS increase >/= 3 points. Following change in neurological status, NIHSS will be performed per physician order or more frequently PRN. -1a. Level of Consciousness 0 - Alert; keenly responsive -1b. LOC Questions 0 - Answers BOTH questions correctly -1c. LOC Commands 0 - Performs BOTH tasks correctly -2. Best Gaze 0 - Normal -4. Facial Palsy 0 - Normal symmetrical movements -5a. Left Arm 0 - No drift; arm holds 90 ( or 45) degrees for full 10 seconds -5b. Right Arm 0 - No drift; arm holds 90 ( or 45) degrees for full 10 seconds -6a. Left Leg 0 - No drift; leg holds 30- degree position for full 5 seconds -6b. Right Leg 0 - No drift; leg holds 30- degree position for full 5 seconds -7. Limb Ataxia 0 - Absent -8. Sensory 0 - Normal; no sensory loss -9. Best Language 1 - Mild-to- moderate aphasia; -10. Dysarthria 0 - Normal -11. Extinction and Inattention 0 - No abnormality -Total 1 Query Text:A score of 0 is normal or asymptomatic. Total possible score is 42 . ED: Notify Physician for NIHSS increase by > / = 3 points. Inpatient: RN or Physician to activate a stroke alert for NIHSS increase of > / = 3 points. Coma Scale [Assess] -Eye Opening Spontaneous -Motor Obeys Commands -Verbal Oriented [Total] -Coma Scale Total 15
[2025-04-20] MEDS: Cholecalciferol (Vit D3) 125 MCG CAPSULE (5,000 UNITS) PO (09:41)
--- NOTE | 2025-04-20 12:58 | PCM.DC ---
Discharge Instructions DC O2, CPAP, BIPAP needs Home O2 Discharge instructions: No Dressing / Incision Discharge Activity: Return to Normal Activity Weight Bearing Status: Weight bearing as tolerated Dressing / Incision Call your doctor if you observe: Fever of 101 or Higher, Coldness, Increased Pain, Numbness or Tingling, Change in Color, Inability to urinate, Inability to have a bowel movement, Shortness of breath, Dizziness, Fainting spells, Swelling in the ankles, Chest pain, Prolonged hiccupping, Increased palpitations (irregular heartbeat) and Calf discomfort Follow Up Care When: IN 2 WEEKS Test Results: Test results from this visit will be discussed in further detail at your follow-up appointment, if applicable. Discharge Plan Admission Admit Date/Time: 04/20/25 01:23 Primary Reason for Your Visit: TIA Attending Provider: Abdiaziz Hernandez Primary Care Provider: Nick Estes Consulting Providers: Colton Pineda; Bonnie Bueno; Marium Spear; Rin Nelson; Leslie Melvin; Ashish Lazar; Pebbles Cyr; Benjamin Galdamez; Janusz Fontana; Al Soto; Naheed Soria; Wendi Taylor; Juan Ramon Rubi; Leanna Landon; Sandi May; Reggie Flannery; Jorge Reyes; Pedro Lora; Tonio Sorto; Elda Parsons; Otis Marmolejo; Fabricio Avery Discharge Orders/Prescriptions Prescriptions: Continued dapagliflozin propanediol [Farxiga] 5 mg tablet 5 mg PO DAILY folic acid 1 mg tablet 2 mg PO DAILY glipizide 2.5 mg tablet 2.5 mg PO DAILY hydrochlorothiazide 25 mg tablet 25 mg PO DAILY methotrexate sodium 2.5 mg tablet 17.5 mg PO QWEEK ramipril 10 MG capsule 10 mg PO BID Qty: 0 0RF Rx Instructions: Hold if SBP <150 in next 2 days. take about 8 am and 8 pm metformin 500 mg tablet 1,000 mg PO BIDCM Rx Instructions: 2 every 12 hours aspirin 81 MG tablet,chewable 81 mg PO DAILY@0800 amlodipine 10 mg tablet 10 mg PO DAILY multivitamin [Daily Multi-Vitamin] Tablet 1 tab PO DAILY elderberry fruit 350 mg capsule 350 mg PO DAILY cholecalciferol (vitamin D3) [Vitamin D3] 125 mcg (5,000 unit) tablet 125 mcg PO DAILY metoprolol succinate 100 MG tablet 100 mg PO BID Rx Instructions: Hold if HR <60/m celecoxib 200 mg capsule 200 mg PO BID PRN PRN (Reason: pain) acetaminophen [Tylenol Extra Strength] 500 mg tablet 1,000 mg PO Q8H atorvastatin 80 MG tablet 80 mg PO .[facility] Patient Comments: PCP has been trying to taper patient off Lipitor and he only takes it MWF Changed spironolactone 50 mg tablet 25 mg PO QDAY 30 Days Qty: 15 0RF Rx Instructions: Hold for serum potassium more than 5.0 Referrals / Follow Up: Nick Estes DO [Primary Care Provider, Family Practice] Mike Domingo MD [Non-Staff -Ordering Privileges, Neurology] - Within 1 Month Referral Note: Follow-up for TIA Disposition Disposition (needs filled in before D/C Order can be placed): Home, Self Care
--- NOTE | 2025-04-20 13:02 | PCM.DC.SUM ---
Providers Date of Admission: 04/20/25 Date of Discharge: 04/20/25 Primary Care Physician: Dr. Nick Estes, DO Consultations 04/20/25 01:59 Consult: Tele-Neurology Routine Consulting Provider: [facility] Reason for Consult: Acute Ischemic Stroke/TIA EMERGENT Consult: No MD Notified: Yes Date Notified: 04/20/25 Time Notified: 01:25 Method of Notification: Answering Service Method of Consult:: Telemedicine Nursing Unit Staff Notify [facility] of Tele-Neurology Consult: Yes Reason For Visit: TIA VS CVA WITH DYSRTHRIS & HISTORY OF CVA Diagnosis Discharge Diagnosis (1) Dysarthria: Status: Acute Code(s): R47.1 - Dysarthria and anarthria (2) History of stroke: Status: Acute Code(s): Z86.73 - Personal history of transient ischemic attack (TIA), and cerebral infarction without residual deficits (3) Carotid stenosis, bilateral: Status: Chronic Code(s): I65.23 - Occlusion and stenosis of bilateral carotid arteries (4) History of right common carotid artery stent placement: Status: Acute Code(s): Z98.890 - Other specified postprocedural states; Z95.828 - Presence of other vascular implants and grafts (5) Obesity (BMI 30.0-34.9): Status: Acute Code(s): E66.811 - Obesity, class 1 (6) Hypertension: Status: Chronic Code(s): I10 - Essential (primary) hypertension Qualifiers: Hypertension type: essential hypertension Qualified Code(s): I10 - Essential (primary) hypertension Plan This is a 69-year-old gentleman for difficulty in patient's speech, could not form sentences or not able to put words together as described by the patient. Patient does not have problem in understanding the language and also slurring. Unknown LKW. 1. TIA with transient language deficit with history of previous TIA/stroke: Patient was admitted in PCU. Patient already on standard treatment aspirin and high intensity statin. Patient also has history of bleeding on dual antiplatelet and therefore clopidogrel was not started. MRI brain was done which does not show acute intracranial pathology. CTA head and neck shows no LVO but multifocal mild to moderate stenosis along the left [employer] P1 P2 segment. 2D echo shows no left atrium enlargement. Stroke workup was completed as per protocol with BP, glucose monitoring, PT OT and speech/swallow evaluation and NIH stroke scale. When I saw the patient NIH stroke scale 0 and GCS 15. Glucose elevated 150 with A1c 6.5% suggestive of diabetes mellitus type 2. Lipid profile within normal limit except HDL 34. TSH normal. UA is negative microscopically. Glucose 1000 in UA suggestive of glucosuria. Teleneurology saw the patient and patient is being discharged. 2 History of bilateral carotid stenosis; s/p Right carotid artery stent: As mentioned above, CTA shows atherosclerotic plaque at carotid bifurcation with less than 50% narrowing in left proximal ICA and vascular stent at right carotid bifurcation with mild to moderate narrowing at midpoint of proximal right ICA. Patient had carotid Doppler in December 2024 which shows mild in right ICA and moderate left ICA Quit smoking in 1990. 3. Macrocytosis of 102.9 fL present on admission -B12 438 in February 2024 and folic acid is normal 4. Obesity (class I); with BMI of 32.2 this admission adding to the burden of disease outlined for #1 - #3 - Weight loss will be recommended. Check TSH. This complicates his case and may hamper recovery. 5. Essential hypertension; on amlodipine, metoprolol twice daily, ramipril twice daily, spironolactone plus hydrochlorothiazide - Hold scheduled antihypertensives until CVA definitively ruled out on MRI. 6. Hyperlipidemia; on atorvastatin - Resume statin and check Lipid Profile. 7. Former tobacco abuse (quit 1990) - Noted. 8. DM-2; of unknown control on glipizide daily and metformin twice daily plus dapagliflozin - Hold oral hypoglycemics while inpatient. 9. RA; on methotrexate weekly - Restart this agent as outpatient. 10. OA; s/p fusion of cervical spine on celecoxib twice daily as needed - Hold celecoxib with possible CVA. Give acetaminophen prn as outlined in #1. DVT prophylaxis - Enoxaparin 40 mg sq daily plus SCD's. Discharge medication reconciliation done. Discharge follow-up instructions completed. Discharge process discussed with the patient and all questions were answered to patient's satisfaction. Follow with PCP in 1 to 2 weeks Total time spent, exact 35 minutes on discharge meds reconciliation, examination, coordination of care with nurses and ancillary staff, review of imaging and blood test and discussion with the patient on follow-up instructions. 04/19/25 21:48: POC Glucose 150 H 04/19/25 21:54: WBC 10.5, RBC 4.10 L, Hgb 13.8, Hct 42.2, MCV 102.9 H, MCH 33.7 H, MCHC 32.7, RDW Std Deviation 58.1 H, RDW Coeff of Adan 15.7 H, Plt Count 222, MPV 9.8, Immature Gran % (Auto) 0.300, Neut % (Auto) 78.0 H, Lymph % (Auto) 14.1 L, [place] % (Auto) 7.0, Eos % (Auto) 0.3, Baso % (Auto) 0.3, Absolute Neuts (auto) 8.2 H, Absolute Lymphs (auto) 1.47, Nucleated RBC % 0, PT 13.6, INR 1.0, APTT 24.3, Sodium 136, Potassium 5.0, Chloride 102, Carbon Dioxide 19.6 L, Anion Gap 15, BUN 32 H, Creatinine 1.16, Estim Creat Clear Calc 65.47, Est GFR (MDRD) Non-Af 68, BUN/Creatinine Ratio 27.8 H, Glucose 156 H, Hemoglobin A1c 6.5 H, Calcium 9.9, Troponin T High Sens 31 H, TSH 0.591 04/19/25 22:35: Urine Color Yellow, Urine Clarity Clear, Urine pH 5.0, Ur Specific [place] 1.010, Urine Protein 30 H, Urine Glucose (UA) 1000 H, Urine Ketones Negative, Urine Occult Blood Negative, Urine Nitrite Negative, Urine Bilirubin Negative, Urine Urobilinogen Normal, Ur Leukocyte Esterase Negative, Urine RBC 0 SEEN, Urine WBC 0-5 SEEN, Ur Squamous Epith Cells 0-5 SEEN, Urine Bacteria 0 SEEN, Urine Mucus 0 SEEN, Urine Yeast RARE, Urine Opiates Screen NEGATIVE, U Buprenorphine Qual NEGATIVE, Ur Oxycodone Screen NEGATIVE, Urine Methadone Screen NEGATIVE, Urine Fentanyl Screen NEGATIVE, Ur Barbiturates Screen NEGATIVE, Ur Phencyclidine Scrn NEGATIVE, Ur Amphetamines Screen NEGATIVE, U Benzodiazepines Scrn NEGATIVE, Urine Cocaine Screen NEGATIVE, U Cannabinoids Screen NEGATIVE 04/19/25 23:57: Troponin T Hi Sens 2 Hr 31 H 04/20/25 01:56: POC Glucose 161 H 04/20/25 02:20: Troponin T Hi Sens 4Hr 32 H, Ethyl Alcohol < 10.1 04/20/25 04:46: Triglycerides 161, Cholesterol 100, LDL Cholesterol, Calc 34, VLDL Cholesterol 32, HDL Cholesterol 34 L, Cholesterol/HDL Ratio 2.94 04/20/25 07:03: POC Glucose 131 H Medications at Discharge Home Medications ramipril 10 mg capsule 10 mg PO BID heart ##0 09/12/19 aspirin 81 mg chewable tablet 81 mg PO DAILY@0800 heart 03/14/20 dapagliflozin propanediol 5 mg tablet (Farxiga) 5 mg PO DAILY liver 02/18/24 folic acid 1 mg tablet 2 mg PO DAILY supplement 02/18/24 glipizide 2.5 mg tablet 2.5 mg PO DAILY DM 02/18/24 hydrochlorothiazide 25 mg tablet 25 mg PO DAILY bp 02/18/24 metformin 500 mg tablet 1,000 mg PO BIDCM dm 02/18/24 methotrexate sodium 2.5 mg tablet 17.5 mg PO QWEEK RA 02/18/24 amlodipine 10 mg tablet 10 mg PO DAILY BP 04/06/24 cholecalciferol (vitamin D3) 125 mcg (5,000 unit) tablet (Vitamin D3) 125 mcg PO DAILY supplement 04/06/24 elderberry fruit 350 mg capsule 350 mg PO DAILY supplement 04/06/24 metoprolol succinate 100 mg tablet,extended release 24 hr 100 mg PO BID heart 04/06/24 multivitamin (Daily Multi-Vitamin tablet) 1 tab PO DAILY supplement 04/06/24 celecoxib 200 mg capsule 200 mg PO BID PRN PRN pain 04/19/25 acetaminophen 500 mg tablet (Tylenol Extra Strength) 1,000 mg PO Q8H 04/20/25 atorvastatin 80 mg tablet 80 mg PO [facility] 04/20/25 spironolactone 50 mg tablet 25 mg (1/2 x 50 mg) PO QDAY bp 30 days #15 tabs 04/20/25 Hospital Course Summary of Care Provided Hospital Course: Clinical Impression(s) from Imaging Studies Brain CT 04/19/25 21:31 IMPRESSION: 1. No evidence of acute intracranial pathology. 2. No large vessel intracranial arterial occlusion. Multifocal mild-moderate stenoses along the left [employer] P1-P2 segments, unchanged. 3. Atherosclerotic plaque at the carotid bifurcations, with mild less than 50% narrowing of the proximal left ICA. Vascular stent at the right carotid bifurcation, with mild-moderate narrowing at the midportion of the proximal right ICA stented segment. Findings communicated with provider Tu Rubin 04/19/2025 at 9:30 p.m. 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 Reading Location: [facility] Head/Neck CTA 04/19/25 21:31 IMPRESSION: 1. No evidence of acute intracranial pathology. 2. No large vessel intracranial arterial occlusion. Multifocal mild-moderate stenoses along the left [employer] P1-P2 segments, unchanged. 3. Atherosclerotic plaque at the carotid bifurcations, with mild less than 50% narrowing of the proximal left ICA. Vascular stent at the right carotid bifurcation, with mild-moderate narrowing at the midportion of the proximal right ICA stented segment. Findings communicated with provider Tu Rubin 04/19/2025 at 9:30 p.m. 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 Reading Location: [facility] Chest X-Ray 04/19/25 23:30 IMPRESSION: As above. Reading Location: [id number] Brain MRI 04/20/25 01:29 IMPRESSION: 1. No acute ischemia. Chronic microvascular ischemic changes, volume loss. Reading Location: [id number] Echocardiogram 04/20/25 01:29 Interpretation Summary Normal LV size. The left ventricular ejection fraction is 55 %. Stage 1 diastolic dysfunction. Left ventricular systolic function is normal. Contrast injection was performed. Ordering Physician: Fabricio Avery Referring Physician: Nick Estes Performed By: Delilah Main, RDCS, RVT Physical Exam Narrative Seen and examined. Patient was admitted with mild aphasia mainly could not put words in sentences/not many full sentences but could understand other people suspicious. Mild dysarthria 2. Patient had TIA/stroke in the past when he had the right hand and leg weakness. But he recovered completely. He also had increased frequency and urgency yesterday but denies burning micturition Physical exam General: Alert, Oriented x3, Cooperative, BMI 34.6 kg/m?, obesity grade 1 HEENT: Atraumatic, PERRLA, EOMI, Normocephalic. Oral: No Gingival or Mucosal Lesions/ Ulcerations Neck: Supple, No JVD, Negative Carotid Bruits. Status post cervical spine surgery and right STACEY/carotid artery stent Chest wall/Lungs: Air entry diminished in bilateral lung bases. No crepitation/rhonchi Cardiovascular: Regular rate and rhythm, Normal S1,S2, No M/G/R Abdomen: Bowel Sounds Present, Soft, Non Tender, Non-Distended : No dysuria. No renal angle tenderness. No suprapubic tenderness. Extremities: No edema, Capillary Refill Less than 3 Seconds Skin: No rashes, No breakdown Musculoskeletal: No Tenderness to Palpation of Joints or Extremities Neurological: Cranial nerves II-XII grossly intact, DTR 2+/4. No acute focal neurological deficit. Psych/Mental Status: Normal affect Weight / BMI Weight Weight: 214 lb 4.629 oz Body Mass Index (BMI) 34.5 ABG / Lab / Microbiology Data 04/19/25 21:54 04/19/25 21:54 Laboratory: Laboratory Results - last 24 hr 04/19/25 21:48: POC Glucose 150 H 04/19/25 21:54: WBC 10.5, RBC 4.10 L, Hgb 13.8, Hct 42.2, MCV 102.9 H, MCH 33.7 H, MCHC 32.7, RDW Std Deviation 58.1 H, RDW Coeff of [place] 15.7 H, Plt Count 222, MPV 9.8, Immature Gran % (Auto) 0.300, Neut % (Auto) 78.0 H, Lymph % (Auto) 14.1 L, [place] % (Auto) 7.0, Eos % (Auto) 0.3, Baso % (Auto) 0.3, Absolute Neuts (auto) 8.2 H, Absolute Lymphs (auto) 1.47, Nucleated RBC % 0, PT 13.6, INR 1.0, APTT 24.3, Sodium 136, Potassium 5.0, Chloride 102, Carbon Dioxide 19.6 L, Anion Gap 15, BUN 32 H, Creatinine 1.16, Estim Creat Clear Calc 65.47, Est GFR (MDRD) Non-Af 68, BUN/Creatinine Ratio 27.8 H, Glucose 156 H, Hemoglobin A1c 6.5 H, Calcium 9.9, Troponin T High Sens 31 H, TSH 0.591 04/19/25 22:35: Urine Color Yellow, Urine Clarity Clear, Urine pH 5.0, Ur Specific [place] 1.010, Urine Protein 30 H, Urine Glucose (UA) 1000 H, Urine Ketones Negative, Urine Occult Blood Negative, Urine Nitrite Negative, Urine Bilirubin Negative, Urine Urobilinogen Normal, Ur Leukocyte Esterase Negative, Urine RBC 0 SEEN, Urine WBC 0-5 SEEN, Ur Squamous Epith Cells 0-5 SEEN, Urine Bacteria 0 SEEN, Urine Mucus 0 SEEN, Urine Yeast RARE, Urine Opiates Screen NEGATIVE, U Buprenorphine Qual NEGATIVE, Ur Oxycodone Screen NEGATIVE, Urine Methadone Screen NEGATIVE, Urine Fentanyl Screen NEGATIVE, Ur Barbiturates Screen NEGATIVE, Ur Phencyclidine Scrn NEGATIVE, Ur Amphetamines Screen NEGATIVE, U Benzodiazepines Scrn NEGATIVE, Urine Cocaine Screen NEGATIVE, U Cannabinoids Screen NEGATIVE 04/19/25 23:57: Troponin T Hi Sens 2 Hr 31 H 04/20/25 01:56: POC Glucose 161 H 04/20/25 02:20: Troponin T Hi Sens 4Hr 32 H, Ethyl Alcohol < 10.1 04/20/25 04:46: Triglycerides 161, Cholesterol 100, LDL Cholesterol, Calc 34, VLDL Cholesterol 32, HDL Cholesterol 34 L, Cholesterol/HDL Ratio 2.94 04/20/25 07:03: POC Glucose 131 H 04/20/25 11:29: POC Glucose 149 H Microbiology: Microbiology 04/20/25 06:41 Mucosa - Nasopharyngeal Respiratory Panel (PCR) - Final Radiography Diagnostic Testing: Radiology Impression Brain CT 04/19/25 21:31 IMPRESSION: 1. No evidence of acute intracranial pathology. 2. No large vessel intracranial arterial occlusion. Multifocal mild-moderate stenoses along the left [employer] P1-P2 segments, unchanged. 3. Atherosclerotic plaque at the carotid bifurcations, with mild less than 50% narrowing of the proximal left ICA. Vascular stent at the right carotid bifurcation, with mild-moderate narrowing at the midportion of the proximal right ICA stented segment. Findings communicated with provider Tu Rubin 04/19/2025 at 9:30 p.m. 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 Reading Location: [facility] Head/Neck CTA 04/19/25 21:31 IMPRESSION: 1. No evidence of acute intracranial pathology. 2. No large vessel intracranial arterial occlusion. Multifocal mild-moderate stenoses along the left [employer] P1-P2 segments, unchanged. 3. Atherosclerotic plaque at the carotid bifurcations, with mild less than 50% narrowing of the proximal left ICA. Vascular stent at the right carotid bifurcation, with mild-moderate narrowing at the midportion of the proximal right ICA stented segment. Findings communicated with provider Tu Rubin 04/19/2025 at 9:30 p.m. 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 Reading Location: [facility] Chest X-Ray 04/19/25 23:30 IMPRESSION: As above. Reading Location: [facility] Brain MRI 04/20/25 01:29 IMPRESSION: 1. No acute ischemia. Chronic microvascular ischemic changes, volume loss. Reading Location: [id number] Echocardiogram 04/20/25 01:29 Interpretation Summary Normal LV size. The left ventricular ejection fraction is 55 %. Stage 1 diastolic dysfunction. Left ventricular systolic function is normal. Contrast injection was performed. Ordering Physician: Fabricio Avery Referring Physician: Nick Estes Performed By: Delilah Main, MARY ELLENCS, RVT D/C Instructions Weight Bearing Status: Weight bearing as tolerated Call your doctor if you observe: Fever of 101 or Higher, Coldness, Increased Pain, Numbness or Tingling, Change in Color, Inability to urinate, Inability to have a bowel movement, Shortness of breath, Dizziness, Fainting spells, Swelling in the ankles, Chest pain, Prolonged hiccupping, Increased palpitations (irregular heartbeat) and Calf discomfort DC O2, CPAP, BIPAP Needs Home O2 Discharge instructions: No When: IN 2 WEEKS Meaningful Use Info Meaningful Use Meaningful Use Diagnoses (Choose all that apply): None applicable Discharge Plan Admission Admit Date/Time: 04/20/25 01:23 Primary Reason for Your Visit: TIA Attending Provider: Abdiaziz Hernandez Primary Care Provider: Nick Estes Consulting Providers: Colton Pineda; Bonnie Bueno; Marium Spear; Rin Nelson; Leslie Melvin; Ashish Lazar; Pebbles Cyr; Benjamin Galdamez; Janusz Fontana; Al Soto; Naheed Soria; Wendi Taylor; Juan Ramon Rubi; Leanna Landon; Sandi May; Reggie Flannery; Jorge Reyes; Pedro Lora; Tonio Sorto; Elda Parsons; Otis Marmolejo; Fabricio Avery Discharge Orders/Prescriptions Prescriptions: Continued dapagliflozin propanediol [Farxiga] 5 mg tablet 5 mg PO DAILY folic acid 1 mg tablet 2 mg PO DAILY glipizide 2.5 mg tablet 2.5 mg PO DAILY hydrochlorothiazide 25 mg tablet 25 mg PO DAILY methotrexate sodium 2.5 mg tablet 17.5 mg PO QWEEK ramipril 10 MG capsule 10 mg PO BID Qty: 0 0RF Rx Instructions: Hold if SBP <150 in next 2 days. take about 8 am and 8 pm metformin 500 mg tablet 1,000 mg PO BIDCM Rx Instructions: 2 every 12 hours aspirin 81 MG tablet,chewable 81 mg PO DAILY@0800 amlodipine 10 mg tablet 10 mg PO DAILY multivitamin [Daily Multi-Vitamin] Tablet 1 tab PO DAILY elderberry fruit 350 mg capsule 350 mg PO DAILY cholecalciferol (vitamin D3) [Vitamin D3] 125 mcg (5,000 unit) tablet 125 mcg PO DAILY metoprolol succinate 100 MG tablet 100 mg PO BID Rx Instructions: Hold if HR <60/m celecoxib 200 mg capsule 200 mg PO BID PRN PRN (Reason: pain) acetaminophen [Tylenol Extra Strength] 500 mg tablet 1,000 mg PO Q8H atorvastatin 80 MG tablet 80 mg PO .[facility] Patient Comments: PCP has been trying to taper patient off Lipitor and he only takes it MWF Changed spironolactone 50 mg tablet 25 mg PO QDAY 30 Days Qty: 15 0RF Rx Instructions: Hold for serum potassium more than 5.0 Referrals / Follow Up: Nick Estes DO [Primary Care Provider, Family Practice] Mike Domingo MD [Non-Staff -Ordering Privileges, Neurology] - Within 1 Month Referral Note: Follow-up for TIA Disposition Disposition (needs filled in before D/C Order can be placed): Home, Self Care Charges/Coding Visit Charges Inpatient E&M: 34326 Disch Hosp >30min
--- NOTE | 2025-04-20 13:06 | PHA.DC.MR.R ---
Pharmacy [place] Med Reconciliation Pharmacy Service has performed discharge medication reconciliation for this patient. The patient's discharge medication list was reviewed for discrepancies and discrepancies were resolved. Medications at Discharge Home Medications ramipril 10 mg capsule 10 mg PO BID heart ##0 09/12/19 aspirin 81 mg chewable tablet 81 mg PO DAILY@0800 heart 03/14/20 dapagliflozin propanediol 5 mg tablet (Farxiga) 5 mg PO DAILY liver 02/18/24 folic acid 1 mg tablet 2 mg PO DAILY supplement 02/18/24 glipizide 2.5 mg tablet 2.5 mg PO DAILY DM 02/18/24 hydrochlorothiazide 25 mg tablet 25 mg PO DAILY bp 02/18/24 metformin 500 mg tablet 1,000 mg PO BIDCM dm 02/18/24 methotrexate sodium 2.5 mg tablet 17.5 mg PO QWEEK RA 02/18/24 amlodipine 10 mg tablet 10 mg PO DAILY BP 04/06/24 cholecalciferol (vitamin D3) 125 mcg (5,000 unit) tablet (Vitamin D3) 125 mcg PO DAILY supplement 04/06/24 elderberry fruit 350 mg capsule 350 mg PO DAILY supplement 04/06/24 metoprolol succinate 100 mg tablet,extended release 24 hr 100 mg PO BID heart 04/06/24 multivitamin (Daily Multi-Vitamin tablet) 1 tab PO DAILY supplement 04/06/24 celecoxib 200 mg capsule 200 mg PO BID PRN PRN pain 04/19/25 acetaminophen 500 mg tablet (Tylenol Extra Strength) 1,000 mg PO Q8H 04/20/25 atorvastatin 80 mg tablet 80 mg PO .[facility] cholesterol 04/20/25 spironolactone 50 mg tablet 25 mg (1/2 x 50 mg) PO QDAY bp 30 days #15 tabs 04/20/25
--- NOTE | 2025-04-20 13:09 | CASEMGMT ---
Patient has order for discharge. RN CM in to discuss needs at discharge, daughter at bedside. Patient denies needs or help at discharge. Patient had no further questions or concerns.
--- NOTE | 2025-04-20 13:41 | CASEMGMT ---
Social Work Per imaging pt negative for stroke, therefore PHQ9 not completed. TE Gee
--- NOTE | 2025-04-20 14:31 | STROKE.CONS ---
Assessment and Plan: Stroke Assessment/Plan YAN CALLE is a 69 year old left handed male with a history of prior ischemic stroke 2019 without residual deficits, s/p ARTURO stent on Asa, DM, HTN who on 04/19/25 was noted by daughter to have trouble putting sentences together. Patient reports he had trouble thinking of the words. He presented to ER. CT brain negative. CTA head/neck negative, patent ARTURO stent. Episode improved within 24 hours. LDL 34. HgbA1c 6.5. MRI brain DWI negative. TTE EF 55%. Neurological examination shows nonfocal exam, NIHSS-0 Suspected DWI negative TIA. 1) TIA work-up completed 2) Continue home Asa/lipitor 3) Follow-up in outpatient neurology clinic Elda Parsons MD HPI Consult Data Date of Consult: 04/20/25 HPI Narrative HPI Narrative: YAN CALLE is a 69 year old left handed male with a history of prior ischemic stroke 2019 without residual deficits, s/p ARTURO stent on Asa, DM, HTN who on 04/19/25 was noted by daughter to have trouble putting sentences together. Patient reports he had trouble thinking of the words. He presented to ER. CT brain negative. CTA head/neck negative, patent ARTURO stent. He was admitted. This morning he feels almost back to baseline 95% normal. He reports the major difficulty speaking resolved this morning. LDL 34. HgbA1c 6.5. MRI brain DWI negative. TTE EF 55%. BP 140/54 this AM. [facility] Medical History Wears dentures Wears glasses Rheumatoid arthritis Arthritis High cholesterol Excessive bleeding Injury of head and neck Former smoker History of pain when walking History of stress test History of echocardiogram Carotid stenosis, bilateral Hypertensive emergency CVA (cerebral vascular accident) Diabetes Hypertension Home Medications ?Medication ?Instructions ?Recorded ?Last Taken ?Type ramipril 10 mg capsule 10 mg PO BID heart ##0 09/12/19 04/19/25 Rx aspirin 81 mg chewable tablet 81 mg PO DAILY@0800 heart 03/14/20 04/19/25 History dapagliflozin propanediol 5 mg 5 mg PO DAILY liver 02/18/24 04/19/25 History tablet (Farxiga) folic acid 1 mg tablet 2 mg PO DAILY supplement 02/18/24 04/19/25 History glipizide 2.5 mg tablet 2.5 mg PO DAILY DM 02/18/24 04/19/25 History hydrochlorothiazide 25 mg tablet 25 mg PO DAILY bp 02/18/24 04/19/25 History metformin 500 mg tablet 1,000 mg PO BIDCM dm 02/18/24 04/19/25 History methotrexate sodium 2.5 mg tablet 17.5 mg PO QWEEK RA 02/18/24 04/18/25 History amlodipine 10 mg tablet 10 mg PO DAILY BP 04/06/24 04/19/25 History cholecalciferol (vitamin D3) 125 125 mcg PO DAILY supplement 04/06/24 04/19/25 History mcg (5,000 unit) tablet (Vitamin D3) elderberry fruit 350 mg capsule 350 mg PO DAILY supplement 04/06/24 04/19/25 History metoprolol succinate 100 mg 100 mg PO BID heart 04/06/24 04/19/25 History tablet,extended release 24 hr multivitamin (Daily Multi-Vitamin 1 tab PO DAILY supplement 04/06/24 04/19/25 History tablet) celecoxib 200 mg capsule 200 mg PO BID PRN PRN pain 04/19/25 04/19/25 08:00 History 200 mg acetaminophen 500 mg tablet 1,000 mg PO Q8H 04/20/25 04/19/25 History (Tylenol Extra Strength) atorvastatin 80 mg tablet 80 mg PO .MWFQHS cholesterol 04/20/25 04/19/25 History spironolactone 50 mg tablet 25 mg (1/2 x 50 mg) PO QDAY bp 30 04/20/25 04/19/25 Rx days #15 tabs Allergy/AdvReac Type Severity Reaction Status Date / Time loratadine (From Tavist ND) Allergy Hives Verified 04/19/25 21:22 Family History Other Cancer Colon cancer Hypertension Surgical History Hx of cystoscopy History of carpal tunnel release of both wrists History of fusion of cervical spine History of umbilical hernia repair History of repair of right rotator cuff History of excision of pilonidal cyst Social History Smoking Status: Never smoker Tobacco: How many years used: 23 Vital Signs Vital Signs Vital Signs: 04/19/25 21:22 04/19/25 21:53 04/19/25 22:01 Temperature 97.6 F L Temperature Source Temporal Pulse Rate 79 80 77 Pulse Strength Respiratory Rate 18 21 H 20 H Respiratory Effort Respiratory Depth Respiratory Pattern Blood Pressure 172/73 H 174/82 H 161/69 H Blood Pressure Mean 106 112 99 Blood Pressure Source Blood Pressure Position Blood Pressure Location Pulse Ox 96 95 98 Oxygen Delivery Method Room Air Room Air Room Air 04/19/25 22:21 04/19/25 22:30 04/19/25 22:39 Temperature 99.4 F H Temperature Source Oral Pulse Rate 77 78 Pulse Strength Respiratory Rate 20 H 20 H Respiratory Effort Respiratory Depth Respiratory Pattern Blood Pressure 161/69 H 177/77 H Blood Pressure Mean 99 110 Blood Pressure Source Blood Pressure Position Blood Pressure Location Pulse Ox 99 94 Oxygen Delivery Method Room Air Room Air 04/19/25 23:00 04/19/25 23:00 04/19/25 23:30 Temperature Temperature Source Pulse Rate 76 76 75 Pulse Strength Respiratory Rate 19 H 19 H 20 H Respiratory Effort Respiratory Depth Respiratory Pattern Blood Pressure 142/87 H 142/87 H 117/82 H Blood Pressure Mean 105 105 93 Blood Pressure Source Blood Pressure Position Blood Pressure Location Pulse Ox 94 94 94 Oxygen Delivery Method Room Air Room Air Room Air 04/19/25 23:34 04/19/25 23:34 04/20/25 00:34 Temperature 99.4 F H 99.4 F H 99.4 F H Temperature Source Oral Oral Pulse Rate 73 76 91 Pulse Strength Respiratory Rate 20 H 20 H 19 H Respiratory Effort Respiratory Depth Respiratory Pattern Blood Pressure 117/82 H 117/82 H 137/70 H Blood Pressure Mean 93 93 92 Blood Pressure Source Blood Pressure Position Blood Pressure Location Pulse Ox 96 96 93 Oxygen Delivery Method Room Air Room Air 04/20/25 01:00 04/20/25 01:55 04/20/25 02:08 Temperature 98.4 F 97.2 F L Temperature Source Oral Oral Pulse Rate 91 76 Pulse Strength Respiratory Rate 19 H 18 Respiratory Effort Respiratory Depth Respiratory Pattern Blood Pressure 137/70 H 126/85 H Blood Pressure Mean 92 98 Blood Pressure Source Monitor Blood Pressure Position Semi-Fowlers Blood Pressure Location Left Arm Pulse Ox 94 93 93 Oxygen Delivery Method Room Air Room Air Room Air 04/20/25 03:00 04/20/25 05:55 04/20/25 06:41 Temperature 100.6 F H Temperature Source Oral Pulse Rate 78 Pulse Strength Respiratory Rate 20 H Respiratory Effort Normal Non-Labored Short of Breath Respiratory Depth Normal Respiratory Pattern Normal Blood Pressure 117/76 Blood Pressure Mean 89 Blood Pressure Source Monitor Blood Pressure Position Semi-Fowlers Blood Pressure Location Left Arm Pulse Ox 92 94 Oxygen Delivery Method Room Air Room Air Room Air 04/20/25 06:48 04/20/25 09:40 04/20/25 09:40 Temperature 98.3 F 98.3 F Temperature Source Oral Oral Pulse Rate 74 74 Pulse Strength Respiratory Rate 18 18 Respiratory Effort Respiratory Depth Respiratory Pattern Blood Pressure 140/54 H 140/54 H Blood Pressure Mean 82 82 Blood Pressure Source Monitor Blood Pressure Position Sitting Blood Pressure Location Right Forearm Pulse Ox 93 95 95 Oxygen Delivery Method Room Air Room Air Room Air 04/20/25 09:40 04/20/25 09:40 04/20/25 13:23 Temperature 97.9 F Temperature Source Oral Pulse Rate 86 Pulse Strength Normal (2+) Respiratory Rate 18 Respiratory Effort Normal Non-Labored Respiratory Depth Normal Respiratory Pattern Normal Blood Pressure 184/72 H Blood Pressure Mean 109 Blood Pressure Source Monitor Blood Pressure Position Sitting Blood Pressure Location Left Forearm Pulse Ox 94 Oxygen Delivery Method Room Air Room Air Weight Weight: 97.2 kg Body Mass Index (BMI) 34.5 EEG Results Procedure Details EEG Procedure Details: Physical Exam Neuro Neuro Narrative: Neurological examination: General: The patient appears nutritionally appropriate, well-groomed, and appears comfortable in no acute distress. Mental Status: The patient?s mental status was normal including orientation. Language was intact. Cranial nerves: Visual torre full, and extra-ocular motion was intact. Face motion symmetric. There was no dysarthria. Motor: Normal strength and tone in all four extremities. No pronator drift. Sensation: Intact light touch bilaterally, no extinction. Coordination: Bilateral finger to nose was normal. There was no dysmetria. Gait: deferred Lab / Micro Data 04/19/25 21:54 04/19/25 21:54 Labs: Laboratory Results - last 24 hr 04/19/25 21:48: POC Glucose 150 H 04/19/25 21:54: WBC 10.5, RBC 4.10 L, Hgb 13.8, Hct 42.2, MCV 102.9 H, MCH 33.7 H, MCHC 32.7, RDW Std Deviation 58.1 H, RDW Coeff of Adan 15.7 H, Plt Count 222, MPV 9.8, Immature Gran % (Auto) 0.300, Neut % (Auto) 78.0 H, Lymph % (Auto) 14.1 L, Murray % (Auto) 7.0, Eos % (Auto) 0.3, Baso % (Auto) 0.3, Absolute Neuts (auto) 8.2 H, Absolute Lymphs (auto) 1.47, Nucleated RBC % 0, PT 13.6, INR 1.0, APTT 24.3, Sodium 136, Potassium 5.0, Chloride 102, Carbon Dioxide 19.6 L, Anion Gap 15, BUN 32 H, Creatinine 1.16, Estim Creat Clear Calc 65.47, Est GFR (MDRD) Non-Af 68, BUN/Creatinine Ratio 27.8 H, Glucose 156 H, Hemoglobin A1c 6.5 H, Calcium 9.9, Troponin T High Sens 31 H, TSH 0.591 04/19/25 22:35: Urine Color Yellow, Urine Clarity Clear, Urine pH 5.0, Ur Specific [place] 1.010, Urine Protein 30 H, Urine Glucose (UA) 1000 H, Urine Ketones Negative, Urine Occult Blood Negative, Urine Nitrite Negative, Urine Bilirubin Negative, Urine Urobilinogen Normal, Ur Leukocyte Esterase Negative, Urine RBC 0 SEEN, Urine WBC 0-5 SEEN, Ur Squamous Epith Cells 0-5 SEEN, Urine Bacteria 0 SEEN, Urine Mucus 0 SEEN, Urine Yeast RARE, Urine Opiates Screen NEGATIVE, U Buprenorphine Qual NEGATIVE, Ur Oxycodone Screen NEGATIVE, Urine Methadone Screen NEGATIVE, Urine Fentanyl Screen NEGATIVE, Ur Barbiturates Screen NEGATIVE, Ur Phencyclidine Scrn NEGATIVE, Ur Amphetamines Screen NEGATIVE, U Benzodiazepines Scrn NEGATIVE, Urine Cocaine Screen NEGATIVE, U Cannabinoids Screen NEGATIVE 04/19/25 23:57: Troponin T Hi Sens 2 Hr 31 H 04/20/25 01:56: POC Glucose 161 H 04/20/25 02:20: Troponin T Hi Sens 4Hr 32 H, Ethyl Alcohol < 10.1 04/20/25 04:46: Triglycerides 161, Cholesterol 100, LDL Cholesterol, Calc 34, VLDL Cholesterol 32, HDL Cholesterol 34 L, Cholesterol/HDL Ratio 2.94 04/20/25 07:03: POC Glucose 131 H 04/20/25 11:29: POC Glucose 149 H Micro: Microbiology 04/20/25 06:41 Mucosa - Nasopharyngeal Respiratory Panel (PCR) - Final Rhythm Strip Rhythm Strip: Sinus Rhythm Rate: 78 Ectopy: None Imaging Radiology Impression Brain CT 04/19/25 21:31 IMPRESSION: 1. No evidence of acute intracranial pathology. 2. No large vessel intracranial arterial occlusion. 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 3. Atherosclerotic plaque at the carotid bifurcations, with mild less than 50% narrowing of the proximal left ICA. Vascular stent at the right carotid bifurcation, with mild-moderate narrowing at the midportion of the proximal right ICA stented segment. Findings communicated with provider Tu Rubin 04/19/2025 at 9:30 p.m. [employer]. Reading Location: [id number] Head/Neck CTA 04/19/25 21:31 IMPRESSION: 1. No evidence of acute intracranial pathology. 2. No large vessel intracranial arterial occlusion. 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 3. Atherosclerotic plaque at the carotid bifurcations, with mild less than 50% narrowing of the proximal left ICA. Vascular stent at the right carotid bifurcation, with mild-moderate narrowing at the midportion of the proximal right ICA stented segment. Findings communicated with provider Tu Rubin 04/19/2025 at 9:30 p.m. [employer]. Reading Location: [id number] Chest X-Ray 04/19/25 23:30 IMPRESSION: As above. Reading Location: [id number] Brain MRI 04/20/25 01:29 IMPRESSION: 1. No acute ischemia. Chronic microvascular ischemic changes, volume loss. Reading Location: [id number] Echocardiogram 04/20/25 01:29 Interpretation Summary Normal LV size. The left ventricular ejection fraction is 55 %. Stage 1 diastolic dysfunction. Left ventricular systolic function is normal. Contrast injection was performed. Ordering Physician: Fabricio Avery Referring Physician: Nick Estes Performed By: Delilah Main, DOONVAN, RVT S NIHSS Nursing Documentation NIHSS Nursing Documentation: NIHSS: Ischemic Stroke/TIA Start: 04/20/25 01:59 Text: For PCU Patients: NIH and Neuro Check every 4 Status: Discharge hours, PRN and with change in RN caregiver. Freq: [id number] Protocol: Activity Type Activity Date Activity User E-sign Co-sign Detail Recorded Client Recorded Date Recorded By Document 04/20/25 09:40 HS desktop 04/20/25 10:49 HS 04/20/25 09:40 NIH Stroke Scale [NIHSS] A score of 0 is normal or asymptomatic . Total possible score is 42. Inpatient: RN or Physician to activate a stroke alert for onset of new stroke symptoms or with NIHSS increase >/= 3 points. Following change in neurological status, NIHSS will be performed per physician order or more frequently PRN. -1a. Level of Consciousness 0 - Alert; keenly responsive -1b. LOC Questions 0 - Answers BOTH questions correctly -1c. LOC Commands 0 - Performs BOTH tasks correctly -2. Best Gaze 0 - Normal -3. Visual 0 - No visual loss -4. Facial Palsy 0 - Normal symmetrical movements -5a. Left Arm 0 - No drift; arm holds 90 ( or 45) degrees for full 10 seconds -5b. Right Arm 0 - No drift; arm holds 90 ( or 45) degrees for full 10 seconds -6a. Left Leg 0 - No drift; leg holds 30- degree position for full 5 seconds -6b. Right Leg 0 - No drift; leg holds 30- degree position for full 5 seconds -7. Limb Ataxia 0 - Absent -8. Sensory 0 - Normal; no sensory loss -9. Best Language 1 - Mild-to- moderate aphasia; -10. Dysarthria 0 - Normal -11. Extinction and Inattention 0 - No abnormality -Total 1 Query Text:A score of 0 is normal or asymptomatic. Total possible score is 42 . ED: Notify Physician for NIHSS increase by > / = 3 points. Inpatient: RN or Physician to activate a stroke alert for NIHSS increase of > / = 3 points. Coma Scale [Assess] -Eye Opening Spontaneous -Motor Obeys Commands -Verbal Oriented [Total] -Coma Scale Total 15 NIHSS 1a. Level of Consciousness: 0 - Alert; keenly responsive 1b. LOC Questions: 0 - Answers BOTH questions correctly 1c. LOC Commands: 0 - Performs BOTH tasks correctly 2. Best Gaze: 0 - Normal 3. Visual: 0 - No visual loss 4. Facial Palsy: 0 - Normal symmetrical movements 5a. Left Arm: 0 - No drift; arm holds 90 (or 45) degrees for full 10 seconds 5b. Right Arm: 0 - No drift; arm holds 90 (or 45) degrees for full 10 seconds 6a. Left Le - No drift; leg holds 30-degree position for full 5 seconds 6b. Right Le - No drift; leg holds 30-degree position for full 5 seconds 7. Limb Ataxia: 0 - Absent 8. Sensory: 0 - Normal; no sensory loss 9. Best Language: 0 - No aphasia; normal 10. Dysarthria: 0 - Normal 11. Extinction and Inattention: 0 - No abnormality Total: 0
== END 2025-04-20 13:00 | disposition home or self-care (01) ==
LOC: ED 23:27 → PCU 04-20 01:31
PROVIDERS: Admitting Provider Internal Medicine; Emergency Provider Emergency Medicine; PCP Family Medicine; Visit Provider Internal Medicine
DX: G45.9 Transient cerebral ischemic attack, unspecified (principal); M06.9 Rheumatoid arthritis, unspecified; E11.9 Type 2 diabetes mellitus without complications; Z79.84 Long term (current) use of oral hypoglycemic drugs; E66.811 Obesity, class 1; Z68.34 Body mass index [BMI] 34.0-34.9, adult; I10 Essential (primary) hypertension; Z87.891 Personal history of nicotine dependence; Z79.899 Other long term (current) drug therapy; E78.5 Hyperlipidemia, unspecified; R47.9 Unspecified speech disturbances; R35.0 Frequency of micturition; I07.1 Rheumatic tricuspid insufficiency
CPT/HCPCS: 36415; 70450; 70496; 70498; 70551; 71045; 80048; 80061; 80307; 81001; 82077; 82962; 83036; 84443; 84484; 85025; 85610; 85730; 87633; 93005; 93306; 94762; 96360; 96361; 96372; 97162; 97166; 99221; 99284; Q9957; Q9967; A4216; C8929; G0378

== ENCOUNTER → 2025-04-27 | Outpatient (CLI) | payer MEDICARE, SELFPAY ==
[2025-04-27 15:26] LABS: CRP < 3.00 mg/L (0.0-3.0)
== END | disposition home or self-care (01) ==
LOC: MTLAB 10:51
PROVIDERS: PCP Family Medicine; Referring Provider Family Medicine; Visit Provider Family Medicine
DX: R51.9 Headache, unspecified (principal)
CPT/HCPCS: 36415; 85652; 86140

== ENCOUNTER 2025-05-12 15:00 | Outpatient (RCR) | payer MEDICARE, SELFPAY ==
[2025-05-12 10:41] LABS: Mucous, Urine 0 SEEN /hpf (<or=2+); Red Blood Cells-Urine 0 SEEN /hpf (0-5); Squamous Epithelial Cells - UA 0 SEEN /hpf (0-5)
[2025-05-12 13:03] LABS: Color, Urine Yellow (Yellow); Glucose, Dipstick 1000 mg/dl (Normal); Ketone-Dipstick Negative (Negative); Leukocyte Esterase-Dipstick Negative /ul (Negative); Nitrite-Dipstick Negative (Negative); Occult Blood-Urine Negative /ul (Negative); Protein-Dipstick Negative (Negative); Specific Gravity, Urine 1.015 (1.002-1.030); Urine Bilirubin Dipstick Negative (Negative)
[2025-05-12 13:30] LABS: Hematocrit 40.8 % (40-54); Hemoglobin 13.8 g/dL (13.0-16.5); Immature Granulocytes Count 0.010 X10^3/uL (0.0-0.0); Mean Corp Hgb Conc 33.8 g/dL (32-36); Mean Corpuscular Volume 100.7 fL (80-94); Mean Platelet Vol. 10.0 fl (6.2-12.0); NRBC Flagged by Analyzer 0 % (0-5); Platelet Count 211 K/mm3 (150-450); RBC Distribution Width CV 14.6 % (11.6-14.6); RBC Distribution Width SD 53.3 fl (35.1-43.9); Red Blood Count 4.05 M/mm3 (4.6-6.2); White Blood Count 7.5 K/mm3 (4.4-11.0)
[2025-05-12 14:08] LABS: AST(SGOT) 24 U/L (<=37); Alanine Aminotransfer ALT/SGPT 23 U/L (<=46); Albumin, Serum 4.6 g/dL (3.4-4.8); Alkaline Phosphatase 43 U/L (40-129); Anion Gap 16 (5-15); BUN 37 mg/dL (4-19); BUN/Creat Ratio 33.5 RATIO (10-20); CPK Total, Creatine Kinase 37 U/L (24-195); Calcium,Total 10.3 mg/dL (7.6-11.0); Carbon Dioxide 21.0 mmol/L (21.0-32.0); Chloride 103 mmol/L (98-108); Globulin 3.1 g/dL (2.2-4.2); Glucose 109 mg/dL (70-99); Potassium 4.3 mmol/L (3.3-5.1)
[2025-05-12 14:10] LABS: CRP < 3.00 mg/L (0.0-3.0)
== END 2025-05-12 18:00 | disposition home or self-care (01) ==
LOC: MTLAB 15:00
PROVIDERS: PCP Family Medicine; Referring Provider Internal Medicine Rheumatology; Visit Provider Internal Medicine Rheumatology
DX: Z79.02 Long term (current) use of antithrombotics/antiplatelets; R76.89 Other specified abnormal immunological findings in serum; R73.9 Hyperglycemia, unspecified; G95.89 Other specified diseases of spinal cord; G56.03 Carpal tunnel syndrome, bilateral upper limbs; M75.101 Unspecified rotator cuff tear or rupture of right shoulder, not specified as traumatic; M19.071 Primary osteoarthritis, right ankle and foot; M19.072 Primary osteoarthritis, left ankle and foot; M47.812 Spondylosis without myelopathy or radiculopathy, cervical region; M50.20 Other cervical disc displacement, unspecified cervical region; M50.30 Other cervical disc degeneration, unspecified cervical region; M48.02 Spinal stenosis, cervical region; M19.041 Primary osteoarthritis, right hand; M19.042 Primary osteoarthritis, left hand
CPT/HCPCS: 36415; 80053; 81001; 82550; 85025; 85652; 86140; 86160

== ENCOUNTER → 2025-07-04 | Outpatient (CLI) | payer MEDICARE, SELFPAY ==
--- NOTE | 2025-07-04 08:30 | CDU_ITS ---
Reason For Study Reason For Study: S/p Rt TCAR Rt. Velocities/BP Lt. Velocities/BP Prox CCA 86.1/10.2 cm/sec. Prox CCA 94.9/15.7 cm/sec. Mid CCA 98.1/16.8 cm/sec. Mid CCA 132.4/27 cm/sec. Dist CCA 66.3/11.3 cm/sec. Dist CCA 169.7/22.6 cm/sec. Prox ICA 75.3/15.1 cm/sec. Prox ICA 114.8/27 cm/sec. Mid ICA 99.8/17.6 cm/sec. Mid ICA 91.9/27.9 cm/sec. Dist ICA 63/11.4 cm/sec. Dist ICA 50.9/13.5 cm/sec. Rt. ICA/CCA = 1.02. Lt. ICA/CCA = 0.87. Prox ECA 152.1/9.4 cm/sec. Prox ECA 143.3/11.6 cm/sec. Rt. Vert. 55.3/14.6 cm/sec. Lt. Vert. 48.7/8 cm/sec. Right Extracranial There is heterogeneous, irregular atherosclerotic plaque noted in the right common carotid artery. There is heterogeneous, irregular atherosclerotic plaque noted in the right internal carotid artery. Stent noted CCA distal-ICA mid. There is heterogeneous, irregular atherosclerotic plaque noted in the right external carotid artery. Antegrade flow is noted in the right vertebral artery. Left Extracranial There is heterogeneous, irregular atherosclerotic plaque noted in the left common carotid artery. There is heterogeneous, irregular atherosclerotic plaque noted in the left internal carotid artery. There is heterogeneous, irregular atherosclerotic plaque noted in the left external carotid artery. Antegrade flow is noted in the left vertebral artery. Procedure This is a Carotid Duplex examination using B-mode, color flow and specral Doppler. Carotid Duplex [id number]. Exam performed in department. VL/Carotid Duplex Ultrasound Interpretation Summary Mild (<50%) stenosis right extracranial internal carotid. Mild (<50%) stenosis left extracranial internal carotid. Patent and antegrade vertebrals bilaterally. Ordering Physician: Rin Mendez Referring Physician: Nick Estes Performed By: Janett Hagan RVT
== END | disposition home or self-care (01) ==
LOC: CVS 08:30
PROVIDERS: PCP Family Medicine; Referring Provider Physician Assistant; Visit Provider Physician Assistant
DX: Z48.812 Encounter for surgical aftercare following surgery on the circulatory system (principal); I65.23 Occlusion and stenosis of bilateral carotid arteries
CPT/HCPCS: 93880